=== PATIENT | female | born 1935 | race Caucasian/White ===

== ENCOUNTER 2016-08-18 12:14 | Inpatient (IN) | payer MEDICARE ==
[2016-08-18 17:12] LABS: Glucose,Whole Blood 215 mg/dL (75-99)
[2016-08-18] MEDS ORDERED: ALBUTEROL NEBULIZED 2.5 MG/3 ML INHALATION PRN (17:28)
[2016-08-18] MEDS ORDERED: AZITHROMYCIN 500 MG in SODIUM CHLORIDE 0.9% 250 ML IVPB STA (17:28)
[2016-08-18] MEDS ORDERED: PNEUMONIA PROTOCOL UTILIZED 1 EACH MISC PO PRN (17:28)
[2016-08-18] MEDS ORDERED: NITROGLYCERIN SL TABS 0.4 MG TAB SUBLINGUAL PRN (17:30)
[2016-08-18] MEDS ORDERED: ONDANSETRON 4 MG TAB PO PRN (17:30)
[2016-08-18] MEDS: ACETAMINOPHEN TAB 325 MG TAB PO PRN (18:29)
[2016-08-18] MEDS: INSULIN LISPRO (humaLOG) 300 UNIT/3 ML VIAL SQ SCH ×2 (18:29→22:04)
[2016-08-18] MEDS: SODIUM CHLORIDE 0.9% 1,000 ML IV SCH (18:30)
--- NOTE | 2016-08-18 19:39 | CT ---
EXAMINATION TYPE: CT chest wo con DATE OF EXAM: 08/18/2016 7:12 PM COMPARISON: NONE HISTORY: Cough x [address] DLP: 248.50 mGycm Automated exposure control for dose reduction was used. FINDINGS: Multiple axial sections were obtained from the thoracic inlet to the diaphragm with no contrast. There is some patchy reticular and nodular infiltrate in both lungs and worse in the right upper lobe and right lower lobe. There is a small right pleural effusion. There is a small pericardial effusion . Heart is enlarged. 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 There are n o hilar masses. There is no sign of mediastinal adenopathy. IMPRESSION: THERE ARE BILATERAL INTERSTITIAL AND NODULAR PULMONARY INFILTRATES CONSISTENT WITH INFLAMMATORY DISEA SE. SMALL RIGHT PLEURAL EFFUSION. SMALL PERICARDIAL EFFUSION. MILD ANEURYSM OF ASCENDING AORTA. THERE IS NARROWING OF THE LUMEN OF THE LEFT MAINSTEM BRONCHUS THAT COULD RELATE TO SOME CHONDROMALACIA. THERE IS NOTED MULTIPLE COMPRESSION FRACTURES OF THE THORACIC SPINE INVOLVING T11 T10 T6 T5 CONSISTEN T WITH OSTEOPOROSIS.
[2016-08-18] MEDS: BUDESONIDE 0.5 MG/2 ML NEBU INHALATION SCH (19:51)
[2016-08-18] MEDS: IPRATROPIUM-ALBUTEROL 3 ML NEB INHALATION SCH (19:51)
[2016-08-18] MEDS: OSELTAMIVIR 75 MG CAP PO SCH (21:20)
[2016-08-18 21:30] LABS: Glucose,Whole Blood 161 mg/dL (75-99)
[2016-08-19] MEDS ORDERED: methylPREDNISolone SOD SUCCI 40 MG/ML 1 ML VIAL IV SCH
[2016-08-19] MEDS: LEVOTHYROXINE 112 MCG TAB PO SCH (06:32)
[2016-08-19 07:46] LABS: Glucose,Whole Blood 144 mg/dL (75-99)
[2016-08-19] MEDS: BUDESONIDE 0.5 MG/2 ML NEBU INHALATION SCH ×2 (08:00→21:37)
[2016-08-19] MEDS: IPRATROPIUM-ALBUTEROL 3 ML NEB INHALATION SCH ×4 (08:00→21:37)
[2016-08-19] MEDS: GLIMEPIRIDE 1 MG TAB PO SCH (09:53)
[2016-08-19] MEDS: SENNOSIDES-DOCUSATE SODIUM 1 EACH TAB PO SCH (10:01)
[2016-08-19] MEDS: LORATADINE 10 MG TAB PO SCH (10:01)
[2016-08-19] MEDS: OSELTAMIVIR 75 MG CAP PO SCH (10:01)
[2016-08-19] MEDS: METOPROLOL SUCCINATE (ER) 50 MG TAB.ER.24H PO SCH (10:01)
[2016-08-19] MEDS: PRAVASTATIN SODIUM 40 MG TAB PO SCH (10:01)
[2016-08-19] MEDS: PANTOPRAZOLE 40 MG TABLET PO SCH (10:01)
[2016-08-19] MEDS: guaiFENesin 600 MG TABLET.ER PO SCH (10:01)
[2016-08-19] MEDS: GABAPENTIN 300 MG CAP PO SCH (10:05)
[2016-08-19] MEDS: INSULIN LISPRO (humaLOG) 300 UNIT/3 ML VIAL SQ SCH ×4 (10:05→22:20)
[2016-08-19 12:28] LABS: Glucose,Whole Blood 210 mg/dL (75-99)
[2016-08-19 13:19] LABS: Basophils # (A) 0.1 k/uL (0-0.2); Basophils % (A) 1 %; CH 30.9; Eosinophils # (A) 0.1 k/uL (0-0.7); Eosinophils % (A) 1 %; HCT 42.9 % (34.0-46.0); HGB 13.5 gm/dL (11.4-16.0); Hypochromasia Slight; Luc # (Auto) 0.18; Luc % (Auto) 2; Lymphocytes # (A) 0.5 k/uL (1.0-4.8); Lymphocytes % (A) 5 %; MCH 31.6 pg (25.0-35.0); MCHC 31.5 g/dL (31.0-37.0); MCV 100.2 fL (80.0-100.0); Macrocytosis Slight; Mean Platelet Volume 9.2; Monocytes # (A) 0.6 k/uL (0-1.0); Monocytes % (A) 6 %; Neutrophils # (A) 8.1 k/uL (1.3-7.7); Neutrophils % (A) 86 %; RBC 4.29 m/uL (3.80-5.40); RDW 14.7 % (11.5-15.5); WBC 9.4 k/uL (3.8-10.6); WBC (Perox) 10.16
[2016-08-19] MEDS: SODIUM CHLORIDE 0.9% 1,000 ML IV SCH ×2 (13:34→20:06)
[2016-08-19 13:36] LABS: Calcium 9.4 mg/dL (8.4-10.2); Potassium 4.6 mmol/L (3.5-5.1); Total Bilirubin 0.7 mg/dL (0.2-1.3); Total Protein 5.9 g/dL (6.3-8.2)
[2016-08-19] MEDS ORDERED: SODIUM CHLORIDE 0.9% 250 ML with PAMIDRONATE 60 MG IV ONE ×2 (14:00)
[2016-08-19 16:47] LABS: Glucose,Whole Blood 132 mg/dL (75-99)
--- NOTE | 2016-08-19 17:52 | P.HPIM ---
History of Present Illness H&P Date: 08/18/16 Chief Complaint: CELENA 81 yr old that is admitted to the hospital from [facility], as pt has progressively gotten worse since her admission on 08/14/16. Pt was initially admitted with CELENA, associated with a non productive cough. Pt was initially noted to have Some respiratory acidosis, was started on bipap, thereafter started on abx and breathing tx and triaged to the floor. Pt was then discharged home on 08/16/16, then readmitted overnight with similar complaints. Pt apparently was tachypneic and started on bipap again. Pt's CXR initially was read as pneumonia, however the radiologist at [place] has informed that a diffuse edema, and it is atypical for pneumonia. Currently on 2 l supplemental o2, has cough non productive in nature. Patient was retested for influenza here. Patient was positive this was after being negative twice. Review of Systems All systems: negative (Noted in HPI) Past Medical History Past Medical History: Asthma, Coronary Artery Disease (CAD), COPD, Diabetes Mellitus, Deep Vein Thrombosis (DVT), Eye Disorder, GERD/Reflux, Hearing Disorder / Deafness, Hypertension, Musculoskeletal Disorder, Osteoarthritis (OA) , Pneumonia, Vascular Disorder Additional Past Medical History / Comment(s): restless leg syndrome, cataracts, hx. of pneumonia, neuropathy History of Any Multi-Drug Resistant Organisms: None Reported Past Surgical History: Appendectomy, Cholecystectomy, Heart Catheterization With Stent, Hysterectomy, Pacemaker, Tubal Ligation Additional Past Surgical History / Comment(s): hemroidectomy. cataract removed. tooth extractions, Pemanent Pacemaker, Cardiac Ablation. Pacemaker - November 27, 2010 Past Anesthesia/Blood Transfusion Reactions: No Reported Reaction Date of Last Stent Placement:: 07/08/11 Type of Cardiac Device: Permanent Pacemaker Device Placement Date:: 2003 Past Psychological History: Anxiety, Depression Smoking Status: Never smoker Past Alcohol Use History: None Reported Past Drug Use History: None Reported - Past Family History Mother Family Medical History: No Reported History Medications and Allergies Home Medications Medication Instructions Recorded Confirmed Type Aspirin EC [Ecotrin Low Dose] 81 mg PO DAILY 12/08/13 08/18/16 History Furosemide [Lasix] 40 mg PO DAILY 12/08/13 08/18/16 History Pravastatin Sodium [Pravachol] 40 mg PO DAILY 12/08/13 08/18/16 History rOPINIRole HCL [Requip] 2 mg PO HS 12/08/13 08/18/16 History HYDROcodone/APAP 7.5-325MG [[place] 1 tab PO DAILY PRN 12/06/15 08/18/16 History 7.5-325] Budesonide/Formoterol Fumarate 2 puff INHALATION RT-BID PRN 12/27/15 08/18/16 History [Symbicort 80-4.5 Mcg Inhaler] Allopurinol [Zyloprim] 100 mg PO DAILY 08/18/16 08/18/16 History Gabapentin [Neurontin] 300 mg PO DAILY 08/18/16 08/18/16 History Glimepiride [Amaryl] 1 mg PO AC-BRKFST 08/18/16 08/18/16 History Levothyroxine Sodium [Synthroid] 112 mcg PO DAILY 08/18/16 08/18/16 History Loratadine [Claritin] 10 mg PO DAILY 08/18/16 08/18/16 History Metoprolol Succinate (ER) [Toprol 50 mg PO DAILY 08/18/16 08/18/16 History Xl] Nitroglycerin 0.4 mg SUBLINGUAL Q5M PRN 08/18/16 08/18/16 History Ondansetron HCl [Zofran] 4 mg PO TID PRN 08/18/16 08/18/16 History Pantoprazole [Protonix] 40 mg PO DAILY 08/18/16 08/18/16 History Sennosides-Docusate Sodium 2 tab PO DAILY 08/18/16 08/18/16 History [Senokot-S] Allergies Allergy/AdvReac Type Severity Reaction Status Date / Time digoxin AdvReac Nausea & Verified 01/26/16 16:03 Vomiting metformin HCl AdvReac Nausea & Verified 01/26/16 16:03 [From Glucophage] Vomiting Physical Exam Vitals: Vital Signs Temp Pulse Resp BP Pulse Ox 08/18/16 16:35 97 F L 70 18 116/72 98 Intake and Output 08/18/16 08/18/16 08/18/16 06:59 14:59 22:59 Other: Weight 71 kg Patient Weight 08/19/16 06:59 Weight 71 kg Physical exam Gen. appearance oriented 3 in no distress Neck is supple no JVD Lungs diffuse wheezes and however cleared with the deep cough. There is rhonchi appreciated most of the breath sounds with transmitted from the hypopharynx. Heart S1-S2 heard regular rate and rhythm no murmurs appreciated Abdomen is soft nontender no organomegaly bowel sounds are intact Neurologically cranial nerves II-12 grossly intact no focal motor or sensory deficits noted Skin no abnormalities appreciated Results CBC & Chem 7: 08/19/16 13:08 08/19/16 13:08 Labs: Abnormal Lab Results - Last 24 Hours (Table) 08/18/16 Range/Units 17:10 POC Glucose (mg/dL) 215 H (75-99) mg/dL Thrombosis Risk Factor Assmnt - Choose All That Apply Each Factor Represents 1 point: Abnormal pulmonary function (COPD) Each Risk Factor Represents 3 Points: Age 75 years or older, History of DVT/PE Thrombosis Risk Factor Assessment Total Risk Factor Score: 7 Thrombosis Risk Factor Assessment Level: High Risk Assessment and Plan Plan: #1 acute hypoxic respiratory failure #2 influenza pneumonitis. #3 CAD #4 history of hypertension #5 dyslipidemia #6 hypothyroidism Over [address] chest Duoneb, pulmicort. Mucomyst inhalation therapy will also be added. Pulmonology consultation will be obtained. ABx mucinex PEP valve bipap as needed
--- NOTE | 2016-08-19 17:54 | P.PN ---
Subjective f Complaint: CELENA 81 yr old that is admitted to the hospital from [facility], as pt has progressively gotten worse since her admission on 08/14/16. Pt was initially admitted with CELENA, associated with a non productive cough. Pt was initially noted to have Some respiratory acidosis, was started on bipap, thereafter started on abx and breathing tx and triaged to the floor. Pt was then discharged home on 08/16/16, then readmitted overnight with similar complaints. Pt apparently was tachypneic and started on bipap again. Pt's CXR initially was read as pneumonia, however the radiologist at [place] has informed that a diffuse edema, and it is atypical for pneumonia. Currently on 2 l supplemental o2, has cough non productive in nature. Patient was retested for influenza here. Patient was positive this was after being negative twice. 08/19/2016 No new overnight events. Patient states he slightly improved however does states that she likes a BiPAP support. Patient is not been able to bring up sputum. Objective - Vital Signs Vital signs: Vital Signs Temp 96.4 F L 08/19/16 15:00 Pulse 80 08/19/16 16:42 Resp 19 08/19/16 15:00 BP 123/69 08/19/16 15:00 Pulse Ox 98 08/19/16 15:00 Intake & Output 08/18/16 08/19/16 08/19/16 18:59 06:59 18:59 Intake Total 250 400 700 Balance 250 400 700 Weight 71 kg Intake: IV 700 Sodium Chloride 0.9% 1, 450 000 ml @ 50 mls/hr IV . Q20H [facility] Rx#:[id number] Sodium Chloride 0.9% 250 250 ml @ 83 mls/hr IV .Q3H1M ONE with Pamidronate 60 mg Rx#:[id number] Oral 250 400 Other: Voiding Method Toilet # Voids 1 1 - Exam Physical exam Gen. appearance oriented 3 in no distress Neck is supple no JVD Lungs wheezing with trace rhonchi on the left base. Heart S1-S2 heard regular rate and rhythm no murmurs appreciated Abdomen is soft nontender no organomegaly bowel sounds are intact Neurologically cranial nerves II-12 grossly intact no focal motor or sensory deficits noted Skin no abnormalities appreciated - Labs CBC & Chem 7: 08/19/16 13:08 08/19/16 13:08 Labs: Abnormal Lab Results - Last 24 Hours (Table) 08/18/16 08/18/16 08/18/16 Range/Units 17:44 18:41 21:26 MCV (80.0-100.0) fL Neutrophils # (1.3-7.7) k/uL Lymphocytes # (1.0-4.8) k/uL BUN (7-17) mg/dL Creatinine (0.52-1.04) mg/dL Glucose (74-99) mg/dL POC Glucose (mg/dL) 161 H (75-99) mg/dL AST (14-36) U/L ALT (9-52) U/L C-Reactive Protein 141.0 H (<10.0) mg/L Total Protein (6.3-8.2) g/dL Albumin (3.5-5.0) g/dL Influenza Type A RNA Detected H (Not Detectd) 08/19/16 08/19/16 08/19/16 Range/Units 07:45 12:27 13:08 MCV 100.2 H (80.0-100.0) fL Neutrophils # 8.1 H (1.3-7.7) k/uL Lymphocytes # 0.5 L (1.0-4.8) k/uL BUN (7-17) mg/dL Creatinine (0.52-1.04) mg/dL Glucose (74-99) mg/dL POC Glucose (mg/dL) 144 H 210 H (75-99) mg/dL AST (14-36) U/L ALT (9-52) U/L C-Reactive Protein (<10.0) mg/L Total Protein (6.3-8.2) g/dL Albumin (3.5-5.0) g/dL Influenza Type A RNA (Not Detectd) 08/19/16 08/19/16 Range/Units 13:08 16:45 MCV (80.0-100.0) fL Neutrophils # (1.3-7.7) k/uL Lymphocytes # (1.0-4.8) k/uL BUN 59 H (7-17) mg/dL Creatinine 1.16 H (0.52-1.04) mg/dL Glucose 204 H (74-99) mg/dL POC Glucose (mg/dL) 132 H (75-99) mg/dL AST 54 H (14-36) U/L ALT 59 H (9-52) U/L C-Reactive Protein (<10.0) mg/L Total Protein 5.9 L (6.3-8.2) g/dL Albumin 3.1 L (3.5-5.0) g/dL Influenza Type A RNA (Not Detectd) Assessment and Plan Plan: #1 acute hypoxic respiratory failure #2 influenza pneumonitis. #3 CAD #4 history of hypertension #5 dyslipidemia #6 hypothyroidism Over [address] chest results reviewed. Await pulmonology recommendations. Duoneb, pulmicort. Mucomyst inhalation therapy. Oxygen with humidity will be maintained. ABx mucinex PEP valve Discontinue BiPAP therapy.
[2016-08-19] MEDS: AZITHROMYCIN 500 MG TAB PO SCH (18:19)
--- NOTE | 2016-08-19 18:53 | P.CNPUL ---
History of Present Illness Consult date: 08/19/16 Requesting physician: Manuel Angel Reason for consult: pneumonia Chief complaint: shortness of breath History of present illness: This is an 81 year old patient that was admitted to [facility] from [facility]. Patient was having dyspnea and non productive coughing. Intially the patient was placed on BiPAP related to respiratory acidosis, updrafts and antibiotics were started. Chest X ray from [facility] suggested possibly pneumonia vs. diffuse vascular congestion or edema. Patient is also Influenza A positive at [facility] and was negative at [facility]. Upon examination the patient is resting up in bed on 2L of oxygen and has refused to use the BiPAP overnight per the nursing staff. Patient noted to have an intermittent cough. Denies, fevers, chills, sweats, nausea, vomiting or diarrhea at this time. Review of Systems A 14 point review of systems completed and is negative other than what is noted in the HPI. Past Medical History Past Medical History: Asthma, Coronary Artery Disease (CAD), COPD, Diabetes Mellitus, Deep Vein Thrombosis (DVT), Eye Disorder, GERD/Reflux, Hearing Disorder / Deafness, Hypertension, Musculoskeletal Disorder, Osteoarthritis (OA) , Pneumonia, Vascular Disorder Additional Past Medical History / Comment(s): restless leg syndrome, cataracts, hx. of pneumonia, neuropathy History of Any Multi-Drug Resistant Organisms: None Reported Past Surgical History: Appendectomy, Cholecystectomy, Heart Catheterization With Stent, Hysterectomy, Pacemaker, Tubal Ligation Additional Past Surgical History / Comment(s): hemroidectomy. cataract removed. tooth extractions, Pemanent Pacemaker, Cardiac Ablation. Pacemaker - November 27, 2010 Past Anesthesia/Blood Transfusion Reactions: No Reported Reaction Date of Last Stent Placement:: 07/08/11 Type of Cardiac Device: Permanent Pacemaker Device Placement Date:: 2003 Past Psychological History: Anxiety, Depression Smoking Status: Never smoker Past Alcohol Use History: None Reported Past Drug Use History: None Reported - Past Family History Mother Family Medical History: No Reported History Medications and Allergies Home Medications Medication Instructions Recorded Confirmed Type Aspirin EC [Ecotrin Low Dose] 81 mg PO DAILY 12/08/13 08/18/16 History Furosemide [Lasix] 40 mg PO DAILY 12/08/13 08/18/16 History Pravastatin Sodium [Pravachol] 40 mg PO DAILY 12/08/13 08/18/16 History rOPINIRole HCL [Requip] 2 mg PO HS 12/08/13 08/18/16 History HYDROcodone/APAP 7.5-325MG [[place] 1 tab PO DAILY PRN 12/06/15 08/18/16 History 7.5-325] Budesonide/Formoterol Fumarate 2 puff INHALATION RT-BID PRN 12/27/15 08/18/16 History [Symbicort 80-4.5 Mcg Inhaler] Allopurinol [Zyloprim] 100 mg PO DAILY 08/18/16 08/18/16 History Gabapentin [Neurontin] 300 mg PO DAILY 08/18/16 08/18/16 History Glimepiride [Amaryl] 1 mg PO AC-BRKFST 08/18/16 08/18/16 History Levothyroxine Sodium [Synthroid] 112 mcg PO DAILY 08/18/16 08/18/16 History Loratadine [Claritin] 10 mg PO DAILY 08/18/16 08/18/16 History Metoprolol Succinate (ER) [Toprol 50 mg PO DAILY 08/18/16 08/18/16 History Xl] Nitroglycerin 0.4 mg SUBLINGUAL Q5M PRN 08/18/16 08/18/16 History Ondansetron HCl [Zofran] 4 mg PO TID PRN 08/18/16 08/18/16 History Pantoprazole [Protonix] 40 mg PO DAILY 08/18/16 08/18/16 History Sennosides-Docusate Sodium 2 tab PO DAILY 08/18/16 08/18/16 History [Senokot-S] Allergies Allergy/AdvReac Type Severity Reaction Status Date / Time digoxin AdvReac Nausea & Verified 01/26/16 16:03 Vomiting metformin HCl AdvReac Nausea & Verified 01/26/16 16:03 [From Glucophage] Vomiting Physical Exam Vitals: Vital Signs Temp Pulse Pulse Resp BP Pulse Ox 08/19/16 16:42 80 08/19/16 16:22 80 08/19/16 16:00 19 08/19/16 15:00 96.4 F L 70 19 123/69 98 08/19/16 12:00 80 08/19/16 11:52 84 08/19/16 08:18 76 08/19/16 08:03 80 08/19/16 07:00 96.2 F L 70 20 118/69 99 08/18/16 23:35 18 08/18/16 23:00 96.6 F L 70 20 123/81 99 08/18/16 20:17 76 08/18/16 19:51 74 Intake and Output 08/19/16 08/19/16 08/19/16 06:59 14:59 22:59 Intake Total 100 700 Balance 100 700 Intake: IV 700 Sodium Chloride 0.9% 1, 450 000 ml @ 50 mls/hr IV . Q20H [facility] Rx#:[id number] Sodium Chloride 0.9% 250 250 ml @ 83 mls/hr IV .Q3H1M ONE with Pamidronate 60 mg Rx#:[id number] Oral 100 Other: Voiding Method Toilet # Voids 1 1 General: Patient alert and awake Head: normocephalic Eyes: Normal reaction of pupils, equal size. Nose: Clear with pink turbinates Throat: No erythema or exudates Neck: No masses or JVD Chest: NO chest wall deformity Lungs: Bilateral wheezes and rhonchi noted throughout CVS: S1 and S2 normal with no murmur or rub Abdomen: No hepatosplenomegaly, normal bowel sounds, no guarding or rigidgy Extremities: No edema, +1 peripheral pulses Skin: no rashes Neuro: Alert awake, no focal deficits, tone is normal in all 4 extremities. Results - Laboratory Findings CBC and BMP: 08/19/16 13:08 08/19/16 13:08 Abnormal lab findings: Abnormal Labs 08/18/16 08/18/16 08/18/16 17:10 17:44 18:41 MCV Neutrophils # Lymphocytes # BUN Creatinine Glucose POC Glucose (mg/dL) 215 H AST ALT C-Reactive Protein 141.0 H Total Protein Albumin Influenza Type A RNA Detected H 08/18/16 08/19/16 08/19/16 21:26 07:45 12:27 MCV Neutrophils # Lymphocytes # BUN Creatinine Glucose POC Glucose (mg/dL) 161 H 144 H 210 H AST ALT C-Reactive Protein Total Protein Albumin Influenza Type A RNA 08/19/16 08/19/16 08/19/16 13:08 13:08 16:45 MCV 100.2 H Neutrophils # 8.1 H Lymphocytes # 0.5 L BUN 59 H Creatinine 1.16 H Glucose 204 H POC Glucose (mg/dL) 132 H AST 54 H ALT 59 H C-Reactive Protein Total Protein 5.9 L Albumin 3.1 L Influenza Type A RNA - Diagnostic Findings Chest x-ray: report reviewed, image reviewed CT scan - chest: report reviewed, image reviewed Assessment and Plan Plan: Assessment: Acute hypoxic respiratory failure Influenza B pneumonitis CAD History of hypertension Dyslipidemia Hypothyroidism Restless leg syndrome Plan We will continue the patient on Tamiflu, and nebulizer treatments. Encourage the patient to use BiPAP at bedtime and as needed. Continue with 2L of supplemental oxygen to keep oxygen saturations above 92%. We will continue to monitor labs and adjust treatment as necessary.
[2016-08-19] MEDS ORDERED: ACETYLCYSTEINE 800 MG/4 ML VIAL INHALATION SCH (20:00)
[2016-08-19] MEDS: OSELTAMIVIR 60 MG/10 ML ORAL SYRINGE PO SCH (20:07)
[2016-08-19 20:51] LABS: Glucose,Whole Blood 117 mg/dL (75-99)
[2016-08-19] MEDS ORDERED: OSELTAMIVIR 75 MG CAP PO SCH (21:00)
[2016-08-19] MEDS: ACETYLCYSTEINE 800 MG/4 ML VIAL INHALATION SCH (21:40)
[2016-08-20] MEDS: LEVOTHYROXINE 112 MCG TAB PO SCH (06:29)
[2016-08-20 07:15] LABS: Glucose,Whole Blood 86 mg/dL (75-99)
[2016-08-20] MEDS: BUDESONIDE 0.5 MG/2 ML NEBU INHALATION SCH ×2 (07:18→20:51)
[2016-08-20] MEDS: ACETYLCYSTEINE 800 MG/4 ML VIAL INHALATION SCH ×3 (07:18→20:51)
[2016-08-20] MEDS: IPRATROPIUM-ALBUTEROL 3 ML NEB INHALATION SCH ×4 (07:18→20:51)
[2016-08-20] MEDS: INSULIN LISPRO (humaLOG) 300 UNIT/3 ML VIAL SQ SCH ×4 (07:37→20:49)
[2016-08-20] MEDS: guaiFENesin 600 MG TABLET.ER PO SCH (08:04)
[2016-08-20] MEDS: LORATADINE 10 MG TAB PO SCH (08:04)
[2016-08-20] MEDS: PRAVASTATIN SODIUM 40 MG TAB PO SCH (08:04)
[2016-08-20] MEDS: PANTOPRAZOLE 40 MG TABLET PO SCH (08:04)
[2016-08-20] MEDS: GLIMEPIRIDE 1 MG TAB PO SCH (08:04)
[2016-08-20] MEDS: METOPROLOL SUCCINATE (ER) 50 MG TAB.ER.24H PO SCH (08:04)
[2016-08-20] MEDS: GABAPENTIN 300 MG CAP PO SCH (08:04)
[2016-08-20] MEDS: SENNOSIDES-DOCUSATE SODIUM 1 EACH TAB PO SCH (08:08)
[2016-08-20] MEDS: OSELTAMIVIR 60 MG/10 ML ORAL SYRINGE PO SCH ×2 (08:35→20:46)
--- NOTE | 2016-08-20 11:19 | P.PN ---
Subjective This is an 81-year-old patient that is being evaluated and examined today on the fourth floor. The patient was admitted to [facility] from [facility]. Patient was having dyspnea on non-productive coughing. Initially the patient was placed on BiPAP related to respiratory acidosis, AND antibiotics were started at that time. The chest x-ray from her last suggested possible pneumonia versus diffuse vascular congestion or edema. The patient is also influenza a positive [facility] after 2 negative swabs at [facility]. Upon examining the patient the patient is resting up in bed on 2-3 L of oxygen, since she has been admitted here she has refused the use of BiPAP which is ordered for nighttime and when necessary. She is noted to have a dry intermittent cough. Patient states that she feels like she has some congestion she could bring up however is unsuccessful with bringing it up with her cough.She denies any fevers, chills, sweats, nausea, vomiting, or diarrhea at this time. Patient had no acute events overnight. Objective - Vital Signs Vital signs: Vital Signs Temp 96.8 F L 08/20/16 07:00 Pulse 76 08/20/16 07:57 Resp 16 08/20/16 08:00 BP 130/58 08/20/16 07:00 Pulse Ox 99 08/20/16 07:00 Intake & Output 08/19/16 08/20/16 08/20/16 18:59 06:59 18:59 Intake Total 700 Balance 700 Intake: IV 700 Sodium Chloride 0.9% 1, 450 000 ml @ 50 mls/hr IV . Q20H [facility] Rx#:[id number] Sodium Chloride 0.9% 250 250 ml @ 83 mls/hr IV .Q3H1M ONE with Pamidronate 60 mg Rx#:[id number] Other: Voiding Method Toilet # Voids 1 1 - Exam GENERAL EXAM: Alert, active, comfortable in no apparent distress. HEAD: Normocephalic. EYES: Normal reaction of pupils, equal size. NOSE: Clear with pink turbinates. THROAT: No erythema or exudates. NECK: No masses, no JVD. CHEST: No chest wall deformity. LUNGS: Equal air entry with rhonchi and wheezes noted throughout CVS: S1 and S2 normal with no audible mumurs, regular rhythm. ABDOMEN: No hepatosplenomegaly, normal bowel sounds, no guarding or rigidity. EXTREMITIES: No edema noted, pedal pulses palpable. SKIN: No rashes CENTRAL NERVOUS SYSTEM: No focal deficits, tone is normal in all 4 extremities. - Labs CBC & Chem 7: 08/19/16 13:08 08/19/16 13:08 Labs: Abnormal Lab Results - Last 24 Hours (Table) 08/19/16 08/19/16 08/19/16 Range/Units 12:27 13:08 13:08 MCV 100.2 H (80.0-100.0) fL Neutrophils # 8.1 H (1.3-7.7) k/uL Lymphocytes # 0.5 L (1.0-4.8) k/uL BUN 59 H (7-17) mg/dL Creatinine 1.16 H (0.52-1.04) mg/dL Glucose 204 H (74-99) mg/dL POC Glucose (mg/dL) 210 H (75-99) mg/dL AST 54 H (14-36) U/L ALT 59 H (9-52) U/L Total Protein 5.9 L (6.3-8.2) g/dL Albumin 3.1 L (3.5-5.0) g/dL 08/19/16 08/19/16 Range/Units 16:45 20:49 MCV (80.0-100.0) fL Neutrophils # (1.3-7.7) k/uL Lymphocytes # (1.0-4.8) k/uL BUN (7-17) mg/dL Creatinine (0.52-1.04) mg/dL Glucose (74-99) mg/dL POC Glucose (mg/dL) 132 H 117 H (75-99) mg/dL AST (14-36) U/L ALT (9-52) U/L Total Protein (6.3-8.2) g/dL Albumin (3.5-5.0) g/dL Microbiology - Last 24 Hours (Table) 08/18/16 17:44 Blood Culture - Preliminary Blood No Growth after 24 hours Assessment and Plan Plan: Assessment: Acute hypoxic respiratory failure Influenza B pneumonitis CAD History of hypertension Dyslipidemia Hypothyroidism Restless leg syndrome Plan We will continue the patient on Tamiflu, and nebulizer treatments. Encourage the patient to use BiPAP at bedtime and as needed. Continue with 2-3L of supplemental oxygen to keep oxygen saturations above 92%. We will add a flutter valve to help with secretions. We will continue to monitor labs and adjust treatment as necessary. I performed an examination of the patient and discussed their management with the nurse practitioner. I have reviewed the nurse practitioner's note and agree with the documented findings and plan of care.
--- NOTE | 2016-08-20 11:48 | CDI ---
In responding to this query, please exercise your independent professional judgment. The [facility] Coding Staff and Clinical Documentation Specialists appreciate your assistance in clarifying documentation, maintaining compliance with coding guidelines, accurately documenting patients condition and capturing severity of illness. The fact that a question is asked does not imply that any particular answer is desired or expected. Communication forms are a method of clarifying documentation and are not made part of the Legal Health Record. Thank you in advance for your clarification. Last Revision, April [address] [facility] [facility] [place] [address] Documentation Clarification Form Date: 08/20/2016 11:43:00 AM From: Iveth Arteaga Admit Date: 08/18/2016 4:17:00 PM Patient Name: Airam Turner Visit Number: [id number] Dr. Manuel Angel Patient presents with a BUN/CR/GFR of: 59/1.16/45 History/Risk Factors: Age: 81 yrs Diabetes Mellitus Hypertension Influenza with Pneumonia Clinical Indicators: Labs noted above Treatment: IV fluids @50 cc/hr In order to capture the severity of condition, please clarify if the condition signifies: Acute renal failure Acute on chronic renal failure Chronic kidney disease (CKD) and please stage Stage 3 GFR 30-59 Other Stage (please specify) Unable to determine Other, specify Please document in your progress notes and discharge summary in order to capture severity of illness and risk of mortality. Include clinical findings that support your diagnosis. FYI: Press F11 to launch patient chart. Place X here if this finding has no clinical significance, is not applicable or if you are not able to provide any additional documentation. ANDERSON
--- NOTE | 2016-08-20 11:57 | CDI ---
In responding to this query, please exercise your independent professional judgment. The [facility] Coding Staff and Clinical Documentation Specialists appreciate your assistance in clarifying documentation, maintaining compliance with coding guidelines, accurately documenting patients condition and capturing severity of illness. The fact that a question is asked does not imply that any particular answer is desired or expected. Communication forms are a method of clarifying documentation and are not made part of the Legal Health Record. Thank you in advance for your clarification. Last Revision, August 2015 Zack Lang [address] [place] [address] Documentation Clarification Form Date: 08/20/2016 11:49:00 AM From: Iveth Arteaga Admit Date: 08/18/2016 4:17:00 PM Patient Name: Airam Turner Visit Number: [id number] Dr. Manuel Angel History/Risk Factors: Age: 81 yrs Clinical Indications: CT chest on 08/18: 'multiple compression fractures of thoracic spine involving T11, T10, T6, T5 consistent with osteoporosis' Treatment: IV Aredia administered on 08/19 then d/c'd Consult: PT/OT In your professional opinion, please specify the following: Etiology of fracture: Traumatic Pathological (specify cause): Osteoporosis Other (please specify) Unable to determine Specify if: Closed Open Also, indicate any associated diagnosis/conditions related to the Fracture in your documentation. Please document in your progress notes and discharge summary in order to capture severity of illness and risk of mortality. Include clinical findings that support your diagnosis. FYI: Press F11 to launch patient chart Place X here if this finding has no clinical significance, is not applicable or if you are not able to provide any additional documentation. ANDERSON
[2016-08-20 12:24] LABS: Glucose,Whole Blood 81 mg/dL (75-99)
--- NOTE | 2016-08-20 13:43 | XR ---
EXAMINATION TYPE: XR chest 2V DATE OF EXAM: 08/20/2016 1:38 PM COMPARISON: 08/18/2016 TECHNIQUE: PA and lateral views submitted. HISTORY: ECF placement FINDINGS: Scoliosis seen. Surgical clips in the upper quadrant of the abdomen. Cardiac device and atherosclerot ic change aorta. Biapical pleural thickening. Diffuse osteopenia. Subsegmental changes left lung base with tiny effusion. Chronic appearing multiple compression deformities thoracic spine. IMPRESSION: 1. Left basilar atelectasis or infiltrate with tiny effusion. 2. Interstitial changes may be on the basis of chronic interstitial lung disease or pneumonitis.
[2016-08-20] MEDS ORDERED: INFLUENZA VACCINE (3YR+) 60 MCG/0.5 ML SYRINGE IM ONE (16:01)
[2016-08-20] MEDS ORDERED: PNEUMOCOCCAL VACC-PNEUMOVAX 23 25 MCG/0.5 ML VIAL IM ONE (16:01)
[2016-08-20] MEDS: SODIUM CHLORIDE 0.9% 1,000 ML IV SCH (17:38)
[2016-08-20] MEDS: AZITHROMYCIN 500 MG TAB PO SCH (17:40)
[2016-08-20 17:43] LABS: Glucose,Whole Blood 90 mg/dL (75-99)
--- NOTE | 2016-08-20 19:06 | P.PN ---
Subjective f Complaint: CELENA 81 yr old that is admitted to the hospital from [facility], as pt has progressively gotten worse since her admission on 08/14/16. Pt was initially admitted with CELENA, associated with a non productive cough. Pt was initially noted to have Some respiratory acidosis, was started on bipap, thereafter started on abx and breathing tx and triaged to the floor. Pt was then discharged home on 08/16/16, then readmitted overnight with similar complaints. Pt apparently was tachypneic and started on bipap again. Pt's CXR initially was read as pneumonia, however the radiologist at [place] has informed that a diffuse edema, and it is atypical for pneumonia. Currently on 2 l supplemental o2, has cough non productive in nature. Patient was retested for influenza here. Patient was positive this was after being negative twice. 08/19/2016 No new overnight events. Patient states he slightly improved however does states that she likes a BiPAP support. Patient is not been able to bring up sputum. 08/20/16 No new overnight events states to be feeling slightly better UNable to cough up sputum No fevers, chills, nausea, vomiting. Objective - Vital Signs Vital signs: Vital Signs Temp 96.3 F L 08/20/16 15:00 Pulse 80 08/20/16 16:36 Resp 20 08/20/16 16:00 BP 120/73 08/20/16 15:00 Pulse Ox 100 08/20/16 15:00 Intake & Output 08/20/16 08/20/16 08/21/16 06:59 18:59 06:59 Other: Voiding Method Toilet # Voids 1 2 - Exam Physical exam Gen. appearance oriented 3 in no distress Neck is supple no JVD Lungs wheezing with trace rhonchi diffusely transmitted from hypopharynx Heart S1-S2 heard regular rate and rhythm no murmurs appreciated Abdomen is soft nontender no organomegaly bowel sounds are intact Neurologically cranial nerves II-12 grossly intact no focal motor or sensory deficits noted Skin no abnormalities appreciated - Labs CBC & Chem 7: 08/19/16 13:08 08/19/16 13:08 Labs: Abnormal Lab Results - Last 24 Hours (Table) 08/19/16 Range/Units 20:49 POC Glucose (mg/dL) 117 H (75-99) mg/dL Microbiology - Last 24 Hours (Table) 08/18/16 17:44 Blood Culture - Preliminary Blood No Growth after 24 hours Assessment and Plan Plan: #1 acute hypoxic respiratory failure sec to #2 #2 influenza pneumonitis. #3 CAD #4 history of hypertension #5 dyslipidemia #6 hypothyroidism 7 restless leg syndrome. 8. CKD [address] chest results reviewed. Attempted deep suctioning Discussed with pulmonology regarding bronchoscopy. will undergo procedure taviathelma David. Mucomyst inhalation therapy. Oxygen with humidity will be maintained. ABx mucinex PEP valve
[2016-08-20 20:24] LABS: Glucose,Whole Blood 108 mg/dL (75-99)
[2016-08-21] MEDS: LEVOTHYROXINE 112 MCG TAB PO SCH (06:14)
[2016-08-21 07:19] LABS: Glucose,Whole Blood 52 mg/dL (75-99)
[2016-08-21] MEDS: INSULIN LISPRO (humaLOG) 300 UNIT/3 ML VIAL SQ SCH ×4 (07:37→22:04)
[2016-08-21] MEDS: GLIMEPIRIDE 1 MG TAB PO SCH (07:39)
[2016-08-21 07:45] LABS: Glucose,Whole Blood 73 mg/dL (75-99)
[2016-08-21] MEDS: METOPROLOL SUCCINATE (ER) 50 MG TAB.ER.24H PO SCH (07:46)
[2016-08-21] MEDS: PANTOPRAZOLE 40 MG TABLET PO SCH (07:46)
[2016-08-21] MEDS: LORATADINE 10 MG TAB PO SCH (07:46)
[2016-08-21] MEDS: guaiFENesin 600 MG TABLET.ER PO SCH (07:47)
[2016-08-21] MEDS: SENNOSIDES-DOCUSATE SODIUM 1 EACH TAB PO SCH (07:47)
[2016-08-21] MEDS: OSELTAMIVIR 60 MG/10 ML ORAL SYRINGE PO SCH ×2 (08:21→22:50)
[2016-08-21] MEDS: IPRATROPIUM-ALBUTEROL 3 ML NEB INHALATION SCH ×4 (08:59→20:33)
[2016-08-21] MEDS: ACETYLCYSTEINE 800 MG/4 ML VIAL INHALATION SCH ×3 (08:59→20:33)
[2016-08-21] MEDS: BUDESONIDE 0.5 MG/2 ML NEBU INHALATION SCH ×2 (08:59→20:33)
[2016-08-21] MEDS: PRAVASTATIN SODIUM 40 MG TAB PO SCH (09:15)
[2016-08-21 09:31] LABS: Calcium 9.1 mg/dL (8.4-10.2); Potassium 4.8 mmol/L (3.5-5.1); Total Bilirubin 0.6 mg/dL (0.2-1.3); Total Protein 5.7 g/dL (6.3-8.2)
[2016-08-21 09:37] LABS: Basophils % (A) 0 %; CH 30.5; CHCM 30.3; Eosinophils # (A) 0.1 k/uL (0-0.7); Eosinophils % (A) 2 %; HCT 46.5 % (34.0-46.0); HDW 2.56; HGB 14.2 gm/dL (11.4-16.0); Hypochromasia Moderate; Luc # (Auto) 0.27; Luc % (Auto) 4; Lymphocytes # (A) 1.6 k/uL (1.0-4.8); Lymphocytes % (A) 23 %; MCH 30.8 pg (25.0-35.0); MCHC 30.5 g/dL (31.0-37.0); Macrocytosis Slight; Mean Platelet Volume 9.3; Monocytes # (A) 0.6 k/uL (0-1.0); Monocytes % (A) 8 %; Neutrophils # (A) 4.3 k/uL (1.3-7.7); Neutrophils % (A) 63 %; RDW 14.9 % (11.5-15.5); WBC 6.9 k/uL (3.8-10.6); WBC (Perox) 6.76
[2016-08-21] MEDS: GABAPENTIN 300 MG CAP PO SCH (09:51)
--- NOTE | 2016-08-21 11:56 | XR ---
EXAMINATION TYPE: XR chest 1V portable DATE OF EXAM: 08/21/2016 10:59 AM COMPARISON: 08/20/2016 HISTORY: Shortness of breath TECHNIQUE: Single frontal view of the chest is obtained. FINDINGS: Scoliosis seen. Surgical clips in the upper quadrant of the abdomen. Cardiac device and at herosclerotic change aorta. Biapical pleural thickening. Diffuse osteopenia. Subsegmental changes lef t lung base with tiny effusion. Chronic appearing multiple compression deformities thoracic spine. More focal area of density in the right upper lobe IMPRESSION: 1. Left basilar atelectasis or infiltrate with tiny effusion. 2. Interstitial changes may be on the basis of chronic interstitial lung disease or pneumonitis. More focal density now seen in the right upper lobe which may represent developing infiltrate. Follow-up to resolution.
[2016-08-21 12:06] LABS: Glucose,Whole Blood 97 mg/dL (75-99)
--- NOTE | 2016-08-21 13:56 | P.PN ---
Subjective This is an 81-year-old patient that is being evaluated and examined today on the fourth floor. The patient was admitted to [facility] from [facility]. Patient was having dyspnea on non-productive coughing. Initially the patient was placed on BiPAP related to respiratory acidosis, AND antibiotics were started at that time. The chest x-ray from her last suggested possible pneumonia versus diffuse vascular congestion or edema. The patient is also influenza a positive [facility] after 2 negative swabs at [facility]. Upon examining the patient the patient is resting up in bed on 2-3 L of oxygen, since she has been admitted here she has refused the use of BiPAP which is ordered for nighttime and when necessary. She is noted to have a dry intermittent cough. Patient states that she feels like she has some congestion she could bring up however is unsuccessful with bringing it up with her cough. She denies any fevers, chills, sweats, nausea, vomiting, or diarrhea at this time. Patient had no acute events overnight. Patient will undergo bronchoscopy with Dr. Porter on Friday. Objective - Vital Signs Vital signs: Vital Signs Temp 96.5 F L 08/21/16 07:00 Pulse 84 08/21/16 09:14 Resp 16 08/21/16 08:00 BP 129/84 08/21/16 07:00 Pulse Ox 99 08/21/16 07:00 Intake & Output 08/20/16 08/21/16 08/21/16 18:59 06:59 18:59 Intake Total 400 Balance 400 Intake: Oral 400 Other: Voiding Method Toilet Toilet # Voids 2 1 - Exam GENERAL EXAM: Alert, active, comfortable in no apparent distress. HEAD: Normocephalic. EYES: Normal reaction of pupils, equal size. NOSE: Clear with pink turbinates. THROAT: No erythema or exudates. NECK: No masses, no JVD. CHEST: No chest wall deformity. LUNGS: Equal air entry with rhonchi and wheezes noted throughout CVS: S1 and S2 normal with no audible mumurs, regular rhythm. ABDOMEN: No hepatosplenomegaly, normal bowel sounds, no guarding or rigidity. EXTREMITIES: No edema noted, pedal pulses palpable. SKIN: No rashes CENTRAL NERVOUS SYSTEM: No focal deficits, tone is normal in all 4 extremities. - Labs CBC & Chem 7: 08/21/16 08:07 08/21/16 08:45 Labs: Abnormal Lab Results - Last 24 Hours (Table) 08/20/16 08/21/16 08/21/16 Range/Units 20:20 07:18 07:44 Hct (34.0-46.0) % MCV (80.0-100.0) fL MCHC (31.0-37.0) g/dL Carbon Dioxide (22-30) mmol/L BUN (7-17) mg/dL Creatinine (0.52-1.04) mg/dL Glucose (74-99) mg/dL POC Glucose (mg/dL) 108 H 52 L 73 L (75-99) mg/dL Total Protein (6.3-8.2) g/dL Albumin (3.5-5.0) g/dL 08/21/16 08/21/16 Range/Units 08:07 08:45 Hct 46.5 H (34.0-46.0) % MCV 101.0 H (80.0-100.0) fL MCHC 30.5 L (31.0-37.0) g/dL Carbon Dioxide 31 H (22-30) mmol/L BUN 43 H (7-17) mg/dL Creatinine 1.13 H (0.52-1.04) mg/dL Glucose 100 H (74-99) mg/dL POC Glucose (mg/dL) (75-99) mg/dL Total Protein 5.7 L (6.3-8.2) g/dL Albumin 3.0 L (3.5-5.0) g/dL Microbiology - Last 24 Hours (Table) 08/18/16 17:44 Blood Culture - Preliminary Blood No Growth after 48 hours Assessment and Plan Plan: Assessment: Acute hypoxic respiratory failure Influenza B pneumonitis CAD History of hypertension Dyslipidemia Hypothyroidism Restless leg syndrome Plan Patient will undergo bronchoscopy on Friday. We will continue the patient on Tamiflu, and nebulizer treatments. Encourage the patient to use BiPAP at bedtime and as needed. Continue with 2-3L of supplemental oxygen to keep oxygen saturations above 92%. We will add a flutter valve to help with secretions. Continue to try to get a sputum sample for culture. We will continue to monitor labs and adjust treatment as necessary. I performed an examination of the patient and discussed their management with the nurse practitioner. I have reviewed the nurse practitioner's note and agree with the documented findings and plan of care.
[2016-08-21 17:16] LABS: Glucose,Whole Blood 64 mg/dL (75-99)
--- NOTE | 2016-08-21 17:24 | P.PN ---
Subjective f Complaint: CELENA 81 yr old that is admitted to the hospital from [facility], as pt has progressively gotten worse since her admission on 08/14/16. Pt was initially admitted with CELENA, associated with a non productive cough. Pt was initially noted to have Some respiratory acidosis, was started on bipap, thereafter started on abx and breathing tx and triaged to the floor. Pt was then discharged home on 08/16/16, then readmitted overnight with similar complaints. Pt apparently was tachypneic and started on bipap again. Pt's CXR initially was read as pneumonia, however the radiologist at [place] has informed that a diffuse edema, and it is atypical for pneumonia. Currently on 2 l supplemental o2, has cough non productive in nature. Patient was retested for influenza here. Patient was positive this was after being negative twice. 08/19/2016 No new overnight events. Patient states he slightly improved however does states that she likes a BiPAP support. Patient is not been able to bring up sputum. 08/20/16 No new overnight events states to be feeling slightly better UNable to cough up sputum No fevers, chills, nausea, vomiting. 2016 States she is still not able to bring up any secretions however states that her breathing is slightly better. Denies having fevers, chills, nausea, vomiting. Objective - Vital Signs Vital signs: Vital Signs Temp 95.6 F L 08/21/16 15:00 Pulse 72 08/21/16 17:14 Resp 16 08/21/16 15:00 BP 135/76 08/21/16 15:00 Pulse Ox 97 08/21/16 15:00 Intake & Output 08/20/16 08/21/16 08/21/16 18:59 06:59 18:59 Intake Total 400 520 Balance 400 520 Intake: IV 400 Sodium Chloride 0.9% 1, 400 000 ml @ 50 mls/hr IV . Q20H [facility] Rx#:[id number] Oral 400 120 Other: Voiding Method Toilet Toilet # Voids 2 1 3 - Exam Physical exam Gen. appearance oriented 3 in no distress Neck is supple no JVD Lungs wheezing with trace rhonchi diffusely transmitted from hypopharynx Heart S1-S2 heard regular rate and rhythm no murmurs appreciated Abdomen is soft nontender no organomegaly bowel sounds are intact Neurologically cranial nerves II-12 grossly intact no focal motor or sensory deficits noted Skin no abnormalities appreciated - Labs CBC & Chem 7: 08/21/16 08:07 03 08:45 Labs: Abnormal Lab Results - Last 24 Hours (Table) 08/20/16 08/21/16 08/21/16 Range/Units 20:20 07:18 07:44 Hct (34.0-46.0) % MCV (80.0-100.0) fL MCHC (31.0-37.0) g/dL Carbon Dioxide (22-30) mmol/L BUN (7-17) mg/dL Creatinine (0.52-1.04) mg/dL Glucose (74-99) mg/dL POC Glucose (mg/dL) 108 H 52 L 73 L (75-99) mg/dL Total Protein (6.3-8.2) g/dL Albumin (3.5-5.0) g/dL 08/21/16 08/21/16 08/21/16 Range/Units 08:07 08:45 17:14 Hct 46.5 H (34.0-46.0) % MCV 101.0 H (80.0-100.0) fL MCHC 30.5 L (31.0-37.0) g/dL Carbon Dioxide 31 H (22-30) mmol/L BUN 43 H (7-17) mg/dL Creatinine 1.13 H (0.52-1.04) mg/dL Glucose 100 H (74-99) mg/dL POC Glucose (mg/dL) 64 L (75-99) mg/dL Total Protein 5.7 L (6.3-8.2) g/dL Albumin 3.0 L (3.5-5.0) g/dL Microbiology - Last 24 Hours (Table) 08/18/16 17:44 Blood Culture - Preliminary Blood No Growth after 48 hours Assessment and Plan Plan: #1 acute hypoxic respiratory failure sec to #2 #2 influenza pneumonitis. #3 CAD #4 history of hypertension #5 dyslipidemia #6 hypothyroidism 7 restless leg syndrome. 8. CKD 3 #9. Osteoporosis likely by the diagnosis of nontraumatic fractures patient was given one dose of pamidronate. Plan Discussed with pulmonology regarding bronchoscopy.likely be in the next 24-48 hours. will undergo procedure tavia. Duoneb, pulmicort. Mucomyst inhalation therapy. Oxygen with humidity will be maintained. ABx mucinex PEP valve DVT prophylaxis.
[2016-08-21 18:30] LABS: Glucose,Whole Blood 74 mg/dL (75-99)
[2016-08-21] MEDS: AZITHROMYCIN 500 MG TAB PO SCH (18:45)
[2016-08-21 20:28] LABS: Glucose,Whole Blood 77 mg/dL (75-99)
[2016-08-22 02:11] LABS: Glucose,Whole Blood 98 mg/dL (75-99)
[2016-08-22] MEDS: ACETAMINOPHEN TAB 325 MG TAB PO PRN (03:31)
[2016-08-22] MEDS: SODIUM CHLORIDE 0.9% 1,000 ML IV SCH ×2 (03:32→20:42)
[2016-08-22] MEDS: LEVOTHYROXINE 112 MCG TAB PO SCH (06:30)
[2016-08-22 07:27] LABS: Glucose,Whole Blood 87 mg/dL (75-99)
[2016-08-22] MEDS: INSULIN LISPRO (humaLOG) 300 UNIT/3 ML VIAL SQ SCH ×4 (07:47→20:51)
[2016-08-22] MEDS: GLIMEPIRIDE 1 MG TAB PO SCH (07:48)
[2016-08-22] MEDS: BUDESONIDE 0.5 MG/2 ML NEBU INHALATION SCH ×2 (07:53→20:34)
[2016-08-22] MEDS: IPRATROPIUM-ALBUTEROL 3 ML NEB INHALATION SCH ×4 (07:53→20:34)
[2016-08-22] MEDS: ACETYLCYSTEINE 800 MG/4 ML VIAL INHALATION SCH ×3 (07:53→20:34)
[2016-08-22 07:54] LABS: Basophils % (A) 1 %; CH 30.6; CHCM 30.5; Eosinophils # (A) 0.2 k/uL (0-0.7); Eosinophils % (A) 3 %; HCT 46.1 % (34.0-46.0); HDW 2.56; Hypochromasia Moderate; Luc # (Auto) 0.16; Luc % (Auto) 3; Lymphocytes % (A) 17 %; MCH 30.6 pg (25.0-35.0); MCHC 30.3 g/dL (31.0-37.0); MCV 101.2 fL (80.0-100.0); Macrocytosis Slight; Mean Platelet Volume 8.4; Monocytes # (A) 0.4 k/uL (0-1.0); Monocytes % (A) 6 %; Neutrophils # (A) 4.1 k/uL (1.3-7.7); Neutrophils % (A) 71 %; RBC 4.56 m/uL (3.80-5.40); RDW 14.7 % (11.5-15.5); WBC 5.8 k/uL (3.8-10.6); WBC (Perox) 5.94
[2016-08-22 08:05] LABS: Calcium 9.4 mg/dL (8.4-10.2); Total Bilirubin 0.5 mg/dL (0.2-1.3); Total Protein 5.5 g/dL (6.3-8.2)
[2016-08-22 08:19] LABS: Potassium 5.2 mmol/L (3.5-5.1)
[2016-08-22] MEDS: LORATADINE 10 MG TAB PO SCH (08:30)
[2016-08-22] MEDS: PRAVASTATIN SODIUM 40 MG TAB PO SCH (08:30)
[2016-08-22] MEDS: METOPROLOL SUCCINATE (ER) 50 MG TAB.ER.24H PO SCH (08:30)
[2016-08-22] MEDS: guaiFENesin 600 MG TABLET.ER PO SCH (08:30)
[2016-08-22] MEDS: PANTOPRAZOLE 40 MG TABLET PO SCH (08:30)
[2016-08-22] MEDS: GABAPENTIN 300 MG CAP PO SCH (08:30)
[2016-08-22] MEDS: SENNOSIDES-DOCUSATE SODIUM 1 EACH TAB PO SCH (08:34)
[2016-08-22] MEDS: OSELTAMIVIR 60 MG/10 ML ORAL SYRINGE PO SCH ×2 (09:00→20:41)
--- NOTE | 2016-08-22 11:31 | P.PN ---
Subjective This is an 81-year-old patient that is being evaluated and examined today on the fourth floor. The patient was admitted to [facility] from [facility]. Patient was having dyspnea on non-productive coughing. Initially the patient was placed on BiPAP related to respiratory acidosis, AND antibiotics were started at that time. The chest x-ray from her last suggested possible pneumonia versus diffuse vascular congestion or edema. The patient is also influenza a positive [facility] after 2 negative swabs at [facility]. Upon examining the patient the patient is resting up in bed on 2-3 L of oxygen, since she has been admitted here she has refused the use of BiPAP which is ordered for nighttime and when necessary. She is noted to have a dry intermittent cough. Patient states that she feels like she has some congestion she could bring up however is unsuccessful with bringing it up with her cough. She denies any fevers, chills, sweats, nausea, vomiting, or diarrhea at this time. Patient had no acute events overnight. Patient will undergo bronchoscopy with Dr. Porter on tomorrow at 1:30 PM. Objective - Vital Signs Vital signs: Vital Signs Temp 96.1 F L 08/22/16 07:00 Pulse 90 08/22/16 08:12 Resp 16 08/22/16 07:00 BP 129/76 08/22/16 07:00 Pulse Ox 93 L 08/22/16 07:00 Intake & Output 08/21/16 08/22/16 08/22/16 18:59 06:59 18:59 Intake Total 520 500 Output Total 1 Balance 520 500 -1 Intake: IV 400 Sodium Chloride 0.9% 1, 400 000 ml @ 50 mls/hr IV . Q20H [facility] Rx#:[id number] Oral 120 500 Output: Urine 1 Other: Voiding Method Toilet # Voids 3 1 # Bowel Movements 1 1 - Exam GENERAL EXAM: Alert, active, comfortable in no apparent distress. HEAD: Normocephalic. EYES: Normal reaction of pupils, equal size. NOSE: Clear with pink turbinates. THROAT: No erythema or exudates. NECK: No masses, no JVD. CHEST: No chest wall deformity. LUNGS: Equal air entry with rhonchi and wheezes noted throughout. Crackles at bilateral bases. CVS: S1 and S2 normal with no audible mumurs, regular rhythm. ABDOMEN: No hepatosplenomegaly, normal bowel sounds, no guarding or rigidity. EXTREMITIES: No edema noted, pedal pulses palpable. SKIN: No rashes CENTRAL NERVOUS SYSTEM: No focal deficits, tone is normal in all 4 extremities. - Labs CBC & Chem 7: 08/22/16 07:23 08/22/16 07:23 Labs: Abnormal Lab Results - Last 24 Hours (Table) 08/21/16 08/21/16 08/22/16 Range/Units 17:14 18:29 07:23 Hct 46.1 H (34.0-46.0) % MCV 101.2 H (80.0-100.0) fL MCHC 30.3 L (31.0-37.0) g/dL Potassium (3.5-5.1) mmol/L Carbon Dioxide (22-30) mmol/L BUN (7-17) mg/dL Creatinine (0.52-1.04) mg/dL POC Glucose (mg/dL) 64 L 74 L (75-99) mg/dL Total Protein (6.3-8.2) g/dL Albumin (3.5-5.0) g/dL 08/22/16 Range/Units 07:23 Hct (34.0-46.0) % MCV (80.0-100.0) fL MCHC (31.0-37.0) g/dL Potassium 5.2 H (3.5-5.1) mmol/L Carbon Dioxide 31 H (22-30) mmol/L BUN 35 H (7-17) mg/dL Creatinine 1.07 H (0.52-1.04) mg/dL POC Glucose (mg/dL) (75-99) mg/dL Total Protein 5.5 L (6.3-8.2) g/dL Albumin 2.9 L (3.5-5.0) g/dL Microbiology - Last 24 Hours (Table) 08/18/16 17:44 Blood Culture - Preliminary Blood No Growth after 72 hours Assessment and Plan Plan: Assessment: Acute hypoxic respiratory failure Influenza B pneumonitis CAD History of hypertension Dyslipidemia Hypothyroidism Restless leg syndrome Plan Patient will undergo bronchoscopy tomorrow at 1:[address] Porter. We will continue the patient on Tamiflu, and nebulizer treatments. Encourage the patient to use BiPAP at bedtime and as needed. Continue with 2-3L of supplemental oxygen to keep oxygen saturations above 92%. We will add a flutter valve to help with secretions. Continue to try to get a sputum sample for culture. One-time dose of Lasix 40 mg IV ordered. We will continue to monitor labs and adjust treatment as necessary. I performed an examination of the patient and discussed their management with the nurse practitioner. I have reviewed the nurse practitioner's note and agree with the documented findings and plan of care.
[2016-08-22 11:57] LABS: Glucose,Whole Blood 124 mg/dL (75-99)
--- NOTE | 2016-08-22 12:39 | CDI ---
In responding to this query, please exercise your independent professional judgment. The [facility] Coding Staff and Clinical Documentation Specialists appreciate your assistance in clarifying documentation, maintaining compliance with coding guidelines, accurately documenting patients condition and capturing severity of illness. The fact that a question is asked does not imply that any particular answer is desired or expected. Communication forms are a method of clarifying documentation and are not made part of the Legal Health Record. Thank you in advance for your clarification. Last Revision, April 2015 Zack Lang [address] [place] [address] Documentation Clarification Form Date: 08/22/2016 12:33:00 PM From: Iveth Arteaga Admit Date: 08/18/2016 4:17:00 PM Patient Name: Airam Turner Visit Number: [id number] Dr. Manuel Angel 'Osteoporosis likely by the diagnosis of nontraumatic fractures' is documented in your progress note on 08/21. NEEDS FURTHER CLARIFICATION. Patient history/risk factors Age: 81 yrs Clinical Indicators: CT chest on 08/18: 'multiple compression fractures of thoracic spine involving T11, T10, T6, T5 consistent with osteoporosis' Treatment: IV Aredia administered x1 Consult: PT/OT In your professional opinion, can you please clarify the location of the fractures in your documentation? Please document in your progress notes and discharge summary in order to capture severity of illness and risk of mortality. Include clinical findings that support your diagnosis. FYI: Press F11 to launch patient chart. Place X here if this finding has no clinical significance, is not applicable or if you are not able to provide any additional documentation. ANDERSON
[2016-08-22 16:57] LABS: Glucose,Whole Blood 84 mg/dL (75-99)
[2016-08-22] MEDS: AZITHROMYCIN 500 MG TAB PO SCH (17:27)
--- NOTE | 2016-08-22 18:04 | P.PN ---
Subjective f Complaint: CELENA 81 yr old that is admitted to the hospital from [facility], as pt has progressively gotten worse since her admission on 08/14/16. Pt was initially admitted with CELENA, associated with a non productive cough. Pt was initially noted to have Some respiratory acidosis, was started on bipap, thereafter started on abx and breathing tx and triaged to the floor. Pt was then discharged home on 08/16/16, then readmitted overnight with similar complaints. Pt apparently was tachypneic and started on bipap again. Pt's CXR initially was read as pneumonia, however the radiologist at [place] has informed that a diffuse edema, and it is atypical for pneumonia. Currently on 2 l supplemental o2, has cough non productive in nature. Patient was retested for influenza here. Patient was positive this was after being negative twice. 08/19/2016 No new overnight events. Patient states he slightly improved however does states that she likes a BiPAP support. Patient is not been able to bring up sputum. 08/20/16 No new overnight events states to be feeling slightly better UNable to cough up sputum No fevers, chills, nausea, vomiting. 2016 States she is still not able to bring up any secretions however states that her breathing is slightly better. Denies having fevers, chills, nausea, vomiting. 08/22/16 Unable to bring up secretions States she is slightly better no new events. Objective - Vital Signs Vital signs: Vital Signs Temp 96.4 F L 08/22/16 15:00 Pulse 80 08/22/16 17:40 Resp 16 08/22/16 15:00 BP 118/84 08/22/16 15:00 Pulse Ox 92 L 08/22/16 15:00 Intake & Output 08/21/16 08/22/16 08/22/16 18:59 06:59 18:59 Intake Total 520 500 Output Total 1 Balance 520 500 -1 Intake: IV 400 Sodium Chloride 0.9% 1, 400 000 ml @ 50 mls/hr IV . Q20H [facility] Rx#:[id number] Oral 120 500 Output: Urine 1 Other: Voiding Method Toilet Toilet # Voids 3 1 1 # Bowel Movements 1 1 - Exam Physical exam Gen. appearance oriented 3 in no distress Neck is supple no JVD Lungs wheezing with trace rhonchi diffusely transmitted from hypopharynx Heart S1-S2 heard regular rate and rhythm no murmurs appreciated Abdomen is soft nontender no organomegaly bowel sounds are intact Neurologically cranial nerves II-12 grossly intact no focal motor or sensory deficits noted Skin no abnormalities appreciated - Labs CBC & Chem 7: 08/22/16 07:23 08/22/16 07:23 Labs: Abnormal Lab Results - Last 24 Hours (Table) 08/21/16 08/22/16 08/22/16 Range/Units 18:29 07:23 07:23 Hct 46.1 H (34.0-46.0) % MCV 101.2 H (80.0-100.0) fL MCHC 30.3 L (31.0-37.0) g/dL Potassium 5.2 H (3.5-5.1) mmol/L Carbon Dioxide 31 H (22-30) mmol/L BUN 35 H (7-17) mg/dL Creatinine 1.07 H (0.52-1.04) mg/dL POC Glucose (mg/dL) 74 L (75-99) mg/dL Total Protein 5.5 L (6.3-8.2) g/dL Albumin 2.9 L (3.5-5.0) g/dL 08/22/16 Range/Units 11:56 Hct (34.0-46.0) % MCV (80.0-100.0) fL MCHC (31.0-37.0) g/dL Potassium (3.5-5.1) mmol/L Carbon Dioxide (22-30) mmol/L BUN (7-17) mg/dL Creatinine (0.52-1.04) mg/dL POC Glucose (mg/dL) 124 H (75-99) mg/dL Total Protein (6.3-8.2) g/dL Albumin (3.5-5.0) g/dL Microbiology - Last 24 Hours (Table) 08/18/16 17:44 Blood Culture - Preliminary Blood No Growth after 72 hours Assessment and Plan Plan: #1 acute hypoxic respiratory failure sec to #2 #2 influenza pneumonitis. #3 CAD #4 history of hypertension #5 dyslipidemia #6 hypothyroidism 7 restless leg syndrome. 8. CKD 3 #9. severe Osteoporosis likely by the diagnosis of nontraumatic fractures at multiple levels lower thoracic levels.T5, T6, T10. T11 patient was given one dose of pamidronate. Plan Discussed with pulmonology regarding bronchoscopy.likely be in the next 24-48 hours. thelma Rush. Mucomyst inhalation therapy. Oxygen with humidity will be maintained. ABx mucinex PEP valve continue abx DVT prophylaxis.
[2016-08-22 21:02] LABS: Glucose,Whole Blood 98 mg/dL (75-99)
[2016-08-22] MEDS: HYDROcodone/APAP 7.5-325MG 1 EACH TAB PO PRN (23:37)
[2016-08-23 01:59] LABS: Glucose,Whole Blood 101 mg/dL (75-99)
[2016-08-23] MEDS: LEVOTHYROXINE 112 MCG TAB PO SCH (06:34)
[2016-08-23] MEDS: METOPROLOL SUCCINATE (ER) 50 MG TAB.ER.24H PO SCH (07:36)
[2016-08-23] MEDS: GABAPENTIN 300 MG CAP PO SCH (07:37)
[2016-08-23] MEDS: PANTOPRAZOLE 40 MG TABLET PO SCH (07:37)
[2016-08-23] MEDS: LORATADINE 10 MG TAB PO SCH (07:37)
[2016-08-23] MEDS: guaiFENesin 600 MG TABLET.ER PO SCH (07:37)
[2016-08-23] MEDS: OSELTAMIVIR 60 MG/10 ML ORAL SYRINGE PO SCH (07:37)
[2016-08-23] MEDS: PRAVASTATIN SODIUM 40 MG TAB PO SCH (07:38)
[2016-08-23] MEDS: INSULIN LISPRO (humaLOG) 300 UNIT/3 ML VIAL SQ SCH ×4 (07:38→21:32)
[2016-08-23] MEDS: SENNOSIDES-DOCUSATE SODIUM 1 EACH TAB PO SCH (07:38)
[2016-08-23] MEDS: BUDESONIDE 0.5 MG/2 ML NEBU INHALATION SCH ×2 (07:43→20:25)
[2016-08-23] MEDS: IPRATROPIUM-ALBUTEROL 3 ML NEB INHALATION SCH ×4 (07:43→20:25)
[2016-08-23 07:44] LABS: Glucose,Whole Blood 73 mg/dL (75-99)
[2016-08-23 09:55] LABS: Basophils % (A) 0 %; CH 30.3; Eosinophils # (A) 0.2 k/uL (0-0.7); Eosinophils % (A) 3 %; HCT 47.1 % (34.0-46.0); HDW 2.48; Hypochromasia Marked; Luc # (Auto) 0.13; Luc % (Auto) 2; Lymphocytes % (A) 18 %; MCH 30.2 pg (25.0-35.0); MCHC 29.8 g/dL (31.0-37.0); MCV 101.5 fL (80.0-100.0); Macrocytosis Slight; Mean Platelet Volume 8.1; Monocytes # (A) 0.3 k/uL (0-1.0); Monocytes % (A) 5 %; Neutrophils # (A) 3.7 k/uL (1.3-7.7); Neutrophils % (A) 71 %; RBC 4.64 m/uL (3.80-5.40); RDW 14.6 % (11.5-15.5); WBC 5.3 k/uL (3.8-10.6); WBC (Perox) 5.68
[2016-08-23 10:14] LABS: ALT 36 U/L (9-52); AST 23 U/L (14-36); Alkaline Phosphatase 86 U/L (38-126); Anion Gap 7 mmol/L; Blood Urea Nitrogen 29 mg/dL (7-17); Carbon Dioxide 30 mmol/L (22-30); Chloride 106 mmol/L (98-107); Glucose 76 mg/dL (74-99); Non-African American GFR(MDRD) 58 (>60 ml/min/1.73 sqM); Potassium 4.9 mmol/L (3.5-5.1); Sodium 143 mmol/L (137-145); Total Bilirubin 0.6 mg/dL (0.2-1.3); Total Protein 5.5 g/dL (6.3-8.2)
[2016-08-23 11:42] VITALS: BMI 26.0
[2016-08-23] MEDS: ACETYLCYSTEINE 800 MG/4 ML VIAL INHALATION SCH ×3 (11:43→20:26)
[2016-08-23 11:56] LABS: Glucose,Whole Blood 52 mg/dL (75-99)
[2016-08-23] MEDS ORDERED: DEXTROSE 50%-WATER 50 ML SYRINGE IVP STA ×2 (11:57→17:47)
[2016-08-23 12:40] LABS: Glucose,Whole Blood 80 mg/dL (75-99)
--- NOTE | 2016-08-23 12:47 | P.PN ---
Subjective This is an 81-year-old patient that is being evaluated and examined today on the fourth floor. The patient was admitted to [facility] from [facility]. Patient was having dyspnea on non-productive coughing. Initially the patient was placed on BiPAP related to respiratory acidosis, AND antibiotics were started at that time. The chest x-ray from her last suggested possible pneumonia versus diffuse vascular congestion or edema. The patient is also influenza a positive [facility] after 2 negative swabs at [facility]. Upon examining the patient the patient is resting up in bed on 2-3 L of oxygen. She is noted to have congested intermittent cough. She denies any fevers, chills, sweats, nausea, vomiting, or diarrhea at this time. Patient had no acute events overnight. Patient will undergo bronchoscopy with Dr. Porter today at 1:30 PM. Objective - Vital Signs Vital signs: Vital Signs Temp 96.1 F L 08/22/16 23:00 Pulse 88 08/23/16 11:54 Resp 18 08/23/16 07:00 BP 123/82 08/23/16 07:00 Pulse Ox 100 08/23/16 07:00 Intake & Output 08/22/16 08/23/16 08/23/16 18:59 06:59 18:59 Intake Total 150 Output Total 1 Balance -1 150 Weight 71 kg Intake: Oral 150 Output: Urine 1 Other: Voiding Method Toilet Toilet Toilet # Voids 1 1 # Bowel Movements 1 - Exam GENERAL EXAM: Alert, active, comfortable in no apparent distress. HEAD: Normocephalic. EYES: Normal reaction of pupils, equal size. NOSE: Clear with pink turbinates. THROAT: No erythema or exudates. NECK: No masses, no JVD. CHEST: No chest wall deformity. LUNGS: Equal air entry with rhonchi and wheezes noted throughout. Crackles at bilateral bases. CVS: S1 and S2 normal with no audible mumurs, regular rhythm. ABDOMEN: No hepatosplenomegaly, normal bowel sounds, no guarding or rigidity. EXTREMITIES: No edema noted, pedal pulses palpable. SKIN: No rashes CENTRAL NERVOUS SYSTEM: No focal deficits, tone is normal in all 4 extremities. - Labs CBC & Chem 7: 08/23/16 08:31 08/23/16 08:31 Labs: Abnormal Lab Results - Last 24 Hours (Table) 08/23/16 08/23/16 08/23/16 Range/Units 01:55 07:37 08:31 Hct 47.1 H (34.0-46.0) % MCV 101.5 H (80.0-100.0) fL MCHC 29.8 L (31.0-37.0) g/dL Plt Count 144 L (150-450) k/uL BUN (7-17) mg/dL POC Glucose (mg/dL) 101 H 73 L (75-99) mg/dL Total Protein (6.3-8.2) g/dL Albumin (3.5-5.0) g/dL 08/23/16 08/23/16 Range/Units 08:31 11:54 Hct (34.0-46.0) % MCV (80.0-100.0) fL MCHC (31.0-37.0) g/dL Plt Count (150-450) k/uL BUN 29 H (7-17) mg/dL POC Glucose (mg/dL) 52 L (75-99) mg/dL Total Protein 5.5 L (6.3-8.2) g/dL Albumin 2.9 L (3.5-5.0) g/dL Microbiology - Last 24 Hours (Table) 08/18/16 17:44 Blood Culture - Preliminary Blood No Growth after 96 hours Assessment and Plan Plan: Assessment: Acute hypoxic respiratory failure Influenza B pneumonitis CAD History of hypertension Dyslipidemia Hypothyroidism Restless leg syndrome Plan Patient will undergo bronchoscopy today at 1:[address] Porter. We will continue the patient on Tamiflu, and nebulizer treatments. Encourage the patient to use BiPAP at bedtime and as needed. Continue with 2-3L of supplemental oxygen to keep oxygen saturations above 92%. We will add a flutter valve to help with secretions. We will continue to monitor labs and adjust treatment as necessary. I performed an examination of the patient and discussed their management with the nurse practitioner. I have reviewed the nurse practitioner's note and agree with the documented findings and plan of care.
[2016-08-23] MEDS ORDERED: ePHEDrine 50 MG/ML 1 ML AMP ONE (13:45)
[2016-08-23] MEDS ORDERED: LIDOCAINE 1% INJ 10MG/ML (20 ML MDV) ONE (13:45)
[2016-08-23] MEDS ORDERED: PROPOFOL 10 MG/ML 20 ML VIAL IV ONE (13:45)
[2016-08-23] MEDS ORDERED: IV FLUID CONTINUATION 1,000 ML IV ONE (13:51)
--- NOTE | 2016-08-23 14:24 | P.PN ---
Subjective f Complaint: CELENA 81 yr old that is admitted to the hospital from [facility], as pt has progressively gotten worse since her admission on 08/14/16. Pt was initially admitted with CELENA, associated with a non productive cough. Pt was initially noted to have Some respiratory acidosis, was started on bipap, thereafter started on abx and breathing tx and triaged to the floor. Pt was then discharged home on 08/16/16, then readmitted overnight with similar complaints. Pt apparently was tachypneic and started on bipap again. Pt's CXR initially was read as pneumonia, however the radiologist at [place] has informed that a diffuse edema, and it is atypical for pneumonia. Currently on 2 l supplemental o2, has cough non productive in nature. Patient was retested for influenza here. Patient was positive this was after being negative twice. 08/19/2016 No new overnight events. Patient states he slightly improved however does states that she likes a BiPAP support. Patient is not been able to bring up sputum. 08/20/16 No new overnight events states to be feeling slightly better UNable to cough up sputum No fevers, chills, nausea, vomiting. 2016 States she is still not able to bring up any secretions however states that her breathing is slightly better. Denies having fevers, chills, nausea, vomiting. 08/22/16 Unable to bring up secretions States she is slightly better no new events. 08/23/16 States that her cough is slightly improved Non productive in nature Denies fevers, chills, nausea, vomiting. Objective - Vital Signs Vital signs: Vital Signs Temp 96.1 F L 08/22/16 23:00 Pulse 88 08/23/16 11:54 Resp 18 08/23/16 07:00 BP 123/82 08/23/16 07:00 Pulse Ox 100 08/23/16 07:00 Intake & Output 08/22/16 08/23/16 08/23/16 18:59 06:59 18:59 Intake Total 150 100 Output Total 1 Balance -1 150 100 Weight 71 kg Intake: IV 100 Oral 150 Output: Urine 1 Other: Voiding Method Toilet Toilet Toilet # Voids 1 1 2 # Bowel Movements 1 - Exam Physical exam Gen. appearance oriented 3 in no distress Neck is supple no JVD Lungs wheezing with trace rhonchi diffusely transmitted from hypopharynx Heart S1-S2 heard regular rate and rhythm no murmurs appreciated Abdomen is soft nontender no organomegaly bowel sounds are intact Neurologically cranial nerves II-12 grossly intact no focal motor or sensory deficits noted Skin no abnormalities appreciated - Labs CBC & Chem 7: 08/23/16 08:31 08/23/16 08:31 Labs: Abnormal Lab Results - Last 24 Hours (Table) 08/23/16 08/23/16 08/23/16 Range/Units 01:55 07:37 08:31 Hct 47.1 H (34.0-46.0) % MCV 101.5 H (80.0-100.0) fL MCHC 29.8 L (31.0-37.0) g/dL Plt Count 144 L (150-450) k/uL BUN (7-17) mg/dL POC Glucose (mg/dL) 101 H 73 L (75-99) mg/dL Total Protein (6.3-8.2) g/dL Albumin (3.5-5.0) g/dL 08/23/16 08/23/16 Range/Units 08:31 11:54 Hct (34.0-46.0) % MCV (80.0-100.0) fL MCHC (31.0-37.0) g/dL Plt Count (150-450) k/uL BUN 29 H (7-17) mg/dL POC Glucose (mg/dL) 52 L (75-99) mg/dL Total Protein 5.5 L (6.3-8.2) g/dL Albumin 2.9 L (3.5-5.0) g/dL Microbiology - Last 24 Hours (Table) 08/18/16 17:44 Blood Culture - Preliminary Blood No Growth after 96 hours Assessment and Plan Plan: #1 acute hypoxic respiratory failure sec to #2 #2 influenza pneumonitis. #3 CAD #4 history of hypertension #5 dyslipidemia #6 hypothyroidism 7 restless leg syndrome. 8. CKD 3 #9. severe Osteoporosis likely by the diagnosis of nontraumatic fractures at multiple levels lower thoracic levels.T5, T6, T10. T11 patient was given one dose of pamidronate. Plan Scheduled to undergo bronchoscopy. If patient appears slightly improved tomorrow we'll likely be discharged to a snf. Duoneb, pulmicort. Mucomyst inhalation therapy. Oxygen with humidity will be maintained. ABx mucinex PEP valve continue abx DVT prophylaxis.
[2016-08-23] MEDS: SODIUM CHLORIDE 0.9% 1,000 ML IV SCH (16:09)
[2016-08-23] MEDS: AZITHROMYCIN 500 MG TAB PO SCH (16:09)
[2016-08-23 17:55] LABS: Glucose,Whole Blood 57 mg/dL (75-99)
[2016-08-23 17:55] LABS: Glucose,Whole Blood 64 mg/dL (75-99)
[2016-08-23 17:55] LABS: Glucose,Whole Blood 45 mg/dL (75-99)
[2016-08-23 18:17] LABS: Glucose,Whole Blood 139 mg/dL (75-99)
[2016-08-23 18:17] LABS: Glucose,Whole Blood 60 mg/dL (75-99)
[2016-08-23 20:57] LABS: Glucose,Whole Blood 112 mg/dL (75-99)
--- NOTE | 2016-08-23 22:15 | PCN ---
DATE OF PROCEDURE: 08/23/2016 PROCEDURES DONE: 1. Bronchoscopy. 2. Bronchoalveolar lavage from the right lower lobe as well as left lower lobe. OPERATIVE DETAIL: For anesthesia, please refer to the anesthesia note. Tip of the scope was passed through the right naris. The vocal cords were normal in structure and function. Tip of the scope was passed beyond the vocal cords into the trachea. Extensive amount of phlegm along with mucous plugging was seen bilaterally. BAL was performed from the left lower lobe as well as the right lower lobe with clearing of the airways from the phlegm noted that especially on the left side, the left main stem bronchus is very narrow, collapsible, with extensive edema, erythema, easy to bleed. Similar findings were seen on the right side; however, without any bleeding. The bleeding was predominantly present in the form of a mild ooze. BAL was performed from the left lower lobe as well as right lower lobe. Patient tolerated the procedure well. No complication noted except intermittent desaturation with which the saturation dropped down into the 70s. The procedure was stopped. Biopsies were not performed, but BAL was performed. Otherwise, patient tolerated the procedure well. No complication noted. Findings were discussed with the nursing staff as well as patient's daughter. Would recommend continuation of antibiotics, steroids, breathing treatment and hold on discharge at this point in time.
[2016-08-24] MEDS: HYDROcodone/APAP 7.5-325MG 1 EACH TAB PO PRN (01:24)
[2016-08-24 01:33] LABS: Glucose,Whole Blood 95 mg/dL (75-99)
[2016-08-24] MEDS: LEVOTHYROXINE 112 MCG TAB PO SCH (06:32)
[2016-08-24 08:20] LABS: Glucose,Whole Blood 60 mg/dL (75-99)
[2016-08-24 08:20] LABS: Glucose,Whole Blood 62 mg/dL (75-99)
[2016-08-24 08:27] LABS: Glucose,Whole Blood 79 mg/dL (75-99)
[2016-08-24] MEDS: INSULIN LISPRO (humaLOG) 300 UNIT/3 ML VIAL SQ SCH ×4 (08:44→21:58)
[2016-08-24] MEDS: PANTOPRAZOLE 40 MG TABLET PO SCH (08:45)
[2016-08-24] MEDS: LORATADINE 10 MG TAB PO SCH (08:45)
[2016-08-24] MEDS: METOPROLOL SUCCINATE (ER) 50 MG TAB.ER.24H PO SCH (08:45)
[2016-08-24] MEDS: GABAPENTIN 300 MG CAP PO SCH (08:45)
[2016-08-24] MEDS: guaiFENesin 600 MG TABLET.ER PO SCH (08:46)
[2016-08-24] MEDS: PRAVASTATIN SODIUM 40 MG TAB PO SCH (08:46)
[2016-08-24] MEDS: SENNOSIDES-DOCUSATE SODIUM 1 EACH TAB PO SCH (08:49)
[2016-08-24] MEDS: ACETAMINOPHEN TAB 325 MG TAB PO PRN (08:49)
[2016-08-24] MEDS: ACETYLCYSTEINE 800 MG/4 ML VIAL INHALATION SCH ×3 (08:59→19:50)
[2016-08-24] MEDS: BUDESONIDE 0.5 MG/2 ML NEBU INHALATION SCH ×2 (09:00→19:50)
[2016-08-24] MEDS: IPRATROPIUM-ALBUTEROL 3 ML NEB INHALATION SCH ×4 (09:00→19:50)
--- NOTE | 2016-08-24 11:56 | PN ---
DATE OF SERVICE: 08/24/2016 HISTORY OF PRESENT ILLNESS: The patient is an 81-year-old female who came from [facility] where she had problems with difficulty with breathing and nonproductive cough. She did have a bronchoscopy on 08/23 with the results still pending. Plans are for her to be discharged to extended-care facility for rehab. She states that she does use oxygen at home with sleeping. She also was noted to be positive for influenza B and also has had problems with hypoxic respiratory failure on admission. She still complains of nonproductive cough. She states that sometimes her chest feels tight. She denies any chest pain at this time. She denies any nausea, vomiting, or any problems going to the bathroom. She has been eating okay. She continues with oxygen. On physical examination, her vital signs show temperature of 97, heart rate 80, respiratory rate 20, blood pressure is 120/78, oxygen saturation on 4 L was 100%. Labs show a sugar of 79. Bronchial washings are still pending. Acid-fast bacilli still pending. Blood cultures show no growth. GENERAL: She is an 81-year-old female who looks tired, having a nonproductive cough. HEENT: Pupils are reactive. Mucous membranes are slightly dry. NECK: Short, supple, thick. LUNGS: Sounds coarse. She does have some wheezing. CARDIOVASCULAR: S1 and S2 is heard, questionable irregular at times. ABDOMEN: Soft, nontender. EXTREMITIES: With no significant edema. NEUROLOGIC: She is awake, alert, appears to answer questions appropriately. IMPRESSION: 1. Acute hypoxic respiratory failure on admission. 2. Influenza pneumonitis. 3. Coronary artery disease. 4. Hypertension. 5. Dyslipidemia. 6. Hypothyroidism. 7. Restless leg syndrome. 8. Chronic kidney disease stage III. PLAN: Await bronchoscopy cultures. Continue with discharge plans for ECF. Continue with her medications as ordered. Continue with oxygen to keep stats 92% or better. Continue with GI and DVT prophylaxis. It appears she has BiPAP at bedtime, which she would benefit from using on routine basis. Continue with antibiotic therapy. We will continue to follow patient with you. Note: We are covering for Dr. Porter. Will make further changes as necessary.
[2016-08-24 12:05] LABS: Glucose,Whole Blood 130 mg/dL (75-99)
[2016-08-24 17:16] LABS: Glucose,Whole Blood 97 mg/dL (75-99)
--- NOTE | 2016-08-24 17:38 | P.PN ---
Subjective f Complaint: CELENA 81 yr old that is admitted to the hospital from [facility], as pt has progressively gotten worse since her admission on 08/14/16. Pt was initially admitted with CELENA, associated with a non productive cough. Pt was initially noted to have Some respiratory acidosis, was started on bipap, thereafter started on abx and breathing tx and triaged to the floor. Pt was then discharged home on 08/16/16, then readmitted overnight with similar complaints. Pt apparently was tachypneic and started on bipap again. Pt's CXR initially was read as pneumonia, however the radiologist at [place] has informed that a diffuse edema, and it is atypical for pneumonia. Currently on 2 l supplemental o2, has cough non productive in nature. Patient was retested for influenza here. Patient was positive this was after being negative twice. 08/19/2016 No new overnight events. Patient states he slightly improved however does states that she likes a BiPAP support. Patient is not been able to bring up sputum. 08/20/16 No new overnight events states to be feeling slightly better UNable to cough up sputum No fevers, chills, nausea, vomiting. 2016 States she is still not able to bring up any secretions however states that her breathing is slightly better. Denies having fevers, chills, nausea, vomiting. 08/22/16 Unable to bring up secretions States she is slightly better no new events. 08/23/16 States that her cough is slightly improved Non productive in nature Denies fevers, chills, nausea, vomiting. 08/24/16 underwent bronchoscopy was apparently noted to have significant thick secretions and collapsable left main bronchus No fevers, chills, n/v, abdominal pain reported Has cough, no productive in nature. Objective - Vital Signs Vital signs: Vital Signs Temp 97.3 F L 08/24/16 15:00 Pulse 76 08/24/16 17:16 Resp 18 08/24/16 15:51 BP 109/73 08/24/16 15:00 Pulse Ox 90 L 08/24/16 15:00 Intake & Output 08/23/16 08/24/16 08/24/16 18:59 06:59 18:59 Intake Total 100 500 720 Balance 100 500 720 Weight 71 kg Intake: IV 100 Oral 0 500 720 Other: Voiding Method Toilet Toilet # Voids 2 1 2 # Bowel Movements 0 - Exam Physical exam Gen. appearance oriented 3 in no distress Neck is supple no JVD Lungs wheezing with trace rhonchi diffusely transmitted from hypopharynx Heart S1-S2 heard regular rate and rhythm no murmurs appreciated Abdomen is soft nontender no organomegaly bowel sounds are intact Neurologically cranial nerves II-12 grossly intact no focal motor or sensory deficits noted Skin no abnormalities appreciated - Labs CBC & Chem 7: 08/23/16 08:31 08/23/16 08:31 Labs: Abnormal Lab Results - Last 24 Hours (Table) 08/23/16 08/23/16 08/23/16 Range/Units 17:14 17:29 17:45 POC Glucose (mg/dL) 64 L 57 L 45 L (75-99) mg/dL 08/23/16 08/23/16 08/23/16 Range/Units 18:11 18:15 20:31 POC Glucose (mg/dL) 60 L 139 H 112 H (75-99) mg/dL 08/24/16 08/24/16 08/24/16 Range/Units 07:54 07:59 12:02 POC Glucose (mg/dL) 60 L 62 L 130 H (75-99) mg/dL Microbiology - Last 24 Hours (Table) 08/23/16 14:00 Gram Stain - Preliminary Bronchial Washings - Left Bronchial Washings Culture - Preliminary 08/23/16 14:00 Acid Fast Bacilli Culture - Preliminary Bronchial Washings - Left 08/23/16 14:00 Fungal Culture - Preliminary Bronchial Washings - Left 08/18/16 17:44 Blood Culture - Preliminary Blood No Growth after 120 hours Assessment and Plan Plan: #1 acute hypoxic respiratory failure sec to #2 #2 influenza pneumonitis. #3 CAD #4 history of hypertension #5 dyslipidemia #6 hypothyroidism 7 restless leg syndrome. 8. CKD 3 #9. severe Osteoporosis likely by the diagnosis of nontraumatic fractures at multiple levels lower thoracic levels.T5, T6, T10. T11 patient was given one dose of pamidronate. Plan Continues to have CELENA will continue inpatient care await bal results Duoneb, pulmicort. Mucomyst inhalation therapy. Oxygen with humidity will be maintained. ABx mucinex PEP valve continue abx DVT prophylaxis.
[2016-08-24] MEDS: AZITHROMYCIN 500 MG TAB PO SCH (18:05)
[2016-08-24] MEDS: SODIUM CHLORIDE 0.9% 1,000 ML IV SCH (18:19)
[2016-08-24 21:22] LABS: Glucose,Whole Blood 133 mg/dL (75-99)
[2016-08-25 01:53] LABS: Glucose,Whole Blood 94 mg/dL (75-99)
[2016-08-25] MEDS: HYDROcodone/APAP 7.5-325MG 1 EACH TAB PO PRN ×3 (01:53→12:06)
[2016-08-25] MEDS: LEVOTHYROXINE 112 MCG TAB PO SCH (06:33)
[2016-08-25] MEDS: PANTOPRAZOLE 40 MG TABLET PO SCH (08:06)
[2016-08-25] MEDS: GABAPENTIN 300 MG CAP PO SCH (08:06)
[2016-08-25] MEDS: METOPROLOL SUCCINATE (ER) 50 MG TAB.ER.24H PO SCH (08:06)
[2016-08-25] MEDS: SENNOSIDES-DOCUSATE SODIUM 1 EACH TAB PO SCH (08:06)
[2016-08-25] MEDS: PRAVASTATIN SODIUM 40 MG TAB PO SCH (08:07)
[2016-08-25] MEDS: guaiFENesin 600 MG TABLET.ER PO SCH (08:07)
[2016-08-25] MEDS: LORATADINE 10 MG TAB PO SCH (08:07)
[2016-08-25] MEDS: INSULIN LISPRO (humaLOG) 300 UNIT/3 ML VIAL SQ SCH ×4 (08:07→21:34)
[2016-08-25 08:15] LABS: Glucose,Whole Blood 79 mg/dL (75-99)
[2016-08-25 09:22] LABS: ALT 32 U/L (9-52); AST 23 U/L (14-36); Alkaline Phosphatase 92 U/L (38-126); Anion Gap 7 mmol/L; Blood Urea Nitrogen 22 mg/dL (7-17); Calcium 9.5 mg/dL (8.4-10.2); Carbon Dioxide 27 mmol/L (22-30); Chloride 108 mmol/L (98-107); Glucose 97 mg/dL (74-99); Non-African American GFR(MDRD) >60 (>60 ml/min/1.73 sqM); Sodium 142 mmol/L (137-145); Total Bilirubin 0.8 mg/dL (0.2-1.3); Total Protein 5.9 g/dL (6.3-8.2)
[2016-08-25 09:31] LABS: CH 30.5; CHCM 30.4; HCT 45.9 % (34.0-46.0); HDW 2.53; HGB 14.2 gm/dL (11.4-16.0); Hypochromasia Moderate; MCH 31.1 pg (25.0-35.0); MCHC 30.8 g/dL (31.0-37.0); MCV 100.7 fL (80.0-100.0); Macrocytosis Slight; Mean Platelet Volume 8.9; RBC 4.56 m/uL (3.80-5.40); RDW 14.7 % (11.5-15.5); WBC 6.3 k/uL (3.8-10.6); WBC (Perox) 6.78
[2016-08-25] MEDS: ACETYLCYSTEINE 800 MG/4 ML VIAL INHALATION SCH ×3 (09:41→20:01)
[2016-08-25] MEDS: BUDESONIDE 0.5 MG/2 ML NEBU INHALATION SCH ×2 (09:42→20:01)
[2016-08-25] MEDS: IPRATROPIUM-ALBUTEROL 3 ML NEB INHALATION SCH ×4 (09:42→20:01)
[2016-08-25] MEDS: SODIUM CHLORIDE 0.9% 1,000 ML IV SCH (09:58)
[2016-08-25 12:08] LABS: Add Differential Manual Differential
[2016-08-25 12:11] LABS: Nucleated Red Blood Cells 0 /100 WBC (0-0); Total Cells Counted 100
[2016-08-25 12:12] LABS: Manual Review Performed
[2016-08-25 12:13] LABS: Polychromasia Present
[2016-08-25 12:14] LABS: Glucose,Whole Blood 130 mg/dL (75-99)
--- NOTE | 2016-08-25 14:05 | PN ---
DATE OF SERVICE: 08/25/2016 HISTORY OF PRESENT ILLNESS: Patient is an 81-year-old female who initially came from [facility] with increased difficulty with breathing and cough. She did have bronchoscopy done on 08/23 of this year where results are still pending. She is complaining of problems with leg pain today. She does have WILLIE hose on at this time. No excessive swelling is noted. She also complains of having some problems with nausea and chest tightness. She has considerable rhonchi. Her oxygen saturation is good on 2 L. She denies any specific chest pain. No problems with diarrhea. On physical examination, vital signs show temperature of 96.8, heart rate 76, respiratory rate 19, blood pressure is 116/73. Oxygen saturation on 2 L is 99%. Her labs show WBC 6.3, hemoglobin 14.2, hematocrit 45.9, platelet count is 112. Sodium is 142, potassium is 5, chloride 108, CO2 is 27, BUN 22, creatinine is 0.88. Glucose is 130, calcium is 9.5. Total bilirubin 0.8, AST 23, ALT 32, alkaline phosphatase is 92, protein is 5.9, and albumin is 3.1. Bronchial washing cultures are still pending. GENERAL: Patient is an 81-year-old female who is complaining of problems with leg pain. HEENT: Pupils are reactive. Mucous membranes are moist. Neck is short, supple, thick. Lung sounds are coarse rhonchi heard throughout, faint wheezes. CARDIOVASCULAR: S1 and S2 is heard. Abdomen is soft. Bowel sounds are heard. Extremities with no edema. WILLIE hose intact. NEUROLOGIC: She is awake, alert. IMPRESSION: 1. Acute hypoxic respiratory failure on admission. 2. Influenza pneumonitis. 3. Coronary artery disease. 4. Dyslipidemia. 5. Hypothyroidism. 6. Restless leg syndrome. 7. Chronic kidney disease stage III. 8. Thrombocytopenia. PLAN: Continue patient with her present medications, which have been reviewed. Continue with her nebulizer treatments and antibiotic therapy. Continue with GI and DVT prophylaxis. Continue with oxygen to keep stats 92% or better. Await bronchoscopy washing results. Increase activity as tolerated. Continue with supportive care. NOTE: We are covering for Dr. Porter.
[2016-08-25 17:45] LABS: Glucose,Whole Blood 87 mg/dL (75-99)
--- NOTE | 2016-08-25 18:09 | P.PN ---
Subjective f Complaint: CELENA 81 yr old that is admitted to the hospital from [facility], as pt has progressively gotten worse since her admission on 08/14/16. Pt was initially admitted with CELENA, associated with a non productive cough. Pt was initially noted to have Some respiratory acidosis, was started on bipap, thereafter started on abx and breathing tx and triaged to the floor. Pt was then discharged home on 08/16/16, then readmitted overnight with similar complaints. Pt apparently was tachypneic and started on bipap again. Pt's CXR initially was read as pneumonia, however the radiologist at [place] has informed that a diffuse edema, and it is atypical for pneumonia. Currently on 2 l supplemental o2, has cough non productive in nature. Patient was retested for influenza here. Patient was positive this was after being negative twice. 08/19/2016 No new overnight events. Patient states he slightly improved however does states that she likes a BiPAP support. Patient is not been able to bring up sputum. 08/20/16 No new overnight events states to be feeling slightly better UNable to cough up sputum No fevers, chills, nausea, vomiting. 2016 States she is still not able to bring up any secretions however states that her breathing is slightly better. Denies having fevers, chills, nausea, vomiting. 08/22/16 Unable to bring up secretions States she is slightly better no new events. 08/23/16 States that her cough is slightly improved Non productive in nature Denies fevers, chills, nausea, vomiting. 08/24/16 underwent bronchoscopy was apparently noted to have significant thick secretions and collapsable left main bronchus No fevers, chills, n/v, abdominal pain reported Has cough, no productive in nature. 08/25/16 Continues to have non productive cough, no fevers, chills, nausea, vomiting. Objective - Vital Signs Vital signs: Vital Signs Temp 96.6 F L 08/25/16 15:00 Pulse 72 08/25/16 16:43 Resp 19 08/25/16 15:00 BP 118/77 08/25/16 15:00 Pulse Ox 99 08/25/16 15:00 Intake & Output 08/24/16 08/25/16 08/25/16 17:59 06:59 18:59 Intake Total 240 Balance 240 Intake: Oral 240 Other: Voiding Method Toilet # Voids 1 - Exam Physical exam Gen. appearance oriented 3 in no distress Neck is supple no JVD Lungs wheezing with trace rhonchi diffusely transmitted from hypopharynx Heart S1-S2 heard regular rate and rhythm no murmurs appreciated Abdomen is soft nontender no organomegaly bowel sounds are intact Neurologically cranial nerves II-12 grossly intact no focal motor or sensory deficits noted Skin no abnormalities appreciated - Labs CBC & Chem 7: 08/25/16 08:45 08/25/16 08:45 Labs: Abnormal Lab Results - Last 24 Hours (Table) 08/23/16 08/24/16 08/25/16 Range/Units 14:00 21:06 08:45 MCV 100.7 H (80.0-100.0) fL MCHC 30.8 L (31.0-37.0) g/dL Plt Count 112 L (150-450) k/uL Lymphocytes # (Manual) 0.8 L (1.0-4.8) k/uL Chloride (98-107) mmol/L BUN (7-17) mg/dL POC Glucose (mg/dL) 133 H (75-99) mg/dL Total Protein (6.3-8.2) g/dL Albumin (3.5-5.0) g/dL Viral Test See Below H 08/25/16 08/25/16 Range/Units 08:45 12:05 MCV (80.0-100.0) fL MCHC (31.0-37.0) g/dL Plt Count (150-450) k/uL Lymphocytes # (Manual) (1.0-4.8) k/uL Chloride 108 H (98-107) mmol/L BUN 22 H (7-17) mg/dL POC Glucose (mg/dL) 130 H (75-99) mg/dL Total Protein 5.9 L (6.3-8.2) g/dL Albumin 3.1 L (3.5-5.0) g/dL Viral Test Microbiology - Last 24 Hours (Table) 08/23/16 14:00 Gram Stain - Final Bronchial Washings - Left Bronchial Washings Culture - Final 08/18/16 17:44 Blood Culture - Final Blood No Growth after 144 hours 08/23/16 14:00 Acid Fast Bacilli Smear - Final Bronchial Washings - Left Acid Fast Bacilli Culture - Preliminary Assessment and Plan Plan: #1 acute hypoxic respiratory failure sec to #2 #2 influenza pneumonitis. #3 CAD #4 history of hypertension #5 dyslipidemia #6 hypothyroidism 7 restless leg syndrome. 8. CKD 3 #9. severe Osteoporosis likely by the diagnosis of nontraumatic fractures at multiple levels lower thoracic levels.T5, T6, T10. T11 patient was given one dose of pamidronate. Plan Continues to have CELENA will continue inpatient care await bal results, may need to repeat Bronchoscopy. Victor Manuel pulsaqib. Mucomyst inhalation therapy. Oxygen with humidity will be maintained. ABx mucinex PEP valve continue abx DVT prophylaxis.
[2016-08-25] MEDS ORDERED: IV VANCOMYCIN PER PHARMACY 1 EACH MISC MISCELLANE PRN (18:10)
[2016-08-25] MEDS: AZITHROMYCIN 500 MG TAB PO SCH (18:10)
[2016-08-25] MEDS ORDERED: VANCOMYCIN 1,250 MG in SODIUM CHLORIDE 0.9% 250 ML IVPB SCH (19:00)
[2016-08-25 21:26] LABS: Glucose,Whole Blood 95 mg/dL (75-99)
[2016-08-26 02:08] LABS: Glucose,Whole Blood 96 mg/dL (75-99)
[2016-08-26] MEDS: SODIUM CHLORIDE 0.9% 1,000 ML IV SCH (06:15)
[2016-08-26] MEDS: LEVOTHYROXINE 112 MCG TAB PO SCH (06:35)
[2016-08-26 07:20] LABS: Glucose,Whole Blood 89 mg/dL (75-99)
[2016-08-26] MEDS: INSULIN LISPRO (humaLOG) 300 UNIT/3 ML VIAL SQ SCH ×4 (08:27→21:24)
[2016-08-26] MEDS: GABAPENTIN 300 MG CAP PO SCH (08:31)
[2016-08-26] MEDS: SENNOSIDES-DOCUSATE SODIUM 1 EACH TAB PO SCH (08:31)
[2016-08-26] MEDS: METOPROLOL SUCCINATE (ER) 50 MG TAB.ER.24H PO SCH (08:31)
[2016-08-26] MEDS: LORATADINE 10 MG TAB PO SCH (08:31)
[2016-08-26] MEDS: PANTOPRAZOLE 40 MG TABLET PO SCH (08:31)
[2016-08-26] MEDS: PRAVASTATIN SODIUM 40 MG TAB PO SCH (08:31)
[2016-08-26] MEDS: guaiFENesin 600 MG TABLET.ER PO SCH (08:31)
[2016-08-26] MEDS: HYDROcodone/APAP 7.5-325MG 1 EACH TAB PO PRN (08:31)
[2016-08-26 09:16] LABS: Basophils % (A) 0 %; CH 30.7; CHCM 30.7; Eosinophils # (A) 0.1 k/uL (0-0.7); Eosinophils % (A) 2 %; HCT 42.1 % (34.0-46.0); HDW 2.54; HGB 12.9 gm/dL (11.4-16.0); Hypochromasia Slight; Luc # (Auto) 0.17; Luc % (Auto) 3; Lymphocytes % (A) 16 %; MCH 30.8 pg (25.0-35.0); MCHC 30.6 g/dL (31.0-37.0); MCV 100.7 fL (80.0-100.0); Macrocytosis Slight; Monocytes # (A) 0.3 k/uL (0-1.0); Monocytes % (A) 4 %; Neutrophils # (A) 4.9 k/uL (1.3-7.7); Neutrophils % (A) 76 %; RBC 4.18 m/uL (3.80-5.40); RDW 14.9 % (11.5-15.5); WBC 6.5 k/uL (3.8-10.6); WBC (Perox) 6.54
[2016-08-26 09:33] LABS: ALT 33 U/L (9-52); AST 23 U/L (14-36); Alkaline Phosphatase 91 U/L (38-126); Anion Gap 6 mmol/L; Blood Urea Nitrogen 20 mg/dL (7-17); Calcium 9.2 mg/dL (8.4-10.2); Carbon Dioxide 29 mmol/L (22-30); Chloride 106 mmol/L (98-107); Glucose 71 mg/dL (74-99); Non-African American GFR(MDRD) >60 (>60 ml/min/1.73 sqM); Sodium 141 mmol/L (137-145); Total Bilirubin 0.7 mg/dL (0.2-1.3); Total Protein 5.6 g/dL (6.3-8.2)
[2016-08-26] MEDS: IPRATROPIUM-ALBUTEROL 3 ML NEB INHALATION SCH ×4 (09:39→20:05)
[2016-08-26] MEDS: BUDESONIDE 0.5 MG/2 ML NEBU INHALATION SCH ×2 (09:39→20:05)
[2016-08-26] MEDS: ACETYLCYSTEINE 800 MG/4 ML VIAL INHALATION SCH ×3 (09:39→20:07)
--- NOTE | 2016-08-26 09:41 | XR ---
EXAMINATION TYPE: XR chest 2V DATE OF EXAM: 08/26/2016 9:31 AM COMPARISON: 08/21/2016 HISTORY: Flu symptoms FINDINGS: There are bilateral pleural effusions with cardiomegaly and bibasilar infiltrate. There is a diffuse interstitial pattern. Cardiac device and atherosclerotic change aorta. IMPRESSION: 1. Bilateral infiltrate and tiny effusion correlate for mild venous congestion. Underlying pneumonia at the left base not excluded.
[2016-08-26 12:43] LABS: Glucose,Whole Blood 136 mg/dL (75-99)
[2016-08-26] MEDS ORDERED: FUROSEMIDE 10 MG/ML 2 ML VIAL IV ONE (14:22)
--- NOTE | 2016-08-26 17:17 | P.PN ---
Subjective f Complaint: CELENA 81 yr old that is admitted to the hospital from [facility], as pt has progressively gotten worse since her admission on 08/14/16. Pt was initially admitted with CELENA, associated with a non productive cough. Pt was initially noted to have Some respiratory acidosis, was started on bipap, thereafter started on abx and breathing tx and triaged to the floor. Pt was then discharged home on 08/16/16, then readmitted overnight with similar complaints. Pt apparently was tachypneic and started on bipap again. Pt's CXR initially was read as pneumonia, however the radiologist at [facility] has informed that a diffuse edema, and it is atypical for pneumonia. Currently on 2 l supplemental o2, has cough non productive in nature. Patient was retested for influenza here. Patient was positive this was after being negative twice. 08/19/2016 No new overnight events. Patient states he slightly improved however does states that she likes a BiPAP support. Patient is not been able to bring up sputum. 08/20/16 No new overnight events states to be feeling slightly better UNable to cough up sputum No fevers, chills, nausea, vomiting. 2016 States she is still not able to bring up any secretions however states that her breathing is slightly better. Denies having fevers, chills, nausea, vomiting. 08/22/16 Unable to bring up secretions States she is slightly better no new events. 08/23/16 States that her cough is slightly improved Non productive in nature Denies fevers, chills, nausea, vomiting. 08/24/16 underwent bronchoscopy was apparently noted to have significant thick secretions and collapsable left main bronchus No fevers, chills, n/v, abdominal pain reported Has cough, no productive in nature. 08/25/16 Continues to have non productive cough, no fevers, chills, nausea, vomiting. 08/26/16 Has cough, minimally productive improving Objective - Vital Signs Vital signs: Vital Signs Temp 97.0 F L 08/26/16 14:50 Pulse 70 08/26/16 16:15 Resp 18 08/26/16 14:50 BP 121/83 08/26/16 14:50 Pulse Ox 97 08/26/16 14:50 Intake & Output 08/25/16 08/26/16 08/26/16 18:59 06:59 18:59 Intake Total 240 120 Balance 240 120 Intake: Oral 240 120 Other: Voiding Method Toilet Toilet # Voids 1 2 2 # Bowel Movements 0 0 - Exam Physical exam Gen. appearance oriented 3 in no distress Neck is supple no JVD Lungs wheezing with trace rhonchi diffusely transmitted from hypopharynx Heart S1-S2 heard regular rate and rhythm no murmurs appreciated Abdomen is soft nontender no organomegaly bowel sounds are intact Neurologically cranial nerves II-12 grossly intact no focal motor or sensory deficits noted Skin no abnormalities appreciated - Labs CBC & Chem 7: 08/26/16 08:18 08/26/16 08:18 Labs: Abnormal Lab Results - Last 24 Hours (Table) 08/26/16 08/26/16 08/26/16 Range/Units 08:18 08:18 12:38 MCV 100.7 H (80.0-100.0) fL MCHC 30.6 L (31.0-37.0) g/dL Plt Count 110 L (150-450) k/uL BUN 20 H (7-17) mg/dL Glucose 71 L (74-99) mg/dL POC Glucose (mg/dL) 136 H (75-99) mg/dL Total Protein 5.6 L (6.3-8.2) g/dL Albumin 2.9 L (3.5-5.0) g/dL Microbiology - Last 24 Hours (Table) 08/23/16 14:00 Fungal Culture - Preliminary Bronchial Washings - Left Yeast species Assessment and Plan Plan: #1 acute hypoxic respiratory failure sec to #2 #2 influenza pneumonitis. #3 CAD #4 history of hypertension #5 dyslipidemia #6 hypothyroidism 7 restless leg syndrome. 8. CKD 3 #9. severe Osteoporosis likely by the diagnosis of nontraumatic fractures at multiple levels lower thoracic levels.T5, T6, T10. T11 patient was given one dose of pamidronate. Plan will continue inpatient care may need to repeat Bronchoscopy.?? Bal results negative so far. add MRSA coverage. Duoneb, pulmicort. Mucomyst inhalation therapy. Oxygen with humidity will be maintained. ABx mucinex PEP valve continue abx DVT prophylaxis.
[2016-08-26] MEDS: AZITHROMYCIN 500 MG TAB PO SCH (17:30)
[2016-08-26] MEDS: predniSONE 20 MG TAB PO SCH (17:31)
[2016-08-26 17:34] LABS: Glucose,Whole Blood 62 mg/dL (75-99)
[2016-08-26 17:34] LABS: Glucose,Whole Blood 85 mg/dL (75-99)
[2016-08-26 17:34] LABS: Glucose,Whole Blood 57 mg/dL (75-99)
[2016-08-26 17:34] LABS: Glucose,Whole Blood 59 mg/dL (75-99)
[2016-08-26 20:48] LABS: Glucose,Whole Blood 140 mg/dL (75-99)
[2016-08-26] MEDS: AMOXIC-POT CLAV 500-125 MG 1 EACH TAB PO SCH (21:22)
--- NOTE | 2016-08-26 22:09 | PN ---
DATE OF SERVICE: 08/26/2016 Ms. Airam Turner is seen, evaluated, and examined. She is an 81-year-old female. She is slightly less short of breath. She is breathing relatively more comfortably. No evidence of hemoptysis is present. She does have some cough with dyspnea on exertion. Her oxygen saturation is improved. She is 97% on 2 L. Blood pressure 128/18, pulse 69, temperature 97. HEENT: Unremarkable. NECK: Supple. LUNGS: Good air entry bilaterally with basal crackles. HEART: Regular rate and rhythm. S1 and S2 audible. ABDOMEN: Soft. No rebound or rigidity. EXTREMITIES: +1 peripheral pulses. NEUROLOGICAL EXAMINATION: Otherwise, awake and alert. Chest x-ray performed today, interstitial edema, bilateral patchy pneumonia, more so on the left side compared to right side. Current medications reviewed. Culture results and reports are reviewed as well. Bronchial washings, no evidence of predominance of bacteria is present. Other laboratory data reviewed. White cell count 6500, hemoglobin 12, hematocrit 42. Platelet count 110,000. Sodium 141, potassium 5.0, BUN and creatinine 0.87. IMPRESSION: 1. Secondary bacterial pneumonia. 2. Acute chronic obstructive pulmonary disease. 3. Influenza pneumoniae. PLAN: Maintain patient on breathing treatments. Would recommend to put patient on steroids and antibiotics. Patient could benefit from antibiotics like Augmentin along with 40 mg of prednisone. The patient will likely require bronchoscopy for collapsible airways and severe degree of mucosal swelling and oozing on the left side, possibly in outpatient setting. Will follow.
[2016-08-27 02:20] LABS: Glucose,Whole Blood 170 mg/dL (75-99)
[2016-08-27] MEDS: LEVOTHYROXINE 112 MCG TAB PO SCH (06:24)
[2016-08-27 07:35] LABS: Glucose,Whole Blood 145 mg/dL (75-99)
[2016-08-27] MEDS: ACETYLCYSTEINE 800 MG/4 ML VIAL INHALATION SCH ×3 (08:06→19:30)
[2016-08-27] MEDS: IPRATROPIUM-ALBUTEROL 3 ML NEB INHALATION SCH ×4 (08:09→19:30)
[2016-08-27] MEDS: BUDESONIDE 0.5 MG/2 ML NEBU INHALATION SCH ×2 (08:09→19:30)
[2016-08-27 09:00] LABS: Anion Gap 6 mmol/L; Blood Urea Nitrogen 26 mg/dL (7-17); Calcium 9.2 mg/dL (8.4-10.2); Carbon Dioxide 29 mmol/L (22-30); Chloride 104 mmol/L (98-107); Glucose 138 mg/dL (74-99); Non-African American GFR(MDRD) 50 (>60 ml/min/1.73 sqM); Sodium 139 mmol/L (137-145)
[2016-08-27 09:04] LABS: Potassium 6.2 mmol/L (3.5-5.1)
[2016-08-27] MEDS: GABAPENTIN 300 MG CAP PO SCH (09:10)
[2016-08-27] MEDS: PANTOPRAZOLE 40 MG TABLET PO SCH (09:11)
[2016-08-27] MEDS: LORATADINE 10 MG TAB PO SCH (09:11)
[2016-08-27] MEDS: AMOXIC-POT CLAV 500-125 MG 1 EACH TAB PO SCH ×2 (09:11→21:12)
[2016-08-27] MEDS: PRAVASTATIN SODIUM 40 MG TAB PO SCH (09:11)
[2016-08-27] MEDS: METOPROLOL SUCCINATE (ER) 50 MG TAB.ER.24H PO SCH (09:11)
[2016-08-27] MEDS: guaiFENesin 600 MG TABLET.ER PO SCH (09:11)
[2016-08-27] MEDS: predniSONE 20 MG TAB PO SCH (09:11)
[2016-08-27] MEDS: INSULIN LISPRO (humaLOG) 300 UNIT/3 ML VIAL SQ SCH ×4 (09:12→21:18)
[2016-08-27] MEDS: SENNOSIDES-DOCUSATE SODIUM 1 EACH TAB PO SCH (10:07)
[2016-08-27] MEDS ORDERED: INSULIN REGULAR 100 UNIT/ML VIAL IV ONE ×2 (10:29→19:21)
[2016-08-27] MEDS ORDERED: SODIUM POLYSTYRENE SULFONATE 15 GM/60 ML BOTTLE PO STA ×2 (10:41→19:24)
[2016-08-27] MEDS ORDERED: SODIUM BICARB 8.4% 50 ML VIAL (1 MEQ/ML) IV STA (10:41)
[2016-08-27] MEDS ORDERED: CALCIUM GLUCONATE 1,000 MG in SODIUM CHLORIDE 0.9% 100 ML IVPB ONE ×2 (10:45→19:21)
[2016-08-27] MEDS ORDERED: SODIUM BICARB 8.4% 50 ML SYR (1 MEQ/ML) IV STA ×2 (10:45→19:23)
--- NOTE | 2016-08-27 11:42 | P.PN ---
Subjective This is an 81-year-old patient that is being evaluated and examined today on the fourth floor. The patient was admitted to [facility] from [facility]. Patient was having dyspnea on non-productive coughing. Initially the patient was placed on BiPAP related to respiratory acidosis, AND antibiotics were started at that time. The chest x-ray from her last suggested possible pneumonia versus diffuse vascular congestion or edema. The patient is also influenza a positive [facility] after 2 negative swabs at [facility]. He also underwent a bronchoscopy with Dr. Porter, however may need a second bronchoscopy in the outpatient setting. Patient was noted to have significant thick secretions and collapsible left main bronchus. Patient is also noticed to have a potassium of 6.2 the patient received a dose of bicarbonate as well as kayexalate this morning. Upon examining the patient the patient is resting up in bed on 2-3 L of oxygen. She is noted to have decrease in congested intermittent cough. She denies any fevers, chills, sweats, nausea, vomiting, or diarrhea at this time. Patient had no acute events overnight. Patient states she is feeling much better today. Objective - Vital Signs Vital signs: Vital Signs Temp 96.8 F L 08/27/16 07:00 Pulse 72 08/27/16 08:24 Resp 18 08/27/16 07:00 BP 110/76 08/27/16 07:00 Pulse Ox 97 08/27/16 07:00 Intake & Output 08/26/16 08/27/16 08/27/16 18:59 06:59 18:59 Intake Total 120 250 Balance 120 250 Intake: Oral 120 250 Other: Voiding Method Toilet # Voids 2 1 # Bowel Movements 0 - Exam GENERAL EXAM: Alert, active, comfortable in no apparent distress. HEAD: Normocephalic. EYES: Normal reaction of pupils, equal size. NOSE: Clear with pink turbinates. THROAT: No erythema or exudates. NECK: No masses, no JVD. CHEST: No chest wall deformity. LUNGS: Equal air entry with rhonchi and wheezes noted throughout. Diminished at the bases CVS: S1 and S2 normal with no audible mumurs, regular rhythm. ABDOMEN: No hepatosplenomegaly, normal bowel sounds, no guarding or rigidity. EXTREMITIES: No edema noted, pedal pulses palpable. SKIN: No rashes CENTRAL NERVOUS SYSTEM: No focal deficits, tone is normal in all 4 extremities. - Labs CBC & Chem 7: 08/26/16 08:18 08/27/16 08:14 Labs: Abnormal Lab Results - Last 24 Hours (Table) 08/26/16 08/26/16 08/26/16 Range/Units 12:38 16:59 17:15 Potassium (3.5-5.1) mmol/L BUN (7-17) mg/dL Creatinine (0.52-1.04) mg/dL Glucose (74-99) mg/dL POC Glucose (mg/dL) 136 H 62 L 57 L (75-99) mg/dL 08/26/16 08/26/16 08/27/16 Range/Units 17:17 20:20 02:09 Potassium (3.5-5.1) mmol/L BUN (7-17) mg/dL Creatinine (0.52-1.04) mg/dL Glucose (74-99) mg/dL POC Glucose (mg/dL) 59 L 140 H 170 H (75-99) mg/dL 08/27/16 08/27/16 Range/Units 07:33 08:14 Potassium 6.2 H* (3.5-5.1) mmol/L BUN 26 H (7-17) mg/dL Creatinine 1.05 H (0.52-1.04) mg/dL Glucose 138 H (74-99) mg/dL POC Glucose (mg/dL) 145 H (75-99) mg/dL Microbiology - Last 24 Hours (Table) 08/23/16 14:00 Fungal Culture - Preliminary Bronchial Washings - Left Yeast species Assessment and Plan Plan: Assessment: Acute hypoxic respiratory failure Influenza B pneumonitis CAD History of hypertension Dyslipidemia Hypothyroidism Restless leg syndrome Hyperkalemia Plan Patient received Kayexalate and sodium bicarbonate this morning for hyperkalemia. Patient will need to undergo another bronchoscopy in the outpatient setting. Patient has completed Tamiflu. We will continue nebulizer treatments. Encourage the patient to use BiPAP at bedtime and as needed. Continue with 2-3L of supplemental oxygen to keep oxygen saturations above 92%. We will add a flutter valve to help with secretions. We will continue to monitor labs and adjust treatment as necessary. I performed an examination of the patient and discussed their management with the nurse practitioner. I have reviewed the nurse practitioner's note and agree with the documented findings and plan of care.
[2016-08-27 11:45] LABS: Glucose,Whole Blood 178 mg/dL (75-99)
--- NOTE | 2016-08-27 14:02 | P.PN ---
Subjective f Complaint: CELENA 81 yr old that is admitted to the hospital from [facility], as pt has progressively gotten worse since her admission on 08/14/16. Pt was initially admitted with CELENA, associated with a non productive cough. Pt was initially noted to have Some respiratory acidosis, was started on bipap, thereafter started on abx and breathing tx and triaged to the floor. Pt was then discharged home on 08/16/16, then readmitted overnight with similar complaints. Pt apparently was tachypneic and started on bipap again. Pt's CXR initially was read as pneumonia, however the radiologist at [place] has informed that a diffuse edema, and it is atypical for pneumonia. Currently on 2 l supplemental o2, has cough non productive in nature. Patient was retested for influenza here. Patient was positive this was after being negative twice. 08/19/2016 No new overnight events. Patient states he slightly improved however does states that she likes a BiPAP support. Patient is not been able to bring up sputum. 08/20/16 No new overnight events states to be feeling slightly better UNable to cough up sputum No fevers, chills, nausea, vomiting. 2016 States she is still not able to bring up any secretions however states that her breathing is slightly better. Denies having fevers, chills, nausea, vomiting. 08/22/16 Unable to bring up secretions States she is slightly better no new events. 08/23/16 States that her cough is slightly improved Non productive in nature Denies fevers, chills, nausea, vomiting. 08/24/16 underwent bronchoscopy was apparently noted to have significant thick secretions and collapsable left main bronchus No fevers, chills, n/v, abdominal pain reported Has cough, no productive in nature. 08/25/16 Continues to have non productive cough, no fevers, chills, nausea, vomiting. 08/26/16 Has cough, minimally productive improving 08/27/2016 States really doing well. Currently off oxygen. Denies having chest pain, difficulty breathing, nausea, vomiting. Objective - Vital Signs Vital signs: Vital Signs Temp 96.8 F L 08/27/16 07:00 Pulse 72 08/27/16 11:57 Resp 18 08/27/16 07:00 BP 110/76 08/27/16 07:00 Pulse Ox 97 08/27/16 07:00 Intake & Output 08/26/16 08/27/16 08/27/16 18:59 06:59 18:59 Intake Total 120 250 Balance 120 250 Weight 71 kg Intake: Oral 120 250 Other: Voiding Method Toilet # Voids 2 1 # Bowel Movements 0 - Exam Physical exam Gen. appearance oriented 3 in no distress Neck is supple no JVD Lungs wheezing with trace rhonchi diffusely transmitted from hypopharynx improved Heart S1-S2 heard regular rate and rhythm no murmurs appreciated Abdomen is soft nontender no organomegaly bowel sounds are intact Neurologically cranial nerves II-12 grossly intact no focal motor or sensory deficits noted Skin no abnormalities appreciated - Labs CBC & Chem 7: 08/26/16 08:18 08/27/16 08:14 Labs: Abnormal Lab Results - Last 24 Hours (Table) 08/26/16 08/26/16 08/26/16 Range/Units 16:59 17:15 17:17 Potassium (3.5-5.1) mmol/L BUN (7-17) mg/dL Creatinine (0.52-1.04) mg/dL Glucose (74-99) mg/dL POC Glucose (mg/dL) 62 L 57 L 59 L (75-99) mg/dL 08/26/16 08/27/16 08/27/16 Range/Units 20:20 02:09 07:33 Potassium (3.5-5.1) mmol/L BUN (7-17) mg/dL Creatinine (0.52-1.04) mg/dL Glucose (74-99) mg/dL POC Glucose (mg/dL) 140 H 170 H 145 H (75-99) mg/dL 08/27/16 08/27/16 Range/Units 08:14 11:42 Potassium 6.2 H* (3.5-5.1) mmol/L BUN 26 H (7-17) mg/dL Creatinine 1.05 H (0.52-1.04) mg/dL Glucose 138 H (74-99) mg/dL POC Glucose (mg/dL) 178 H (75-99) mg/dL Microbiology - Last 24 Hours (Table) 08/23/16 14:00 Fungal Culture - Preliminary Bronchial Washings - Left Yeast species Assessment and Plan Plan: #1 acute hypoxic respiratory failure sec to #2 #2 influenza pneumonitis. #3 CAD #4 history of hypertension #5 dyslipidemia #6 hypothyroidism 7 restless leg syndrome. 8. CKD 3 #9. severe Osteoporosis likely by the diagnosis of nontraumatic fractures at multiple levels lower thoracic levels.T5, T6, T10. T11 patient was given one dose of pamidronate. #10 hyperkalemia, we'll obtain a CK level and uric acid. Repeat potassium level patient is not on any medications that would cause hyperkalemia Plan Continue ongoing care. Will obtain a CK level. We'll obtain a urine creatinine and potassium level to calculate fractional excretion of potassium. This would help in delineating if it's prerenal or renal in etiology. Continue ongoing care including Augmentin and steroids. Patient will need another bronchoscopy outpatient. Patient has collapsing left mainstem bronchus. Appears to be doing slightly well. 2 complete course of the Tamiflu at this time.
[2016-08-27 17:21] LABS: Glucose,Whole Blood 163 mg/dL (75-99)
[2016-08-27] MEDS: HYDROcodone/APAP 7.5-325MG 1 EACH TAB PO PRN (18:11)
[2016-08-27] MEDS: AZITHROMYCIN 500 MG TAB PO SCH (18:12)
[2016-08-27 18:50] LABS: Uric Acid 5.7 mg/dL (3.7-7.4)
[2016-08-27 19:05] LABS: Potassium 6.3 mmol/L (3.5-5.1)
[2016-08-27] MEDS ORDERED: DEXTROSE 50%-WATER 50 ML SYRINGE IVP STA (19:22)
[2016-08-27 21:15] LABS: Glucose,Whole Blood 228 mg/dL (75-99)
[2016-08-28 00:42] VITALS: RESP 16
[2016-08-28] MEDS: HYDROcodone/APAP 7.5-325MG 1 EACH TAB PO PRN (00:46)
[2016-08-28 01:40] LABS: Potassium 5.9 mmol/L (3.5-5.1)
[2016-08-28] MEDS ORDERED: HYDROcodone/APAP 7.5-325MG 1 EACH TAB PO ONE (04:19)
[2016-08-28] MEDS ORDERED: SODIUM POLYSTYRENE SULFONATE 15 GM/60 ML BOTTLE PO STA (04:20)
[2016-08-28 07:50] LABS: Glucose,Whole Blood 115 mg/dL (75-99)
[2016-08-28 08:03] VITALS: BP 127/73; TEMP 96.9
[2016-08-28] MEDS: ACETYLCYSTEINE 800 MG/4 ML VIAL INHALATION SCH ×2 (08:04→11:44)
[2016-08-28] MEDS: IPRATROPIUM-ALBUTEROL 3 ML NEB INHALATION SCH ×2 (08:04→11:44)
[2016-08-28] MEDS: BUDESONIDE 0.5 MG/2 ML NEBU INHALATION SCH (08:04)
[2016-08-28] MEDS: INSULIN LISPRO (humaLOG) 300 UNIT/3 ML VIAL SQ SCH ×2 (08:24→12:34)
[2016-08-28] MEDS: SENNOSIDES-DOCUSATE SODIUM 1 EACH TAB PO SCH (08:25)
[2016-08-28] MEDS: guaiFENesin 600 MG TABLET.ER PO SCH (08:26)
[2016-08-28] MEDS: LORATADINE 10 MG TAB PO SCH (08:27)
[2016-08-28] MEDS: PANTOPRAZOLE 40 MG TABLET PO SCH (08:27)
[2016-08-28] MEDS: LEVOTHYROXINE 112 MCG TAB PO SCH (08:27)
[2016-08-28] MEDS: predniSONE 20 MG TAB PO SCH (08:27)
[2016-08-28] MEDS: PRAVASTATIN SODIUM 40 MG TAB PO SCH (08:27)
[2016-08-28] MEDS: METOPROLOL SUCCINATE (ER) 50 MG TAB.ER.24H PO SCH (08:27)
[2016-08-28] MEDS: AMOXIC-POT CLAV 500-125 MG 1 EACH TAB PO SCH (08:27)
[2016-08-28] MEDS: GABAPENTIN 300 MG CAP PO SCH (08:27)
[2016-08-28 10:22] LABS: Basophils % (A) 0 %; CH 30.7; CHCM 30.6; Eosinophils % (A) 0 %; HCT 43.6 % (34.0-46.0); HDW 2.48; HGB 13.2 gm/dL (11.4-16.0); Hypochromasia Moderate; Luc # (Auto) 0.17; Luc % (Auto) 3; Lymphocytes % (A) 15 %; MCH 30.5 pg (25.0-35.0); MCHC 30.2 g/dL (31.0-37.0); MCV 100.8 fL (80.0-100.0); Macrocytosis Slight; Mean Platelet Volume 8.4; Monocytes # (A) 0.4 k/uL (0-1.0); Monocytes % (A) 6 %; Neutrophils # (A) 5.4 k/uL (1.3-7.7); Neutrophils % (A) 77 %; RBC 4.32 m/uL (3.80-5.40); RDW 15.1 % (11.5-15.5); WBC 7.1 k/uL (3.8-10.6); WBC (Perox) 7.26
[2016-08-28 10:31] LABS: Calcium 9.6 mg/dL (8.4-10.2); Potassium 4.4 mmol/L (3.5-5.1); Total Bilirubin 0.7 mg/dL (0.2-1.3); Total Protein 6.2 g/dL (6.3-8.2)
--- NOTE | 2016-08-28 11:17 | P.PN ---
Subjective This is an 81-year-old patient that is being evaluated and examined today on the fourth floor. The patient was admitted to [facility] from [facility]. Patient was having dyspnea on non-productive coughing. Initially the patient was placed on BiPAP related to respiratory acidosis, AND antibiotics were started at that time. The chest x-ray from her last suggested possible pneumonia versus diffuse vascular congestion or edema. The patient is also influenza a positive [facility] after 2 negative swabs at [facility]. He also underwent a bronchoscopy with Dr. Porter, however may need a second bronchoscopy in the outpatient setting. Patient was noted to have significant thick secretions and collapsible left main bronchus. Patient's hyperkalemia resolved. Upon examining the patient the patient is resting up in bed on 2-3 L of oxygen. She is noted to have decrease in congested intermittent cough. Patient states she is feeling much better today. Objective - Vital Signs Vital signs: Vital Signs Temp 96.9 F L 08/28/16 07:00 Pulse 80 08/28/16 08:18 Resp 16 08/28/16 08:00 BP 127/73 08/28/16 07:00 Pulse Ox 94 L 08/28/16 07:00 Intake & Output 08/27/16 08/28/16 08/28/16 18:59 06:59 18:59 Intake Total 100 Output Total 300 Balance -200 Weight 71 kg Intake: Oral 100 Output: Urine 300 Other: Voiding Method Toilet Toilet # Bowel Movements 1 1 - Exam GENERAL EXAM: Alert, active, comfortable in no apparent distress. HEAD: Normocephalic. EYES: Normal reaction of pupils, equal size. NOSE: Clear with pink turbinates. THROAT: No erythema or exudates. NECK: No masses, no JVD. CHEST: No chest wall deformity. LUNGS: Equal air entry with rhonchi and wheezes noted throughout. Diminished at the bases CVS: S1 and S2 normal with no audible mumurs, regular rhythm. ABDOMEN: No hepatosplenomegaly, normal bowel sounds, no guarding or rigidity. EXTREMITIES: No edema noted, pedal pulses palpable. SKIN: No rashes CENTRAL NERVOUS SYSTEM: No focal deficits, tone is normal in all 4 extremities. - Labs CBC & Chem 7: 08/28/16 09:42 08/28/16 09:42 Labs: Abnormal Lab Results - Last 24 Hours (Table) 08/27/16 08/27/16 08/27/16 Range/Units 11:42 15:50 15:50 MCV (80.0-100.0) fL MCHC (31.0-37.0) g/dL Plt Count (150-450) k/uL Potassium 6.3 H* (3.5-5.1) mmol/L Carbon Dioxide (22-30) mmol/L BUN (7-17) mg/dL Creatinine (0.52-1.04) mg/dL Glucose (74-99) mg/dL POC Glucose (mg/dL) 178 H (75-99) mg/dL AST (14-36) U/L CK-MB (CK-2) 3.0 H* (0.0-2.4) ng/mL Total Protein (6.3-8.2) g/dL 08/27/16 08/27/16 08/28/16 Range/Units 17:19 21:13 01:07 MCV (80.0-100.0) fL MCHC (31.0-37.0) g/dL Plt Count (150-450) k/uL Potassium 5.9 H (3.5-5.1) mmol/L Carbon Dioxide 31 H (22-30) mmol/L BUN (7-17) mg/dL Creatinine (0.52-1.04) mg/dL Glucose (74-99) mg/dL POC Glucose (mg/dL) 163 H 228 H (75-99) mg/dL AST (14-36) U/L CK-MB (CK-2) (0.0-2.4) ng/mL Total Protein (6.3-8.2) g/dL 08/28/16 08/28/16 08/28/16 Range/Units 07:48 09:42 09:42 MCV 100.8 H (80.0-100.0) fL MCHC 30.2 L (31.0-37.0) g/dL Plt Count 131 L (150-450) k/uL Potassium (3.5-5.1) mmol/L Carbon Dioxide 32 H (22-30) mmol/L BUN 32 H (7-17) mg/dL Creatinine 1.09 H (0.52-1.04) mg/dL Glucose 183 H (74-99) mg/dL POC Glucose (mg/dL) 115 H (75-99) mg/dL AST 41 H (14-36) U/L CK-MB (CK-2) (0.0-2.4) ng/mL Total Protein 6.2 L (6.3-8.2) g/dL Assessment and Plan Plan: Assessment: Acute hypoxic respiratory failure Influenza B pneumonitis CAD History of hypertension Dyslipidemia Hypothyroidism Restless leg syndrome Hyperkalemia, resolved Plan Patient will need to undergo another bronchoscopy in the outpatient setting. Patient has completed Tamiflu. We will continue nebulizer treatments. Continue with 2-3L of supplemental oxygen to keep oxygen saturations above 92%. Continue with incentive spirometer and flutter valve. We will continue to monitor labs and adjust treatment as necessary. Patient could be discharged in the near future to rehab facility I performed an examination of the patient and discussed their management with the nurse practitioner. I have reviewed the nurse practitioner's note and agree with the documented findings and plan of care.
[2016-08-28 12:04] VITALS: PULSE 80
[2016-08-28] MEDS ORDERED: PNEUMOCOCCAL VACC-PNEUMOVAX 23 25 MCG/0.5 ML VIAL IM ONE (12:30)
[2016-08-28 12:31] LABS: Glucose,Whole Blood 109 mg/dL (75-99)
--- NOTE | 2016-08-28 13:22 | P.DS ---
Providers Date of admission: 08/18/16 16:17 Expected date of discharge: 08/28/16 Attending physician: Manuel Angel MD Consults: 08/18/16 16:50 Consult Physician Routine Consulting Provider: Kuldip Porter Consult Reason/Comments: Pneumonia Do you want consulting provider notified?: Yes Primary care physician: Stated None Dr. Rios AT [facility] CBC,BMP IN 2 DAYS Hospital Course: Final Diagnoses: #1 acute hypoxic respiratory failure sec to #2,O2 currently weaned off. #2 influenza B pneumonitis. #3 CAD #4 history of hypertension #5 dyslipidemia #6 hypothyroidism 7 restless leg syndrome. 8. CKD 3 #9. severe Osteoporosis likely by the diagnosis of nontraumatic fractures at multiple levels lower thoracic levels.T5, T6, T10. T11 patient was given one dose of pamidronate. #10 hyperkalemia,secondarymost likely 10 renal dysfunction,resolved. Hospital course: this is a 81 yr old that is admitted to the hospital from [facility], as pt has progressively gotten worse since her admission on . Pt was initially admitted with CELENA, associated with a non productive cough, respiratory acidosis, was started on bipap, abx and breathing tx. Pt was discharged home on 08/16/16, then readmitted overnight with similar complaints. Pt apparently was tachypneic and started on bipap again. CXR initially was read as pneumonia, however the radiologist at [place] has informed that a diffuse edema, and it is atypical for pneumonia. Patient was retested for influenza here. Patient tested positive here after being negative twice at [place].completed Tamiflu regimen.Evaluated by pulmonary.Developed thicker secretions, unable to expectorate and underwent bronchoscopy. Bronchoscopy reported significant thick secretions and collapsable left main bronchus.continues to have minimally productive cough without fevers chills nausea or vomiting.pulmonary discussing repeat bronchoscopy outpatientin regards to collapsing left mainstem bronchus. oxygen weaned off.patient has been here for discharge by pulmonary. Patient is being discharged to [facility] in a stable condition with guarded prognosis. Microbiology 08/23/16 14:00 Bronchial Washings - Left Fungal Culture - Preliminary Yeast species 08/23/16 14:00 Bronchial Washings - Left Gram Stain - Final 08/23/16 14:00 Bronchial Washings - Left Bronchial Washings Culture - Final 08/18/16 17:44 Blood Blood Culture - Final No Growth after 144 hours 08/23/16 14:00 Bronchial Washings - Left Acid Fast Bacilli Smear - Final 08/23/16 14:00 Bronchial Washings - Left Acid Fast Bacilli Culture - Preliminary The impression and plan of care has been dictated as directed. : I performed a H&P examination of this patient and discussed the same with the dictator. I agree with the dictator's note. Any additional findings/opinions/ etc. will be noted. Patient Condition at Discharge: Stable Plan - Discharge Summary New Discharge Prescriptions: Furosemide [Lasix] 40 mg PO DAILY #1 tablet HYDROcodone/APAP 7.5-325MG [[place] 7.5-325] 1 tab PO DAILY PRN #5 tab PRN Reason: Moderate To Severe Pain Discharge Medication List Aspirin EC [Ecotrin Low Dose] 81 mg PO DAILY 12/08/13 [History] Pravastatin Sodium [Pravachol] 40 mg PO DAILY 12/08/13 [History] rOPINIRole HCL [Requip] 2 mg PO HS 12/08/13 [History] Budesonide/Formoterol Fumarate [Symbicort 80-4.5 Mcg Inhaler] 2 puff INHALATION RT-BID PRN 12/27/15 [History] Allopurinol [Zyloprim] 100 mg PO DAILY 08/18/16 [History] Gabapentin [Neurontin] 300 mg PO DAILY 08/18/16 [History] Glimepiride [Amaryl] 1 mg PO [id number]-[id number] 08/18/16 [History] Levothyroxine Sodium [Synthroid] 112 mcg PO DAILY 08/18/16 [History] Loratadine [Claritin] 10 mg PO DAILY 08/18/16 [History] Metoprolol Succinate (ER) [Toprol XL] 50 mg PO DAILY 08/18/16 [History] Nitroglycerin 0.4 mg SUBLINGUAL Q5M PRN 08/18/16 [History] Ondansetron HCl [Zofran] 4 mg PO TID PRN 08/18/16 [History] Pantoprazole [Protonix] 40 mg PO DAILY 08/18/16 [History] Sennosides-Docusate Sodium [Senokot-S] 2 tab PO DAILY 08/18/16 [History] Albuterol Nebulized [Ventolin Nebulized] 2.5 mg INHALATION Q4H PRN #0 nebu 08/28 [Rx] Furosemide [Lasix] 40 mg PO DAILY #1 tablet 08/28/16 [Rx] HYDROcodone/APAP 7.5-325MG [[place] 7.5-325] 1 tab PO DAILY PRN #5 tab 08/28/16 [ Rx] Ipratropium-Albuterol Nebulize [Duoneb 0.5 mg-3 mg/3 ml Soln] 3 ml INHALATION RT -QID ampul.neb 08/28/16 [Rx] guaiFENesin [Mucinex] 600 mg PO DAILY tablet.er 08/28/16 [Rx] Follow up Appointment(s)/Referral(s): Kuldip Porter MD [STAFF PHYSICIAN] - 1 Week Paco Rios MD [REFERRING] - 3 Days (while at [facility]) Patient Instructions/Handouts: Type 2 Diabetes in Adults (DC) Activity/Diet/Wound Care/Special Instructions: incentive spirometer and flutter valve every hour10 Maintaining O2 sats greater than 92%as per pulmonary Discharge Disposition: TRANSFER TO SNF/ECF
[2016-08-28] MEDS ORDERED: FUROSEMIDE 40 MG TAB PO STA (13:50)
== END 2016-08-28 14:11 | DRG 193 ==
LOC: 4MS4W 16:17
PROVIDERS: ADMIT Internal Medicine; ATTEND Internal Medicine
PROC: 0B968ZX Drainage of Right Lower Lobe Bronchus, Via Natural or Artificial Opening Endoscopic, Diagnostic (ICD-10-PCS; principal; 2016-08-23 13:30)
PROC: 0B9B8ZX Drainage of Left Lower Lobe Bronchus, Via Natural or Artificial Opening Endoscopic, Diagnostic (ICD-10-PCS; principal; 2016-08-23 13:30)
DX: J10.08 Influenza due to other identified influenza virus with other specified pneumonia (principal); J96.01 Acute respiratory failure with hypoxia; E87.2 Acidosis; D69.6 Thrombocytopenia, unspecified; E11.22 Type 2 diabetes mellitus with diabetic chronic kidney disease; J44.0 Chronic obstructive pulmonary disease with (acute) lower respiratory infection; N18.3 Chronic kidney disease, stage 3 (moderate); M48.54XA Collapsed vertebra, not elsewhere classified, thoracic region, initial encounter for fracture; E87.5 Hyperkalemia; J15.9 Unspecified bacterial pneumonia; E03.9 Hypothyroidism, unspecified; E78.5 Hyperlipidemia, unspecified; F32.9 Major depressive disorder, single episode, unspecified; F41.9 Anxiety disorder, unspecified; G25.81 Restless legs syndrome; H91.90 Unspecified hearing loss, unspecified ear; I12.9 Hypertensive chronic kidney disease with stage 1 through stage 4 chronic kidney disease, or unspecified chronic kidney disease; I25.10 Atherosclerotic heart disease of native coronary artery without angina pectoris; J45.909 Unspecified asthma, uncomplicated; K21.9 Gastro-esophageal reflux disease without esophagitis; M94.20 Chondromalacia, unspecified site; Z79.899 Other long term (current) drug therapy; Z87.01 Personal history of pneumonia (recurrent); Z99.81 Dependence on supplemental oxygen; Z79.82 Long term (current) use of aspirin
CPT/HCPCS: 31624; 71010; 71020; 71250; 80048; 80051; 80053; 82553; 82570; 83036; 84133; 84550; 85025; 86140; 87040; 87070; 87102; 87116; 87205; 87206; 87252; 87496; 87498; 87502; 87529; 87541; 87798; 88108; 88305; 90732; 94640; 94667

== ENCOUNTER 2017-01-06 20:12 | Inpatient (IN) | payer MEDICARE ==
--- NOTE | 2017-01-06 20:16 | ED ---
General Adult HPI - General Stated complaint: pneumonia, sepsis Time Seen by Provider: 01/06/17 20:15 Source: RN notes reviewed, old records reviewed - History of Present Illness Initial comments: This is an 81-year-old female to the ER for evaluation of shortness of breath, patient presented today with shortness of breath cough and congestion outpatient facility. Patient has similarity with this hospital is at this hospital for treatment of pneumonia with COPD exacerbation. Patient has multiple medical comorbidities contributing to her shortness of breath. Patient was given antibiotics prior to transfer. No current fevers, no current distress, no chest pain - Related Data Home Medications Medication Instructions Recorded Confirmed Aspirin EC [Ecotrin Low Dose] 81 mg PO DAILY 12/08/13 08/18/16 Pravastatin Sodium [Pravachol] 40 mg PO DAILY 12/08/13 08/18/16 rOPINIRole HCL [Requip] 2 mg PO HS 12/08/13 08/18/16 Budesonide/Formoterol Fumarate 2 puff INHALATION RT-BID PRN 12/27/15 08/18/16 [Symbicort 80-4.5 Mcg Inhaler] Allopurinol [Zyloprim] 100 mg PO DAILY 08/18/16 08/18/16 Gabapentin [Neurontin] 300 mg PO DAILY 08/18/16 08/18/16 Glimepiride [Amaryl] 1 mg PO AC-BRKFST 08/18/16 08/18/16 Levothyroxine Sodium [Synthroid] 112 mcg PO DAILY 08/18/16 08/18/16 Loratadine [Claritin] 10 mg PO DAILY 08/18/16 08/18/16 Metoprolol Succinate (ER) [Toprol 50 mg PO DAILY 08/18/16 08/18/16 XL] Nitroglycerin 0.4 mg SUBLINGUAL Q5M PRN 08/18/16 08/18/16 Ondansetron HCl [Zofran] 4 mg PO TID PRN 08/18/16 08/18/16 Pantoprazole [Protonix] 40 mg PO DAILY 08/18/16 08/18/16 Sennosides-Docusate Sodium 2 tab PO DAILY 08/18/16 08/18/16 [Senokot-S] Previous Rx's Medication Instructions Recorded Albuterol Nebulized [Ventolin 2.5 mg INHALATION Q4H PRN #0 nebu 08/28/16 Nebulized] Furosemide [Lasix] 40 mg PO DAILY #1 tablet 08/28/16 HYDROcodone/APAP 7.5-325MG [[place] 1 tab PO DAILY PRN #5 tab 08/28/16 7.5-325] Ipratropium-Albuterol Nebulize 3 ml INHALATION RT-QID ampul.neb 08/28/16 [Duoneb 0.5 mg-3 mg/3 ml Soln] guaiFENesin [Mucinex] 600 mg PO DAILY tablet.er 08/28/16 Allergies Allergy/AdvReac Type Severity Reaction Status Date / Time amiodarone AdvReac Unknown Verified 01/06/17 20:39 digoxin AdvReac Nausea & Verified 01/26/16 16:03 Vomiting dronedarone [From Multaq] AdvReac Unknown Verified 01/06/17 20:39 metformin HCl AdvReac Nausea & Verified 01/26/16 16:03 [From Glucophage] Vomiting Review of Systems ROS Statement: Those systems with pertinent positive or pertinent negative responses have been documented in the HPI. ROS Other: All systems not noted in ROS Statement are negative. Past Medical History Past Medical History: Asthma, Coronary Artery Disease (CAD), COPD, Diabetes Mellitus, Deep Vein Thrombosis (DVT), Eye Disorder, GERD/Reflux, Hearing Disorder / Deafness, Hypertension, Musculoskeletal Disorder, Osteoarthritis (OA) , Pneumonia, Vascular Disorder Additional Past Medical History / Comment(s): restless leg syndrome, cataracts, hx. of pneumonia, neuropathy History of Any Multi-Drug Resistant Organisms: None Reported Past Surgical History: Appendectomy, Cholecystectomy, Heart Catheterization With Stent, Hysterectomy, Pacemaker, Tubal Ligation Additional Past Surgical History / Comment(s): hemroidectomy. cataract removed. tooth extractions, Pemanent Pacemaker, Cardiac Ablation. Pacemaker - November 27, 2010 Past Anesthesia/Blood Transfusion Reactions: No Reported Reaction Date of Last Stent Placement:: 07/08/11 Type of Cardiac Device: Permanent Pacemaker Device Placement Date:: 2003 Past Psychological History: Anxiety, Depression Smoking Status: Never smoker Past Alcohol Use History: None Reported Past Drug Use History: None Reported - Past Family History Mother Family Medical History: No Reported History General Exam General appearance: alert, in no apparent distress Head exam: Present: atraumatic, normocephalic, normal inspection Eye exam: Present: normal appearance, PERRL, EOMI. Absent: scleral icterus, conjunctival injection, periorbital swelling ENT exam: Present: normal exam, mucous membranes moist Neck exam: Present: normal inspection. Absent: tenderness, meningismus, lymphadenopathy Respiratory exam: Present: normal lung sounds bilaterally, wheezes, decreased breath sounds, prolonged expiratory. Absent: respiratory distress, rales, rhonchi, stridor Cardiovascular Exam: Present: regular rate, normal rhythm, normal heart sounds. Absent: systolic murmur, diastolic murmur, rubs, gallop, clicks GI/Abdominal exam: Present: soft, normal bowel sounds. Absent: distended, tenderness, guarding, rebound, rigid Extremities exam: Present: normal inspection, full ROM, normal capillary refill. Absent: tenderness, pedal edema, joint swelling, calf tenderness Back exam: Present: normal inspection Neurological exam: Present: alert, oriented X3, CN II-XII intact Psychiatric exam: Present: normal affect, normal mood Skin exam: Present: warm, dry, intact, normal color. Absent: rash Course Vital Signs 01/06/17 20:15 Temperature 97.8 F Pulse Rate 75 Respiratory 18 Rate Blood Pressure 113/53 O2 Sat by Pulse 93 L Oximetry - Reevaluation(s) Reevaluation #1: 01/06/17 20:51 Medical transfer records are reviewed, Reevaluation #2: 01/06/17 20:51 Patient is without complaint Medical Decision Making - Medical Decision Making 81 female year for evaluation. Patient does present today for evaluation regarding shards of breath cough congestion, she has had fever as an outpatient basis diagnosed with pneumonia and transferred, patient will be admitted for IV antibiotics, pulmonary consultation and monitoring of cardiopulmonary status - Radiology Data Radiology results: report reviewed (Chest x-ray outpatient shows positive pneumonia) Disposition Clinical Impression: Acute respiratory failure with hypoxia, Acute exacerbation of chronic obstructive airways disease, Nosocomial pneumonia Disposition: ADMITTED IP TO THIS HOSP Condition: Fair Referrals: Kit Hale MD [Primary Care Provider] - 1-2 days
[2017-01-06] MEDS ORDERED: PNEUMONIA PROTOCOL UTILIZED 1 EACH MISC PO PRN (20:46)
[2017-01-06] MEDS ORDERED: LEVOFLOXACIN 750MG-D5W PMX 750 MG in DEXTROSE/WATER 1 150ML.BAG IVPB SCH (21:00)
[2017-01-06] MEDS: SODIUM CHLORIDE 0.9% 1,000 ML IV SCH (22:18)
[2017-01-06] MEDS ORDERED: HYDROcodone/APAP 7.5-325MG 1 EACH TAB PO PRN (22:58)
[2017-01-06] MEDS ORDERED: NITROGLYCERIN SL TABS 0.4 MG TAB SUBLINGUAL PRN (22:58)
[2017-01-06] MEDS ORDERED: ONDANSETRON 4 MG TAB PO PRN (22:58)
[2017-01-06] MEDS: GABAPENTIN 300 MG CAP PO SCH (23:43)
[2017-01-06] MEDS: PIPERACILLIN-TAZOBACTAM 3.375 GM in DEXTROSE/WATER 1 50ML.BAG IVPB SCH (23:51)
[2017-01-07] MEDS: IPRATROPIUM-ALBUTEROL 3 ML NEB INHALATION PRN (00:31)
--- NOTE | 2017-01-07 01:32 | XR ---
EXAM: XR Chest, 1 View CLINICAL HISTORY: Pneumonia. TECHNIQUE: Frontal view of the chest. COMPARISON: CXR dated 01/06/2017. FINDINGS: Lungs: Stable mild opacity in the left mid to lower lung. Right lung appears clear. Pleural space: No pneumothorax. Suspect small left pleural effusion. No right-sided pleural effusion. Heart: Stable enlargement of the cardiac silhouette. Stable cardiac device. Mediastinum: No mediastinal widening. Bones/joints: Osseous structures are stable. IMPRESSION: 1. Persistent mild opacity in the left mid to lower lung suspicious for pneumonia in the appropriate clinical setting. Recommend follow-up to ensure resolution. 2. Stable small left pleural effusion. 3. Stable mild enlargement of the cardiac silhouette. Stable cardiac device.
[2017-01-07] MEDS: SYMBICORT 160-4.5 MCG INHALER INHALATION SCH ×2 (07:28→19:46)
[2017-01-07] MEDS: ALBUTEROL NEBULIZED 2.5 MG/3 ML INHALATION SCH ×4 (07:28→19:46)
--- NOTE | 2017-01-07 08:26 | CT ---
EXAMINATION TYPE: CT chest wo con DATE OF EXAM: 01/07/2017 COMPARISON: 08/18/2016 HISTORY: Pneumonia CT DLP: [address] of the chest was performed with lung and mediastinal window settings submitted. The la ck of contrast limits evaluation of the vascular, mediastinal and parenchymal structures including th e upper abdomen. LUNGS: Moderate-sized airspace consolidation extending from the left hilum into the left lower lobe s uperior segment. There is a left hilar fullness which may reflect underlying adenopathy however I can not exclude underlying mass. There is a new left-sided pleural effusion small in size. Trace right-si ded pleural effusion is also noted. There is stable parenchymal scar postinflammatory change left upp er lobe. 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 This may relate to mass of thymic origin. Adenopat hy is not excluded. The heart is enlarged. Additional smaller scattered mediastinal lymph nodes measu ring less than 1 cm. Left hilar fullness as noted. Small pericardial effusion. Ascending thoracic aor tic aneurysm measuring 4.5 cm AP dimension. UPPER ABDOMEN: No significant abnormality is seen. OTHER: Compression deformities and degenerative change thoracic spine. IMPRESSION: 1. Moderate-sized airspace consolidation extending from the left hilum into the left lower lobe supe rior segment. There is a left hilar fullness which may reflect underlying adenopathy however I cannot exclude underlying mass. 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 This may relate to mass of thymic origin. Adenopathy is not exclude d. 3. Ascending thoracic aortic aneurysm.
[2017-01-07] MEDS: POLYETHYLENE GLYCOL 3350 17 GM POWD.PACK PO SCH (08:36)
[2017-01-07] MEDS: LORATADINE 10 MG TAB PO SCH (08:36)
[2017-01-07] MEDS: PRAVASTATIN SODIUM 40 MG TAB PO SCH (08:36)
[2017-01-07] MEDS: METOPROLOL SUCCINATE (ER) 50 MG TAB.ER.24H PO SCH (08:36)
[2017-01-07] MEDS: PANTOPRAZOLE 40 MG TABLET PO SCH (08:37)
[2017-01-07] MEDS: ISOSORBIDE MONONITRATE ER 30 MG TAB.ER.24H PO SCH (08:37)
[2017-01-07] MEDS: PIPERACILLIN-TAZOBACTAM 3.375 GM in DEXTROSE/WATER 1 50ML.BAG IVPB SCH ×3 (08:37→23:40)
[2017-01-07] MEDS: LEVOTHYROXINE 100 MCG TAB PO SCH (08:37)
[2017-01-07] MEDS: ASPIRIN 81 MG CHEW PO SCH (08:37)
[2017-01-07] MEDS: ALLOPURINOL 100 MG TAB PO SCH (08:37)
[2017-01-07] MEDS: SODIUM CHLORIDE 0.9% 1,000 ML IV SCH (08:38)
[2017-01-07] MEDS: SENNOSIDES-DOCUSATE SODIUM 1 EACH TAB PO SCH (08:38)
[2017-01-07] MEDS ORDERED: FUROSEMIDE 40 MG TAB PO SCH (09:00)
[2017-01-07] MEDS ORDERED: ENOXAPARIN 40 MG/0.4 ML SYRINGE SQ SCH (09:00)
[2017-01-07 09:11] LABS: Aty Lym Flag Slight; CH 28.5; CHCM 29.8; HCT 46.4 % (34.0-46.0); HDW 2.52; HGB 14.3 gm/dL (11.4-16.0); Hypochromasia Marked; MCH 29.7 pg (25.0-35.0); MCHC 30.8 g/dL (31.0-37.0); MCV 96.2 fL (80.0-100.0); Mean Platelet Volume 9.7; RBC 4.83 m/uL (3.80-5.40); RDW 14.6 % (11.5-15.5); WBC (Perox) 9.58
[2017-01-07 10:44] LABS: Add Differential Manual Differential
[2017-01-07 10:49] LABS: Nucleated Red Blood Cells 0 /100 WBC (0-0); Total Cells Counted 100
[2017-01-07 10:51] LABS: Manual Review Performed; RBC Morphology Normal
[2017-01-07] MEDS: INSULIN LISPRO (humaLOG) 300 UNIT/3 ML VIAL SQ SCH ×4 (11:01→20:59)
--- NOTE | 2017-01-07 11:21 | P.PN ---
Subjective 81-year-old female admitted for possibility of pneumonia. I was able to review the CAT scans from this admission and previous admissions. Patient's a bronchogram is similar to the air bronchogram from the CAT scan that was done in the past. Patient although had a little bit of increased infiltrate probably secondary to atelectasis. Since patient does not have any symptoms of pneumonia my suspicion is low that patient had pneumonia. Patient was seen at the other facility for mostly abdominal pain and discomfort and diarrhea the symptoms of which improved but she did still has some pain in the right lower quadrant. Will monitor her today. Patient is extremely difficult historian because of her hearing problem because of which I'm unable to characterize had abdominal pain further. Her abdomen is soft, we'll just monitor her today I believe her abdominal pain is mostly because of cramping from MiraLAX patient probably can be discharged tomorrow. Meantime will get PT and OT evaluation. Patient denied any cough, fever, body aches, headache. Objective - Vital Signs Vital signs: Vital Signs Temp 97.7 F 01/07/17 07:00 Pulse 76 01/07/17 11:14 Resp 20 01/07/17 08:00 BP 110/57 01/07/17 07:00 Pulse Ox 98 01/07/17 07:00 Intake & Output 01/06/17 01/07/17 01/07/17 18:59 06:59 18:59 Intake Total 850 Balance 850 Weight 63.503 kg Intake: Intake, IV Titration 850 Amount Levofloxacin 750Mg-D5w 150 Pmx 750 mg In Dextrose/ Water 1 150ml.bag @ 100 mls/hr IVPB HS FINN Rx#: [id number] Piperacillin-Tazobactam 3 50 .375 gm In Dextrose/Water 1 50ml.bag @ 12.5 mls/hr IVPB Q8HR FINN Rx#: [id number] Sodium Chloride 0.9% 1, 650 000 ml @ 100 mls/hr IV . Q10H FINN Rx#:[id number] Other: Voiding Method Toilet Toilet - Exam PHYSICAL EXAMINATION: GENERAL: The patient is alert and oriented x3, not in any acute distress. Well developed, well nourished. HEENT: Pupils are round and equally reacting to light. EOMI. No scleral icterus. No conjunctival pallor. Normocephalic, atraumatic. No pharyngeal erythema. No thyromegaly. CARDIOVASCULAR: S1 and S2 present. No murmurs, rubs, or gallops. PULMONARY: Chest is clear to auscultation, no wheezing or crackles. ABDOMEN: Soft, minimal tenderness in the right lower quadrant, nondistended, normoactive bowel sounds. No palpable organomegaly. MUSCULOSKELETAL: No joint swelling or deformity. EXTREMITIES: No cyanosis, clubbing, or pedal edema. NEUROLOGICAL: Gross neurological examination did not reveal any focal deficits. SKIN: No rashes. - Labs CBC & Chem 7: 01/07/17 08:19 Labs: Abnormal Lab Results - Last 24 Hours (Table) 01/07/17 Range/Units 08:19 Hct 46.4 H (34.0-46.0) % MCHC 30.8 L (31.0-37.0) g/dL Plt Count 94 L (150-450) k/uL Monocytes # (Manual) 1.1 H (0-1.0) k/uL Assessment and Plan Plan: #1 abdominal pain: Secondary to possible gastroenteritis symptoms of which are improving. #2 possibility of left middle lobe pneumonia: Compacting her previous x-rays and physical exam findings my suspicion is low that patient has pneumonia but we 'll continue antibiotics for today we'll get the opinion from pulmonology as well. #3 COPD without any acute exacerbation patient is on 2 L of onset which will be continued #4 DVT in the past: Patient is off anticoagulation, patient is on DVT prophylaxis at this point of time. #5 hypothyroidism levothyroxine will be continued #6 coronary artery disease #7 dyslipidemia #8 restless leg syndrome For above-mentioned chronic medical problems and wouldn't continue her home medications.
[2017-01-07 11:58] LABS: Glucose,Whole Blood 185 mg/dL (75-99)
--- NOTE | 2017-01-07 12:06 | P.CNPUL ---
History of Present Illness Consult date: 01/07/17 Requesting physician: Suresh Zheng Reason for consult: COPD, pneumonia Chief complaint: Shortness of breath History of present illness: This is an 81 -year-old female patient being seen examined and evaluated. This patient is known to our services. This patient has had previous admissions in the past for influenza and pneumonia. This patient was transferred here from [facility] where she presented with some shortness of breath as well as diffuse abdominal pain. Patient did have a CT of the chest this morning which does show moderate sized airspace consolidation extending from the left hilum into the left lower lobe superior segment. There is a left hilar fullness which may reflect underlying adenopathy cannot exclude mass. 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 Also has the ascending thoracic aortic aneurysm. Upon examination the patient's resting up in bed on 2 L of supplemental oxygen which she uses at home at all times as well. Patient complains of a congested cough and she is unable to bring up secretions. Patient was having subjective fevers at home currently is afebrile. Review of Systems 14 point review of systems was completed and negative other than what's noted in the HPI. Past Medical History Past Medical History: Asthma, Coronary Artery Disease (CAD), COPD, Diabetes Mellitus, Deep Vein Thrombosis (DVT), Eye Disorder, GERD/Reflux, Hearing Disorder / Deafness, Hypertension, Musculoskeletal Disorder, Osteoarthritis (OA) , Pneumonia, Vascular Disorder Additional Past Medical History / Comment(s): restless leg syndrome, cataracts, hx. of pneumonia, neuropathy History of Any Multi-Drug Resistant Organisms: None Reported Past Surgical History: Appendectomy, Cholecystectomy, Heart Catheterization With Stent, Hysterectomy, Pacemaker, Tubal Ligation Additional Past Surgical History / Comment(s): hemroidectomy. cataract removed. tooth extractions, Pemanent Pacemaker, Cardiac Ablation. Pacemaker - November 27, 2010 Past Anesthesia/Blood Transfusion Reactions: No Reported Reaction Date of Last Stent Placement:: 07/08/11 Type of Cardiac Device: Permanent Pacemaker Device Placement Date:: 2003 Past Psychological History: Anxiety, Depression Smoking Status: Never smoker Past Alcohol Use History: None Reported Past Drug Use History: None Reported - Past Family History Mother Family Medical History: No Reported History Medications and Allergies Home Medications Medication Instructions Recorded Confirmed Type Aspirin EC [Ecotrin Low Dose] 81 mg PO DAILY 12/08/13 01/06/17 History Pravastatin Sodium [Pravachol] 40 mg PO DAILY 12/08/13 01/06/17 History Allopurinol [Zyloprim] 100 mg PO DAILY 08/18/16 01/06/17 History Loratadine [Claritin] 10 mg PO DAILY 08/18/16 01/06/17 History Metoprolol Succinate (ER) [Toprol 50 mg PO DAILY 08/18/16 01/06/17 History XL] Nitroglycerin 0.4 mg SUBLINGUAL Q5M PRN 08/18/16 01/06/17 History Ondansetron HCl [Zofran] 4 mg PO TID PRN 08/18/16 01/06/17 History Pantoprazole [Protonix] 40 mg PO DAILY 08/18/16 01/06/17 History Sennosides-Docusate Sodium 2 tab PO DAILY 08/18/16 01/06/17 History [Senokot-S] Albuterol Nebulized [Ventolin 2.5 mg INHALATION RT-QID 01/06/17 01/06/17 History Nebulized] Budesonide-Formot 160-4.5 Mcg 2 puff INHALATION RT-BID 01/06/17 01/06/17 History [Symbicort 160-4.5 Mcg Inhaler] Gabapentin [Neurontin] 300 mg PO HS 01/06/17 01/06/17 History HYDROcodone/APAP 7.5-325MG [[place] 1 tab PO DAILY PRN 01/06/17 01/06/17 History 7.5-325] Isosorbide Mononitrate ER [Imdur] 30 mg PO DAILY 01/06/17 01/06/17 History Levothyroxine Sodium [Synthroid] 100 mcg PO AC-BRKFST 01/06/17 01/06/17 History Polyethylene Glycol 3350 [Miralax] 17 gm PO DAILY 01/06/17 01/06/17 History rOPINIRole HCL [Requip] 2 mg PO HS 01/06/17 01/06/17 History Allergies Allergy/AdvReac Type Severity Reaction Status Date / Time amiodarone AdvReac Nausea Verified 01/06/17 21:16 digoxin AdvReac Nausea Verified 07/24/17 21:16 dronedarone [From Multaq] AdvReac Nausea Verified 01/06/17 21:16 metformin HCl AdvReac Nausea Verified 01/06/17 21:16 [From Glucophage] Physical Exam Vitals: Vital Signs Temp Pulse Pulse Resp BP BP Pulse Ox 01/07/17 11:14 76 01/07/17 11:02 74 01/07/17 08:00 70 20 01/07/17 07:43 72 01/07/17 07:29 70 20 01/07/17 07:00 97.7 F 70 18 110/57 98 01/07/17 00:40 70 18 01/07/17 00:32 68 18 01/06/17 23:00 97.9 F 72 16 115/57 97 01/06/17 22:45 72 18 01/06/17 21:15 69 18 108/53 97 01/06/17 20:15 97.8 F 75 18 113/53 93 L Intake and Output 01/06/17 01/07/17 01/07/17 22:59 06:59 14:59 Intake Total 850 Balance 850 Intake: Intake, IV Titration 850 Amount Levofloxacin 750Mg-D5w 150 Pmx 750 mg In Dextrose/ Water 1 150ml.bag @ 100 mls/hr IVPB HS FINN Rx#: [id number] Piperacillin-Tazobactam 3 50 .375 gm In Dextrose/Water 1 50ml.bag @ 12.5 mls/hr IVPB Q8HR FINN Rx#: [id number] Sodium Chloride 0.9% 1, 650 000 ml @ 100 mls/hr IV . Q10H FINN Rx#:[id number] Other: Voiding Method Toilet Toilet Weight 63.503 kg GENERAL EXAM: Alert, active, comfortable in no apparent distress. HEAD: Normocephalic. EYES: Normal reaction of pupils, equal size. NOSE: Clear with pink turbinates. THROAT: No erythema or exudates. NECK: No masses, no JVD. CHEST: No chest wall deformity. LUNGS: Patient noted to have bilateral coarse breath sounds some scattered rhonchi noted mainly on the left side. Basis diminished. CVS: S1 and S2 normal with no audible mumurs, regular rhythm. ABDOMEN: No hepatosplenomegaly, normal bowel sounds, no guarding or rigidity. EXTREMITIES: No edema noted, pedal pulses palpable. SKIN: No rashes CENTRAL NERVOUS SYSTEM: No focal deficits, tone is normal in all 4 extremities. Results - Laboratory Findings CBC and BMP: 01/07/17 08:19 Abnormal lab findings: Abnormal Labs 01/07/17 08:19 Hct 46.4 H MCHC 30.8 L Plt Count 94 L Monocytes # (Manual) 1.1 H - Diagnostic Findings Chest x-ray: report reviewed, image reviewed CT scan - chest: report reviewed, image reviewed Assessment and Plan Plan: Assessment Acute on chronic hypoxic respiratory failure Left lower lobe pneumonia Left sided mass on the superior segment of the left lower lobe and on the apical posterior left upper lobe Small left lower lobe effusion too small for thoracentesis Mediastinal adenopathy Chronic obstructive pulmonary disease without acute exacerbation Ascending thoracic aortic aneurysm Abdominal pain possibly related to gastroenteritis which has improved Coronary artery disease Dyslipidemia Restless leg syndrome Plan The patient should go for a bronchoscopy with possible biopsies tomorrow. The benefits and the risk have been discussed with the patient at length. We will obtain consent. Medications have been reviewed and will be continued as ordered. Continue with pulmonary hygiene, coughing and deep breathing exercises , and supportive care. Supplemental oxygen to maintain oxygen saturations of 92 % or better. Continue nebulizer treatments. GI and DVT prophylaxis. Initiate and encourage incentive spirometer. We will continue to monitor labs/results and adjust treatment as necessary. Further recommendations pending. I performed an examination of the patient and discussed their management with the nurse practitioner. I have reviewed the nurse practitioner's note and agree with the documented findings and plan of care.
[2017-01-07 13:12] LABS: Hemoglobin A1C 6.4 % (4.2-6.1)
--- NOTE | 2017-01-07 16:14 | HP ---
DATE OF ADMISSION: 01/06/17 CHIEF COMPLAINT: Pneumonia and sepsis. HISTORY OF PRESENT ILLNESS: This 82-year-old woman with a past medical history of multiple medical problems including asthma, CAD, COPD, DVT, GERD, is being followed by Dr. Ward in the outpatient setting in [place]. The patient is extremely hard of hearing. The patient apparently had shortness of breath and chills and cough and the patient came to [facility] with pneumonia and with lack of improvement, the patient was transferred to [facility] and admitted to the hospital for further evaluation and treatment. There is no history of any fevers, rigors or chills. No history of any headache , loss of consciousness or seizures. Past medical history of asthma, COPD. Diabetes mellitus, DVT, history of GERD , history of DJD, appendectomy, cholecystectomy, CAD, stent. Medications prior to admission are: Home medications are reviewed and include: 1. Requip 2 mg q.h.s. 2. [place] two tablets po daily. 3. PRavachol 40 mg po daily. 4. Miralax 17 mg daily. 5. Protonix 40 mg po daily. 6. Zofran 4 mg t.i.d. prn. 7. Nitroglycerine 0.4 sublingual prn. 8. Toprol XL 50 mg po daily. 9. Claritin 10 mg po daily. 10. Synthroid 100 mcg po daily. 11. Imdur 30 mg po daily. 12. Hydrocodone 7.5 mg daily prn. 13. Neurontin 300 mg q.h.s. 14. Lasix 40 mg po daily. 15. Symbicort 160/4.5 two puffs b.i.d. 16. Ecotrin 81 mg daily. 17. Zyloprim 100 mg po daily. 18. Ventolin 2.5 q.i.d. ALLERGIES: AMIADARONE, DIGOXIN, GLUCOPHAGE. FAMILY HISTORY: No history of heart disease or strokes in the family. SOCIAL HISTORY: No history of alcohol and smoking. REVIEW OF SYSTEMS: HEENT: No diminished vision. No diminished hearing. Cardiovascular system: No angina or palpitations. Respiratory: As mentioned earlier. GI: Nausea or vomiting. : No dysuria. Nervous system: No numbness, weakness. Allergy/Immunology: No asthma or hayfever. Musculoskeletal: As mentioned earlier. Hematology/oncology: No history of anemia. Endocrine. As mentioned earlier. Constitutional: As mentioned earlier. Dermatology: Negative. Rheumatology: Negative. Psychiatry: As mentioned earlier. PHYSICAL EXAMINATION: The patient is alert and oriented times three. Pulse 69. Blood pressure 108/53. Respiratory rate 18, temperature 97.9 degrees. Pulse ox 97% on 2 L. HEENT: Conjunctivae normal. NECK: No JVD. Cardiovascular: S1, S2 muffled. Respiratory: Breath sounds diminished at the bases. Scattered rhonchi and crackles. Abdomen is soft. Nontender. No mass palpable. Legs: No edema. No swelling. Nervous system: Higher functions as mentioned earlier. Moves all four limbs. No focal deficits. Lymphatics: No lymph nodes palpable in the neck, axillae or groin. SKIN: No ulcer, rash or bleeding. LABS: Pendung at this time. Chest x-ray left mid and lower lung small pleural effusion. ASSESSMENT: 1. Left lung pneumonia. 2. History of recent influenza. 3. History of coronary artery disease. 4. History of hypertension. 5. History of hyperlipidemia. 6. Hypothyrodismj. 7. Restless leg syndrome. 8. History of chronic kidney disease Stage III. 9. History of chronic obstructive pulmonary disease. 10. History of diabetes mellitus. 11. History of deep venous thrombosis. 12. History of degenerative joint disease. 13. History of extremely hard of hearing. 14. History of cholecystectomy. 15. History of coronary artery disease/stent. 16. Anxiety, depression. Not otherwise specified. 17. FULL CODE. RECOMMENDATIONS AND DISCUSSION: In this 81-year-old woman who presented with multiple complex medical issues, we will monitor the patient closely. Continue the current medications. Continue symptomatic treatment. Otherwise, at this time, I would recommend continue with bronchodilators. Empiric antibiotics. Pulmonary will be consulted. Dr. Porter will be consulted. Continue to monitor. Home medications will be continued. I would also recommend DVT prophylaxis. Repeat labs. Otherwise, prognosis is guarded because of the multiple complex medical issues. Further recommendations to follow. A copy of dictation being forwarded to Dr. Ward who is the primary care physician. [facility] CENTERJanessa
[2017-01-07 17:24] LABS: Glucose,Whole Blood 137 mg/dL (75-99)
[2017-01-07 20:51] LABS: Glucose,Whole Blood 183 mg/dL (75-99)
[2017-01-07] MEDS: GABAPENTIN 300 MG CAP PO SCH (20:59)
[2017-01-08 07:30] LABS: Glucose,Whole Blood 109 mg/dL (75-99)
[2017-01-08] MEDS: IPRATROPIUM-ALBUTEROL 3 ML NEB INHALATION PRN (08:13)
[2017-01-08] MEDS: ALBUTEROL NEBULIZED 2.5 MG/3 ML INHALATION SCH ×4 (08:14→20:39)
[2017-01-08] MEDS: SYMBICORT 160-4.5 MCG INHALER INHALATION SCH ×2 (08:14→20:40)
[2017-01-08] MEDS: INSULIN LISPRO (humaLOG) 300 UNIT/3 ML VIAL SQ SCH ×4 (08:33→20:56)
[2017-01-08] MEDS: PIPERACILLIN-TAZOBACTAM 3.375 GM in DEXTROSE/WATER 1 50ML.BAG IVPB SCH ×2 (08:56→17:57)
[2017-01-08 11:18] LABS: Glucose,Whole Blood 85 mg/dL (75-99)
[2017-01-08 12:39] LABS: Potassium 3.2 mmol/L (3.5-5.1)
[2017-01-08] MEDS ORDERED: PROPOFOL 10 MG/ML 20 ML VIAL IV ONE (13:22)
[2017-01-08] MEDS ORDERED: SODIUM CHLORIDE 0.9% 1,000 ML IV ONE (13:22)
[2017-01-08] MEDS: LEVOTHYROXINE 100 MCG TAB PO SCH (14:57)
[2017-01-08] MEDS: ASPIRIN 81 MG CHEW PO SCH (14:57)
[2017-01-08] MEDS: PANTOPRAZOLE 40 MG TABLET PO SCH (14:57)
[2017-01-08] MEDS: ALLOPURINOL 100 MG TAB PO SCH (14:57)
[2017-01-08] MEDS: PRAVASTATIN SODIUM 40 MG TAB PO SCH (14:58)
[2017-01-08] MEDS: POLYETHYLENE GLYCOL 3350 17 GM POWD.PACK PO SCH (14:58)
[2017-01-08] MEDS: LORATADINE 10 MG TAB PO SCH (14:58)
--- NOTE | 2017-01-08 15:00 | XR ---
EXAMINATION TYPE: XR chest 1V DATE OF EXAM: 01/08/2017 HISTORY: Shortness of breath. COMPARISON: 01/07/2017 TECHNIQUE: Single view of the chest is submitted. FINDINGS: No evidence for pneumothorax in a patient is status post bronchoscopy. Demonstrated are scattered senescent parenchymal change. There is progressive pneumonia within the left upper lobe. Small parapneumonic pleural effusion is id entified. There is also a infiltrate at the right medial lung base. The heart is stable. Dual-lead pacer device is unchanged in position. Hilar and mediastinal structures are within normal limits. Degenerative changes are seen of the dorsal spine. IMPRESSION: 1. There is progressive pneumonia within the left upper lobe. Small parapneumonic pleural effusion i s identified. There is also a infiltrate at the right medial lung base.
--- NOTE | 2017-01-08 15:00 | P.PN ---
Subjective Principal diagnosis: This is an 81 -year-old female patient being seen examined and evaluated. This patient is known to our services. This patient has had previous admissions in the past for influenza and pneumonia. This patient was transferred here from [facility] where she presented with some shortness of breath as well as diffuse abdominal pain. Patient did have a CT of the chest this morning which does show moderate sized airspace consolidation extending from the left hilum into the left lower lobe superior segment. There is a left hilar fullness which may reflect underlying adenopathy cannot exclude mass. 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 Also has the ascending thoracic aortic aneurysm. Upon examination the patient's resting up in bed on 2 L of supplemental oxygen which she uses at home at all times as well. Patient complains of a congested cough and she is unable to bring up secretions. Patient was having subjective fevers at home currently is afebrile. , Patient seen and evaluated and examined during the rounds she is still having intermittent cough and shortness of breath patient has been briefed about the bronchoscopy bronchoalveolar liver margin bronchial biopsy risk alternative procedures side effect and complication has been explained to her at length. Objective - Vital Signs Vital signs: Vital Signs Temp 97.6 F 01/08/17 07:00 Pulse 70 01/08/17 08:32 Resp 18 01/08/17 08:14 BP 98/51 01/08/17 07:00 Pulse Ox 96 01/08/17 07:00 Intake & Output 01/07/17 01/08/17 01/08/17 18:59 06:59 18:59 Intake Total 240 1180 950 Balance 240 1180 950 Intake: IV 200 Intake, IV Titration 750 Amount Piperacillin-Tazobactam 3 50 .375 gm In Dextrose/Water 1 50ml.bag @ 12.5 mls/hr IVPB Q8HR [facility] Rx#: [id number] Sodium Chloride 0.9% 1, 700 000 ml As IV .[facility] ONE Rx#:[id number] Oral 240 1180 0 Other: Voiding Method Toilet Toilet Toilet # Voids 3 3 # Bowel Movements 2 - Exam GENERAL EXAM: Alert, active, comfortable in no apparent distress. HEAD: Normocephalic. EYES: Normal reaction of pupils, equal size. NOSE: Clear with pink turbinates. THROAT: No erythema or exudates. NECK: No masses, no JVD. CHEST: No chest wall deformity. LUNGS: Patient noted to have bilateral coarse breath sounds some scattered rhonchi noted mainly on the left side. Basis diminished. On taking deep breath patient is going to episodes of coughing CVS: S1 and S2 normal with no audible mumurs, regular rhythm. ABDOMEN: No hepatosplenomegaly, normal bowel sounds, no guarding or rigidity. EXTREMITIES: No edema noted, pedal pulses palpable. SKIN: No rashes CENTRAL NERVOUS SYSTEM: No focal deficits, tone is normal in all 4 extremities. - Labs CBC & Chem 7: 01/07/17 08:19 01/08/17 08:31 Labs: Abnormal Lab Results - Last 24 Hours (Table) 01/07/17 01/07/17 01/08/17 Range/Units 17:22 20:50 07:28 Potassium (3.5-5.1) mmol/L BUN (7-17) mg/dL Creatinine (0.52-1.04) mg/dL POC Glucose (mg/dL) 137 H 183 H 109 H (75-99) mg/dL Calcium (8.4-10.2) mg/dL 01/08/17 Range/Units 08:31 Potassium 3.2 L (3.5-5.1) mmol/L BUN 36 H (7-17) mg/dL Creatinine 1.39 H (0.52-1.04) mg/dL POC Glucose (mg/dL) (75-99) mg/dL Calcium 8.0 L (8.4-10.2) mg/dL Microbiology - Last 24 Hours (Table) 01/06/17 21:55 Blood Culture - Preliminary Blood No Growth after 24 hours 01/06/17 21:16 Blood Culture - Preliminary Blood No Growth after 24 hours Assessment and Plan Plan: Acute on chronic hypoxic respiratory failure Left lower lobe pneumonia Left sided mass on the superior segment of the left lower lobe and on the apical posterior left upper lobe, neoplastic process cannot be excluded Small left lower lobe effusion too small for thoracentesis Mediastinal adenopathy Chronic obstructive pulmonary disease without acute exacerbation Ascending thoracic aortic aneurysm Abdominal pain possibly related to gastroenteritis which has improved Coronary artery disease Dyslipidemia Restless leg syndrome Plan Differential diagnoses of the computed tomography scan finding reviewed and discussed with the patient and family at length The patient reported go for a bronchoscopy with possible biopsies later on today. The benefits and the risk have been discussed with the patient at length. We will obtain consent. Medications have been reviewed and will be continued as ordered. Continue with pulmonary hygiene, coughing and deep breathing exercises, and supportive care. Supplemental oxygen to maintain oxygen saturations of 92% or better. Continue nebulizer treatments. GI and DVT prophylaxis. Initiate and encourage incentive spirometer. We will continue to monitor labs/results and adjust treatment as necessary. Continue antibiotics breathing treatment and steroid follow clinical course closely Further recommendations pending. Time with Patient: Greater than 30
[2017-01-08] MEDS: SENNOSIDES-DOCUSATE SODIUM 1 EACH TAB PO SCH (15:03)
--- NOTE | 2017-01-08 15:04 | FL ---
EXAMINATION TYPE: FL bronchoscopy DATE OF EXAM: 01/08/2017 CLINICAL HISTORY: left lower lobe bronch w/biopsy TECHNIQUE: Fluoroscopy. COMPARISON: None. Left lower lobe bronch w.biopsy. 1 min 13 sec fluoro. No images saved. Dr. Porter.
--- NOTE | 2017-01-08 15:06 | P.PCN ---
Date of Procedure: 01/08/17 Preoperative Diagnosis: Left-sided pneumonia, left-sided perihilar/mediastinal mass Postoperative Diagnosis: As above Procedure(s) Performed: #1 bronchoscopy, #2 bronchoalveolar lavage of the left upper lobe and left lower lobe, #3 transbronchial lung biopsy of left perihilar mass involving the left lower lobe superior segment predominantly Implants: Anesthesia: other Surgeon: Kuldip Porter Estimated Blood Loss (ml): 20 Condition: stable Disposition: floor Indications for Procedure: As above Operative Findings: As below Description of Procedure: Patient prepared and draped in the usual fashion for anesthesia please refer to the anesthesia note, fiberoptic bronchoscope was passed through the right nares the vocal cords were normal structure and function tip of the scope was passed beyond the vocal cords into the trachea right upper lobe right middle lobe and right lower lobe were inspected along with subsegment no endobronchial mass or lesion was identified scope was has done the left side left lower lobe bronchus was narrowed due to extrinsic compression so as the left upper lobe bronchus the scope was placed into the appear segment of the left lower lobe and BAL was performed followed by instillation of his lidocaine plus epi was given fluoroscopy was utilized to perform multiple transbronchial biopsies and tolerated the procedure well no complication noted besides early desaturation however throughout the biopsy this at [place] remains in the mid to high 90s patient did have some oozing postbiopsy stopped with local measures and temperament regular loss about 20 mL post, patient tolerated procedure well no complication noted being transferred to recovery area operative findings reviewed and discussed with the son and [id number] procedure chest x-ray reviewed no evidence of pneumothorax is seen
[2017-01-08] MEDS: METOPROLOL SUCCINATE (ER) 50 MG TAB.ER.24H PO SCH (15:10)
[2017-01-08] MEDS: ISOSORBIDE MONONITRATE ER 30 MG TAB.ER.24H PO SCH ×2 (15:11→15:17)
[2017-01-08 17:25] LABS: Glucose,Whole Blood 201 mg/dL (75-99)
[2017-01-08 20:21] LABS: Glucose,Whole Blood 208 mg/dL (75-99)
[2017-01-08] MEDS: GABAPENTIN 300 MG CAP PO SCH (20:56)
[2017-01-09] MEDS: PIPERACILLIN-TAZOBACTAM 3.375 GM in DEXTROSE/WATER 1 50ML.BAG IVPB SCH ×2 (00:05→20:01)
[2017-01-09] MEDS: ALBUTEROL NEBULIZED 2.5 MG/3 ML INHALATION SCH ×4 (07:02→19:10)
[2017-01-09] MEDS: SYMBICORT 160-4.5 MCG INHALER INHALATION SCH ×2 (07:03→19:10)
[2017-01-09 07:23] LABS: Glucose,Whole Blood 90 mg/dL (75-99)
[2017-01-09] MEDS: INSULIN LISPRO (humaLOG) 300 UNIT/3 ML VIAL SQ SCH ×4 (07:57→20:55)
[2017-01-09 08:19] LABS: Calcium 8.2 mg/dL (8.4-10.2); Potassium 3.9 mmol/L (3.5-5.1)
[2017-01-09] MEDS ORDERED: ENOXAPARIN 30 MG/0.3 ML SYRINGE SQ SCH (09:00)
[2017-01-09] MEDS: LEVOTHYROXINE 100 MCG TAB PO SCH (09:08)
[2017-01-09] MEDS: ASPIRIN 81 MG CHEW PO SCH (09:08)
[2017-01-09] MEDS: ALLOPURINOL 100 MG TAB PO SCH (09:08)
[2017-01-09] MEDS: PRAVASTATIN SODIUM 40 MG TAB PO SCH (09:08)
[2017-01-09] MEDS: LORATADINE 10 MG TAB PO SCH (09:08)
[2017-01-09] MEDS: PANTOPRAZOLE 40 MG TABLET PO SCH (09:09)
[2017-01-09] MEDS: SENNOSIDES-DOCUSATE SODIUM 1 EACH TAB PO SCH (09:09)
[2017-01-09] MEDS: POLYETHYLENE GLYCOL 3350 17 GM POWD.PACK PO SCH (09:09)
[2017-01-09 11:44] LABS: Glucose,Whole Blood 121 mg/dL (75-99)
[2017-01-09] MEDS: METOPROLOL SUCCINATE (ER) 50 MG TAB.ER.24H PO SCH (12:03)
[2017-01-09] MEDS: AMOXIC-POT CLAV 875-125MG 1 EACH TAB PO SCH ×2 (12:03→20:54)
[2017-01-09] MEDS: ISOSORBIDE MONONITRATE ER 30 MG TAB.ER.24H PO SCH (12:06)
--- NOTE | 2017-01-09 12:45 | XR ---
EXAMINATION TYPE: XR chest 2V DATE OF EXAM: 01/09/2017 HISTORY: Shortness of breath. REFERENCE: Previous study dated 01/08/2017. FINDINGS: There is worsening left-sided opacity part of which represents consolidation. I could not e xclude a pleural effusion. The right lung is clear. The heart is enlarged. There is a bipolar pacemaker place on the left. IMPRESSION: 1. WORSENING LEFT-SIDED INFILTRATE. 2. I CANNOT EXCLUDE A LEFT-SIDED EFFUSION. 3. CARDIOMEGALY.
--- NOTE | 2017-01-09 16:25 | P.PN ---
Subjective 01/07/17 This is an 81 -year-old female patient being seen examined and evaluated. This patient is known to our services. This patient has had previous admissions in the past for influenza and pneumonia. This patient was transferred here from [facility] where she presented with some shortness of breath as well as diffuse abdominal pain. Patient did have a CT of the chest this morning which does show moderate sized airspace consolidation extending from the left hilum into the left lower lobe superior segment. There is a left hilar fullness which may reflect underlying adenopathy cannot exclude mass. 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 Also has the ascending thoracic aortic aneurysm. Upon examination the patient's resting up in bed on 2 L of supplemental oxygen which she uses at home at all times as well. Patient complains of a congested cough and she is unable to bring up secretions. Patient was having subjective fevers at home currently is afebrile. , 01/08/17-Patient seen and evaluated and examined during the rounds she is still having intermittent cough and shortness of breath patient has been briefed about the bronchoscopy bronchoalveolar liver margin bronchial biopsy risk alternative procedures side effect and complication has been explained to her at length. 01/09/17- patient is being seen in evaluated and examined during rounds. Patient continues to have intermittent shortness of breath with exertion as well as an intermittent cough. Patient underwent a bronchoscopy yesterday with biopsy and was noted to have approximately 20 miles of blood loss for that procedure. Chest x-ray from this afternoon has been reviewed and shows a worsening left-sided infiltrate, left-sided effusion cannot be excluded, cardiomegaly. Upon examination the patient's resting up in bed on 2 L of supplemental oxygen. She does not feel her breathing is at her baseline at this time. Objective - Vital Signs Vital signs: Vital Signs Temp 98.2 F 01/09/17 15:00 Pulse 69 01/09/17 15:27 Resp 16 01/09/17 15:00 BP 91/53 01/09/17 15:00 Pulse Ox 97 01/09/17 15:17 Intake & Output 01/08/17 01/09/17 01/09/17 18:59 06:59 18:59 Intake Total 950 350 Balance 950 350 Intake: IV 200 Intake, IV Titration 750 50 Amount Piperacillin-Tazobactam 3 50 50 .375 gm In Dextrose/Water 1 50ml.bag @ 12.5 mls/hr IVPB Q8HR [facility] Rx#: [id number] Sodium Chloride 0.9% 1, 700 000 ml As IV .[facility] Rx#:[id number] Oral 0 300 Other: Voiding Method Toilet Toilet Toilet # Voids 2 2 - Exam GENERAL EXAM: Alert, active, comfortable in no apparent distress. HEAD: Normocephalic. EYES: Normal reaction of pupils, equal size. NOSE: Clear with pink turbinates. THROAT: No erythema or exudates. NECK: No masses, no JVD. CHEST: No chest wall deformity. LUNGS: Patient noted to have bilateral coarse breath sounds some scattered rhonchi noted mainly on the left side. Basis diminished. On taking deep breath patient is going to episodes of coughing CVS: S1 and S2 normal with no audible mumurs, regular rhythm. ABDOMEN: No hepatosplenomegaly, normal bowel sounds, no guarding or rigidity. EXTREMITIES: No edema noted, pedal pulses palpable. SKIN: No rashes CENTRAL NERVOUS SYSTEM: No focal deficits, tone is normal in all 4 extremities. - Labs CBC & Chem 7: 01/07/17 08:19 01/09/17 07:19 Labs: Abnormal Lab Results - Last 24 Hours (Table) 01/08/17 01/08/17 01/09/17 Range/Units 17:23 20:17 07:19 BUN 28 H (7-17) mg/dL Creatinine 1.20 H (0.52-1.04) mg/dL POC Glucose (mg/dL) 201 H 208 H (75-99) mg/dL Calcium 8.2 L (8.4-10.2) mg/dL 01/09/17 Range/Units 11:42 BUN (7-17) mg/dL Creatinine (0.52-1.04) mg/dL POC Glucose (mg/dL) 121 H (75-99) mg/dL Calcium (8.4-10.2) mg/dL Microbiology - Last 24 Hours (Table) 01/08/17 13:56 Fungal Culture - Preliminary Bronchial Washings - Left 01/08/17 13:56 Acid Fast Bacilli Culture - Preliminary Bronchial Washings - Left 01/08/17 13:56 Gram Stain - Preliminary Bronchial Washings - Left Bronchial Washings Culture - Preliminary 01/06/17 21:55 Blood Culture - Preliminary Blood No Growth after 48 hours 01/06/17 21:16 Blood Culture - Preliminary Blood No Growth after 48 hours Assessment and Plan Plan: Assessment Acute on chronic hypoxic respiratory failure Left lower lobe pneumonia Left sided mass on the superior segment of the left lower lobe and on the apical posterior left upper lobe Small left lower lobe effusion too small for thoracentesis Mediastinal adenopathy Chronic obstructive pulmonary disease without acute exacerbation Ascending thoracic aortic aneurysm Abdominal pain possibly related to gastroenteritis which has improved Coronary artery disease Dyslipidemia Restless leg syndrome Plan Bronchoscopy results are pending. Repeat chest x-ray in the morning. We will add oral prednisone. Patient should continue with antibiotics. Medications have been reviewed and will be continued as ordered. Continue with pulmonary hygiene, coughing and deep breathing exercises, and supportive care. Supplemental oxygen to maintain oxygen saturations of 92% or better. Continue nebulizer treatments. GI and DVT prophylaxis. Initiate and encourage incentive spirometer. We will continue to monitor labs/results and adjust treatment as necessary. Further recommendations pending. I performed an examination of the patient and discussed their management with the nurse practitioner. I have reviewed the nurse practitioner's note and agree with the documented findings and plan of care.
[2017-01-09 16:42] LABS: Glucose,Whole Blood 116 mg/dL (75-99)
[2017-01-09] MEDS: predniSONE 20 MG TAB PO SCH (16:56)
--- NOTE | 2017-01-09 17:45 | P.PN ---
Subjective Date of service 01/08/17 Progress note being dictated for Dr. Pacheco. Interval history: Is is a 81-year-old female admitted for possibility of pneumonia. I was able to review the CAT scans from this admission and previous admissions. Patient's a bronchogram is similar to the air bronchogram from the CAT scan that was done in the past. Patient although had a little bit of increased infiltrate probably secondary to atelectasis. Since patient does not have any symptoms of pneumonia my suspicion is low that patient had pneumonia. Patient was seen at the other facility for mostly abdominal pain and discomfort and diarrhea the symptoms of which improved but she did still has some pain in the right lower quadrant. Will monitor her today. Patient is extremely difficult historian because of her hearing problem because of which I'm unable to characterize had abdominal pain further. Her abdomen is soft, we'll just monitor her today I believe her abdominal pain is mostly because of cramping from MiraLAX patient probably can be discharged tomorrow. Meantime will get PT and OT evaluation. Patient denied any cough, fever, body aches, headache. 01/08/2017 breathing slowly improve, complains of shortness of breath with persistent nonproductive cough. CT chest suggested moderate mass extending from left hilum into the left lower lobe, ascending aortic aneurysm. Underwent bronchoscopy, reporting left-sided pneumonia, left-sided perihilar/mediastinal mass with biopsies obtained. Tolerated procedure well. Denies chest pain, palpitations or increasing shortness of breath. Objective - Vital Signs Vital signs: Vital Signs Temp 97.4 F L 01/08/17 15:00 Pulse 68 01/08/17 16:59 Resp 18 01/08/17 15:00 BP 146/86 01/08/17 15:00 Pulse Ox 99 01/08/17 15:00 Intake & Output 01/07/17 01/08/17 01/08/17 18:59 06:59 18:59 Intake Total 240 1180 950 Balance 240 1180 950 Intake: IV 200 Intake, IV Titration 750 Amount Piperacillin-Tazobactam 3 50 .375 gm In Dextrose/Water 1 50ml.bag @ 12.5 mls/hr IVPB Q8HR [facility] Rx#: [id number] Sodium Chloride 0.9% 1, 700 000 ml As IV .[facility] Rx#:[id number] Oral 240 1180 0 Other: Voiding Method Toilet Toilet Toilet # Voids 3 3 # Bowel Movements 2 - Exam GENERAL: The patient is alert and oriented x3, not in any acute distress. Well developed, well nourished. HEENT: Pupils are round and equally reacting to light. EOMI. No scleral icterus. No conjunctival pallor. Normocephalic, atraumatic. No pharyngeal erythema. No thyromegaly. CARDIOVASCULAR: S1 and S2 present. No murmurs, rubs, or gallops. PULMONARY: Chest is clear to auscultation, coarse rhonchi, no wheezing or crackles. ABDOMEN: Soft, minimal tenderness in the right lower quadrant, nondistended, normoactive bowel sounds. No palpable organomegaly. MUSCULOSKELETAL: No joint swelling or deformity. EXTREMITIES: No cyanosis, clubbing, or pedal edema. NEUROLOGICAL: Gross neurological examination did not reveal any focal deficits. Moves all 4 extremities, strength and sensation grossly intact SKIN: No rashes. - Labs CBC & Chem 7: 01/07/17 08:19 01/09/17 07:19 Labs: Abnormal Lab Results - Last 24 Hours (Table) 01/07/17 01/08/17 01/08/17 Range/Units 20:50 07:28 08:31 Potassium 3.2 L (3.5-5.1) mmol/L BUN 36 H (7-17) mg/dL Creatinine 1.39 H (0.52-1.04) mg/dL POC Glucose (mg/dL) 183 H 109 H (75-99) mg/dL Calcium 8.0 L (8.4-10.2) mg/dL 01/08/17 Range/Units 17:23 Potassium (3.5-5.1) mmol/L BUN (7-17) mg/dL Creatinine (0.52-1.04) mg/dL POC Glucose (mg/dL) 201 H (75-99) mg/dL Calcium (8.4-10.2) mg/dL Microbiology - Last 24 Hours (Table) 01/06/17 21:55 Blood Culture - Preliminary Blood No Growth after 24 hours 01/06/17 21:16 Blood Culture - Preliminary Blood No Growth after 24 hours Assessment and Plan Plan: #1 abdominal pain: Secondary to possible gastroenteritis symptoms of which are improving. #2 possibility of left middle lobe pneumonia; possible left-sided perihilar/ mediastinal mass left parahilar mass, status post bronchoscopy, pathology pending. #3 COPD without any acute exacerbation patient is on 2 L of onset which will be continued #4 DVT in the past: Patient is off anticoagulation, patient is on DVT prophylaxis at this point of time. #5 hypothyroidism levothyroxine will be continued #6 coronary artery disease #7 dyslipidemia #8 restless leg syndrome Plan continue on current medication regime ,monitoring and symptomatic treatment. Maintain nebulized bronchodilators, steroids, and antibiotics. Discharge planning in progress for tomorrow. Pathology pending. The impression and plan of care has been dictated as directed. : I performed a H&P examination of this patient and discussed the same with the dictator. I agree with the dictator's note. Any additional findings/opinions/ etc. will be noted.
--- NOTE | 2017-01-09 17:53 | P.PN ---
Subjective Date of service 01/09/17 Progress note being dictated for Dr. Pacheco. Interval history: Is is a 81-year-old female admitted for possibility of pneumonia. I was able to review the CAT scans from this admission and previous admissions. Patient's a bronchogram is similar to the air bronchogram from the CAT scan that was done in the past. Patient although had a little bit of increased infiltrate probably secondary to atelectasis. Since patient does not have any symptoms of pneumonia my suspicion is low that patient had pneumonia. Patient was seen at the other facility for mostly abdominal pain and discomfort and diarrhea the symptoms of which improved but she did still has some pain in the right lower quadrant. Will monitor her today. Patient is extremely difficult historian because of her hearing problem because of which I'm unable to characterize had abdominal pain further. Her abdomen is soft, we'll just monitor her today I believe her abdominal pain is mostly because of cramping from MiraLAX patient probably can be discharged tomorrow. Meantime will get PT and OT evaluation. Patient denied any cough, fever, body aches, headache. 01/08/2017 breathing slowly improve, complains of shortness of breath with persistent nonproductive cough. CT chest suggested moderate mass extending from left hilum into the left lower lobe, ascending aortic aneurysm. Underwent bronchoscopy, reporting left-sided pneumonia, left-sided perihilar/mediastinal mass with biopsies obtained. Tolerated procedure well. Denies chest pain, palpitations or increasing shortness of breath. 01/09/2017 status post bronchoscopy, pathology pending. States had a rough night with increased persistent coughing throughout. Swallowing secretions. Increased shortness of breath with expiratory wheezing. Chest x-ray reporting worsening left-sided infiltrate/effusion. Renal function improving. Denies chest pain, palpitations. Afebrile. Objective - Vital Signs Vital signs: Vital Signs Temp 98.2 F 01/09/17 15:00 Pulse 69 01/09/17 15:27 Resp 16 01/09/17 15:00 BP 91/53 01/09/17 15:00 Pulse Ox 97 01/09/17 15:17 Intake & Output 01/08/17 01/09/17 01/09/17 18:59 06:59 18:59 Intake Total 950 350 Balance 950 350 Intake: IV 200 Intake, IV Titration 750 50 Amount Piperacillin-Tazobactam 3 50 50 .375 gm In Dextrose/Water 1 50ml.bag @ 12.5 mls/hr IVPB Q8HR [facility] Rx#: [id number] Sodium Chloride 0.9% 1, 700 000 ml As IV [email or web address] [facility] Rx#:[id number] Oral 0 300 Other: Voiding Method Toilet Toilet Toilet # Voids 2 3 - Exam GENERAL: The patient is alert and oriented x3, not in any acute distress. Well developed, well nourished. HEENT: Pupils are round and equally reacting to light. EOMI. No scleral icterus. No conjunctival pallor. Normocephalic, atraumatic. No pharyngeal erythema. No thyromegaly. CARDIOVASCULAR: S1 and S2 present. No murmurs, rubs, or gallops. PULMONARY: Bilateral bases Diminished, scattered expiratory wheezing, rhonchi scattered throughout left lung, no crackles ABDOMEN: Soft, minimal tenderness in the right lower quadrant, nondistended, normoactive bowel sounds. No palpable organomegaly. MUSCULOSKELETAL: No joint swelling or deformity. EXTREMITIES: No cyanosis, clubbing, or pedal edema. NEUROLOGICAL: Gross neurological examination did not reveal any focal deficits. Moves all 4 extremities, strength and sensation grossly intact SKIN: No rashes. - Labs CBC & Chem 7: 01/07/17 08:19 01/09/17 07:19 Labs: Abnormal Lab Results - Last 24 Hours (Table) 01/08/17 01/09/17 01/09/17 Range/Units 20:17 07:19 11:42 BUN 28 H (7-17) mg/dL Creatinine 1.20 H (0.52-1.04) mg/dL POC Glucose (mg/dL) 208 H 121 H (75-99) mg/dL Calcium 8.2 L (8.4-10.2) mg/dL 01/09/17 Range/Units 16:41 BUN (7-17) mg/dL Creatinine (0.52-1.04) mg/dL POC Glucose (mg/dL) 116 H (75-99) mg/dL Calcium (8.4-10.2) mg/dL Microbiology - Last 24 Hours (Table) 01/08/17 13:56 Fungal Culture - Preliminary Bronchial Washings - Left 01/08/17 13:56 Acid Fast Bacilli Culture - Preliminary Bronchial Washings - Left 01/08/17 13:56 Gram Stain - Preliminary Bronchial Washings - Left Bronchial Washings Culture - Preliminary 01/06/17 21:55 Blood Culture - Preliminary Blood No Growth after 48 hours 01/06/17 21:16 Blood Culture - Preliminary Blood No Growth after 48 hours Assessment and Plan Plan: #1 abdominal pain: Secondary to possible gastroenteritis symptoms of which are improving. #2 possibility of left middle lobe pneumonia; possible left-sided perihilar/ mediastinal mass left parahilar mass, status post bronchoscopy, pathology pending. #3 COPD without any acute exacerbation patient is on 2 L of onset which will be continued #4 DVT in the past: Patient is off anticoagulation, patient is on DVT prophylaxis at this point of time. #5 hypothyroidism levothyroxine will be continued #6 coronary artery disease #7 dyslipidemia #8 restless leg syndrome Plan continue on current medication regime ,monitoring and symptomatic treatment. Continue nebulized bronchodilators, steroids, and antibiotics. Initially had planned for discharge, but patient feeling worse today, increased shortness of breath today; discharge placed on hold. Follow closely with pulmonary. Further recommendations to follow. The impression and plan of care has been dictated as directed. : I performed a H&P examination of this patient and discussed the same with the dictator. I agree with the dictator's note. Any additional findings/opinions/ etc. will be noted.
[2017-01-09 20:34] LABS: Glucose,Whole Blood 158 mg/dL (75-99)
[2017-01-09] MEDS: GABAPENTIN 300 MG CAP PO SCH (20:55)
[2017-01-10 07:37] LABS: Glucose,Whole Blood 145 mg/dL (75-99)
[2017-01-10] MEDS: ALBUTEROL NEBULIZED 2.5 MG/3 ML INHALATION SCH ×3 (07:45→15:42)
[2017-01-10] MEDS: SYMBICORT 160-4.5 MCG INHALER INHALATION SCH (07:46)
--- NOTE | 2017-01-10 07:57 | XR ---
EXAMINATION TYPE: XR chest 2V DATE OF EXAM: 01/10/2017 HISTORY: shortness of breath. REFERENCE: Previous study dated 01/09/2017. 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 There is slight improvement in aeration of the left lung. There is worsening infiltrate in the right lung base. Heart size is within normal limits. I suspect a left-sided effusion. IMPRESSION: 1. MINIMAL IMPROVEMENT IN THE PATIENT'S LEFT-SIDED INFILTRATE. 2. WORSENING INFILTRATE, RIGHT LUNG BASE. 3. LEFT-SIDED EFFUSION.
[2017-01-10] MEDS: predniSONE 20 MG TAB PO SCH (08:21)
[2017-01-10] MEDS: ASPIRIN 81 MG CHEW PO SCH (08:21)
[2017-01-10] MEDS: AMOXIC-POT CLAV 875-125MG 1 EACH TAB PO SCH (08:22)
[2017-01-10] MEDS: ENOXAPARIN 40 MG/0.4 ML SYRINGE SQ SCH (08:22)
[2017-01-10] MEDS: PANTOPRAZOLE 40 MG TABLET PO SCH (08:22)
[2017-01-10] MEDS: METOPROLOL SUCCINATE (ER) 50 MG TAB.ER.24H PO SCH (08:22)
[2017-01-10] MEDS: LORATADINE 10 MG TAB PO SCH (08:22)
[2017-01-10] MEDS: ISOSORBIDE MONONITRATE ER 30 MG TAB.ER.24H PO SCH (08:22)
[2017-01-10] MEDS: LEVOTHYROXINE 100 MCG TAB PO SCH (08:22)
[2017-01-10] MEDS: PRAVASTATIN SODIUM 40 MG TAB PO SCH (08:22)
[2017-01-10] MEDS: ALLOPURINOL 100 MG TAB PO SCH (08:22)
[2017-01-10] MEDS: POLYETHYLENE GLYCOL 3350 17 GM POWD.PACK PO SCH (08:23)
[2017-01-10] MEDS: INSULIN LISPRO (humaLOG) 300 UNIT/3 ML VIAL SQ SCH ×2 (08:23→12:22)
[2017-01-10 08:41] LABS: Calcium 8.8 mg/dL (8.4-10.2); Potassium 4.6 mmol/L (3.5-5.1)
[2017-01-10 08:42] LABS: Basophils % (A) 0 %; CH 29.1; CHCM 30.7; Eosinophils % (A) 0 %; HDW 2.64; HGB 12.2 gm/dL (11.4-16.0); Hypochromasia Moderate; Luc % (Auto) 2; Lymphocytes # (A) 0.4 k/uL (1.0-4.8); Lymphocytes % (A) 8 %; MCH 29.1 pg (25.0-35.0); MCHC 30.4 g/dL (31.0-37.0); MCV 95.5 fL (80.0-100.0); Monocytes # (A) 0.4 k/uL (0-1.0); Monocytes % (A) 7 %; Neutrophils # (A) 4.6 k/uL (1.3-7.7); Neutrophils % (A) 83 %; RBC 4.19 m/uL (3.80-5.40); RDW 15.5 % (11.5-15.5); WBC 5.5 k/uL (3.8-10.6); WBC (Perox) 5.68
[2017-01-10] MEDS: SENNOSIDES-DOCUSATE SODIUM 1 EACH TAB PO SCH (08:54)
[2017-01-10 11:22] LABS: Glucose,Whole Blood 180 mg/dL (75-99)
--- NOTE | 2017-01-10 12:41 | P.DS ---
Providers Date of admission: 01/06/17 20:46 Attending physician: Suresh Zheng Consults: 01/07/17 13:18 Consult Physician Routine Consulting Provider: [place] Physician Office Consult Reason/Comments: SOB Do you want consulting provider notified?: Already Contacted Primary care physician: Kit Cox [facility] Course: This 81-year-old woman was admitted to the left lower pneumonia. Patient also had symptoms of acute gastroenteritis present on admission. The patient underwent bronchoscopy and biopsy of the left hilar mass by Dr. Mendieta. The patient improved significantly. The patient be transferred to [facility] for rehab. Awaiting biopsy. Recommended close follow-up with primary physician in [place] and as well as technical aid. On exam vitals stable cardio S1-S2 normal. The sounds are equal few rhonchi. Abdomen soft nontender no system no focal deficit. Assessment 1. Acute left middle lobe pneumonia possibly gram-negative. 2. Acute gastroenteritis. 3. Possible left hilar mass status post bronchoscopy biopsy results elevated. [place] 4. COPD 4. DVT history 6. Hypothyroidism Patient Condition at Discharge: Fair Plan - Discharge Summary New Discharge Prescriptions: New Albuterol Nebulized [Ventolin Nebulized] 2.5 mg INHALATION Q4H PRN neb PRN Reason: Shortness Of Breath Amoxic-Pot Clav 875-125Mg [Augmentin 875-125] 1 each PO Q12HR #10 tab Ipratropium-Albuterol Nebulize [Duoneb 0.5 mg-3 mg/3 ml Soln] 3 ml INHALATION QID neb predniSONE 10 mg PO DIRECTED #30 tab Continue Pravastatin Sodium [Pravachol] 40 mg PO DAILY Aspirin EC [Ecotrin Low Dose] 81 mg PO DAILY Ondansetron HCl [Zofran] 4 mg PO TID PRN PRN Reason: Nausea Metoprolol Succinate (ER) [Toprol XL] 50 mg PO DAILY Loratadine [Claritin] 10 mg PO DAILY Nitroglycerin 0.4 mg SUBLINGUAL Q5M PRN PRN Reason: Chest Pain Allopurinol [Zyloprim] 100 mg PO DAILY Sennosides-Docusate Sodium [Senokot-S] 2 tab PO DAILY Pantoprazole [Protonix] 40 mg PO DAILY Isosorbide Mononitrate ER [Imdur] 30 mg PO DAILY Levothyroxine Sodium [Synthroid] 100 mcg PO AC-BRKFST HYDROcodone/APAP 7.5-325MG [[place] 7.5-325] 1 tab PO DAILY PRN PRN Reason: Pain Polyethylene Glycol 3350 [Miralax] 17 gm PO DAILY rOPINIRole HCL [Requip] 2 mg PO HS Gabapentin [Neurontin] 300 mg PO HS Budesonide-Formot 160-4.5 Mcg [Symbicort 160-4.5 Mcg Inhaler] 2 puff INHALATION RT-BID Discontinued Furosemide [Lasix] 40 mg PO DAILY #1 tablet Albuterol Nebulized [Ventolin Nebulized] 2.5 mg INHALATION RT-QID Discharge Medication List Aspirin EC [Ecotrin Low Dose] 81 mg PO DAILY 12/08/13 [History] Pravastatin Sodium [Pravachol] 40 mg PO DAILY 12/08/13 [History] Allopurinol [Zyloprim] 100 mg PO DAILY 08/18/16 [History] Loratadine [Claritin] 10 mg PO DAILY 08/18/16 [History] Metoprolol Succinate (ER) [Toprol XL] 50 mg PO DAILY 08/18/16 [History] Nitroglycerin 0.4 mg SUBLINGUAL Q5M PRN 08/18/16 [History] Ondansetron HCl [Zofran] 4 mg PO TID PRN 08/18/16 [History] Pantoprazole [Protonix] 40 mg PO DAILY 08/18/16 [History] Sennosides-Docusate Sodium [Senokot-S] 2 tab PO DAILY 08/18/16 [History] Budesonide-Formot 160-4.5 Mcg [Symbicort 160-4.5 Mcg Inhaler] 2 puff INHALATION RT-BID 01/06/17 [History] Gabapentin [Neurontin] 300 mg PO HS 01/06/17 [History] HYDROcodone/APAP 7.5-325MG [[place] 7.5-325] 1 tab PO DAILY PRN 01/06/17 [History] Isosorbide Mononitrate ER [Imdur] 30 mg PO DAILY 01/06/17 [History] Levothyroxine Sodium [Synthroid] 100 mcg PO AC-BRKFST 01/06/17 [History] Polyethylene Glycol 3350 [Miralax] 17 gm PO DAILY 01/06/17 [History] rOPINIRole HCL [Requip] 2 mg PO HS 01/06/17 [History] Albuterol Nebulized [Ventolin Nebulized] 2.5 mg INHALATION Q4H PRN neb [Rx] Amoxic-Pot Clav 875-125Mg [Augmentin 875-125] 1 each PO Q12HR #10 tab 01/10/17 [ Rx] Ipratropium-Albuterol Nebulize [Duoneb 0.5 mg-3 mg/3 ml Soln] 3 ml INHALATION QID neb 01/10/17 [Rx] predniSONE 10 mg PO DIRECTED #30 tab 01/10/17 [Rx] Follow up Appointment(s)/Referral(s): Paco Rios MD [REFERRING] - 3 Days (While at [facility]) Kit Hale MD [Primary Care Provider] - 1 Week (After discharge from [facility]) Kuldip Porter MD [STAFF PHYSICIAN] - 1 Week Patient Instructions/Handouts: Prednisone (By mouth), Amoxicillin/Clavulanate Potassium (By mouth), COPD (Chronic Obstructive Pulmonary Disease) (DC), Pneumonia (DC) Activity/Diet/Wound Care/Special Instructions: Rose Mary Medi Lasix on hold r/t renal fx Diet: Cardiac Activity: As tolerated cbc,bmp in 3 days Final CULTURE/pathology results to PCP and Discharge Disposition: TRANSFER TO SNF/ECF
--- NOTE | 2017-01-10 12:46 | P.PN ---
Subjective 01/07/17 This is an 81 -year-old female patient being seen examined and evaluated. This patient is known to our services. This patient has had previous admissions in the past for influenza and pneumonia. This patient was transferred here from [facility] where she presented with some shortness of breath as well as diffuse abdominal pain. Patient did have a CT of the chest this morning which does show moderate sized airspace consolidation extending from the left hilum into the left lower lobe superior segment. There is a left hilar fullness which may reflect underlying adenopathy cannot exclude mass. 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 Also has the ascending thoracic aortic aneurysm. Upon examination the patient's resting up in bed on 2 L of supplemental oxygen which she uses at home at all times as well. Patient complains of a congested cough and she is unable to bring up secretions. Patient was having subjective fevers at home currently is afebrile. , 01/08/17-Patient seen and evaluated and examined during the rounds she is still having intermittent cough and shortness of breath patient has been briefed about the bronchoscopy bronchoalveolar liver margin bronchial biopsy risk alternative procedures side effect and complication has been explained to her at length. 01/09/17- patient is being seen in evaluated and examined during rounds. Patient continues to have intermittent shortness of breath with exertion as well as an intermittent cough. Patient underwent a bronchoscopy yesterday with biopsy and was noted to have approximately 20 miles of blood loss for that procedure. Chest x-ray from this afternoon has been reviewed and shows a worsening left-sided infiltrate, left-sided effusion cannot be excluded, cardiomegaly. Upon examination the patient's resting up in bed on 2 L of supplemental oxygen. She does not feel her breathing is at her baseline at this time. 01/10/17- upon examination the patient is being evaluated on rounds. Patient's chest x-ray and labs have been reviewed. Patient continues on 2 L of supplemental oxygen. She does have shortness of breath intermittently with exertion. Her cough is improving. Patient is being potentially discharged to a rehab facility. She has been afebrile no overnight events. Objective - Vital Signs Vital signs: Vital Signs Temp 98.2 F 01/10/17 07:00 Pulse 76 01/10/17 11:11 Resp 16 01/10/17 08:00 BP 133/71 01/10/17 07:00 Pulse Ox 98 01/10/17 07:47 Intake & Output 01/09/17 01/10/17 01/10/17 18:59 06:59 18:59 Intake Total 100 Balance 100 Intake: Oral 100 Other: Voiding Method Toilet Toilet Toilet # Voids 3 1 - Exam GENERAL EXAM: Alert, active, comfortable in no apparent distress. HEAD: Normocephalic. EYES: Normal reaction of pupils, equal size. NOSE: Clear with pink turbinates. THROAT: No erythema or exudates. NECK: No masses, no JVD. CHEST: No chest wall deformity. LUNGS: Patient noted to have bilateral coarse breath sounds some scattered rhonchi noted mainly on the left side. Basis diminished. On taking deep breath patient is going to episodes of coughing CVS: S1 and S2 normal with no audible mumurs, regular rhythm. ABDOMEN: No hepatosplenomegaly, normal bowel sounds, no guarding or rigidity. EXTREMITIES: No edema noted, pedal pulses palpable. SKIN: No rashes CENTRAL NERVOUS SYSTEM: No focal deficits, tone is normal in all 4 extremities. - Labs CBC & Chem 7: 01/10/17 07:43 01/10/17 07:40 Labs: Abnormal Lab Results - Last 24 Hours (Table) 01/09/17 01/09/17 01/10/17 Range/Units 16:41 20:13 07:23 MCHC (31.0-37.0) g/dL Plt Count (150-450) k/uL Lymphocytes # (1.0-4.8) k/uL BUN (7-17) mg/dL Creatinine (0.52-1.04) mg/dL Glucose (74-99) mg/dL POC Glucose (mg/dL) 116 H 158 H 145 H (75-99) mg/dL 01/10/17 01/10/17 01/10/17 Range/Units 07:40 07:43 11:16 MCHC 30.4 L (31.0-37.0) g/dL Plt Count 145 L D (150-450) k/uL Lymphocytes # 0.4 L (1.0-4.8) k/uL BUN 29 H (7-17) mg/dL Creatinine 1.48 H (0.52-1.04) mg/dL Glucose 139 H (74-99) mg/dL POC Glucose (mg/dL) 180 H (75-99) mg/dL Microbiology - Last 24 Hours (Table) 01/06/17 21:55 Blood Culture - Preliminary Blood No Growth after 72 hours 01/06/17 21:16 Blood Culture - Preliminary Blood No Growth after 72 hours 01/08/17 13:56 Fungal Culture - Preliminary Bronchial Washings - Left 01/08/17 13:56 Acid Fast Bacilli Culture - Preliminary Bronchial Washings - Left Assessment and Plan Plan: Assessment Acute on chronic hypoxic respiratory failure Left lower lobe pneumonia Left sided mass on the superior segment of the left lower lobe and on the apical posterior left upper lobe Small left lower lobe effusion too small for thoracentesis Mediastinal adenopathy Chronic obstructive pulmonary disease without acute exacerbation Ascending thoracic aortic aneurysm Abdominal pain possibly related to gastroenteritis which has improved Coronary artery disease Dyslipidemia Restless leg syndrome Plan Patient could be discharged from a pulmonary standpoint to a assisted facility. Bronchoscopy results are pending. Patient should continue with antibiotics. Medications have been reviewed and will be continued as ordered. Continue with pulmonary hygiene, coughing and deep breathing exercises, and supportive care. Supplemental oxygen to maintain oxygen saturations of 92% or better. Continue nebulizer treatments. GI and DVT prophylaxis. Initiate and encourage incentive spirometer. We will continue to monitor labs/results and adjust treatment as necessary. Further recommendations pending. I performed an examination of the patient and discussed their management with the nurse practitioner. I have reviewed the nurse practitioner's note and agree with the documented findings and plan of care.
[2017-01-10 15:48] VITALS: BP 141/83; RESP 18; TEMP 97.5
[2017-01-10 15:50] VITALS: PULSE 72
[2017-01-13 09:22] LABS: Mis test requested (Non-blood) LEGIONELLA PCR
== END 2017-01-10 16:45 | DRG 166 ==
LOC: EC 20:12 → 5MS5E 20:46
PROVIDERS: ADMIT Hospitalist; ATTEND Hospitalist
PROC: 0BBJ8ZX Excision of Left Lower Lung Lobe, Via Natural or Artificial Opening Endoscopic, Diagnostic (ICD-10-PCS; 2017-01-08)
PROC: 0B9J8ZX Drainage of Left Lower Lung Lobe, Via Natural or Artificial Opening Endoscopic, Diagnostic (ICD-10-PCS; principal; 2017-01-08 13:05)
PROC: 0B9G8ZX Drainage of Left Upper Lung Lobe, Via Natural or Artificial Opening Endoscopic, Diagnostic (ICD-10-PCS; 2017-01-08 13:05)
DX: J44.0 Chronic obstructive pulmonary disease with (acute) lower respiratory infection (principal); J15.6 Pneumonia due to other Gram-negative bacteria; J96.21 Acute and chronic respiratory failure with hypoxia; J90 Pleural effusion, not elsewhere classified; J98.11 Atelectasis; E11.22 Type 2 diabetes mellitus with diabetic chronic kidney disease; I71.2 Thoracic aortic aneurysm, without rupture; N18.3 Chronic kidney disease, stage 3 (moderate); E11.40 Type 2 diabetes mellitus with diabetic neuropathy, unspecified; E03.9 Hypothyroidism, unspecified; E78.5 Hyperlipidemia, unspecified; F32.9 Major depressive disorder, single episode, unspecified; F41.9 Anxiety disorder, unspecified; G25.81 Restless legs syndrome; H91.90 Unspecified hearing loss, unspecified ear; I10 Essential (primary) hypertension; I25.10 Atherosclerotic heart disease of native coronary artery without angina pectoris; I51.7 Cardiomegaly; K21.9 Gastro-esophageal reflux disease without esophagitis; K52.9 Noninfective gastroenteritis and colitis, unspecified; M19.90 Unspecified osteoarthritis, unspecified site; R91.8 Other nonspecific abnormal finding of lung field; Z79.84 Long term (current) use of oral hypoglycemic drugs; Z79.82 Long term (current) use of aspirin; Z79.899 Other long term (current) drug therapy; Z87.01 Personal history of pneumonia (recurrent); Z95.5 Presence of coronary angioplasty implant and graft; Z88.8 Allergy status to other drugs, medicaments and biological substances; Z95.0 Presence of cardiac pacemaker
CPT/HCPCS: 31624; 31625; 71010; 71020; 71250; 80048; 83036; 83880; 85025; 87040; 87070; 87077; 87102; 87116; 87186; 87205; 87206; 87252; 87299; 87496; 87498; 87502; 87529; 87541; 87798; 88108; 88305; 94640; 94760; 99285

== ENCOUNTER 2017-07-21 22:12 | Inpatient (IN) | payer MEDICARE ==
[2017-07-21] MEDS ORDERED: SODIUM CHLORIDE 0.9% 500 ML IV ONE (22:41)
[2017-07-21] MEDS ORDERED: SODIUM CHLORIDE 0.9% 1,000 ML IV ONE (22:41)
[2017-07-21] MEDS ORDERED: IPRATROPIUM-ALBUTEROL 3 ML NEB INHALATION STA (22:43)
[2017-07-21] MEDS ORDERED: methylPREDNISolone SOD SUCCI 125 MG/2 ML VIAL IV STA (22:43)
--- NOTE | 2017-07-21 22:52 | ED ---
Lower Extremity Injury HPI - General Chief Complaint: Extremity Injury, Lower Stated Complaint: HIP FX Time Seen by Provider: 07/21/17 22:31 Source: patient, EMS Mode of arrival: EMS Limitations: no limitations - History of Present Illness Initial Comments: This 81-year-old white female presents with a complaint of some left hip pain. She apparently fell at approximately 5 PM today. She is currently utilizing a walking boot to her right leg and apparently caught the boot on something while utilizing her walker fell and obtained left hip pain. She did not hit her head and neck or back. She denies any other injuries other than a minor skin tear to her left arm. This occurred while she was at home. She was brought by EMS to [facility] emergency department. They did x-rays that does show a left hip fracture. The patient is currently under the care of Dr. Beal from [facility]. The patient and family request transferred to our facility for further treatment by her own orthopedic physician. She did receive some morphine for her pain and is currently in no significant distress. Upon further questioning once family arrives, she apparently has been having some intermittent chest pain for the past 2 weeks. This is sharp in nature and associated with some mild shortness of breath. She barely does have a significant history of cardiac disease including previous cardiac stent remotely. She also has had a cardiac ablation and pacemaker placement. 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 She denies any other complaints or modifying factors. History is difficult to obtain is she is hard of hearing. The daughter relates that she is quite aware of all of her history as she takes her to her doctor's appointments. Her daughter relates that she is available in case there is any questions regarding her mother's care. The daughter also relates that she apparently fractured her right knee approximately 3 weeks ago and they placed her in the right lower extremity boot. The daughter does not understand why she was placed in a boot when her knee was fractured. The patient no longer has any pain to this area. - Related Data Home Medications Medication Instructions Recorded Confirmed Aspirin EC [Ecotrin Low Dose] 81 mg PO DAILY 12/08/13 01/06/17 Pravastatin Sodium [Pravachol] 40 mg PO DAILY 12/08/13 01/06/17 Allopurinol [Zyloprim] 100 mg PO DAILY 08/18/16 01/06/17 Loratadine [Claritin] 10 mg PO DAILY 08/18/16 01/06/17 Metoprolol Succinate (ER) [Toprol 50 mg PO DAILY 08/18/16 01/06/17 XL] Nitroglycerin 0.4 mg SUBLINGUAL Q5M PRN 08/18/16 01/06/17 Ondansetron HCl [Zofran] 4 mg PO TID PRN 08/18/16 01/06/17 Pantoprazole [Protonix] 40 mg PO DAILY 08/18/16 01/06/17 Sennosides-Docusate Sodium 2 tab PO DAILY 08/18/16 01/06/17 [Senokot-S] Budesonide-Formot 160-4.5 Mcg 2 puff INHALATION RT-BID 01/06/17 01/06/17 [Symbicort 160-4.5 Mcg Inhaler] Gabapentin [Neurontin] 300 mg PO HS 01/06/17 01/06/17 Isosorbide Mononitrate ER [Imdur] 30 mg PO DAILY 01/06/17 01/06/17 Levothyroxine Sodium [Synthroid] 100 mcg PO AC-BRKFST 01/06/17 01/06/17 Polyethylene Glycol 3350 [Miralax] 17 gm PO DAILY 01/06/17 01/06/17 rOPINIRole HCL [Requip] 2 mg PO HS 01/06/17 01/06/17 Previous Rx's Medication Instructions Recorded Albuterol Nebulized [Ventolin 2.5 mg INHALATION Q4H PRN neb 01/10/17 Nebulized] Amoxic-Pot Clav 875-125Mg 1 each PO Q12HR #10 tab 01/10/17 [Augmentin 875-125] HYDROcodone/APAP 7.5-325MG [Dickens 1 tab PO DAILY PRN #20 01/10/17 7.5-325] Ipratropium-Albuterol Nebulize 3 ml INHALATION QID neb 01/10/17 [Duoneb 0.5 mg-3 mg/3 ml Soln] predniSONE 10 mg PO DIRECTED #30 tab 01/10/17 Allergies Allergy/AdvReac Type Severity Reaction Status Date / Time amiodarone AdvReac Nausea Verified 07/21/17 22:57 digoxin AdvReac Nausea Verified 07/21/17 22:57 dronedarone [From Multaq] AdvReac Nausea Verified 07/21/17 22:57 metformin HCl AdvReac Nausea Verified 07/21/17 22:57 [From Glucophage] Review of Systems ROS Statement: Those systems with pertinent positive or pertinent negative responses have been documented in the HPI. ROS Other: All systems not noted in ROS Statement are negative. Past Medical History Past Medical History: Asthma, Coronary Artery Disease (CAD), COPD, Diabetes Mellitus, Deep Vein Thrombosis (DVT), Eye Disorder, GERD/Reflux, Hearing Disorder / Deafness, Hypertension, Musculoskeletal Disorder, Osteoarthritis (OA) , Pneumonia, Vascular Disorder Additional Past Medical History / Comment(s): restless leg syndrome, cataracts, hx. of pneumonia, neuropathy History of Any Multi-Drug Resistant Organisms: None Reported Past Surgical History: Appendectomy, Cholecystectomy, Heart Catheterization With Stent, Hysterectomy, Pacemaker, Tubal Ligation Additional Past Surgical History / Comment(s): hemroidectomy. cataract removed. tooth extractions, Pemanent Pacemaker, Cardiac Ablation. Pacemaker - November 27, 2010 Past Anesthesia/Blood Transfusion Reactions: No Reported Reaction Date of Last Stent Placement:: 07/08/11 Type of Cardiac Device: Permanent Pacemaker Device Placement Date:: 2003 Past Psychological History: Anxiety, Depression Smoking Status: Never smoker Past Alcohol Use History: None Reported Past Drug Use History: None Reported - Past Family History Mother Family Medical History: No Reported History General Exam - General Exam Comments Initial Comments: GENERAL: The patient is well nourished and well hydrated. VITAL SIGNS: Heart rate, blood pressure, respiratory rate reviewed as recorded in nurse's notes. EYES: Pupils are round and reactive. Extraocular movements are intact. No conjunctival / lid redness or swelling. ENT: No external evidence of injury, swelling, or ecchymosis. Airway is patent. Throat is clear. Dry mucous membranes noted. The patient is hard of hearing. NECK: Nontender. No swelling or evidence of injury. No subcutaneous emphysema. Trachea is midline. No thyroid mass. HEART: Regular rate and rhythm. Good peripheral pulses. LUNGS/CHEST: Wheezing is noted to bilateral lungs. No ecchymosis, subcutaneous emphysema, or tenderness. ABDOMEN: Abdomen soft without tenderness. No palpable masses or organomegaly. No peritoneal signs. No abdominal wall swelling or ecchymosis. EXTREMITIES: There is tenderness noted to the left hip. There is pain with any attempt at range of motion of the left hip. The patient is in a walking boot to her right leg. This is removed and there is no associated tenderness or swelling to the right leg. Normal muscle tone and function. No thoracolumbar tenderness. NEUROLOGIC: Sensation is grossly intact. Cranial nerve exam reveals face is symmetrical, tongue is midline, speech is clear. SKIN: There is a minor skin tear present to the left forearm. No induration or masses noted. PSYCHIATRIC: Alert and oriented. Appropriate behavior and judgment. Limitations: no limitations Course Vital Signs 07/21/17 07/21/17 07/21/17 22:14 23:19 23:31 Temperature 98.5 F Pulse Rate 79 72 76 Respiratory 18 Rate Blood Pressure 135/61 O2 Sat by Pulse 99 Oximetry 07/22/17 00:14 Temperature Pulse Rate 69 Respiratory 18 Rate Blood Pressure 119/58 O2 Sat by Pulse 96 Oximetry Medical Decision Making - Medical Decision Making The patient was seen and examined. All diagnostics were reviewed to this point. Old records were reviewed from [facility]. It appears that they didn't complete a laboratory analysis which shows a stable CBC. Her electrolytes were within normal limits. Her creatinine was minimally elevated at 1.4. The alk phos is slightly elevated at 153. The BNP is elevated as well. She appears somewhat dehydrated and is given some oral fluids and IV fluids. The patient has some bronchospasm and a DuoNeb breathing treatment and some steroids are ordered. She is complaining of some nausea and receives some Reglan. The EKG was done and this does show a ventricular paced rhythm at a rate of 70. There is no acute ST-T wave changes identified. The QRS duration is 152 and the QTc interval is 468. The portable chest x-ray does show significant cardiomegaly with some mild congestive heart failure. The laboratory shows a significant elevation of her d-dimer. She also has a degree of renal insufficiency. It is felt as though she could not obtain a computed tomography angiogram of her chest at this time due to her renal function. She will be started on blood thinners as the possibility of a pulmonary embolism certainly is possible especially in light of the history of recent injury to her right lower extremity and her intermittent pleuritic chest pain and shortness of breath and significantly elevated d-dimer. She is in no distress on recheck. The case is discussed with Dr. Beal from orthopedics and he is agreeable to admission and would like the patient admitted to medicine on-call. - Lab Data Result diagrams: 07/22/17 00:14 07/22/17 00:14 Lab Results 07/21/17 07/21/17 07/22/17 Range/Units 23:15 23:15 00:14 WBC (3.8-10.6) k/uL RBC (3.80-5.40) m/uL Hgb (11.4-16.0) gm/dL Hct (34.0-46.0) % MCV (80.0-100.0) fL MCH (25.0-35.0) pg MCHC (31.0-37.0) g/dL RDW (11.5-15.5) % Plt Count (150-450) k/uL Neutrophils % % Lymphocytes % % Monocytes % % Eosinophils % % Basophils % % Neutrophils # (1.3-7.7) k/uL Lymphocytes # (1.0-4.8) k/uL Monocytes # (0-1.0) k/uL Eosinophils # (0-0.7) k/uL Basophils # (0-0.2) k/uL Hypochromasia Macrocytosis PT 10.6 (9.0-12.0) sec INR 1.1 (<1.2) APTT 21.3 L (22.0-30.0) sec D-Dimer 17.84 H (<0.60) mg/L FEU Sodium (137-145) mmol/L Potassium (3.5-5.1) mmol/L Chloride (98-107) mmol/L Carbon Dioxide (22-30) mmol/L Anion Gap mmol/L BUN (7-17) mg/dL Creatinine (0.52-1.04) mg/dL Est GFR (MDRD) Af Amer (>60 ml/min/1.73 sqM) Est GFR (MDRD) Non-Af (>60 ml/min/1.73 sqM) Glucose (74-99) mg/dL Calcium (8.4-10.2) mg/dL Magnesium (1.6-2.3) mg/dL Total Bilirubin (0.2-1.3) mg/dL AST (14-36) U/L ALT (9-52) U/L Alkaline Phosphatase (38-126) U/L Total Creatine Kinase 45 (30-135) U/L NT-Pro-B Natriuret Pep pg/mL Total Protein (6.3-8.2) g/dL Albumin (3.5-5.0) g/dL 07/22/17 07/22/17 07/22/17 Range/Units 00:14 00:14 00:14 WBC 12.9 H (3.8-10.6) k/uL RBC 4.79 (3.80-5.40) m/uL Hgb 14.6 (11.4-16.0) gm/dL Hct 48.0 H (34.0-46.0) % MCV 100.1 H (80.0-100.0) fL MCH 30.5 (25.0-35.0) pg MCHC 30.5 L (31.0-37.0) g/dL RDW 14.0 (11.5-15.5) % Plt Count 147 L (150-450) k/uL Neutrophils % 72 % Lymphocytes % 17 % Monocytes % 6 % Eosinophils % 1 % Basophils % 0 % Neutrophils # 9.3 H (1.3-7.7) k/uL Lymphocytes # 2.2 (1.0-4.8) k/uL Monocytes # 0.8 (0-1.0) k/uL Eosinophils # 0.2 (0-0.7) k/uL Basophils # 0.0 (0-0.2) k/uL Hypochromasia Marked Macrocytosis Slight PT (9.0-12.0) sec INR (<1.2) APTT (22.0-30.0) sec D-Dimer (<0.60) mg/L FEU Sodium 142 (137-145) mmol/L Potassium 4.9 (3.5-5.1) mmol/L Chloride 107 (98-107) mmol/L Carbon Dioxide 28 (22-30) mmol/L Anion Gap 7 mmol/L BUN 36 H (7-17) mg/dL Creatinine 1.40 H (0.52-1.04) mg/dL Est GFR (MDRD) Af Amer 44 (>60 ml/min/1.73 sqM) Est GFR (MDRD) Non-Af 36 (>60 ml/min/1.73 sqM) Glucose 142 H (74-99) mg/dL Calcium 9.4 (8.4-10.2) mg/dL Magnesium 2.2 (1.6-2.3) mg/dL Total Bilirubin 0.8 (0.2-1.3) mg/dL AST 28 (14-36) U/L ALT 28 (9-52) U/L Alkaline Phosphatase 172 H (38-126) U/L Total Creatine Kinase (30-135) U/L NT-Pro-B Natriuret Pep 2050 pg/mL Total Protein 6.1 L (6.3-8.2) g/dL Albumin 3.5 (3.5-5.0) g/dL Disposition Clinical Impression: Closed left hip fracture, Fall, Dehydration, Bronchospasm, COPD (chronic obstructive pulmonary disease), Renal insufficiency, Dyspnea, Pleuritic chest pain, Elevated d-dimer, COPD exacerbation Disposition: ADMITTED IP TO THIS [facility] Condition: Fair Time of Disposition: 00:42 Decision Date: 07/22/17 Decision Time: 00:42
--- NOTE | 2017-07-21 23:12 | XR ---
EXAMINATION TYPE: XR chest 1V portable DATE OF EXAM: 07/21/2017 COMPARISON: 01/10/2017 HISTORY: Hip fracture. Chest pain TECHNIQUE: Single frontal view of the chest is obtained. FINDINGS: Heart is enlarged. There is mild pulmonary congestion. There is slight blunting of costoph renic angles. There is left axillary pacemaker with the lead tips in the right ventricle. IMPRESSION: There is mild congestive heart failure that is improved compared to old exam.
[2017-07-21 23:30] LABS: INR 1.1 (<1.2); Prothrombin Time 10.6 sec (9.0-12.0)
[2017-07-21 23:43] LABS: Partial Thromboplastin Time 21.3 sec (22.0-30.0)
[2017-07-21] MEDS ORDERED: METOCLOPRAMIDE 5 MG/ML 2 ML VIAL IVP STA (23:45)
[2017-07-22 00:24] LABS: Basophils % (A) 0 %; Eosinophils # (A) 0.2 k/uL (0-0.7); Eosinophils % (A) 1 %; HGB 14.6 gm/dL (11.4-16.0); Hypochromasia Marked; Lymphocytes # (A) 2.2 k/uL (1.0-4.8); Lymphocytes % (A) 17 %; MCH 30.5 pg (25.0-35.0); MCHC 30.5 g/dL (31.0-37.0); MCV 100.1 fL (80.0-100.0); Macrocytosis Slight; Mean Platelet Volume 8.5; Monocytes # (A) 0.8 k/uL (0-1.0); Monocytes % (A) 6 %; Neutrophils # (A) 9.3 k/uL (1.3-7.7); Neutrophils % (A) 72 %; Platelet Count 147 k/uL (150-450); RBC 4.79 m/uL (3.80-5.40); WBC 12.9 k/uL (3.8-10.6)
[2017-07-22 00:34] LABS: Albumin 3.5 g/dL (3.5-5.0); Calcium 9.4 mg/dL (8.4-10.2); Magnesium 2.2 mg/dL (1.6-2.3); Potassium 4.9 mmol/L (3.5-5.1); Total Bilirubin 0.8 mg/dL (0.2-1.3); Total Protein 6.1 g/dL (6.3-8.2)
[2017-07-22] MEDS ORDERED: HEPARIN SODIUM,PORCINE 5,000 UNIT/ML 1 ML VIAL IV PRN (00:43)
[2017-07-22] MEDS ORDERED: HEPARIN SODIUM,PORCINE 5,000 UNIT/ML 1 ML VIAL IV ONE (00:43)
[2017-07-22] MEDS ORDERED: NALOXONE 0.4 MG/ML 1 ML VIAL IV PRN (00:44)
[2017-07-22] MEDS ORDERED: HYDROmorphone 4 MG/ML 1 ML SYRINGE IVP PRN (00:44)
[2017-07-22] MEDS ORDERED: METOCLOPRAMIDE 5 MG/ML 2 ML VIAL IVP PRN (00:51)
[2017-07-22 01:02] LABS: Creatine Kinase MB 2.2 ng/mL (0.0-2.4); Troponin I 0.026 ng/mL (0.000-0.034)
[2017-07-22] MEDS: HEPARIN SOD,PORK IN 0.45% NACL 25,000 UNIT in 0.45% NACL 1 500ML.BAG IV SCH (01:02)
[2017-07-22] MEDS ORDERED: IPRATROPIUM-ALBUTEROL 3 ML NEB INHALATION SCH (04:00)
[2017-07-22] MEDS ORDERED: IPRATROPIUM-ALBUTEROL 3 ML NEB INHALATION PRN (05:22)
[2017-07-22 07:18] LABS: Creatine Kinase MB 1.9 ng/mL (0.0-2.4); Troponin I 0.02 ng/mL (0.000-0.034)
[2017-07-22] MEDS: IPRATROPIUM-ALBUTEROL 3 ML NEB INHALATION SCH ×4 (08:41→20:47)
[2017-07-22] MEDS: methylPREDNISolone SOD SUCCI 125 MG/2 ML VIAL IV SCH ×2 (08:52→13:04)
[2017-07-22] MEDS ORDERED: PANTOPRAZOLE 40 MG/10 ML VIAL IV SCH (09:00)
--- NOTE | 2017-07-22 10:49 | P.HPOR ---
History of Present Illness H&P Date: 07/22/17 Chief Complaint: Left hip fracture The patient is an 81-year-old female who presented to the [facility] via ambulance from [facility] for a left hip fracture. The patient fell approximately 5 PM yesterday while at home. Apparently she caught her right foot, which was in a boot, on something and fell onto her left hip. She was using a walker at that time. She did not hit her head. She sustained no other injuries other than a minor skin tear to the left elbow. The patient is currently being seen by Dr. Beal in our office for a right knee fracture. She was placed in a premium equalizer boot 3 weeks ago. the patient was transferred here for further evaluation and care by orthopedic surgery. At the time of evaluation in the ER, the patient is sleepy and slightly confused. She is very hard of hearing. She was complaining of shortness of breath and chest pain on arrival and she was started on Heparin. She is awaiting a chest CT to rule out PE. Review of Systems Constitutional: Denies chills, Denies fever, Denies lethargy Cardiovascular: Denies chest pain, Denies shortness of breath Respiratory: Denies cough Gastrointestinal: Denies abdominal pain, Denies diarrhea, Denies nausea, Denies vomiting Musculoskeletal: right: knee pain, left: hip pain Neurological: Reports hearing difficulties Past Medical History Past Medical History: Asthma, Coronary Artery Disease (CAD), COPD, Diabetes Mellitus, Deep Vein Thrombosis (DVT), Eye Disorder, GERD/Reflux, Hearing Disorder / Deafness, Hypertension, Musculoskeletal Disorder, Osteoarthritis (OA) , Pneumonia, Vascular Disorder Additional Past Medical History / Comment(s): restless leg syndrome, cataracts, hx. of pneumonia, neuropathy History of Any Multi-Drug Resistant Organisms: None Reported Past Surgical History: Appendectomy, Cholecystectomy, Heart Catheterization With Stent, Hysterectomy, Pacemaker, Tubal Ligation Additional Past Surgical History / Comment(s): hemroidectomy. cataract removed. tooth extractions, Pemanent Pacemaker, Cardiac Ablation. Pacemaker - November 27, 2010 Past Anesthesia/Blood Transfusion Reactions: No Reported Reaction Date of Last Stent Placement:: 07/08/11 Type of Cardiac Device: Permanent Pacemaker Device Placement Date:: 2003 Past Psychological History: Anxiety, Depression Smoking Status: Never smoker Past Alcohol Use History: None Reported Past Drug Use History: None Reported - Past Family History Mother Family Medical History: No Reported History Medications and Allergies Home Medications Medication Instructions Recorded Confirmed Type Aspirin EC [Ecotrin Low Dose] 81 mg PO DAILY 12/08/13 07/22/17 History Pravastatin Sodium [Pravachol] 40 mg PO DAILY 12/08/13 07/22/17 History Allopurinol [Zyloprim] 200 mg PO DAILY 08/18/16 07/22/17 History Loratadine [Claritin] 10 mg PO DAILY 08/18/16 07/22/17 History Metoprolol Succinate (ER) [Toprol 50 mg PO DAILY 08/18/16 07/22/17 History XL] Nitroglycerin 0.4 mg SUBLINGUAL Q5M PRN 08/18/16 07/22/17 History Ondansetron HCl [Zofran] 4 mg PO BID PRN 08/18/16 07/22/17 History Pantoprazole [Protonix] 40 mg PO DAILY 08/18/16 07/22/17 History Sennosides-Docusate Sodium 2 tab PO DAILY 08/18/16 07/22/17 History [Senokot-S] Budesonide-Formot 160-4.5 Mcg 2 puff INHALATION RT-BID 01/06/17 07/22/17 History [Symbicort 160-4.5 Mcg Inhaler] Isosorbide Mononitrate ER [Imdur] 30 mg PO DAILY 01/06/17 07/22/17 History Levothyroxine Sodium [Synthroid] 100 mcg PO AC-BRKFST 01/06/17 07/22/17 History Polyethylene Glycol 3350 [Miralax] 17 gm PO DAILY 01/06/17 07/22/17 History Albuterol Nebulized [Ventolin 2.5 mg INHALATION RT-Q6H 07/22/17 07/22/17 History Nebulized] Furosemide [Lasix] 20 mg PO DAILY 07/22/17 07/22/17 History Gabapentin [Neurontin] 300 mg PO HS 07/22/17 07/22/17 History rOPINIRole HCL [Requip] 2 mg PO HS 07/22/17 07/22/17 History Allergies Allergy/AdvReac Type Severity Reaction Status Date / Time amiodarone AdvReac Nausea Verified 07/21/17 22:57 digoxin AdvReac Nausea Verified 07/21/17 22:57 dronedarone [From Multaq] AdvReac Nausea Verified 07/21/17 22:57 metformin HCl AdvReac Nausea Verified 07/21/17 22:57 [From Glucophage] Physical Examination The patient is a 81 year old female that is no acute distress. She is alert and oriented x1. The patient's head is normocephalic and atraumatic. Exam of the cervical spine reveals no pain upon palpation or range of motion. Exam of the bilateral upper extremities reveal no obvious deformities or pain upon range of motion. There is a small skin tear to the left lateral elbow. Exam of the right lower extremity reveals no pain upon palpation. There an jazz wrap to the right ankle. Exam of the left lower extremity reveals a externally rotated and shortened leg. No pain upon palpation to the lateral hip. There is pain upon logrolling and any range of motion of the leg. Bilateral calves are soft and nontender. Patient has good foot and ankle motion bilaterally. Neurological and circulatory status is intact. Results - Labs Labs: Abnormal Lab Results - Last 24 Hours (Table) 07/21/17 07/21/17 07/22/17 Range/Units 23:15 23:15 00:14 WBC 12.9 H (3.8-10.6) k/uL Hct 48.0 H (34.0-46.0) % MCV 100.1 H (80.0-100.0) fL MCHC 30.5 L (31.0-37.0) g/dL Plt Count 147 L (150-450) k/uL Neutrophils # 9.3 H (1.3-7.7) k/uL APTT 21.3 L (22.0-30.0) sec D-Dimer 17.84 H (<0.60) mg/L FEU BUN (7-17) mg/dL Creatinine (0.52-1.04) mg/dL Glucose (74-99) mg/dL Alkaline Phosphatase (38-126) U/L Total Protein (6.3-8.2) g/dL 07/22/17 07/22/17 Range/Units 00:14 06:14 WBC (3.8-10.6) k/uL Hct (34.0-46.0) % MCV (80.0-100.0) fL MCHC (31.0-37.0) g/dL Plt Count (150-450) k/uL Neutrophils # (1.3-7.7) k/uL APTT 92.8 H (22.0-30.0) sec D-Dimer (<0.60) mg/L FEU BUN 36 H (7-17) mg/dL Creatinine 1.40 H (0.52-1.04) mg/dL Glucose 142 H (74-99) mg/dL Alkaline Phosphatase 172 H (38-126) U/L Total Protein 6.1 L (6.3-8.2) g/dL H & H 07/22/17 Range/Units 00:14 Hgb 14.6 (11.4-16.0) gm/dL Hct 48.0 H (34.0-46.0) % Coagulation 07/21/17 Range/Units 23:15 INR 1.1 (<1.2) Result Diagrams: 07/22/17 00:14 07/22/17 00:14 - Diagnostic results Hip x-ray: image reviewed (Outside left hip and pelvis x-rays dated 07/21/2017 reveal a displaced femoral neck fracture. ) Assessment and Plan (1) Fall Current Visit: Yes Status: Acute Code(s): W19.XXXA - UNSPECIFIED FALL, INITIAL ENCOUNTER SNOMED Code(s): 8870001 (2) Closed left hip fracture Current Visit: Yes Status: Acute Code(s): S72.002A - FRACTURE OF UNSP PART OF NECK OF LEFT FEMUR, INIT SNOMED Code(s): 796338352 Plan: The clinical and x-ray findings were discussed with the patient. No family was at the bedside during my evaluation. The patient was also seen Dr. Beal. The patient will undergo a left hip hemiarthroplasty on . Surgical risks were discussed at length with the patient. Possible risks and complications including but not limited to risk of bleeding, infection, dislocation, DVT, stroke, heart attack, and were discussed. We will await medical and pulmonary clearance. We will also await chest CT. She will be nothing by mouth at midnight tomorrow. She may continue on a heart healthy diet until then. Bed rest. Nonweightbearing to the left lower extremity. The patient may have right ankle boot off while in bed. We will continue to follow the patient closely.
[2017-07-22 13:29] LABS: Troponin I 0.023 ng/mL (0.000-0.034)
[2017-07-22 13:30] LABS: Creatine Kinase MB 4.7 ng/mL (0.0-2.4)
--- NOTE | 2017-07-22 14:06 | P.CONS ---
History of Present Illness - History of Present Illness Patient is a 81-year-old extreme a poor historian came in with left hip fracture at 6 at an outside hospital patient has severe hearing problems because of which I'm unable to get much of the history from the patient patient says she has pain in the left hip area patient [facility] will undergo surgery on . Medicine was consulted for preoperative clearance. Unable to get any kind of history from the patient it appears like patient has history of coronary artery disease never had any history of congestive heart failure does have a pacemaker EKG showing paced rhythm. Patient appears to have some pulmonary edema on the chest x-ray with elevated BNP although I did not appreciate any JVD cardiology will be consulted for preoperative clearance echocardiac exam will be obtained patient doesn't have any fever chills patient has poor renal function and patient's creatinine is at her baseline patient is probably wheezing because of which patient was started on systemic steroids which I do not believe she'll need high-dose of IV steroids which will lead to confusion and agitation concerning her age. Patient cannot take any in nonsteroidal anti-inflammatories, patient is on [place] , other IV opiates need to be avoided if we can. Patient's IV fluids were discontinued patient is on IV heparin because of elevated d-dimer VQ scan is being obtained to rule out pulmonary embolism and pulmonary was consulted for preoperative clearance I will I believe cardiology preoperative clearance is also required. And cardiology was consulted. Review of Systems Unable to obtain Past Medical History Past Medical History: Asthma, Coronary Artery Disease (CAD), COPD, Diabetes Mellitus, Deep Vein Thrombosis (DVT), Eye Disorder, GERD/Reflux, Hearing Disorder / Deafness, Hypertension, Musculoskeletal Disorder, Osteoarthritis (OA) , Pneumonia, Vascular Disorder Additional Past Medical History / Comment(s): restless leg syndrome, cataracts, hx. of pneumonia, neuropathy History of Any Multi-Drug Resistant Organisms: None Reported Past Surgical History: Appendectomy, Cholecystectomy, Heart Catheterization With Stent, Hysterectomy, Pacemaker, Tubal Ligation Additional Past Surgical History / Comment(s): hemroidectomy. cataract removed. tooth extractions, Pemanent Pacemaker, Cardiac Ablation. Pacemaker - November 27, 2010 Past Anesthesia/Blood Transfusion Reactions: No Reported Reaction Date of Last Stent Placement:: 07/08/11 Type of Cardiac Device: Permanent Pacemaker Device Placement Date:: 2003 Past Psychological History: Anxiety, Depression Smoking Status: Never smoker Past Alcohol Use History: None Reported Past Drug Use History: None Reported - Past Family History Mother Family Medical History: No Reported History Father History Unknown: Yes Additional Family Medical History / Comment(s): Pt states she never knew her father. Medications and Allergies Home Medications Medication Instructions Recorded Confirmed Type Aspirin EC [Ecotrin Low Dose] 81 mg PO DAILY 12/08/13 07/22/17 History Pravastatin Sodium [Pravachol] 40 mg PO DAILY 12/08/13 07/22/17 History Allopurinol [Zyloprim] 200 mg PO DAILY 08/18/16 07/22/17 History Loratadine [Claritin] 10 mg PO DAILY 08/18/16 07/22/17 History Metoprolol Succinate (ER) [Toprol 50 mg PO DAILY 08/18/16 07/22/17 History XL] Nitroglycerin 0.4 mg SUBLINGUAL Q5M PRN 08/18/16 07/22/17 History Ondansetron HCl [Zofran] 4 mg PO BID PRN 08/18/16 07/22/17 History Pantoprazole [Protonix] 40 mg PO DAILY 08/18/16 07/22/17 History Sennosides-Docusate Sodium 2 tab PO DAILY 08/18/16 07/22/17 History [Senokot-S] Budesonide-Formot 160-4.5 Mcg 2 puff INHALATION RT-BID 01/06/17 07/22/17 History [Symbicort 160-4.5 Mcg Inhaler] Isosorbide Mononitrate ER [Imdur] 30 mg PO DAILY 01/06/17 07/22/17 History Levothyroxine Sodium [Synthroid] 100 mcg PO AC-BRKFST 01/06/17 07/22/17 History Polyethylene Glycol 3350 [Miralax] 17 gm PO DAILY 01/06/17 07/22/17 History Albuterol Nebulized [Ventolin 2.5 mg INHALATION RT-Q6H 07/22/17 07/22/17 History Nebulized] Furosemide [Lasix] 20 mg PO DAILY 07/22/17 07/22/17 History Gabapentin [Neurontin] 300 mg PO HS 07/22/17 07/22/17 History rOPINIRole HCL [Requip] 2 mg PO HS 07/22/17 07/22/17 History Allergies Allergy/AdvReac Type Severity Reaction Status Date / Time amiodarone AdvReac Nausea Verified 07/21/17 22:57 digoxin AdvReac Nausea Verified 07/21/17 22:57 dronedarone [From Multaq] AdvReac Nausea Verified 07/21/17 22:57 metformin HCl AdvReac Nausea Verified 07/21/17 22:57 [From Glucophage] Physical Exam Vitals: Vital Signs Temp Pulse Pulse Resp BP BP Pulse Ox 07/22/17 12:33 68 07/22/17 12:14 72 07/22/17 12:00 96.4 F L 69 20 117/56 98 07/22/17 08:49 69 07/22/17 08:42 68 07/22/17 08:34 96.7 F L 68 20 108/58 93 L 07/22/17 06:19 69 17 98/54 98 07/22/17 05:14 68 18 127/60 95 07/22/17 04:30 68 17 115/70 96 07/22/17 03:30 68 18 110/56 96 07/22/17 02:30 68 18 119/69 96 07/22/17 01:09 71 18 126/60 96 07/22/17 00:14 69 18 119/58 96 07/21/17 23:31 76 07/21/17 23:19 72 07/21/17 22:14 98.5 F 79 18 135/61 99 Intake and Output 07/21/17 07/22/17 07/22/17 22:59 06:59 14:59 Intake Total 468.546 Balance 468.546 Intake: Intake, IV Titration 135.546 Amount Heparin Sod,Pork in 0.45% 135.546 NaCl 25,000 unit In 0.45 % NaCl 1 500ml.bag @ 18 UNITS/KG/HR 22.04 mls/hr IV .[id number] [facility] Rx#: [id number] Oral 333 Other: Voiding Method Indwelling Catheter Weight 61.235 kg PHYSICAL EXAMINATION: GENERAL: The patient is alert and oriented x2, not in any acute distress. Well developed, well nourished. HEENT: Pupils are round and equally reacting to light. EOMI. No scleral icterus. No conjunctival pallor. Normocephalic, atraumatic. No pharyngeal erythema. No thyromegaly. CARDIOVASCULAR: S1 and S2 present. No murmurs, rubs, or gallops. PULMONARY: Chest is clear to auscultation, no wheezing or crackles. ABDOMEN: Soft, nontender, nondistended, normoactive bowel sounds. No palpable organomegaly. MUSCULOSKELETAL: Deferred although orthopedic surgery EXTREMITIES: No cyanosis, clubbing, or pedal edema. NEUROLOGICAL: Gross neurological examination did not reveal any focal deficits. SKIN: No rashes. Results CBC & Chem 7: 07/22/17 00:14 07/22/17 00:14 Labs: Abnormal Lab Results - Last 24 Hours (Table) 07/21/17 07/21/17 07/22/17 Range/Units 23:15 23:15 00:14 WBC 12.9 H (3.8-10.6) k/uL Hct 48.0 H (34.0-46.0) % MCV 100.1 H (80.0-100.0) fL MCHC 30.5 L (31.0-37.0) g/dL Plt Count 147 L (150-450) k/uL Neutrophils # 9.3 H (1.3-7.7) k/uL APTT 21.3 L (22.0-30.0) sec D-Dimer 17.84 H (<0.60) mg/L FEU BUN (7-17) mg/dL Creatinine (0.52-1.04) mg/dL Glucose (74-99) mg/dL Alkaline Phosphatase (38-126) U/L Total Creatine Kinase (30-135) U/L CK-MB (CK-2) (0.0-2.4) ng/mL Total Protein (6.3-8.2) g/dL 07/22/17 07/22/17 07/22/17 Range/Units 00:14 06:14 12:45 WBC (3.8-10.6) k/uL Hct (34.0-46.0) % MCV (80.0-100.0) fL MCHC (31.0-37.0) g/dL Plt Count (150-450) k/uL Neutrophils # (1.3-7.7) k/uL APTT 92.8 H (22.0-30.0) sec D-Dimer (<0.60) mg/L FEU BUN 36 H (7-17) mg/dL Creatinine 1.40 H (0.52-1.04) mg/dL Glucose 142 H (74-99) mg/dL Alkaline Phosphatase 172 H (38-126) U/L Total Creatine Kinase 196 H (30-135) U/L CK-MB (CK-2) 4.7 H* (0.0-2.4) ng/mL Total Protein 6.1 L (6.3-8.2) g/dL 07/22/17 Range/Units 12:45 WBC (3.8-10.6) k/uL Hct (34.0-46.0) % MCV (80.0-100.0) fL MCHC (31.0-37.0) g/dL Plt Count (150-450) k/uL Neutrophils # (1.3-7.7) k/uL APTT 52.5 H (22.0-30.0) sec D-Dimer (<0.60) mg/L FEU BUN (7-17) mg/dL Creatinine (0.52-1.04) mg/dL Glucose (74-99) mg/dL Alkaline Phosphatase (38-126) U/L Total Creatine Kinase (30-135) U/L CK-MB (CK-2) (0.0-2.4) ng/mL Total Protein (6.3-8.2) g/dL Assessment and Plan Plan: -Preoperative clearance: Patient is moderate risk for surgery but that it will improve her functionality because of which patient should go and get the surgery done yet and will obtain echocardiogram and also get cardiology opinion. -Possibility of congestive heart failure chronic diastolic dysfunction with mild acute exacerbation we will monitor her closely will not use any Lasix at this time and cardiology will be consulted. Echocardiogram will be obtained -Elevated d-dimer and VQ scan is being obtain next and-possibility of COPD with mild acute exacerbation patient was not wheezing when I examine because of which I'm cutting down the steroids to oral steroids. -Right hip fracture due to prophylaxis pain management as per primary service although avoid IV opiates, benzodiazepines barbiturates and anticollagen medications. 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 Next For above-mentioned chronic medical problems patient will be resumed on appropriate home medications closely monitor blood sugars vital signs.
--- NOTE | 2017-07-22 14:49 | P.CNPUL ---
History of Present Illness Consult date: 07/22/17 Reason for consult: COPD, pulmonary embolism Chief complaint: To evaluate for pulmonary embolism History of present illness: Ms. Turner is a 81-year-old female who was seen eval examined on third floor currently patient is on heparin drip for elevated d-dimer consult is requested for DVT PE, off note that patient VQ scan is pending as well as an echocardiogram is pending as well, her creatinine is 1.4 with GFR of 36 so spiral computed tomography scan with dye cannot be performed, data predominantly has been obtained from the chart, as patient unable to give a detailed history she is extremely hard of hearing she has been transfer from [place] after she fell down and broke her left hip, patient 2 weeks ago had the right knee injury for which she underwent surgical intervention by orthopedic associated she has significant cardiovascular disease and multiple complex medical history and problems she has been found to have very high d- dimer, her chest x-ray performed today reviewed revealed presence of cardiomegaly interstitial edema and stable pacemaker Review of Systems ROS unobtainable: due to mental status All systems: negative Past Medical History Past Medical History: Asthma, Coronary Artery Disease (CAD), COPD, Diabetes Mellitus, Deep Vein Thrombosis (DVT), Eye Disorder, GERD/Reflux, Hearing Disorder / Deafness, Hypertension, Musculoskeletal Disorder, Osteoarthritis (OA) , Pneumonia, Vascular Disorder Additional Past Medical History / Comment(s): restless leg syndrome, cataracts, hx. of pneumonia, neuropathy History of Any Multi-Drug Resistant Organisms: None Reported Past Surgical History: Appendectomy, Cholecystectomy, Heart Catheterization With Stent, Hysterectomy, Pacemaker, Tubal Ligation Additional Past Surgical History / Comment(s): hemroidectomy. cataract removed. tooth extractions, Pemanent Pacemaker, Cardiac Ablation. Pacemaker - November 27, 2010 Past Anesthesia/Blood Transfusion Reactions: No Reported Reaction Date of Last Stent Placement:: 07/08/11 Type of Cardiac Device: Permanent Pacemaker Device Placement Date:: 2003 Past Psychological History: Anxiety, Depression Smoking Status: Never smoker Past Alcohol Use History: None Reported Past Drug Use History: None Reported - Past Family History Mother Family Medical History: No Reported History Father History Unknown: Yes Additional Family Medical History / Comment(s): Pt states she never knew her father. Medications and Allergies Home Medications Medication Instructions Recorded Confirmed Type Aspirin EC [Ecotrin Low Dose] 81 mg PO DAILY 12/08/13 07/22/17 History Pravastatin Sodium [Pravachol] 40 mg PO DAILY 12/08/13 07/22/17 History Allopurinol [Zyloprim] 200 mg PO DAILY 08/18/16 07/22/17 History Loratadine [Claritin] 10 mg PO DAILY 08/18/16 07/22/17 History Metoprolol Succinate (ER) [Toprol 50 mg PO DAILY 08/18/16 07/22/17 History XL] Nitroglycerin 0.4 mg SUBLINGUAL Q5M PRN 08/18/16 07/22/17 History Ondansetron HCl [Zofran] 4 mg PO BID PRN 08/18/16 07/22/17 History Pantoprazole [Protonix] 40 mg PO DAILY 08/18/16 07/22/17 History Sennosides-Docusate Sodium 2 tab PO DAILY 08/18/16 07/22/17 History [Senokot-S] Budesonide-Formot 160-4.5 Mcg 2 puff INHALATION RT-BID 01/06/17 07/22/17 History [Symbicort 160-4.5 Mcg Inhaler] Isosorbide Mononitrate ER [Imdur] 30 mg PO DAILY 01/06/17 07/22/17 History Levothyroxine Sodium [Synthroid] 100 mcg PO AC-BRKFST 01/06/17 07/22/17 History Polyethylene Glycol 3350 [Miralax] 17 gm PO DAILY 01/06/17 07/22/17 History Albuterol Nebulized [Ventolin 2.5 mg INHALATION RT-Q6H 07/22/17 07/22/17 History Nebulized] Furosemide [Lasix] 20 mg PO DAILY 07/22/17 07/22/17 History Gabapentin [Neurontin] 300 mg PO HS 07/22/17 07/22/17 History rOPINIRole HCL [Requip] 2 mg PO HS 07/22/17 07/22/17 History Allergies Allergy/AdvReac Type Severity Reaction Status Date / Time amiodarone AdvReac Nausea Verified 07/21/17 22:57 digoxin AdvReac Nausea Verified 07/21/17 22:57 dronedarone [From Multaq] AdvReac Nausea Verified 07/21/17 22:57 metformin HCl AdvReac Nausea Verified 07/21/17 22:57 [From Glucophage] Physical Exam Vitals: Vital Signs Temp Pulse Pulse Resp BP BP Pulse Ox 07/22/17 12:33 68 07/22/17 12:14 72 07/22/17 12:00 96.4 F L 69 20 117/56 98 07/22/17 08:49 69 07/22/17 08:42 68 07/22/17 08:34 96.7 F L 68 20 108/58 93 L 07/22/17 06:19 69 17 98/54 98 07/22/17 05:14 68 18 127/60 95 07/22/17 04:30 68 17 115/70 96 07/22/17 03:30 68 18 110/56 96 07/22/17 02:30 68 18 119/69 96 07/22/17 01:09 71 18 126/60 96 07/22/17 00:14 69 18 119/58 96 07/21/17 23:31 76 07/21/17 23:19 72 07/21/17 22:14 98.5 F 79 18 135/61 99 Intake and Output 07/21/17 07/22/17 07/22/17 22:59 06:59 14:59 Intake Total 468.546 Balance 468.546 Intake: Intake, IV Titration 135.546 Amount Heparin Sod,Pork in 0.45% 135.546 NaCl 25,000 unit In 0.45 % NaCl 1 500ml.bag @ 18 UNITS/KG/HR 22.04 mls/hr IV .[id number] [facility] Rx#: [id number] Oral 333 Other: Voiding Method Indwelling Catheter Weight 61.235 kg NERAL: The patient is well nourished and well hydrated. VITAL SIGNS: Heart rate, blood pressure, respiratory rate reviewed as recorded in nurse's notes. EYES: Pupils are round and reactive. Extraocular movements are intact. No conjunctival / lid redness or swelling. ENT: No external evidence of injury, swelling, or ecchymosis. Airway is patent. Throat is clear. Dry mucous membranes noted. The patient is hard of hearing. NECK: Nontender. No swelling or evidence of injury. No subcutaneous emphysema. Trachea is midline. No thyroid mass. HEART: Regular rate and rhythm. Good peripheral pulses. LUNGS/CHEST: Wheezing is noted to bilateral lungs. No ecchymosis, subcutaneous emphysema, or tenderness. ABDOMEN: Abdomen soft without tenderness. No palpable masses or organomegaly. No peritoneal signs. No abdominal wall swelling or ecchymosis. EXTREMITIES: There is tenderness noted to the left hip. There is pain with any attempt at range of motion of the left hip. The patient is in a walking boot to her right leg. This is removed and there is no associated tenderness or swelling to the right leg. Normal muscle tone and function. No thoracolumbar tenderness. NEUROLOGIC: Sensation is grossly intact. Cranial nerve exam reveals face is symmetrical, tongue is midline, speech is clear. SKIN: There is a minor skin tear present to the left forearm. No induration or masses noted. PSYCHIATRIC: Alert and oriented. Appropriate behavior and judgment. Results - Laboratory Findings CBC and BMP: 07/22/17 00:14 07/22/17 00:14 PT/INR, D-dimer PT 10.6 sec (9.0-12.0) 07/21/17 23:15 INR 1.1 (<1.2) 07/21/17 23:15 D-Dimer 17.84 mg/L FEU (<0.60) H 07/21/17 23:15 Abnormal lab findings: Abnormal Labs 07/21/17 07/21/17 07/22/17 23:15 23:15 00:14 WBC 12.9 H Hct 48.0 H MCV 100.1 H MCHC 30.5 L Plt Count 147 L Neutrophils # 9.3 H APTT 21.3 L D-Dimer 17.84 H BUN Creatinine Glucose Alkaline Phosphatase Total Creatine Kinase CK-MB (CK-2) Total Protein 07/22/17 07/22/17 07/22/17 00:14 06:14 12:45 WBC Hct MCV MCHC Plt Count Neutrophils # APTT 92.8 H D-Dimer BUN 36 H Creatinine 1.40 H Glucose 142 H Alkaline Phosphatase 172 H Total Creatine Kinase 196 H CK-MB (CK-2) 4.7 H* Total Protein 6.1 L 07/22/17 12:45 WBC Hct MCV MCHC Plt Count Neutrophils # APTT 52.5 H D-Dimer BUN Creatinine Glucose Alkaline Phosphatase Total Creatine Kinase CK-MB (CK-2) Total Protein - Diagnostic Findings Chest x-ray: report reviewed, image reviewed (Finding as noted above) Assessment and Plan Assessment: Elevated d-dimer Chronic renal failure stage III Congestive heart failure likely acute on chronic diastolic heart failure Left hip fracture Coronary artery disease History of arrhythmia heart block status post permanent pacemaker Plan: It appears that d-dimer is very highly likely related to fall and fracture, however agree with obtaining the VQ scan was added duplex ultrasound of the lower extremity will follow closely further recommendations pending Time with Patient: Greater than 30
--- NOTE | 2017-07-22 19:05 | US ---
EXAMINATION TYPE: US venous doppler duplex LE BI DATE OF EXAM: 07/22/2017 5:31 PM COMPARISON: NONE CLINICAL HISTORY: dvt. Elevated D-Dimer, left hip fracture, SOB, right knee fracture SIDE PERFORMED: Bilateral TECHNIQUE: The lower extremity deep venous system is examined utilizing real time linear array sonog sekou with graded compression, doppler sonography and color-flow sonography. VESSELS IMAGED: External Iliac Vein (EIV) Common Femoral Vein Deep Femoral Vein Greater Saphenous Vein * Femoral Vein Popliteal Vein Small Saphenous Vein * Proximal Calf Veins (* superficial vessels) FINDINGS: Grayscale, color doppler, spectral doppler imaging performed of the deep veins of the lower extremities. There is normal flow, compressibility, vascular waveforms. Technical limitations due to patient's condition - unable to rotate legs into adequate position IMPRESSION: 1. RIGHT LOWER EXTREMITY: NO EVIDENCE OF ACUTE DVT. 2. LEFT LOWER EXTREMITY: NO EVIDENCE OF ACUTE DVT.
[2017-07-22] MEDS: HYDROcodone/APAP 5-325MG 1 EACH TAB PO PRN (20:36)
[2017-07-22] MEDS: FAMOTIDINE 20 MG TAB PO SCH (20:37)
[2017-07-22] MEDS: ACETAMINOPHEN TAB 325 MG TAB PO PRN (22:20)
[2017-07-23] MEDS: HYDROcodone/APAP 5-325MG 1 EACH TAB PO PRN ×3 (00:11→23:02)
[2017-07-23] MEDS: HEPARIN SOD,PORK IN 0.45% NACL 25,000 UNIT in 0.45% NACL 1 500ML.BAG IV SCH (01:27)
[2017-07-23] MEDS: MORPHINE SULFATE 4 MG/ML SYRINGE IVP PRN (03:54)
[2017-07-23 06:58] LABS: Basophils % (A) 0 %; Eosinophils % (A) 0 %; HCT 46.4 % (34.0-46.0); HGB 13.9 gm/dL (11.4-16.0); Hypochromasia Marked; Lymphocytes # (A) 0.6 k/uL (1.0-4.8); Lymphocytes % (A) 9 %; MCH 30.2 pg (25.0-35.0); MCV 100.9 fL (80.0-100.0); Macrocytosis Slight; Mean Platelet Volume 8.8; Monocytes # (A) 0.5 k/uL (0-1.0); Monocytes % (A) 6 %; Neutrophils # (A) 5.9 k/uL (1.3-7.7); Neutrophils % (A) 83 %; Platelet Count 123 k/uL (150-450); WBC 7.1 k/uL (3.8-10.6)
[2017-07-23 07:54] LABS: Calcium 9.5 mg/dL (8.4-10.2); Potassium 5.8 mmol/L (3.5-5.1)
[2017-07-23] MEDS: predniSONE 20 MG TAB PO SCH (08:22)
[2017-07-23] MEDS: FAMOTIDINE 20 MG TAB PO SCH (08:22)
--- NOTE | 2017-07-23 08:25 | P.PN ---
Subjective Progress Note Date: 07/23/17 Principal diagnosis: Left hip fracture The patient is an 81 year old female that presented to the hospital yesterday after sustaining a fall at home on 07/21/2017. She was found to have a left hip fracture and she was admitted to our service. The patient has been evaluated by internal medicine and pulmonary. She states she was having chest pain and shortness of breath for 1 week prior to falling. We are awaiting the VQ scan and cardiology evaluation before surgery tomorrow. She is scheduled for a left hip hemiarthroplasty tomorrow morning. Today, she states she is experiencing left hip pain. She denies shortness of breath, chest pain, abdominal pain, nausea, and vomitiing today. Objective - Vital Signs Vital signs: Vital Signs Temp 98 F 07/23/17 08:00 Pulse 70 07/23/17 08:00 Resp 18 07/23/17 08:00 BP 108/61 07/23/17 08:00 Pulse Ox 98 07/23/17 08:00 Intake & Output 07/22/17 07/23/17 07/23/17 18:59 06:59 18:59 Intake Total 1465.546 357.844 Output Total 350 250 Balance 1115.546 107.844 Weight 68.5 kg Intake: Intake, IV Titration 535.546 357.844 Amount Heparin Sod,Pork in 0.45% 135.546 357.844 NaCl 25,000 unit In 0.45 % NaCl 1 500ml.bag @ 18 UNITS/KG/HR 22.04 mls/hr IV .[id number] [facility] Rx#: [id number] Sodium Chloride 0.9% 1, 400 000 ml @ 100 mls/hr IV . Q10H ONE Rx#:[id number] Oral 930 Output: Urine 350 250 Other: Voiding Method Indwelling Catheter Indwelling Catheter Indwelling Catheter - Exam The patient is an 81-year-old female who is in no acute distress. She is alert and oriented 3. Exam of the left lower extremity reveals an externally rotated and shortened leg. There is pain upon logrolling and any range of motion of the left leg. There is pain to the lateral hip. Exam of the right lower extremity reveals some pain to the right medial knee and no pain to the right ankle. Bilateral calves are soft and nontender. She has good foot and ankle motion bilaterally. Neurological and circulatory status is intact. - Labs CBC & Chem 7: 07/23/17 06:13 07/23/17 06:13 Labs: Abnormal Lab Results - Last 24 Hours (Table) 07/22/17 07/22/17 07/23/17 Range/Units 12:45 12:45 06:13 Hct 46.4 H (34.0-46.0) % MCV 100.9 H (80.0-100.0) fL MCHC 30.0 L (31.0-37.0) g/dL Plt Count 123 L (150-450) k/uL Lymphocytes # 0.6 L (1.0-4.8) k/uL APTT 52.5 H (22.0-30.0) sec Potassium (3.5-5.1) mmol/L BUN (7-17) mg/dL Creatinine (0.52-1.04) mg/dL Glucose (74-99) mg/dL Total Creatine Kinase 196 H (30-135) U/L CK-MB (CK-2) 4.7 H* (0.0-2.4) ng/mL 07/23/17 07/23/17 Range/Units 06:13 06:13 Hct (34.0-46.0) % MCV (80.0-100.0) fL MCHC (31.0-37.0) g/dL Plt Count (150-450) k/uL Lymphocytes # (1.0-4.8) k/uL APTT 45.9 H (22.0-30.0) sec Potassium 5.8 H (3.5-5.1) mmol/L BUN 42 H (7-17) mg/dL Creatinine 1.28 H (0.52-1.04) mg/dL Glucose 178 H (74-99) mg/dL Total Creatine Kinase (30-135) U/L CK-MB (CK-2) (0.0-2.4) ng/mL Assessment and Plan (1) Fall Current Visit: Yes Status: Acute Code(s): W19.XXXA - UNSPECIFIED FALL, INITIAL ENCOUNTER SNOMED Code(s): 9139716 (2) Closed left hip fracture Current Visit: Yes Status: Acute Code(s): S72.002A - FRACTURE OF UNSP PART OF NECK OF LEFT FEMUR, INIT SNOMED Code(s): 059326714 Plan: The clinical and x-ray findings were discussed with the patient. No family was at the bedside during my evaluation. The patient was also seen Dr. Beal. The patient will undergo a left hip hemiarthroplasty tomorrow morning. Surgical risks were discussed at length with the patient. Possible risks and complications including but not limited to risk of bleeding, infection, dislocation, DVT, stroke, heart attack, and were discussed. We will await pulmonary and cardiology clearance. We will also await VQ scan. She will be nothing by mouth at midnight tonight. She may continue on a heart healthy diet until then. Bed rest. Nonweightbearing to the left lower extremity. The patient may have right ankle boot off while in bed. We will continue to follow the patient closely.
[2017-07-23] MEDS: IPRATROPIUM-ALBUTEROL 3 ML NEB INHALATION SCH ×4 (09:24→20:47)
--- NOTE | 2017-07-23 10:45 | P.CRDCN ---
History of Present Illness Consult date: 07/23/17 Requesting physician: Annette Pacheco Reason for Consult (text): Cardiac history Chief complaint: Fall with evidence of left hip fracture History of present illness: His is a pleasant 81-year-old female with history of hypertension, hyperlipidemia, hypothyroidism, coronary artery disease with prior myocardial infarction and stent placement, prior pacemaker implantation, hypothyroidism, asthma, who recently had a fall and incurred a fracture to her right knee, subsequent to that patient had another fall, for which she went to [facility] and was found to have a left femoral neck fracture. Patient was transferred here to [facility] for further evaluation. Patient was seen in consultation by orthopedics and is scheduled to undergo surgery tomorrow. Upon questioning, patient does state she gets intermittent angina, she experiences pain in the upper chest which radiates through to her back. This morning she has no pain at all. In her breathing is overall stable. She does state that she experiences intermittent shortness of breath as well. She is unsure at this time of who her director of consumer affairs is, she does not follow locally with this practice. Patient also has history of mild dementia, paroxysmal atrial fibrillation. Not on anticoagulation. EKG on arrival here showed atrial fibrillation with a controlled ventricular response. Chest x-ray reveals mild congestive heart failure, improved from prior exam. Venous duplex study was performed which was negative for DVT in either leg. The pressure on arrival 134 /60 with a heart rate in the 70s, 99% on 2 L. Temperature 98.5. Blood pressure this morning 108/60 with a heart rate in the 80s. Laboratory data was reviewed, white blood cell count 12.9 on admission, 7.1 this morning. Hemoglobin 13.9, platelet count 123. D-dimer 17.84. Sodium 141, potassium 5.8 , BUN 42, creatinine 1.2. Troponins 0.026, 0.020, 0.0-3. BNP level 2049. At the time of my examination this morning, patient denies any overt difficulty in breathing, no chest discomfort. She is complaining of pain in the left hip and leg down to the knee. Past Medical History Past Medical History: Asthma, Coronary Artery Disease (CAD), COPD, Diabetes Mellitus, Deep Vein Thrombosis (DVT), Eye Disorder, GERD/Reflux, Hearing Disorder / Deafness, Hypertension, Musculoskeletal Disorder, Osteoarthritis (OA) , Pneumonia, Vascular Disorder Additional Past Medical History / Comment(s): restless leg syndrome, cataracts, hx. of pneumonia, neuropathy History of Any Multi-Drug Resistant Organisms: None Reported Past Surgical History: Appendectomy, Cholecystectomy, Heart Catheterization With Stent, Hysterectomy, Pacemaker, Tubal Ligation Additional Past Surgical History / Comment(s): hemroidectomy. cataract removed. tooth extractions, Pemanent Pacemaker, Cardiac Ablation. Pacemaker - November 27, 2010 Past Anesthesia/Blood Transfusion Reactions: No Reported Reaction Date of Last Stent Placement:: 07/08/11 Type of Cardiac Device: Permanent Pacemaker Device Placement Date:: 2003 Past Psychological History: Anxiety, Depression Smoking Status: Never smoker Past Alcohol Use History: None Reported Past Drug Use History: None Reported - Past Family History Mother Family Medical History: No Reported History Father History Unknown: Yes Additional Family Medical History / Comment(s): Pt states she never knew her father. Medications and Allergies Home Medications Medication Instructions Recorded Confirmed Type Aspirin EC [Ecotrin Low Dose] 81 mg PO DAILY 12/08/13 07/22/17 History Pravastatin Sodium [Pravachol] 40 mg PO DAILY 12/08/13 07/22/17 History Allopurinol [Zyloprim] 200 mg PO DAILY 08/18/16 07/22/17 History Loratadine [Claritin] 10 mg PO DAILY 08/18/16 07/22/17 History Metoprolol Succinate (ER) [Toprol 50 mg PO DAILY 08/18/16 07/22/17 History XL] Nitroglycerin 0.4 mg SUBLINGUAL Q5M PRN 08/18/16 07/22/17 History Ondansetron HCl [Zofran] 4 mg PO BID PRN 08/18/16 07/22/17 History Pantoprazole [Protonix] 40 mg PO DAILY 08/18/16 07/22/17 History Sennosides-Docusate Sodium 2 tab PO DAILY 08/18/16 07/22/17 History [Senokot-S] Budesonide-Formot 160-4.5 Mcg 2 puff INHALATION RT-BID 01/06/17 07/22/17 History [Symbicort 160-4.5 Mcg Inhaler] Isosorbide Mononitrate ER [Imdur] 30 mg PO DAILY 01/06/17 07/22/17 History Levothyroxine Sodium [Synthroid] 100 mcg PO AC-[id number] 01/06/17 07/22/17 History Polyethylene Glycol 3350 [Miralax] 17 gm PO DAILY 01/06/17 07/22/17 History Albuterol Nebulized [Ventolin 2.5 mg INHALATION RT-Q6H 07/22/17 07/22/17 History Nebulized] Furosemide [Lasix] 20 mg PO DAILY 07/22/17 07/22/17 History Gabapentin [Neurontin] 300 mg PO HS 07/22/17 07/22/17 History rOPINIRole HCL [Requip] 2 mg PO HS 07/22/17 07/22/17 History Allergies Allergy/AdvReac Type Severity Reaction Status Date / Time amiodarone AdvReac Nausea Verified 07/21/17 22:57 digoxin AdvReac Nausea Verified 07/21/17 22:57 dronedarone [From Multaq] AdvReac Nausea Verified 07/21/17 22:57 metformin HCl AdvReac Nausea Verified 07/21/17 22:57 [From Glucophage] Physical Exam Vitals: Vital Signs Temp Pulse Pulse Resp BP Pulse Ox 07/23/17 09:38 80 07/23/17 09:24 84 07/23/17 08:00 98 F 70 18 108/61 98 07/23/17 04:00 98.0 F 81 18 106/59 98 07/23/17 00:00 97.5 F L 70 16 96/55 98 07/22/17 21:08 68 07/22/17 20:51 68 96 07/22/17 20:00 98.2 F 73 18 91/52 99 07/22/17 16:56 68 07/22/17 16:43 68 07/22/17 16:00 97.7 F 70 20 102/52 94 L 07/22/17 13:00 97.1 F L 69 20 85/53 96 07/22/17 12:33 68 07/22/17 12:14 72 07/22/17 12:00 96.4 F L 69 20 117/56 98 Intake and Output 07/22/17 07/23/17 07/23/17 22:59 06:59 14:59 Intake Total 997 357.844 508.557 Output Total 350 250 Balance 647 107.844 508.557 Intake: Intake, IV Titration 400 357.844 148.557 Amount Heparin Sod,Pork in 0.45% 357.844 148.557 NaCl 25,000 unit In 0.45 % NaCl 1 500ml.bag @ 18 UNITS/KG/HR 22.04 mls/hr IV .[id number] [facility] Rx#: [id number] Sodium Chloride 0.9% 1, 400 000 ml @ 100 mls/hr IV . Q10H ONE Rx#:[id number] Oral 597 360 Output: Urine 350 250 Other: Voiding Method Indwelling Catheter Indwelling Catheter Indwelling Catheter Weight 68.5 kg PHYSICAL EXAMINATION: HEENT: Head is atraumatic, normocephalic. Pupils equal, round. Neck is supple. There is no elevated jugular venous pressure. HEART EXAMINATION: Heart S1 and S2 irregularly irregular systolic murmur is heard CHEST EXAMINATION: Lungs are clear with diminished air entry to bilateral bases. ABDOMEN: Soft, nontender. Bowel sounds are heard. No organomegaly noted. EXTREMITIES:[ 2+ peripheral pulses with trace evidence of peripheral edema , pain in the left hip down to the left knee area NEUROLOGIC patient is awake, alert and oriented -3. . Results 07/23/17 06:13 07/23/17 06:13 Cardiac Enzymes 07/22/17 Range/Units 12:45 CK-MB (CK-2) 4.7 H* (0.0-2.4) ng/mL Troponin I 0.023 (0.000-0.034) ng/mL Coagulation 07/22/17 07/23/17 Range/Units 12:45 06:13 APTT 52.5 H 45.9 H (22.0-30.0) sec CBC 07/23/17 Range/Units 06:13 WBC 7.1 (3.8-10.6) k/uL RBC 4.60 (3.80-5.40) m/uL Hgb 13.9 (11.4-16.0) gm/dL Hct 46.4 H (34.0-46.0) % Plt Count 123 L (150-450) k/uL Comprehensive Metabolic Panel 07/23/17 Range/Units 06:13 Sodium 141 (137-145) mmol/L Potassium 5.8 H (3.5-5.1) mmol/L Chloride 105 (98-107) mmol/L Carbon Dioxide 27 (22-30) mmol/L BUN 42 H (7-17) mg/dL Creatinine 1.28 H (0.52-1.04) mg/dL Glucose 178 H (74-99) mg/dL Calcium 9.5 (8.4-10.2) mg/dL Current Medications Generic Name Dose Route Start Last Admin Trade Name Freq PRN Reason Stop Dose Admin Acetaminophen 650 mg 07/22/17 00:44 07/22/17 22:20 Tylenol Tab PO 650 mg Q6HR PRN Administration Mild Pain or Fever > 100.5 Hydrocodone Bitart/Acetaminophen 1 each 07/22/17 00:44 07/23/17 09:41 [place] 5-325 PO 1 each Q4HR PRN Administration Moderate Pain Albuterol/Ipratropium 3 ml 07/22/17 08:00 07/23/17 09:24 Duoneb 0.5 Mg-3 Mg/3 Ml Soln INHALATION 3 ml RT-QID FINN Administration Albuterol/Ipratropium 3 ml 07/22/17 05:22 Duoneb 0.5 Mg-3 Mg/3 Ml Soln INHALATION RT-Q2H PRN Shortness Of Breath Or Wheezing Famotidine 20 mg 07/22/17 21:00 07/23/17 08:22 Pepcid PO 20 mg BID FINN Administration Heparin Sodium (Porcine) 0 unit 07/22/17 00:43 07/23/17 08:57 Heparin IV 2,600 unit PER PROTOCOL PRN Administration Low PTT Protocol Heparin Sodium/Sodium Chloride 500 mls @ 22.04 mls/hr 07/22/17 00:45 09:02 25,000 unit/ Sodium Chloride IV 18 units/kg/hr .[id number] FINN 22.04 mls/hr Protocol Titration 18 UNITS/KG/HR Cefazolin Sodium 2 gm/ Sodium 50 mls @ 100 mls/hr 07/24/17 07:00 Chloride IVPB 07/24/17 07:29 ONCE ONE Metoclopramide HCl 10 mg 07/22/17 00:51 Reglan IVP Q6H PRN Nausea Morphine Sulfate 2 mg 07/23/17 03:20 07/23/17 03:54 Morphine Sulfate (Inj) IVP 2 mg Q4H PRN Administration SEVERE PAIN Naloxone HCl 0.2 mg 07/22/17 00:44 Narcan IV Q2M PRN Opioid Reversal Ondansetron HCl 4 mg 07/22/17 00:44 Zofran IVP Q4H PRN Nausea And Vomiting Prednisone 20 mg 07/23/17 09:00 07/23/17 08:22 PO 20 mg DAILY FINN Administration Ropinirole HCl 2 mg 07/22/17 23:45 07/23/17 00:11 Requip PO 2 mg HS FINN Administration Intake and Output 07/22/17 07/23/17 07/23/17 22:59 06:59 14:59 Intake Total 997 357.844 508.557 Output Total 350 250 Balance 647 107.844 508.557 Intake: Intake, IV Titration 400 357.844 148.557 Amount Heparin Sod,Pork in 0.45% 357.844 148.557 NaCl 25,000 unit In 0.45 % NaCl 1 500ml.bag @ 18 UNITS/KG/HR 22.04 mls/hr IV .[id number] [facility] Rx#: [id number] Sodium Chloride 0.9% 1, 400 000 ml @ 100 mls/hr IV . Q10H [facility] Rx#:[id number] Oral 597 360 Output: Urine 350 250 Other: Voiding Method Indwelling Catheter Indwelling Catheter Indwelling Catheter Weight 68.5 kg 07/23/17 06:13 07/23/17 06:13 EKG Interpretations (text) EKG shows a ventricular paced rhythm with underlying A. fib Assessment and Plan Plan: Assessment and plan #1 left hip fracture, scheduled to undergo surgery tomorrow #2 history of coronary artery disease with prior stent placement #3 hypertension #4 hyperlipidemia #5 elevated d-dimer, venous duplex study negative for DVT in either leg, VQ scan has been requested. #6 diabetes #7 paroxysmal atrial fibrillation #8 prior pacemaker implantation #9 COPD #10 hypothyroidism Plan We will obtain an echocardiogram with Doppler study. VQ scan is also been requested to rule out possibility of pulmonary embolism. Patient is currently on IV heparin, scheduled for surgery tomorrow, will require anticoagulation for stroke prevention. We will attempt to obtain records of patient's prior cardiac procedures. Check free T4 and TSH, reinitiate statin and beta rafaela. DNP note has been reviewed, I agree with a documented findings and plan of care. Patient was seen and examined.
[2017-07-23] MEDS: METOPROLOL SUCCINATE (ER) 25 MG TAB.ER.24H PO SCH (14:05)
--- NOTE | 2017-07-23 14:36 | XR ---
EXAMINATION TYPE: XR chest 1V portable DATE OF EXAM: 07/23/2017 COMPARISON: 07/21/2017 HISTORY: Shortness of breath TECHNIQUE: Single frontal view of the chest is obtained. FINDINGS: Heart is enlarged there subsegmental consolidation in the left upper lobe. Tiny left pleur al effusion noted. Cardiac device and atherosclerotic change aorta. Diffuse osteopenia. IMPRESSION: 1. Cardiomegaly and left upper lobe atelectasis
--- NOTE | 2017-07-23 14:59 | NM ---
EXAMINATION TYPE: NM pul vent and perfuse DATE OF EXAM: 07/23/2017 COMPARISON: Chest x-ray completed 07/23/2017 HISTORY: Shortness of breath TECHNIQUE: Utilizing inhalation of 39.8 mCi Tc 99m DTPA aerosol and intravenous injection of 5.5 mCi of Tc 99m MAA, ventilation and perfusion images are acquired post injection in multiple projections. FINDINGS: Exam is limited due to clumping of radiotracer centrally on the ventilation images. There is a fixed defect within the left upper lobe which demonstrates a corresponding x-ray abnormality. IMPRESSION: Exam limited due to poor uptake of ventilation images secondary to central clumping of radiotracer. F indings are most compatible with a intermediate probability for pulmonary embolism.
--- NOTE | 2017-07-23 15:03 | P.PN ---
Subjective Progress Note Date: 07/23/17 Principal diagnosis: Acute exacerbation of CHF, status post fall with left hip fracture, oriented disease and history of stent placement next hypertension hypertensive cardiovascular disease, elevated d-dimer Ms. Turner is a 81-year-old female who was seen eval examined on third floor currently patient is on heparin drip for elevated d-dimer consult is requested for DVT PE, off note that patient VQ scan is pending as well as an echocardiogram is pending as well, her creatinine is 1.4 with GFR of 36 so spiral computed tomography scan with dye cannot be performed, data predominantly has been obtained from the chart, as patient unable to give a detailed history she is extremely hard of hearing she has been transfer from [place] after she fell down and broke her left hip, patient 2 weeks ago had the right knee injury for which she underwent surgical intervention by orthopedic associated she has significant cardiovascular disease and multiple complex medical history and problems she has been found to have very high d- dimer, her chest x-ray performed today reviewed revealed presence of cardiomegaly interstitial edema and stable pacemaker 07/23/2017, patient seen eval reexamined during the rounds doing well from [facility] standpoint denies any chest pain denies any cough or sputum production patient is prepared for the left hip arthroplasty Plavix ultrasound of both lower extremity has been negative VQ scan is just performed results are not available for review, chest x-ray performed reviewed cardiomegaly interstitial edema and borderline cardiomegaly seen laboratory data reviewed as well consistent with a stage III renal failure chronic with borderline hyperkalemia Objective - Vital Signs Vital signs: Vital Signs Temp 98 F 07/23/17 12:00 Pulse 76 07/23/17 13:10 Resp 18 07/23/17 12:00 BP 110/72 07/23/17 12:00 Pulse Ox 97 07/23/17 12:00 Intake & Output 07/22/17 07/23/17 07/23/17 18:59 06:59 18:59 Intake Total 1465.546 357.844 748.557 Output Total 350 250 Balance 1115.546 107.844 748.557 Weight 68.5 kg Intake: Intake, IV Titration 535.546 357.844 148.557 Amount Heparin Sod,Pork in 0.45% 135.546 357.844 148.557 NaCl 25,000 unit In 0.45 % NaCl 1 500ml.bag @ 18 UNITS/KG/HR 22.04 mls/hr IV .[id number] [facility] Rx#: [id number] Sodium Chloride 0.9% 1, 400 000 ml @ 100 mls/hr IV . Q10H [facility] Rx#:[id number] Oral 930 600 Output: Urine 350 250 Other: Voiding Method Indwelling Catheter Indwelling Catheter Indwelling Catheter - Exam GENERAL: The patient is well nourished and well hydrated. VITAL SIGNS: Heart rate, blood pressure, respiratory rate reviewed as recorded in nurse's notes. EYES: Pupils are round and reactive. Extraocular movements are intact. No conjunctival / lid redness or swelling. ENT: No external evidence of injury, swelling, or ecchymosis. Airway is patent. Throat is clear. Dry mucous membranes noted. The patient is hard of hearing. NECK: Nontender. No swelling or evidence of injury. No subcutaneous emphysema. Trachea is midline. No thyroid mass. HEART: Regular rate and rhythm. Good peripheral pulses. LUNGS/CHEST: Wheezing is noted to bilateral lungs. No ecchymosis, subcutaneous emphysema, or tenderness. ABDOMEN: Abdomen soft without tenderness. No palpable masses or organomegaly. No peritoneal signs. No abdominal wall swelling or ecchymosis. EXTREMITIES: There is tenderness noted to the left hip. There is pain with any attempt at range of motion of the left hip. The patient is in a walking boot to her right leg. This is removed and there is no associated tenderness or swelling to the right leg. Normal muscle tone and function. No thoracolumbar tenderness. NEUROLOGIC: Sensation is grossly intact. Cranial nerve exam reveals face is symmetrical, tongue is midline, speech is clear. SKIN: There is a minor skin tear present to the left forearm. No induration or masses noted. PSYCHIATRIC: Alert and oriented. Appropriate behavior and judgment. - Labs CBC & Chem 7: 07/23/17 06:13 07/23/17 06:13 Labs: Abnormal Lab Results - Last 24 Hours (Table) 07/23/17 07/23/17 07/23/17 Range/Units 06:13 06:13 06:13 Hct 46.4 H (34.0-46.0) % MCV 100.9 H (80.0-100.0) fL MCHC 30.0 L (31.0-37.0) g/dL Plt Count 123 L (150-450) k/uL Lymphocytes # 0.6 L (1.0-4.8) k/uL APTT 45.9 H (22.0-30.0) sec Potassium 5.8 H (3.5-5.1) mmol/L BUN 42 H (7-17) mg/dL Creatinine 1.28 H (0.52-1.04) mg/dL Glucose 178 H (74-99) mg/dL Assessment and Plan Assessment: Elevated d-dimer Chronic renal failure stage III Congestive heart failure likely acute on chronic diastolic heart failure Left hip fracture Coronary artery disease History of arrhythmia heart block status post permanent pacemaker Plan: It appears that d-dimer is very highly likely related to fall and fracture, however agree with obtaining the VQ scan reviewed duplex ultrasound of the lower extremity will follow closely further recommendations pending, overall from pulmonary standpoint to proceed with surgery pending finding on the VQ scan
[2017-07-23] MEDS: SODIUM CHLORIDE 0.9% 1,000 ML IV SCH (15:25)
--- NOTE | 2017-07-23 15:50 | P.PN ---
Subjective Progress Note Date: 07/23/17 Progress note being dictated for Dr. Pacheco Interval history:Patient is a 81-year-old extreme a poor historian came in with left hip fracture at 6 at an outside hospital patient has severe hearing problems because of which I'm unable to get much of the history from the patient patient says she has pain in the left hip area patient was [facility] [facility] will undergo surgery on . Medicine was consulted for preoperative clearance. Unable to get any kind of history from the patient it appears like patient has history of coronary artery disease never had any history of congestive heart failure does have a pacemaker EKG showing paced rhythm. Patient appears to have some pulmonary edema on the chest x-ray with elevated BNP although I did not appreciate any JVD cardiology will be consulted for preoperative clearance echocardiac exam will be obtained patient doesn't have any fever chills patient has poor renal function and patient's creatinine is at her baseline patient is probably wheezing because of which patient was started on systemic steroids which I do not believe she'll need high-dose of IV steroids which will lead to confusion and agitation concerning her age. Patient cannot take any in nonsteroidal anti-inflammatories, patient is on Concepcion , other IV opiates need to be avoided if we can. Patient's IV fluids were discontinued patient is on IV heparin because of elevated d-dimer VQ scan is being obtained to rule out pulmonary embolism and pulmonary was consulted for preoperative clearance I will I believe cardiology preoperative clearance is also required. And cardiology was consulted. 07/23/2017. Maintained on heparin drip. VQ scan reporting intermediate ability. Creatinine 1.28. Telemetry atrial flutter. Left hip and leg Pain currently controlled. Good diet intake. Denies chest pain palpitations or increased shortness of breath. Objective - Vital Signs Vital signs: Vital Signs Temp 98 F 07/23/17 15:15 Pulse 70 07/23/17 15:15 Resp 18 07/23/17 15:15 BP 122/68 07/23/17 15:15 Pulse Ox 98 07/23/17 15:15 Intake & Output 07/22/17 07/23/17 07/23/17 18:59 06:59 18:59 Intake Total 1465.546 357.844 948.557 Output Total 350 250 Balance 1115.546 107.844 948.557 Weight 68.5 kg Intake: Intake, IV Titration 535.546 357.844 148.557 Amount Heparin Sod,Pork in 0.45% 135.546 357.844 148.557 NaCl 25,000 unit In 0.45 % NaCl 1 500ml.bag @ 18 UNITS/KG/HR 22.04 mls/hr IV .[id number] [facility] Rx#: [id number] Sodium Chloride 0.9% 1, 400 000 ml @ 100 mls/hr IV . Q10H [facility] Rx#:[id number] Oral 930 800 Output: Urine 350 250 Other: Voiding Method Indwelling Catheter Indwelling Catheter Indwelling Catheter - Exam GENERAL: The patient is alert and oriented x2, not in any acute distress. Well developed, well nourished. HEENT: Pupils are round and equally reacting to light. EOMI. No scleral icterus. No conjunctival pallor. Normocephalic, atraumatic. No pharyngeal erythema. No thyromegaly. CARDIOVASCULAR: S1 and S2 present. Positive systolic murmur, no rubs, or gallops. PULMONARY: Chest is clear to auscultation, no wheezing or crackles. ABDOMEN: Soft, nontender, nondistended, normoactive bowel sounds. No palpable organomegaly. MUSCULOSKELETAL: Deferred although orthopedic surgery EXTREMITIES: No cyanosis, clubbing, mild pedal edema. NEUROLOGICAL: Gross neurological examination did not reveal any focal deficits. SKIN: No rashes. - Labs CBC & Chem 7: 07/23/17 06:13 07/23/17 06:13 Labs: Abnormal Lab Results - Last 24 Hours (Table) 07/23/17 07/23/17 07/23/17 Range/Units 06:13 06:13 06:13 Hct 46.4 H (34.0-46.0) % MCV 100.9 H (80.0-100.0) fL MCHC 30.0 L (31.0-37.0) g/dL Plt Count 123 L (150-450) k/uL Lymphocytes # 0.6 L (1.0-4.8) k/uL APTT 45.9 H (22.0-30.0) sec Potassium 5.8 H (3.5-5.1) mmol/L BUN 42 H (7-17) mg/dL Creatinine 1.28 H (0.52-1.04) mg/dL Glucose 178 H (74-99) mg/dL Assessment and Plan Assessment: -Preoperative clearance: Patient is moderate risk for surgery but that it will improve her functionality because of which patient should go and get the surgery done yet and will obtain echocardiogram and also get cardiology opinion. -Possibility of congestive heart failure chronic diastolic dysfunction with mild acute exacerbation we will monitor her closely will not use any Lasix at this time and cardiology will be consulted. Echocardiogram will be obtained -Elevated d-dimer and VQ scan is being obtain next and-possibility of COPD with mild acute exacerbation patient was not wheezing when I examine because of which I'm cutting down the steroids to oral steroids. -Right hip fracture due to prophylaxis pain management as per primary service although avoid IV opiates, benzodiazepines barbiturates and anticollagen medications. 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 Next Plan: Continue on current medication regime , heparin drip , beta rafaela, statin,monitoring. Orthopedic to be notified, hold surgery for another 24 hours. VQ scan suggestive of intermittent probability of PE, creatinine mildly elevated. Increase IV fluids to 0.9 at 100 MLS an hour, recheck creatinine in a.m. with intentions of CT tomorrow to rule out PE. The impression and plan of care has been dictated as directed. : I performed a history and examination of this patient, discussed the same with the dictator. I agree with the dictator's note ,documented as a scribe. Any additional findings or plans will be noted.
[2017-07-23] MEDS: ACETAMINOPHEN TAB 325 MG TAB PO PRN (16:43)
--- NOTE | 2017-07-23 17:23 | ECHOF ---
Referral Reason:pre Op Clearance MEASUREMENTS -------- HEIGHT: 157.5 cm WEIGHT: 61.2 kg BP: 117/56 RVIDd: 2.6 cm (< 3.3) IVSd: 0.9 cm (0.6 - 1.1) LVIDd: 4.1 cm (3.9 - 5.3) LVPWd: 1.1 cm (0.6 - 1.1) IVSs: 1.5 cm LVIDs: 2.4 cm LVPWs: 1.5 cm LAESV Index (A-L): 42.12 ml/m Ao Diam: 3.1 cm (2.0 - 3.7) AV Cusp: 1.4 cm (1.5 - 2.6) LA Diam: 4.2 cm (2.7 - 3.8) MV E Nelson: 0.95 m/s MV DecT: 222 ms MV A Nelson: 0.25 m/s MV E/A Ratio: 3.76 RAP: 5.00 mmHg RVSP: 34.01 mmHg FINDINGS -------- Paced rhythm. This was a technically adequate study. The left ventricular size is normal. Left ventricular wall thickness is normal. Overall left vent ricular systolic function is normal with, an EF between 55 - 60 %. The right ventricle is normal in size and function. LA is severely dilated >40 ml/m2 Echo dense structure in left atrium. The right atrium is markedly enlarged. Electronic pacemaker lead seen in the right ventricular cavi ty. Aortic valve is trileaflet and is mildly thickened. There is mild aortic regurgitation. The mitral valve is normal. Mild mitral regurgitation is present. Moderate to severe tricuspid regurgitation present. There is borderline pulmonary hypertension. T he right ventricular systolic pressure, as measured by Doppler, is 34.01mmHg. Trace/mild (physiologic) pulmonic regurgitation. The aortic root size is normal. Normal inferior vena cava with normal inspiratory collapse consistent with estimated right atrial pre ssure of 5 mmHg. There is a small, generalized pericardial effusion present. CONCLUSIONS -------- 1. Paced rhythm. 2. This was a technically adequate study. 3. The left ventricular size is normal. 4. Left ventricular wall thickness is normal. 5. Overall left ventricular systolic function is normal with, an EF between 55 - 60 %. 6. LA is severely dilated >40 ml/m2 7. Echo dense structure in left atrium. 8. The right atrium is markedly enlarged. 9. Electronic pacemaker lead seen in the right ventricular cavity. 10. Aortic valve is trileaflet and is mildly thickened. 11. There is mild aortic regurgitation. 12. Mild mitral regurgitation is present. 13. Moderate to severe tricuspid regurgitation present. 14. There is borderline pulmonary hypertension. 15. The right ventricular systolic pressure, as measured by Doppler, is 34.01mmHg. 16. Trace/mild (physiologic) pulmonic regurgitation. 17. The aortic root size is normal. 18. There is a small, generalized pericardial effusion present. MACHINE SHORTHAND TEACHER: David Darnell RDCS
[2017-07-23] MEDS: ONDANSETRON 4 MG/2 ML VIAL IVP PRN (20:01)
[2017-07-23] MEDS: ATORVASTATIN 40 MG TAB PO SCH (20:28)
[2017-07-24] MEDS: HEPARIN SOD,PORK IN 0.45% NACL 25,000 UNIT in 0.45% NACL 1 500ML.BAG IV SCH (06:05)
[2017-07-24] MEDS: SODIUM CHLORIDE 0.9% 1,000 ML IV SCH ×3 (06:06→20:04)
[2017-07-24 06:37] LABS: Basophils % (A) 0 %; Eosinophils % (A) 0 %; HCT 45.1 % (34.0-46.0); HGB 13.6 gm/dL (11.4-16.0); Hypochromasia Moderate; Lymphocytes # (A) 0.5 k/uL (1.0-4.8); Lymphocytes % (A) 5 %; MCH 30.1 pg (25.0-35.0); MCHC 30.2 g/dL (31.0-37.0); MCV 99.5 fL (80.0-100.0); Macrocytosis Slight; Mean Platelet Volume 9.1; Monocytes # (A) 0.7 k/uL (0-1.0); Monocytes % (A) 7 %; Neutrophils # (A) 7.9 k/uL (1.3-7.7); Neutrophils % (A) 86 %; Platelet Count 138 k/uL (150-450); RBC 4.53 m/uL (3.80-5.40); RDW 14.2 % (11.5-15.5); WBC 9.2 k/uL (3.8-10.6)
[2017-07-24] MEDS ORDERED: ceFAZolin IN SWFI 2 GM/20 ML SYRINGE IVP ONE (07:00)
[2017-07-24] MEDS: IPRATROPIUM-ALBUTEROL 3 ML NEB INHALATION SCH ×4 (07:08→20:38)
--- NOTE | 2017-07-24 08:29 | P.PN ---
Subjective Progress Note Date: 07/24/17 Principal diagnosis: Left hip fracture The patient is an 81 year old female that presented to the hospital on 07/22/2017 after sustaining a fall at home on 07/21/2017. She was found to have a left hip fracture and she was admitted to our service. The patient has been evaluated by internal medicine and pulmonary. She states she was having chest pain and shortness of breath for 1 week prior to falling. The VQ scan was inconclusive for PE. We are awaiting the a spiral chest CT with contrast to be completed today. Today, she states she is experiencing left hip pain. She denies shortness of breath, chest pain, abdominal pain, nausea, and vomitiing today. Objective - Vital Signs Vital signs: Vital Signs Temp 97.5 F L 07/24/17 08:08 Pulse 70 07/24/17 08:08 Resp 16 07/24/17 08:08 BP 139/83 07/24/17 08:08 Pulse Ox 95 07/24/17 08:08 Intake & Output 07/23/17 07/24/17 07/24/17 18:59 06:59 18:59 Intake Total 1392.427 962.266 Output Total 400 Balance 1392.427 562.266 Weight 67.5 kg Intake: Intake, IV Titration 352.427 962.266 Amount Heparin Sod,Pork in 0.45% 352.427 162.266 NaCl 25,000 unit In 0.45 % NaCl 1 500ml.bag @ 18 UNITS/KG/HR 22.04 mls/hr IV .[id number] FINN Rx#: [id number] Sodium Chloride 0.9% 1, 800 000 ml @ 100 mls/hr IV . Q10H FINN Rx#:[id number] Oral 1040 0 Output: Urine 400 Other: Voiding Method Indwelling Catheter Indwelling Catheter Indwelling Catheter # Bowel Movements 1 - Exam The patient is an 81-year-old female who is in no acute distress. She is alert and oriented 3. Exam of the left lower extremity reveals an externally rotated and shortened leg. There is pain upon logrolling and any range of motion of the left leg. There is pain to the lateral hip. Exam of the right lower extremity reveals some pain to the right medial knee and no pain to the right ankle. Bilateral calves are soft and nontender. She has good foot and ankle motion bilaterally. Neurological and circulatory status is intact. - Labs CBC & Chem 7: 07/24/17 06:07 07/24/17 06:07 Labs: Abnormal Lab Results - Last 24 Hours (Table) 07/23/17 07/24/17 07/24/17 Range/Units 15:12 00:36 06:07 MCHC 30.2 L (31.0-37.0) g/dL Plt Count 138 L (150-450) k/uL Neutrophils # 7.9 H (1.3-7.7) k/uL Lymphocytes # 0.5 L (1.0-4.8) k/uL APTT 87.6 H 51.0 H (22.0-30.0) sec Assessment and Plan (1) Fall Current Visit: Yes Status: Acute Code(s): W19.XXXA - UNSPECIFIED FALL, INITIAL ENCOUNTER SNOMED Code(s): 3696476 (2) Closed left hip fracture Current Visit: Yes Status: Acute Code(s): S72.002A - FRACTURE OF UNSP PART OF NECK OF LEFT FEMUR, INIT SNOMED Code(s): 049094965 Plan: The clinical and x-ray findings were discussed with the patient. The patient was also seen by Dr. Beal. We will schedule a left hip hemiarthroplasty for tomorrow afternoon if chest CT is negative. We will await final clearance for surgery by internal medicine, pulmonary, and cardiology. She will be nothing by mouth at midnight tonight. She may continue on a heart healthy diet until then. Bed rest. Nonweightbearing to the left lower extremity. The patient may have right ankle boot off while in bed. We will continue to follow the patient closely.
[2017-07-24 09:45] LABS: Calcium 9.1 mg/dL (8.4-10.2)
[2017-07-24] MEDS: FAMOTIDINE 20 MG TAB PO SCH (09:52)
[2017-07-24] MEDS: METOPROLOL SUCCINATE (ER) 25 MG TAB.ER.24H PO SCH (09:52)
[2017-07-24] MEDS: predniSONE 20 MG TAB PO SCH (09:52)
[2017-07-24] MEDS: POLYETHYLENE GLYCOL 3350 17 GM POWD.PACK PO SCH (09:56)
[2017-07-24] MEDS: HYDROcodone/APAP 5-325MG 1 EACH TAB PO PRN ×2 (09:57→23:32)
[2017-07-24 09:58] LABS: Potassium 4.9 mmol/L (3.5-5.1)
[2017-07-24] MEDS ORDERED: RX INFO: IV CONTRAST WAS GIVEN 1 EACH MISC MISCELLANE PRN (10:23)
--- NOTE | 2017-07-24 10:58 | P.PN ---
Subjective Progress Note Date: 07/24/17 Principal diagnosis: Acute exacerbation of CHF, status post fall with left hip fracture, oriented disease and history of stent placement next hypertension hypertensive cardiovascular disease, elevated d-dimer Ms. Turner is a 81-year-old female who was seen eval examined on third floor currently patient is on heparin drip for elevated d-dimer consult is requested for DVT PE, off note that patient VQ scan is pending as well as an echocardiogram is pending as well, her creatinine is 1.4 with GFR of 36 so spiral computed tomography scan with dye cannot be performed, data predominantly has been obtained from the chart, as patient unable to give a detailed history she is extremely hard of hearing she has been transfer from [place] after she fell down and broke her left hip, patient 2 weeks ago had the right knee injury for which she underwent surgical intervention by orthopedic associated she has significant cardiovascular disease and multiple complex medical history and problems she has been found to have very high d- dimer, her chest x-ray performed today reviewed revealed presence of cardiomegaly interstitial edema and stable pacemaker 07/23/2017, patient seen eval reexamined during the rounds doing well from [employer] standpoint denies any chest pain denies any cough or sputum production patient is prepared for the left hip arthroplasty Plavix ultrasound of both lower extremity has been negative VQ scan is just performed results are not available for review, chest x-ray performed reviewed cardiomegaly interstitial edema and borderline cardiomegaly seen laboratory data reviewed as well consistent with a stage III renal failure chronic with borderline hyperkalemia 07/24/2017, pt. seen evaluated and examined, v/q indeterminate, d/w primary sx, labs ordered and checked , cr. improving with gentle rehydration, will check spiral ct chest Objective - Vital Signs Vital signs: Vital Signs Temp 97.5 F L 07/24/17 08:08 Pulse 70 07/24/17 08:08 Resp 16 07/24/17 08:08 BP 139/83 07/24/17 08:08 Pulse Ox 95 07/24/17 08:08 Intake & Output 07/23/17 07/24/17 07/24/17 18:59 06:59 18:59 Intake Total 1392.427 962.266 Output Total 400 Balance 1392.427 562.266 Weight 67.5 kg Intake: Intake, IV Titration 352.427 962.266 Amount Heparin Sod,Pork in 0.45% 352.427 162.266 NaCl 25,000 unit In 0.45 % NaCl 1 500ml.bag @ 18 UNITS/KG/HR 22.04 mls/hr IV .[id number] FINN Rx#: [id number] Sodium Chloride 0.9% 1, 800 000 ml @ 100 mls/hr IV . Q10H FINN Rx#:[id number] Oral 1040 0 Output: Urine 400 Other: Voiding Method Indwelling Catheter Indwelling Catheter Indwelling Catheter # Bowel Movements 1 - Exam GENERAL: The patient is well nourished and well hydrated. VITAL SIGNS: Heart rate, blood pressure, respiratory rate reviewed as recorded in nurse's notes. EYES: Pupils are round and reactive. Extraocular movements are intact. No conjunctival / lid redness or swelling. ENT: No external evidence of injury, swelling, or ecchymosis. Airway is patent. Throat is clear. Dry mucous membranes noted. The patient is hard of hearing. NECK: Nontender. No swelling or evidence of injury. No subcutaneous emphysema. Trachea is midline. No thyroid mass. HEART: Regular rate and rhythm. Good peripheral pulses. LUNGS/CHEST: Wheezing is noted to bilateral lungs. No ecchymosis, subcutaneous emphysema, or tenderness. ABDOMEN: Abdomen soft without tenderness. No palpable masses or organomegaly. No peritoneal signs. No abdominal wall swelling or ecchymosis. EXTREMITIES: There is tenderness noted to the left hip. There is pain with any attempt at range of motion of the left hip. The patient is in a walking boot to her right leg. This is removed and there is no associated tenderness or swelling to the right leg. Normal muscle tone and function. No thoracolumbar tenderness. NEUROLOGIC: Sensation is grossly intact. Cranial nerve exam reveals face is symmetrical, tongue is midline, speech is clear. SKIN: There is a minor skin tear present to the left forearm. No induration or masses noted. PSYCHIATRIC: Alert and oriented. Appropriate behavior and judgment. - Labs CBC & Chem 7: 07/24/17 06:07 07/24/17 06:07 Labs: Abnormal Lab Results - Last 24 Hours (Table) 07/23/17 07/24/17 07/24/17 Range/Units 15:12 00:36 06:07 MCHC 30.2 L (31.0-37.0) g/dL Plt Count 138 L (150-450) k/uL Neutrophils # 7.9 H (1.3-7.7) k/uL Lymphocytes # 0.5 L (1.0-4.8) k/uL APTT 87.6 H 51.0 H (22.0-30.0) sec Chloride (98-107) mmol/L BUN (7-17) mg/dL Creatinine (0.52-1.04) mg/dL Glucose (74-99) mg/dL 07/24/17 Range/Units 06:07 MCHC (31.0-37.0) g/dL Plt Count (150-450) k/uL Neutrophils # (1.3-7.7) k/uL Lymphocytes # (1.0-4.8) k/uL APTT (22.0-30.0) sec Chloride 109 H (98-107) mmol/L BUN 46 H (7-17) mg/dL Creatinine 1.10 H (0.52-1.04) mg/dL Glucose 147 H (74-99) mg/dL Assessment and Plan Assessment: Elevated d-dimer Negative duplex with indeterminate v/q scan Chronic renal failure stage III Congestive heart failure likely acute on chronic diastolic heart failure Left hip fracture Coronary artery disease History of arrhythmia heart block status post permanent pacemaker Plan: It appears that d-dimer is very highly likely related to fall and fracture, reviewed VQ scan reviewed duplex ultrasound, will get CT angio chest of the lower extremity will follow closely further recommendations pending, overall from pulmonary standpoint to proceed with surgery pending finding on the CT scan Time with Patient: Greater than 30
--- NOTE | 2017-07-24 12:15 | P.PN ---
Subjective Progress Note Date: 07/24/17 Progress note being dictated for Dr. Pacheco Interval history:Patient is a 81-year-old extreme a poor historian came in with left hip fracture at 6 at an outside hospital patient has severe hearing problems because of which I'm unable to get much of the history from the patient patient says she has pain in the left hip area patient was admitted to [facility] surgery will undergo surgery on . Medicine was consulted for preoperative clearance. Unable to get any kind of history from the patient it appears like patient has history of coronary artery disease never had any history of congestive heart failure does have a pacemaker EKG showing paced rhythm. Patient appears to have some pulmonary edema on the chest x-ray with elevated BNP although I did not appreciate any JVD cardiology will be consulted for preoperative clearance echocardiac exam will be obtained patient doesn't have any fever chills patient has poor renal function and patient's creatinine is at her baseline patient is probably wheezing because of which patient was started on systemic steroids which I do not believe she'll need high-dose of IV steroids which will lead to confusion and agitation concerning her age. Patient cannot take any in nonsteroidal anti-inflammatories, patient is on [place] , other IV opiates need to be avoided if we can. Patient's IV fluids were discontinued patient is on IV heparin because of elevated d-dimer VQ scan is being obtained to rule out pulmonary embolism and pulmonary was consulted for preoperative clearance I will I believe cardiology preoperative clearance is also required. And cardiology was consulted. 07/23/2017. Maintained on heparin drip. VQ scan reporting intermediate ability. Creatinine 1.28. Telemetry atrial flutter. Left hip and leg Pain currently controlled. Good diet intake. Denies chest pain palpitations or increased shortness of breath. 07/24/17 maintained on IV fluid hydration and heparin drip. Renal function improved, creatinine 1.1. Potassium 4.8. Chest CT ordered. Telemetry atrial fibrillation/flutter with controlled ventricular rate. Complained of left hip and leg pain. Mild confusion, states has not slept well since admission. Objective - Vital Signs Vital signs: Vital Signs Temp 97.6 F 07/24/17 11:20 Pulse 76 07/24/17 11:30 Resp 18 07/24/17 11:20 BP 135/68 07/24/17 11:20 Pulse Ox 96 07/24/17 11:20 Intake & Output 07/23/17 07/24/17 07/24/17 18:59 06:59 18:59 Intake Total 1392.427 962.266 0 Output Total 400 Balance 1392.427 562.266 0 Weight 67.5 kg Intake: Intake, IV Titration 352.427 962.266 Amount Heparin Sod,Pork in 0.45% 352.427 162.266 NaCl 25,000 unit In 0.45 % NaCl 1 500ml.bag @ 18 UNITS/KG/HR 22.04 mls/hr IV .[id number] FINN Rx#: [id number] Sodium Chloride 0.9% 1, 800 000 ml @ 100 mls/hr IV . Q10H FINN Rx#:[id number] Oral 1040 0 0 Output: Urine 400 Other: Voiding Method Indwelling Catheter Indwelling Catheter Indwelling Catheter # Bowel Movements 1 - Exam GENERAL: The patient is alert and oriented x2, no acute distress. Well developed , well nourished. HEENT: Pupils are round and equally reacting to light. EOMI. No scleral icterus. No conjunctival pallor. Normocephalic, atraumatic. No pharyngeal erythema. No thyromegaly. CARDIOVASCULAR: S1 and S2 present. Positive systolic murmur, no rubs, or gallops. PULMONARY: Chest is clear to auscultation, no wheezing or crackles. ABDOMEN: Soft, nontender, nondistended, normoactive bowel sounds. No palpable organomegaly. MUSCULOSKELETAL: Deferred although orthopedic surgery EXTREMITIES: No cyanosis, clubbing, mild pedal edema. NEUROLOGICAL: Gross neurological examination did not reveal any focal deficits. SKIN: No rashes. - Labs CBC & Chem 7: 07/24/17 06:07 07/24/17 06:07 Labs: Abnormal Lab Results - Last 24 Hours (Table) 07/23/17 07/24/17 07/24/17 Range/Units 15:12 00:36 06:07 MCHC 30.2 L (31.0-37.0) g/dL Plt Count 138 L (150-450) k/uL Neutrophils # 7.9 H (1.3-7.7) k/uL Lymphocytes # 0.5 L (1.0-4.8) k/uL APTT 87.6 H 51.0 H (22.0-30.0) sec Chloride (98-107) mmol/L BUN (7-17) mg/dL Creatinine (0.52-1.04) mg/dL Glucose (74-99) mg/dL 07/24/17 Range/Units 06:07 MCHC (31.0-37.0) g/dL Plt Count (150-450) k/uL Neutrophils # (1.3-7.7) k/uL Lymphocytes # (1.0-4.8) k/uL APTT (22.0-30.0) sec Chloride 109 H (98-107) mmol/L BUN 46 H (7-17) mg/dL Creatinine 1.10 H (0.52-1.04) mg/dL Glucose 147 H (74-99) mg/dL Assessment and Plan Assessment: -Preoperative clearance: Patient is moderate risk for surgery but that it will improve her functionality because of which patient should go and get the surgery done after chest CT rules out PE. and also get cardiology opinion. -Possibility of congestive heart failure chronic diastolic dysfunction with mild acute exacerbation -Elevated d-dimer and VQ scan is being obtain next and-possibility of COPD with mild acute exacerbation, chest CT pending -Right hip fracture due to prophylaxis pain management as per primary service although avoid IV opiates, benzodiazepines barbiturates and anticollagen medications. 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 Plan: Continue on current medication regime , heparin drip , beta rafaela, statin,monitoring. Surgery on hold, CT today to rule out PE. Low Potassium diet Close monitoring of renal function with repeat labs ordered for a.m. maintain gentle IV fluid hydration. Further recommendations to follow. The impression and plan of care has been dictated as directed. : I performed a history and examination of this patient, discussed the same with the dictator. I agree with the dictator's note ,documented as a scribe. Any additional findings or plans will be noted.
--- NOTE | 2017-07-24 14:55 | CT ---
CT CHEST FOR PULMONARY EMBOLISM. EXAMINATION TYPE: CT chest angio for PE DATE OF EXAM: 07/24/2017 INDICATION: SOB, recent hip surgery CT DLP: 301.9 mGycm, Automated exposure control for dose reduction was used. CONTRAST: Patient injected with 80 mL of Visipaque 320. COMPARISON: NONE TECHNIQUE: CT of the chest is performed on a spiral scan at 2 mm thick sections. Study is performed with intravenous contrast timed for evaluation for pulmonary embolism. This will limit additional po rtions of the evaluation. 3-D MIP images reconstructed by the technologist are reviewed on the compu ter in the coronal and sagittal planes. FINDINGS: No persistent filling defects are evident to suggest an acute pulmonary embolism. No mediastinal or hilar adenopathy enlarged by CT criteria is evident. The ascending aorta diameter at the level of the main pulmonary artery is 4.5 cm. The main pulmonary artery diameter at the bifur cation is 3.6 cm. Small bilateral pleural effusions are present. Minimal compressive atelectasis is adjacent to the rig ht lung base pleural fluid. Some mild pneumonitis changes through the lingula midportion. Limited CT section through the upper abdomen. Common bile duct appears prominent. Cholecystectomy cli ps are present.. IMPRESSIONS: 1. No acute pulmonary embolism. 2. Small bilateral pleural effusions. 3. Ascending thoracic aortic aneurysm.
--- NOTE | 2017-07-24 15:26 | P.PN ---
Subjective Progress Note Date: 07/24/17 THis is a pleasant 81-year-old female with history of hypertension, hyperlipidemia, hypothyroidism, coronary artery disease with prior myocardial infarction and stent placement, prior pacemaker implantation, hypothyroidism, asthma, who recently had a fall and incurred a fracture to her right knee, subsequent to that patient had another fall, for which she went to [facility] and was found to have a left femoral neck fracture. Patient was transferred here to [facility] for further evaluation. Patient was seen in consultation by orthopedics and is scheduled to undergo surgery tomorrow. Upon questioning, patient does state she gets intermittent angina, she experiences pain in the upper chest which radiates through to her back. This morning she has no pain at all. In her breathing is overall stable. She does state that she experiences intermittent shortness of breath as well. 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 Patient also has history of mild dementia, paroxysmal atrial fibrillation. Not on anticoagulation. EKG on arrival here showed atrial fibrillation with a controlled ventricular response. Chest x-ray reveals mild congestive heart failure, improved from prior exam. Venous duplex study was performed which was negative for DVT in either leg. The pressure on arrival 134 /60 with a heart rate in the 70s, 99% on 2 L. Temperature 98.5. Blood pressure this morning 108/60 with a heart rate in the 80s. Laboratory data was reviewed, white blood cell count 12.9 on admission, 7.1 this morning. Hemoglobin 13.9, platelet count 123. D-dimer 17.84. Sodium 141, potassium 5.8 , BUN 42, creatinine 1.2. Troponins 0.026, 0.020, 0.0-3. BNP level 0. At the time of my examination this morning, patient denies any overt difficulty in breathing, no chest discomfort. She is complaining of pain in the left hip and leg down to the knee. 07/24/2017 Patient was seen and examined this morning, breathing is stable, still complaining of some discomfort in the left hip area. She did undergo VQ scan yesterday which was intermediate probability for pulmonary embolism, for this reason the surgery today was detained, patient was scheduled today to undergo a CAT scan of the chest to confirm whether there is are is not a pulmonary embolism. CT was performed and revealed that there was no pulmonary embolism, there are small bilateral pleural effusions. Objective - Vital Signs Vital signs: Vital Signs Temp 98.2 F 07/24/17 11:50 Pulse 98 07/24/17 11:50 Resp 16 07/24/17 11:50 BP 133/73 07/24/17 11:50 Pulse Ox 98 07/24/17 11:50 Intake & Output 07/23/17 07/24/17 07/24/17 18:59 06:59 18:59 Intake Total 1392.427 962.266 240 Output Total 400 Balance 1392.427 562.266 240 Weight 67.5 kg 67.8 kg Intake: Intake, IV Titration 352.427 962.266 Amount Heparin Sod,Pork in 0.45% 352.427 162.266 NaCl 25,000 unit In 0.45 % NaCl 1 500ml.bag @ 18 UNITS/KG/HR 22.04 mls/hr IV .[id number] FINN Rx#: [id number] Sodium Chloride 0.9% 1, 800 000 ml @ 100 mls/hr IV . Q10H FINN Rx#:[id number] Oral 1040 0 240 Output: Urine 400 Other: Voiding Method Indwelling Catheter Indwelling Catheter Indwelling Catheter # Bowel Movements 1 - Exam PHYSICAL EXAMINATION: HEENT: Head is atraumatic, normocephalic. Pupils equal, round. Neck is supple. There is no elevated jugular venous pressure. HEART EXAMINATION: Heart S1 and S2 irregularly irregular systolic murmur is heard CHEST EXAMINATION: Lungs are clear with diminished air entry to bilateral bases. ABDOMEN: Soft, nontender. Bowel sounds are heard. No organomegaly noted. EXTREMITIES:[ 2+ peripheral pulses with trace evidence of peripheral edema , pain in the left hip down to the left knee area NEUROLOGIC patient is awake, alert and oriented -3. . - Labs CBC & Chem 7: 07/24/17 06:07 07/24/17 06:07 Labs: Abnormal Lab Results - Last 24 Hours (Table) 07/23/17 07/24/17 07/24/17 Range/Units 15:12 00:36 06:07 MCHC 30.2 L (31.0-37.0) g/dL Plt Count 138 L (150-450) k/uL Neutrophils # 7.9 H (1.3-7.7) k/uL Lymphocytes # 0.5 L (1.0-4.8) k/uL APTT 87.6 H 51.0 H (22.0-30.0) sec Chloride (98-107) mmol/L BUN (7-17) mg/dL Creatinine (0.52-1.04) mg/dL Glucose (74-99) mg/dL 07/24/17 07/24/17 Range/Units 06:07 14:44 MCHC (31.0-37.0) g/dL Plt Count (150-450) k/uL Neutrophils # (1.3-7.7) k/uL Lymphocytes # (1.0-4.8) k/uL APTT 84.2 H (22.0-30.0) sec Chloride 109 H (98-107) mmol/L BUN 46 H (7-17) mg/dL Creatinine 1.10 H (0.52-1.04) mg/dL Glucose 147 H (74-99) mg/dL Assessment and Plan Plan: Assessment and plan #1 left hip fracture, scheduled to undergo surgery tomorrow #2 history of coronary artery disease with prior stent placement #3 hypertension #4 hyperlipidemia #5 elevated d-dimer, venous duplex study was negative for DVT in either leg, CTA of the chest negative for pulmonary embolism. #6 diabetes #7 paroxysmal atrial fibrillation #8 prior pacemaker implantation #9 COPD #10 hypothyroidism Plan Echocardiogram with Doppler study was performed which revealed an ejection fraction of 55-60%. An echo dense structure is noted in the left atrium, moderate to severe tricuspid regurg. CTA of the chest today confirmed that there were in fact no pulmonary embolism. Patient will proceed with undergoing hip surgery tomorrow. DNP note has been reviewed, I agree with a documented findings and plan of care. Patient was seen and examined.
[2017-07-24] MEDS: HEPARIN SODIUM,PORCINE 5,000 UNIT/ML 1 ML VIAL SQ SCH (20:03)
[2017-07-24] MEDS: ATORVASTATIN 40 MG TAB PO SCH (20:03)
[2017-07-25] MEDS: MORPHINE SULFATE 4 MG/ML SYRINGE IVP PRN (04:20)
[2017-07-25] MEDS: ONDANSETRON 4 MG/2 ML VIAL IVP PRN (04:24)
[2017-07-25] MEDS: SODIUM CHLORIDE 0.9% 1,000 ML IV SCH ×2 (06:22→17:28)
[2017-07-25] MEDS: HYDROcodone/APAP 5-325MG 1 EACH TAB PO PRN (06:31)
[2017-07-25 06:36] LABS: Basophils % (A) 0 %; Eosinophils % (A) 0 %; HGB 13.8 gm/dL (11.4-16.0); Hypochromasia Marked; Lymphocytes # (A) 1.2 k/uL (1.0-4.8); Lymphocytes % (A) 12 %; MCH 30.2 pg (25.0-35.0); MCHC 29.4 g/dL (31.0-37.0); MCV 102.7 fL (80.0-100.0); Macrocytosis Slight; Mean Platelet Volume 8.7; Monocytes # (A) 0.9 k/uL (0-1.0); Monocytes % (A) 10 %; Neutrophils # (A) 7.3 k/uL (1.3-7.7); Neutrophils % (A) 77 %; Platelet Count 141 k/uL (150-450); RBC 4.58 m/uL (3.80-5.40); RDW 14.2 % (11.5-15.5); WBC 9.6 k/uL (3.8-10.6)
[2017-07-25] MEDS: IPRATROPIUM-ALBUTEROL 3 ML NEB INHALATION SCH ×4 (07:49→20:06)
[2017-07-25] MEDS ORDERED: LACTATED RINGERS 1,000 ML IV SCH (07:59)
[2017-07-25] MEDS ORDERED: MIDAZOLAM 2 MG/2 ML VIAL IV PRN (07:59)
[2017-07-25] MEDS ORDERED: HYDROmorphone 0.5 MG/0.5 ML SYRINGE IVP PRN ×3 (07:59→14:44)
[2017-07-25] MEDS: LACTATED RINGERS 1,000 ML IV SCH (08:20)
[2017-07-25] MEDS: POLYETHYLENE GLYCOL 3350 17 GM POWD.PACK PO SCH (08:21)
[2017-07-25] MEDS: FAMOTIDINE 20 MG TAB PO SCH (08:47)
[2017-07-25] MEDS: predniSONE 20 MG TAB PO SCH (08:48)
[2017-07-25] MEDS: METOPROLOL SUCCINATE (ER) 25 MG TAB.ER.24H PO SCH (08:48)
[2017-07-25] MEDS: HEPARIN SODIUM,PORCINE 5,000 UNIT/ML 1 ML VIAL SQ SCH ×2 (08:51→19:52)
[2017-07-25] MEDS ORDERED: ceFAZolin IN SWFI 2 GM/20 ML SYRINGE IVP ONE (12:00)
[2017-07-25] MEDS ORDERED: IV FLUID CONTINUATION 1,000 ML IV ONE (12:06)
[2017-07-25] MEDS ORDERED: fentaNYL (PF) 50 MCG/ML 2 ML AMP ONE (12:47)
[2017-07-25] MEDS ORDERED: MIDAZOLAM 2 MG/2 ML VIAL ONE (12:47)
[2017-07-25] MEDS ORDERED: ceFAZolin 1,000 MG in SODIUM CHLORIDE 0.9% 1,000 ML IRRIGATION ONE (13:30)
[2017-07-25] MEDS ORDERED: MAGNESIUM HYDROXIDE 2,400 MG/10 ML CUP PO PRN (14:44)
[2017-07-25] MEDS ORDERED: hydrOXYzine PAMOATE 25 MG CAP PO PRN (14:44)
[2017-07-25] MEDS ORDERED: TEMAZEPAM 15 MG CAP PO PRN (14:44)
[2017-07-25] MEDS ORDERED: ONDANSETRON 4 MG/2 ML VIAL IVP PRN (14:44)
--- NOTE | 2017-07-25 15:11 | XR ---
EXAMINATION TYPE: XR Hip Limited LT DATE OF EXAM: 07/25/2017 COMPARISON: NONE HISTORY: Status post left hip surgery TECHNIQUE: AP left hip FINDINGS: Left hip prosthesis is been placed. No acute fractures are evident. Postsurgical changes ar e within soft tissues. IMPRESSION: 1. No fractures post left hip
[2017-07-25] MEDS: ceFAZolin IN SWFI 2 GM/20 ML SYRINGE IVP SCH ×2 (17:28→23:09)
[2017-07-25] MEDS: HYDROmorphone 0.5 MG/0.5 ML SYRINGE IVP PRN (18:52)
--- NOTE | 2017-07-25 19:15 | P.PN ---
Subjective Progress Note Date: 07/25/17 Progress note being dictated for Dr. Ferrara Interval history:Patient is a 81-year-old extreme a poor historian came in with left hip fracture at 6 at an outside hospital patient has severe hearing problems because of which I'm unable to get much of the history from the patient patient says she has pain in the left hip area patient was admitted to [facility] surgery will undergo surgery on . Medicine was consulted for preoperative clearance. Unable to get any kind of history from the patient it appears like patient has history of coronary artery disease never had any history of congestive heart failure does have a pacemaker EKG showing paced rhythm. Patient appears to have some pulmonary edema on the chest x-ray with elevated BNP although I did not appreciate any JVD cardiology will be consulted for preoperative clearance echocardiac exam will be obtained patient doesn't have any fever chills patient has poor renal function and patient's creatinine is at her baseline patient is probably wheezing because of which patient was started on systemic steroids which I do not believe she'll need high-dose of IV steroids which will lead to confusion and agitation concerning her age. Patient cannot take any in nonsteroidal anti-inflammatories, patient is on [place] , other IV opiates need to be avoided if we can. Patient's IV fluids were discontinued patient is on IV heparin because of elevated d-dimer VQ scan is being obtained to rule out pulmonary embolism and pulmonary was consulted for preoperative clearance I will I believe cardiology preoperative clearance is also required. And cardiology was consulted. 07/23/2017. Maintained on heparin drip. VQ scan reporting intermediate ability. Creatinine 1.28. Telemetry atrial flutter. Left hip and leg Pain currently controlled. Good diet intake. Denies chest pain palpitations or increased shortness of breath. 07/24/17 maintained on IV fluid hydration and heparin drip. Renal function improved, creatinine 1.1. Potassium 4.8. Chest CT ordered. Telemetry atrial fibrillation/flutter with controlled ventricular rate. Complained of left hip and leg pain. Mild confusion, states has not slept well since admission. 07/25/2017 no overnight events. Telemetry reporting ventricular paced. Scheduled for orthopedic surgery today. Denies chest pain, palpitations or increasing shortness of breath. Afebrile. Objective - Vital Signs Vital signs: Vital Signs Temp 97.2 F L 07/25/17 14:40 Pulse 69 07/25/17 15:30 Resp 16 07/25/17 15:30 BP 126/78 07/25/17 15:30 Pulse Ox 100 07/25/17 15:30 Intake & Output 07/24/17 07/25/17 07/25/17 18:59 06:59 18:59 Intake Total 358 800 951 Output Total 1000 425 500 Balance -642 375 451 Weight 67.8 kg 69.5 kg 69.5 kg Intake: IV 451 Intake, IV Titration 800 500 Amount Sodium Chloride 0.9% 1, 800 500 000 ml @ 100 mls/hr IV . Q10H [facility] Rx#:[id number] Oral 358 0 Output: Urine 1000 425 400 Estimated Blood Loss 100 Other: Voiding Method Indwelling Catheter Indwelling Catheter Indwelling Catheter - Exam GENERAL: The patient is alert and oriented x2, no acute distress. Well developed , well nourished. HEENT: Pupils are round and equally reacting to light. EOMI. No scleral icterus. No conjunctival pallor. Normocephalic, atraumatic. No pharyngeal erythema. No thyromegaly. CARDIOVASCULAR: S1 and S2 present. Positive systolic murmur, no rubs, or gallops. PULMONARY: Chest is clear to auscultation, no wheezing or crackles. ABDOMEN: Soft, nontender, nondistended, normoactive bowel sounds. No palpable organomegaly. MUSCULOSKELETAL: Deferred although orthopedic surgery EXTREMITIES: No cyanosis, clubbing, mild pedal edema. NEUROLOGICAL: Gross neurological examination did not reveal any focal deficits. SKIN: No rashes. - Labs CBC & Chem 7: 07/25/17 06:10 07/24/17 06:07 Labs: Abnormal Lab Results - Last 24 Hours (Table) 07/25/17 Range/Units 06:10 Hct 47.0 H (34.0-46.0) % MCV 102.7 H (80.0-100.0) fL MCHC 29.4 L (31.0-37.0) g/dL Plt Count 141 L (150-450) k/uL Assessment and Plan Assessment: -Possibility of congestive heart failure chronic diastolic dysfunction with mild acute exacerbation -Elevated d-dimer and VQ scan is being obtain next and-possibility of COPD with mild acute exacerbation, chest CT pending -Right hip fracture due to prophylaxis pain management as per primary service although avoid IV opiates, benzodiazepines barbiturates and anticollagen medications. Surgery pending. 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 Plan: Continue on current medication regime , heparin drip , beta rafaela, statin,monitoring. Orthopedic surgery pending. Close monitoring of renal function with repeat labs ordered for a.m. maintain gentle IV fluid hydration. Further recommendations to follow. The impression and plan of care has been dictated as directed. : I performed a history and examination of this patient, discussed the same with the dictator. I agree with the dictator's note ,documented as a scribe. Any additional findings or plans will be noted.
[2017-07-25] MEDS: ATORVASTATIN 40 MG TAB PO SCH (19:52)
[2017-07-25] MEDS: SENNOSIDES-DOCUSATE SODIUM 1 EACH TAB PO SCH (19:52)
[2017-07-26] MEDS: SODIUM CHLORIDE 0.9% 1,000 ML IV SCH ×3 (04:00→22:27)
[2017-07-26 07:00] LABS: Basophils % (A) 0 %; Eosinophils % (A) 0 %; HCT 41.7 % (34.0-46.0); HGB 11.9 gm/dL (11.4-16.0); Hypochromasia Marked; Lymphocytes # (A) 0.9 k/uL (1.0-4.8); Lymphocytes % (A) 12 %; MCHC 28.5 g/dL (31.0-37.0); MCV 105.2 fL (80.0-100.0); Macrocytosis Moderate; Mean Platelet Volume 8.9; Monocytes # (A) 0.8 k/uL (0-1.0); Monocytes % (A) 11 %; Neutrophils # (A) 5.1 k/uL (1.3-7.7); Neutrophils % (A) 75 %; Platelet Count 103 k/uL (150-450); RBC 3.96 m/uL (3.80-5.40); RDW 14.4 % (11.5-15.5); WBC 6.9 k/uL (3.8-10.6)
[2017-07-26] MEDS: IPRATROPIUM-ALBUTEROL 3 ML NEB INHALATION SCH ×4 (07:12→19:14)
[2017-07-26 07:16] LABS: INR 1.2 (<1.2); Prothrombin Time 11.2 sec (9.0-12.0)
[2017-07-26 07:28] LABS: Anion Gap 7 mmol/L; Blood Urea Nitrogen 29 mg/dL (7-17); Calcium 8.6 mg/dL (8.4-10.2); Carbon Dioxide 21 mmol/L (22-30); Chloride 113 mmol/L (98-107); Glucose 102 mg/dL (74-99); Sodium 141 mmol/L (137-145)
[2017-07-26] MEDS: LACTATED RINGERS 1,000 ML IV SCH (08:24)
[2017-07-26] MEDS: FAMOTIDINE 20 MG TAB PO SCH (08:25)
[2017-07-26] MEDS: HEPARIN SODIUM,PORCINE 5,000 UNIT/ML 1 ML VIAL SQ SCH ×2 (08:26→20:19)
[2017-07-26] MEDS: predniSONE 20 MG TAB PO SCH (08:26)
[2017-07-26] MEDS: METOPROLOL SUCCINATE (ER) 25 MG TAB.ER.24H PO SCH (08:26)
[2017-07-26] MEDS: POLYETHYLENE GLYCOL 3350 17 GM POWD.PACK PO SCH (08:26)
[2017-07-26] MEDS: HYDROmorphone 0.5 MG/0.5 ML SYRINGE IVP PRN (08:27)
--- NOTE | 2017-07-26 09:00 | P.PN ---
Subjective Progress Note Date: 07/25/17 Principal diagnosis: Acute exacerbation of CHF, status post fall with left hip fracture, oriented disease and history of stent placement next hypertension hypertensive cardiovascular disease, elevated d-dimer likely related to fall and hip fracture Ms. Turner is a 81-year-old female who was seen eval examined on third floor currently patient is on heparin drip for elevated d-dimer consult is requested for DVT PE, off note that patient VQ scan is pending as well as an echocardiogram is pending as well, her creatinine is 1.4 with GFR of 36 so spiral computed tomography scan with dye cannot be performed, data predominantly has been obtained from the chart, as patient unable to give a detailed history she is extremely hard of hearing she has been transfer from [place] after she fell down and broke her left hip, patient 2 weeks ago had the right knee injury for which she underwent surgical intervention by orthopedic associated she has significant cardiovascular disease and multiple complex medical history and problems she has been found to have very high d- dimer, her chest x-ray performed today reviewed revealed presence of cardiomegaly interstitial edema and stable pacemaker 07/23/2017, patient seen eval reexamined during the rounds doing well from [employer] standpoint denies any chest pain denies any cough or sputum production patient is prepared for the left hip arthroplasty Plavix ultrasound of both lower extremity has been negative VQ scan is just performed results are not available for review, chest x-ray performed reviewed cardiomegaly interstitial edema and borderline cardiomegaly seen laboratory data reviewed as well consistent with a stage III renal failure chronic with borderline hyperkalemia 07/24/2017, pt. seen evaluated and examined, v/q indeterminate, d/w primary sx, labs ordered and checked , cr. improving with gentle rehydration, will check spiral ct chest 07/25/2017, Patient is status post computed tomography scan of the chest findings of the CAT scan reviewed no PE seen some basal atelectasis is seen likely related to poor respiratory effort patient is on deep breathing exercises incentive spirometry, patient underwent successful left hip arthroplasty earlier this afternoon for details please refer to the operative note patient is doing fairly well from a cardiorespiratory standpoint, however is recovering from anesthesia is more awake Objective - Vital Signs Vital signs: Vital Signs Temp 97.1 F L 07/26/17 03:58 Pulse 76 07/26/17 07:28 Resp 16 07/26/17 03:58 BP 123/68 07/26/17 03:58 Pulse Ox 99 07/26/17 07:16 Intake & Output 07/25/17 07/26/17 07/26/17 18:59 06:59 18:59 Intake Total 1191 120 Output Total 500 750 Balance 691 -630 Weight 69.5 kg 71 kg Intake: IV 451 Intake, IV Titration 500 Amount Sodium Chloride 0.9% 1, 500 000 ml @ 100 mls/hr IV . Q10H [facility] Rx#:[id number] Oral 240 120 Output: Urine 400 750 Estimated Blood Loss 100 Other: Voiding Method Indwelling Catheter Indwelling Catheter - Exam GENERAL: The patient is well nourished and well hydrated. VITAL SIGNS: Heart rate, blood pressure, respiratory rate reviewed as recorded in nurse's notes. EYES: Pupils are round and reactive. Extraocular movements are intact. No conjunctival / lid redness or swelling. ENT: No external evidence of injury, swelling, or ecchymosis. Airway is patent. Throat is clear. Dry mucous membranes noted. The patient is hard of hearing. NECK: Nontender. No swelling or evidence of injury. No subcutaneous emphysema. Trachea is midline. No thyroid mass. HEART: Regular rate and rhythm. Good peripheral pulses. LUNGS/CHEST: Wheezing is noted to bilateral lungs. No ecchymosis, subcutaneous emphysema, or tenderness. ABDOMEN: Abdomen soft without tenderness. No palpable masses or organomegaly. No peritoneal signs. No abdominal wall swelling or ecchymosis. EXTREMITIES: There is tenderness noted to the left hip. There is pain with any attempt at range of motion of the left hip. The patient is in a walking boot to her right leg. This is removed and there is no associated tenderness or swelling to the right leg. Normal muscle tone and function. No thoracolumbar tenderness. NEUROLOGIC: Sensation is grossly intact. Cranial nerve exam reveals face is symmetrical, tongue is midline, speech is clear. SKIN: There is a minor skin tear present to the left forearm. No induration or masses noted. PSYCHIATRIC: Alert and oriented. Appropriate behavior and judgment. - Labs CBC & Chem 7: 07/26/17 05:55 07/26/17 05:55 Labs: Abnormal Lab Results - Last 24 Hours (Table) 07/26/17 07/26/17 07/26/17 Range/Units 05:55 05:55 05:55 MCV 105.2 H (80.0-100.0) fL MCHC 28.5 L (31.0-37.0) g/dL Plt Count 103 L (150-450) k/uL Lymphocytes # 0.9 L (1.0-4.8) k/uL INR 1.2 H (<1.2) Chloride 113 H (98-107) mmol/L Carbon Dioxide 21 L (22-30) mmol/L BUN 29 H (7-17) mg/dL Glucose 102 H (74-99) mg/dL Assessment and Plan Assessment: Elevated d-dimer, related to fall and left hip fracture Basal bilateral subsegmental atelectasis likely related to poor respiratory effort Negative duplex with indeterminate v/q scan and negative computed tomography scan of the chest for pulmonary embolism Chronic renal failure stage III, likely related to fall intravascular depletion and dehydration renal functions have improved status post computed tomography scan of the chest Congestive heart failure likely acute on chronic diastolic heart failure Left hip fracture Coronary artery disease History of arrhythmia heart block status post permanent pacemaker Plan: It appears that d-dimer is very highly likely related to fall and fracture, reviewed computed tomography scan of the chest, VQ scan, reviewed duplex ultrasound lower extremity will follow closely further recommendations pending, overall did fairly well from pulmonary standpoint with surgery will monitor observe closely in the postoperative phase Time with Patient: Greater than 30
--- NOTE | 2017-07-26 09:07 | P.PN ---
Subjective Progress Note Date: 07/26/17 Principal diagnosis: Acute exacerbation of CHF, status post fall with left hip fracture status post left hip hemiarthroplasty, coronary artery disease and history of stent placement next hypertension hypertensive cardiovascular disease, elevated d- dimer likely related to fall and hip fracture, basal bilateral atelectasis altered mental status metabolic related to multifactorial issues Ms. Turner is a 81-year-old female who was seen eval examined on third floor currently patient is on heparin drip for elevated d-dimer consult is requested for DVT PE, off note that patient VQ scan is pending as well as an echocardiogram is pending as well, her creatinine is 1.4 with GFR of 36 so spiral computed tomography scan with dye cannot be performed, data predominantly has been obtained from the chart, as patient unable to give a detailed history she is extremely hard of hearing she has been transfer from [place] after she fell down and broke her left hip, patient 2 weeks ago had the right knee injury for which she underwent surgical intervention by orthopedic associated she has significant cardiovascular disease and multiple complex medical history and problems she has been found to have very high d- dimer, her chest x-ray performed today reviewed revealed presence of cardiomegaly interstitial edema and stable pacemaker 07/23/2017, patient seen eval reexamined during the rounds doing well from [employer] standpoint denies any chest pain denies any cough or sputum production patient is prepared for the left hip arthroplasty Plavix ultrasound of both lower extremity has been negative VQ scan is just performed results are not available for review, chest x-ray performed reviewed cardiomegaly interstitial edema and borderline cardiomegaly seen laboratory data reviewed as well consistent with a stage III renal failure chronic with borderline hyperkalemia 07/24/2017, pt. seen evaluated and examined, v/q indeterminate, d/w primary sx, labs ordered and checked , cr. improving with gentle rehydration, will check spiral ct chest 07/25/2017, Patient is status post computed tomography scan of the chest findings of the CAT scan reviewed no PE seen some basal atelectasis is seen likely related to poor respiratory effort patient is on deep breathing exercises incentive spirometry, patient underwent successful left hip arthroplasty earlier this afternoon for details please refer to the operative note patient is doing fairly well from a cardiorespiratory standpoint, however is recovering from anesthesia is more awake 07/26/2017, patient seen eval examined during the morning rounds from respiratory standpoint doing well breathing comfortably no obvious distress present denies any chest pain patient does have pain at the left hip side which appears to be postoperative pain medicines are being given physical therapy has not been initiated yet Objective - Vital Signs Vital signs: Vital Signs Temp 97.1 F L 07/26/17 03:58 Pulse 76 07/26/17 07:28 Resp 16 07/26/17 03:58 BP 123/68 07/26/17 03:58 Pulse Ox 99 07/26/17 07:16 Intake & Output 07/25/17 07/26/17 07/26/17 18:59 06:59 18:59 Intake Total 1191 120 Output Total 500 750 Balance 691 -630 Weight 69.5 kg 71 kg Intake: IV 451 Intake, IV Titration 500 Amount Sodium Chloride 0.9% 1, 500 000 ml @ 100 mls/hr IV . Q10H [facility] Rx#:[id number] Oral 240 120 Output: Urine 400 750 Estimated Blood Loss 100 Other: Voiding Method Indwelling Catheter Indwelling Catheter - Exam GENERAL: The patient is well nourished and well hydrated. VITAL SIGNS: Heart rate, blood pressure, respiratory rate reviewed EYES: Pupils are round and reactive. Extraocular movements are intact. No conjunctival / lid redness or swelling. ENT: No external evidence of injury, swelling, or ecchymosis. Airway is patent. Throat is clear. Dry mucous membranes noted. The patient is hard of hearing. NECK: Nontender. No swelling or evidence of injury. No subcutaneous emphysema. Trachea is midline. No thyroid mass. HEART: Regular rate and rhythm. Good peripheral pulses. LUNGS/CHEST: Mild fine expiratory Wheezing is noted to bilateral lungs. No ecchymosis, subcutaneous emphysema, or tenderness. ABDOMEN: Abdomen soft without tenderness. No palpable masses or organomegaly. No peritoneal signs. No abdominal wall swelling or ecchymosis. EXTREMITIES: Status post left hip hemiarthroplasty postop day #1 Normal muscle tone and function. No thoracolumbar tenderness. NEUROLOGIC: Sensation is grossly intact. Cranial nerve exam reveals face is symmetrical, tongue is midline, speech is clear. SKIN: Some diffuse ecchymosis is present related to her IV access otherwise fairly unremarkable No induration or masses noted. PSYCHIATRIC: Relatively more Alert but with unchanged orientation. Appropriate behavior and judgment. - Labs CBC & Chem 7: 07/26/17 05:55 07/26/17 05:55 Labs: Abnormal Lab Results - Last 24 Hours (Table) 07/26/17 07/26/17 07/26/17 Range/Units 05:55 05:55 05:55 MCV 105.2 H (80.0-100.0) fL MCHC 28.5 L (31.0-37.0) g/dL Plt Count 103 L (150-450) k/uL Lymphocytes # 0.9 L (1.0-4.8) k/uL INR 1.2 H (<1.2) Chloride 113 H (98-107) mmol/L Carbon Dioxide 21 L (22-30) mmol/L BUN 29 H (7-17) mg/dL Glucose 102 H (74-99) mg/dL Assessment and Plan Assessment: Elevated d-dimer, related to fall and left hip fracture Basal bilateral subsegmental atelectasis likely related to poor respiratory effort Negative duplex with indeterminate v/q scan and negative computed tomography scan of the chest for pulmonary embolism Chronic renal failure stage III, likely related to fall intravascular depletion and dehydration renal functions have improved status post computed tomography scan of the chest Congestive heart failure likely acute on chronic diastolic heart failure Left hip fracture Coronary artery disease History of arrhythmia heart block status post permanent pacemaker Plan: It appears that d-dimer is very highly likely related to fall and fracture, reviewed computed tomography scan of the chest, VQ scan, reviewed duplex ultrasound lower extremity will follow closely further recommendations pending, overall did fairly well from pulmonary standpoint with surgery will monitor observe closely in the postoperative phase will add breathing treatments as needed initiated physical therapy as per orthopedic service Time with Patient: Greater than 30
--- NOTE | 2017-07-26 09:21 | P.PN ---
Subjective Progress Note Date: 07/26/17 Principal diagnosis: Status post left hip hemiarthroplasty This is an 81 year-old female post left hip hemiarthroplasty. This is post-op day 1. The patient was evaluated at the bedside today. The patient denies nausea, vomiting, abdominal pain, shortness of breath, and chest pain this morning. She states her pain is controlled at this time. The patient has not been up with physical therapy yet this morning. Objective - Vital Signs Vital signs: Vital Signs Temp 97.1 F L 07/26/17 03:58 Pulse 76 07/26/17 07:28 Resp 16 07/26/17 03:58 BP 123/68 07/26/17 03:58 Pulse Ox 99 07/26/17 07:16 Intake & Output 07/25/17 07/26/17 07/26/17 18:59 06:59 18:59 Intake Total 1191 120 Output Total 500 750 Balance 691 -630 Weight 69.5 kg 71 kg Intake: IV 451 Intake, IV Titration 500 Amount Sodium Chloride 0.9% 1, 500 000 ml @ 100 mls/hr IV . Q10H [facility] Rx#:[id number] Oral 240 120 Output: Urine 400 750 Estimated Blood Loss 100 Other: Voiding Method Indwelling Catheter Indwelling Catheter - Exam The patient does not appear in acute distress. Alert and orientated x3. Dressing is clean dry and intact. Incision appears fine with no erythema or active drainage. Calf is soft and nontender. Good foot and ankle motion without difficulty. Sensation and circulatory status is intact. - Labs CBC & Chem 7: 07/26/17 05:55 07/26/17 05:55 Labs: Abnormal Lab Results - Last 24 Hours (Table) 07/26/17 07/26/17 07/26/17 Range/Units 05:55 05:55 05:55 MCV 105.2 H (80.0-100.0) fL MCHC 28.5 L (31.0-37.0) g/dL Plt Count 103 L (150-450) k/uL Lymphocytes # 0.9 L (1.0-4.8) k/uL INR 1.2 H (<1.2) Chloride 113 H (98-107) mmol/L Carbon Dioxide 21 L (22-30) mmol/L BUN 29 H (7-17) mg/dL Glucose 102 H (74-99) mg/dL Assessment and Plan (1) Fall Current Visit: Yes Status: Acute Code(s): W19.XXXA - UNSPECIFIED FALL, INITIAL ENCOUNTER SNOMED Code(s): 1986644 (2) Closed left hip fracture Current Visit: Yes Status: Acute Code(s): S72.002A - FRACTURE OF UNSP PART OF NECK OF LEFT FEMUR, INIT SNOMED Code(s): 354521664 (3) History of hemiarthroplasty of left hip Current Visit: Yes Status: Acute Code(s): Z96.642 - PRESENCE OF LEFT ARTIFICIAL HIP JOINT SNOMED Code(s): 022551808 Plan: 1. Continue pain control 2. Anticoagulation per internal medicine 3. Start physical therapy and ambulation 4. Anticipate discharge to skilled rehab next week
[2017-07-26] MEDS: HYDROcodone/APAP 5-325MG 1 EACH TAB PO PRN ×2 (11:34→21:14)
[2017-07-26] MEDS ORDERED: SODIUM CHLORIDE 0.9% 500 ML IV ONE (17:55)
[2017-07-26] MEDS: ATORVASTATIN 40 MG TAB PO SCH (20:19)
[2017-07-26] MEDS: SENNOSIDES-DOCUSATE SODIUM 1 EACH TAB PO SCH (20:19)
[2017-07-27] MEDS: HYDROcodone/APAP 5-325MG 1 EACH TAB PO PRN ×4 (02:38→22:51)
[2017-07-27 06:43] LABS: INR 1.2 (<1.2); Prothrombin Time 11.4 sec (9.0-12.0)
[2017-07-27 06:47] LABS: Basophils % (A) 0 %; Eosinophils % (A) 0 %; HCT 36.3 % (34.0-46.0); HGB 10.7 gm/dL (11.4-16.0); Hypochromasia Marked; Lymphocytes # (A) 0.8 k/uL (1.0-4.8); Lymphocytes % (A) 15 %; MCH 30.1 pg (25.0-35.0); MCHC 29.6 g/dL (31.0-37.0); MCV 101.9 fL (80.0-100.0); Macrocytosis Slight; Mean Platelet Volume 8.5; Monocytes # (A) 0.5 k/uL (0-1.0); Monocytes % (A) 9 %; Neutrophils # (A) 3.9 k/uL (1.3-7.7); Neutrophils % (A) 73 %; RBC 3.56 m/uL (3.80-5.40); RDW 14.2 % (11.5-15.5); WBC 5.3 k/uL (3.8-10.6)
[2017-07-27 07:20] LABS: Anion Gap 5 mmol/L; Blood Urea Nitrogen 23 mg/dL (7-17); Calcium 8.1 mg/dL (8.4-10.2); Carbon Dioxide 22 mmol/L (22-30); Chloride 115 mmol/L (98-107); Glucose 79 mg/dL (74-99); Potassium 4.1 mmol/L (3.5-5.1); Sodium 142 mmol/L (137-145)
--- NOTE | 2017-07-27 08:09 | P.PN ---
Subjective Progress Note Date: 07/27/17 Principal diagnosis: Acute exacerbation of CHF, status post fall with left hip fracture status post left hip hemiarthroplasty, coronary artery disease and history of stent placement next hypertension hypertensive cardiovascular disease, elevated d- dimer likely related to fall and hip fracture, basal bilateral atelectasis altered mental status metabolic related to multifactorial issues 07/27/2017, patient seen eval examined during the rounds she is a isn't eating her breakfast physical therapy is to be initiated to severe due to pain that was seen yesterday has improved significantly patient has been breathing comfortably denies any chest pain however she remains on supplemental oxygen no obvious distress is present she has been doing deep breathing exercises incentive spirometry as well Ms. Turner is a 81-year-old female who was seen eval examined on third floor currently patient is on heparin drip for elevated d-dimer consult is requested for DVT PE, off note that patient VQ scan is pending as well as an echocardiogram is pending as well, her creatinine is 1.4 with GFR of 36 so spiral computed tomography scan with dye cannot be performed, data predominantly has been obtained from the chart, as patient unable to give a detailed history she is extremely hard of hearing she has been transfer from [place] after she fell down and broke her left hip, patient 2 weeks ago had the right knee injury for which she underwent surgical intervention by orthopedic associated she has significant cardiovascular disease and multiple complex medical history and problems she has been found to have very high d- dimer, her chest x-ray performed today reviewed revealed presence of cardiomegaly interstitial edema and stable pacemaker 07/23/2017, patient seen eval reexamined during the rounds doing well from [place] standpoint denies any chest pain denies any cough or sputum production patient is prepared for the left hip arthroplasty Plavix ultrasound of both lower extremity has been negative VQ scan is just performed results are not available for review, chest x-ray performed reviewed cardiomegaly interstitial edema and borderline cardiomegaly seen laboratory data reviewed as well consistent with a stage III renal failure chronic with borderline hyperkalemia 07/24/2017, pt. seen evaluated and examined, v/q indeterminate, d/w primary sx, labs ordered and checked , cr. improving with gentle rehydration, will check spiral ct chest 07/25/2017, Patient is status post computed tomography scan of the chest findings of the CAT scan reviewed no PE seen some basal atelectasis is seen likely related to poor respiratory effort patient is on deep breathing exercises incentive spirometry, patient underwent successful left hip arthroplasty earlier this afternoon for details please refer to the operative note patient is doing fairly well from a cardiorespiratory standpoint, however is recovering from anesthesia is more awake 07/26/2017, patient seen eval examined during the morning rounds from respiratory standpoint doing well breathing comfortably no obvious distress present denies any chest pain patient does have pain at the left hip side which appears to be postoperative pain medicines are being given physical therapy has not been initiated yet Objective - Vital Signs Vital signs: Vital Signs Temp 97.6 F 07/27/17 03:21 Pulse 67 07/27/17 04:00 Resp 16 07/27/17 03:21 BP 122/64 07/27/17 03:21 Pulse Ox 100 07/27/17 03:21 Intake & Output 07/26/17 07/27/17 07/27/17 18:59 06:59 18:59 Intake Total 2020 240 Output Total 425 300 Balance 1595 -60 Weight 78.5 kg Intake: IV 20 Invasive Line 7 20 Intake, IV Titration 1700 Amount IV Fluid Continuation 1, 600 000 ml As IV .STK-MED ONE Rx#:[id number] Sodium Chloride 0.9% 1, 600 000 ml @ 100 mls/hr IV . Q10H [facility] Rx#:[id number] Sodium Chloride 0.9% 500 500 ml @ 999 mls/hr IV .Q31M ONE Rx#:[id number] Oral 300 240 Output: Urine 425 300 Other: Voiding Method Indwelling Catheter Indwelling Catheter - Exam GENERAL: The patient is well nourished and well hydrated. VITAL SIGNS: Heart rate, blood pressure, respiratory rate reviewed EYES: Pupils are round and reactive. Extraocular movements are intact. No conjunctival / lid redness or swelling. ENT: No external evidence of injury, swelling, or ecchymosis. Airway is patent. Throat is clear. Dry mucous membranes noted. The patient is hard of hearing. NECK: Nontender. No swelling or evidence of injury. No subcutaneous emphysema. Trachea is midline. No thyroid mass. HEART: Regular rate and rhythm. Good peripheral pulses. LUNGS/CHEST: Mild fine expiratory Wheezing is noted to bilateral lungs. No ecchymosis, subcutaneous emphysema, or tenderness. ABDOMEN: Abdomen soft without tenderness. No palpable masses or organomegaly. No peritoneal signs. No abdominal wall swelling or ecchymosis. EXTREMITIES: Status post left hip hemiarthroplasty postop day #1 Normal muscle tone and function. No thoracolumbar tenderness. NEUROLOGIC: Sensation is grossly intact. Cranial nerve exam reveals face is symmetrical, tongue is midline, speech is clear. SKIN: Some diffuse ecchymosis is present related to her IV access otherwise fairly unremarkable No induration or masses noted. PSYCHIATRIC: Relatively more Alert but with unchanged orientation. Appropriate behavior and judgment. - Labs CBC & Chem 7: 07/26/17 05:55 07/27/17 06:07 Labs: Abnormal Lab Results - Last 24 Hours (Table) 07/27/17 07/27/17 Range/Units 05:59 06:07 INR 1.2 H (<1.2) Chloride 115 H (98-107) mmol/L BUN 23 H (7-17) mg/dL Calcium 8.1 L (8.4-10.2) mg/dL Assessment and Plan Assessment: Elevated d-dimer, related to fall and left hip fracture Basal bilateral subsegmental atelectasis likely related to poor respiratory effort Negative duplex with indeterminate v/q scan and negative computed tomography scan of the chest for pulmonary embolism Chronic renal failure stage III, likely related to fall intravascular depletion and dehydration renal functions have improved status post computed tomography scan of the chest Congestive heart failure likely acute on chronic diastolic heart failure Left hip fracture Coronary artery disease History of arrhythmia heart block status post permanent pacemaker Plan: It appears that d-dimer is very highly likely related to fall and fracture, reviewed computed tomography scan of the chest, VQ scan, reviewed duplex ultrasound lower extremity will follow closely further recommendations pending, overall did fairly well from pulmonary standpoint with surgery will monitor observe closely in the postoperative phase will add breathing treatments as needed initiated physical therapy as per orthopedic service Time with Patient: Greater than 30
[2017-07-27] MEDS: IPRATROPIUM-ALBUTEROL 3 ML NEB INHALATION SCH ×4 (08:16→22:16)
--- NOTE | 2017-07-27 08:22 | P.PN ---
Subjective Progress Note Date: 07/27/17 Principal diagnosis: Status post left hip hemiarthroplasty This is an 81 year-old female post left hip hemiarthroplasty. This is post-op day 2. The patient was evaluated at the bedside today. The patient denies nausea, vomiting, abdominal pain, shortness of breath, and chest pain this morning. She states her pain is controlled at this time. The patient has not been up with physical therapy yet this morning. Per nursing staff, the patient has had a decrease in urine output and an episode of hypotension last night Objective - Vital Signs Vital signs: Vital Signs Temp 97.6 F 07/27/17 03:21 Pulse 76 07/27/17 08:16 Resp 16 07/27/17 03:21 BP 122/64 07/27/17 03:21 Pulse Ox 100 07/27/17 03:21 Intake & Output 07/26/17 07/27/17 07/27/17 18:59 06:59 18:59 Intake Total 2020 240 Output Total 425 300 Balance 1595 -60 Weight 78.5 kg Intake: IV 20 Invasive Line 7 20 Intake, IV Titration 1700 Amount IV Fluid Continuation 1, 600 000 ml As IV .STK-MED ONE Rx#:[id number] Sodium Chloride 0.9% 1, 600 000 ml @ 100 mls/hr IV . Q10H [facility] Rx#:[id number] Sodium Chloride 0.9% 500 500 ml @ 999 mls/hr IV .Q31M ONE Rx#:[id number] Oral 300 240 Output: Urine 425 300 Other: Voiding Method Indwelling Catheter Indwelling Catheter - Exam The patient does not appear in acute distress. Alert and orientated x3. Dressing is clean dry and intact. Incision appears fine with no erythema or active drainage. Calf is soft and nontender. Good foot and ankle motion without difficulty. Sensation and circulatory status is intact. - Labs CBC & Chem 7: 07/27/17 05:59 07/27/17 06:07 Labs: Abnormal Lab Results - Last 24 Hours (Table) 07/27/17 07/27/17 07/27/17 Range/Units 05:59 05:59 06:07 RBC 3.56 L (3.80-5.40) m/uL Hgb 10.7 L (11.4-16.0) gm/dL MCV 101.9 H (80.0-100.0) fL MCHC 29.6 L (31.0-37.0) g/dL Plt Count 87 L (150-450) k/uL INR 1.2 H (<1.2) Chloride 115 H (98-107) mmol/L BUN 23 H (7-17) mg/dL Calcium 8.1 L (8.4-10.2) mg/dL Assessment and Plan (1) Fall Current Visit: Yes Status: Acute Code(s): W19.XXXA - UNSPECIFIED FALL, INITIAL ENCOUNTER SNOMED Code(s): 8909962 (2) Closed left hip fracture Current Visit: Yes Status: Acute Code(s): S72.002A - FRACTURE OF UNSP PART OF NECK OF LEFT FEMUR, INIT SNOMED Code(s): 573808920 (3) History of hemiarthroplasty of left hip Current Visit: Yes Status: Acute Code(s): Z96.642 - PRESENCE OF LEFT ARTIFICIAL HIP JOINT SNOMED Code(s): 998838023 Plan: 1. Continue pain control 2. Anticoagulation per internal medicine 3. Start physical therapy and ambulation today 4. Monitor urine output 5. Anticipate discharge to skilled rehab in the next 1-2 days if medically stable.
[2017-07-27] MEDS: METOPROLOL SUCCINATE (ER) 25 MG TAB.ER.24H PO SCH (08:42)
[2017-07-27] MEDS: POLYETHYLENE GLYCOL 3350 17 GM POWD.PACK PO SCH (08:42)
[2017-07-27] MEDS: HEPARIN SODIUM,PORCINE 5,000 UNIT/ML 1 ML VIAL SQ SCH ×2 (08:42→19:33)
[2017-07-27] MEDS: LACTATED RINGERS 1,000 ML IV SCH (08:43)
[2017-07-27] MEDS: predniSONE 20 MG TAB PO SCH (08:43)
[2017-07-27] MEDS: FAMOTIDINE 20 MG TAB PO SCH (08:43)
[2017-07-27] MEDS: SODIUM CHLORIDE 0.9% 1,000 ML IV SCH ×2 (08:46→20:30)
[2017-07-27 10:16] LABS: Platelet Count 87 k/uL (150-450)
[2017-07-27] MEDS ORDERED: HYDROmorphone 2 MG TAB PO PRN ×3 (14:56→23:37)
[2017-07-27] MEDS ORDERED: SODIUM CHLORIDE 0.9% 500 ML IV ONE (16:44)
--- NOTE | 2017-07-27 17:26 | P.PN ---
Subjective Progress Note Date: 07/26/17 Principal diagnosis: Left hip fracture Interval history:Patient is a 81-year-old extreme a poor historian came in with left hip fracture at 6 at an outside hospital patient has severe hearing problems because of which I'm unable to get much of the history from the patient patient says she has pain in the left hip area patient was admitted to [facility] surgery will undergo surgery on . Medicine was consulted for preoperative clearance. Unable to get any kind of history from the patient it appears like patient has history of coronary artery disease never had any history of congestive heart failure does have a pacemaker EKG showing paced rhythm. Patient appears to have some pulmonary edema on the chest x-ray with elevated BNP although I did not appreciate any JVD cardiology will be consulted for preoperative clearance echocardiac exam will be obtained patient doesn't have any fever chills patient has poor renal function and patient's creatinine is at her baseline patient is probably wheezing because of which patient was started on systemic steroids which I do not believe she'll need high-dose of IV steroids which will lead to confusion and agitation concerning her age. Patient cannot take any in nonsteroidal anti-inflammatories, patient is on [place] , other IV opiates need to be avoided if we can. Patient's IV fluids were discontinued patient is on IV heparin because of elevated d-dimer VQ scan is being obtained to rule out pulmonary embolism and pulmonary was consulted for preoperative clearance I will I believe cardiology preoperative clearance is also required. And cardiology was consulted. 07/23/2017. Maintained on heparin drip. VQ scan reporting intermediate ability. Creatinine 1.28. Telemetry atrial flutter. Left hip and leg Pain currently controlled. Good diet intake. Denies chest pain palpitations or increased shortness of breath. 07/24/17 maintained on IV fluid hydration and heparin drip. Renal function improved, creatinine 1.1. Potassium 4.8. Chest CT ordered. Telemetry atrial fibrillation/flutter with controlled ventricular rate. Complained of left hip and leg pain. Mild confusion, states has not slept well since admission. 07/25/2017 no overnight events. Telemetry reporting ventricular paced. Scheduled for orthopedic surgery today. Denies chest pain, palpitations or increasing shortness of breath. Afebrile. 07/26/2017 Patient underwent left hip hemiarthroplasty on 07/25/2017. Patient denied any complaints of chest pain or shortness of breath. Able to lie in the bed comfortably. No fever no chills. Pain control with medications. PT OT consulted. No nausea vomiting or abdominal pain. Patient is not able to eat well. Current medications reviewed. Objective - Vital Signs Vital signs: Vital Signs Temp 96.8 F L 07/26/17 16:00 Pulse 72 07/26/17 19:24 Resp 16 07/26/17 16:00 BP 99/62 07/26/17 18:42 Pulse Ox 97 07/26/17 16:00 Intake & Output 07/26/17 07/26/17 07/27/17 06:59 18:59 06:59 Intake Total 120 2020 Output Total 750 425 Balance -630 1595 Weight 71 kg Intake: IV 20 Invasive Line 7 20 Intake, IV Titration 1700 Amount IV Fluid Continuation 1, 600 000 ml As IV .STK-MED ONE Rx#:[id number] Sodium Chloride 0.9% 1, 600 000 ml @ 100 mls/hr IV . Q10H [facility] Rx#:[id number] Sodium Chloride 0.9% 500 500 ml @ 999 mls/hr IV .Q31M [facility] Rx#:[id number] Oral 120 300 Output: Urine 750 425 Other: Voiding Method Indwelling Catheter Indwelling Catheter - Exam GENERAL: The patient is alert and oriented x2, no acute distress. Well developed , well nourished. HEENT: Pupils are round and equally reacting to light. EOMI. No scleral icterus. No conjunctival pallor. Normocephalic, atraumatic. No pharyngeal erythema. No thyromegaly. CARDIOVASCULAR: S1 and S2 present. Positive systolic murmur, no rubs, or gallops. PULMONARY: Chest is clear to auscultation, no wheezing or crackles. ABDOMEN: Soft, nontender, nondistended, normoactive bowel sounds. No palpable organomegaly. MUSCULOSKELETAL: Left hip surgical site intact. Tenderness and decreased range of motion EXTREMITIES: No cyanosis, clubbing, mild pedal edema. NEUROLOGICAL: Gross neurological examination did not reveal any focal deficits. SKIN: No rashes. - Labs CBC & Chem 7: 07/27/17 05:59 07/27/17 06:07 Labs: Abnormal Lab Results - Last 24 Hours (Table) 07/26/17 07/26/17 07/26/17 Range/Units 05:55 05:55 05:55 MCV 105.2 H (80.0-100.0) fL MCHC 28.5 L (31.0-37.0) g/dL Plt Count 103 L (150-450) k/uL Lymphocytes # 0.9 L (1.0-4.8) k/uL INR 1.2 H (<1.2) Chloride 113 H (98-107) mmol/L Carbon Dioxide 21 L (22-30) mmol/L BUN 29 H (7-17) mg/dL Glucose 102 H (74-99) mg/dL Assessment and Plan Assessment: -Possible acute on chronic CHF with diastolic dysfunction -Elevated d-dimer and VQ scan showed intermediate possibility of PE. CTA negative for pulmonary embolism COPD with mild acute exacerbation -Left hip fracture and pain management as per primary service although avoid IV opiates, benzodiazepines barbiturates and anticollagen medications. 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 Plan: Continue on current medication regime , heparin drip , beta rafaela, statin,monitoring. Orthopedic surgery pending. Incentive spirometry and DVT prophylaxis. PT OT. Bowel regimen. Close monitoring of renal function with repeat labs ordered for a.m. maintain gentle IV fluid hydration. Further recommendations to follow. Time with Patient: Greater than 30
--- NOTE | 2017-07-27 17:30 | P.PN ---
Subjective Progress Note Date: 07/27/17 Principal diagnosis: Left hip fracture Interval history:Patient is a 81-year-old extreme a poor historian came in with left hip fracture at 6 at an outside hospital patient has severe hearing problems because of which I'm unable to get much of the history from the patient patient says she has pain in the left hip area [facility] will [facility] surgery on . Medicine was consulted for preoperative clearance. Unable to get any kind of history from the patient it appears like patient has history of coronary artery disease never had any history of congestive heart failure does have a pacemaker EKG showing paced rhythm. Patient appears to have some pulmonary edema on the chest x-ray with elevated BNP although I did not appreciate any JVD cardiology will be consulted for preoperative clearance echocardiac exam will be obtained patient doesn't have any fever chills patient has poor renal function and patient's creatinine is at her baseline patient is probably wheezing because of which patient was started on systemic steroids which I do not believe she'll need high-dose of IV steroids which will lead to confusion and agitation concerning her age. Patient cannot take any in nonsteroidal anti-inflammatories, patient is on [place] , other IV opiates need to be avoided if we can. Patient's IV fluids were discontinued patient is on IV heparin because of elevated d-dimer VQ scan is being obtained to rule out pulmonary embolism and pulmonary was consulted for preoperative clearance I will I believe cardiology preoperative clearance is also required. And cardiology was consulted. 07/23/2017. Maintained on heparin drip. VQ scan reporting intermediate ability. Creatinine 1.28. Telemetry atrial flutter. Left hip and leg Pain currently controlled. Good diet intake. Denies chest pain palpitations or increased shortness of breath. 07/24/17 maintained on IV fluid hydration and heparin drip. Renal function improved, creatinine 1.1. Potassium 4.8. Chest CT ordered. Telemetry atrial fibrillation/flutter with controlled ventricular rate. Complained of left hip and leg pain. Mild confusion, states has not slept well since admission. 07/25/2017 no overnight events. Telemetry reporting ventricular paced. Scheduled for orthopedic surgery today. Denies chest pain, palpitations or increasing shortness of breath. Afebrile. 07/26/2017 Patient underwent left hip hemiarthroplasty on 07/25/2017. Patient denied any complaints of chest pain or shortness of breath. Able to lie in the bed comfortably. No fever no chills. Pain control with medications. PT OT consulted. No nausea vomiting or abdominal pain. Patient is not able to eat well. 07/27/2017 Patient did have decreased urine output. Patient was given 500 mL bolus. Patient is already on normal saline at 100 mL per hour. Patient is having poor oral intake. Monitor for any fluid overload. Otherwise patient was able to sit in the chair today. Following PT OT. No fever no chills. No chest pain no worsening shortness of breath. No other acute overnight issues. Complete review of systems could not be obtained from the patient. Current medications reviewed. Objective - Vital Signs Vital signs: Vital Signs Temp 96.7 F L 07/27/17 08:00 Pulse 72 07/27/17 16:22 Resp 16 07/27/17 03:21 BP 96/55 07/27/17 16:00 Pulse Ox 95 07/27/17 16:00 Intake & Output 07/26/17 07/27/17 07/27/17 18:59 06:59 18:59 Intake Total 2020 240 760 Output Total 425 300 300 Balance 1595 -60 460 Weight 78.5 kg Intake: IV 20 Invasive Line 7 20 Intake, IV Titration 1700 400 Amount IV Fluid Continuation 1, 600 000 ml As IV .STK-MED ONE Rx#:[id number] Sodium Chloride 0.9% 1, 600 400 000 ml @ 100 mls/hr IV . Q10H [facility] Rx#:[id number] Sodium Chloride 0.9% 500 500 ml @ 999 mls/hr IV .Q31M ONE Rx#:[id number] Oral 300 240 360 Output: Urine 425 300 300 Other: Voiding Method Indwelling Catheter Indwelling Catheter Indwelling Catheter - Exam GENERAL: The patient is alert and oriented x2, no acute distress. Well developed , well nourished. HEENT: Pupils are round and equally reacting to light. EOMI. No scleral icterus. No conjunctival pallor. Normocephalic, atraumatic. No pharyngeal erythema. No thyromegaly. CARDIOVASCULAR: S1 and S2 present. Positive systolic murmur, no rubs, or gallops. PULMONARY: Decreased air entry bibasilar, no wheezing or crackles. ABDOMEN: Soft, nontender, nondistended, normoactive bowel sounds. No palpable organomegaly. MUSCULOSKELETAL: Left hip surgical site intact. Tenderness and decreased range of motion EXTREMITIES: No cyanosis, clubbing, mild pedal edema. NEUROLOGICAL: Gross neurological examination did not reveal any focal deficits. SKIN: No rashes. - Labs CBC & Chem 7: 07/27/17 05:59 07/27/17 06:07 Labs: Abnormal Lab Results - Last 24 Hours (Table) 07/27/17 07/27/17 07/27/17 Range/Units 05:59 05:59 06:07 RBC 3.56 L (3.80-5.40) m/uL Hgb 10.7 L (11.4-16.0) gm/dL MCV 101.9 H (80.0-100.0) fL MCHC 29.6 L (31.0-37.0) g/dL Plt Count 87 L (150-450) k/uL Lymphocytes # 0.8 L (1.0-4.8) k/uL INR 1.2 H (<1.2) Chloride 115 H (98-107) mmol/L BUN 23 H (7-17) mg/dL Calcium 8.1 L (8.4-10.2) mg/dL Assessment and Plan Assessment: -Elevated d-dimer and VQ scan showed intermediate possibility of PE. CTA negative for pulmonary embolism COPD with mild acute exacerbation -Left hip fracture and pain management as per primary service although avoid IV opiates, benzodiazepines barbiturates and anticollagen medications. 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 Plan: Continue on current medication regime , beta rafaela, statin,monitoring. Incentive spirometry and DVT prophylaxis. PT OT. Bowel regimen. Monitor for fluid overload. Close monitoring of renal function with repeat labs ordered for a.m. maintain gentle IV fluid hydration. Further recommendations to follow. Time with Patient: Greater than 30
[2017-07-27] MEDS: ATORVASTATIN 40 MG TAB PO SCH (19:32)
[2017-07-27] MEDS: DOCUSATE 100 MG CAP PO SCH (19:33)
[2017-07-27] MEDS: SENNOSIDES-DOCUSATE SODIUM 1 EACH TAB PO SCH (19:33)
[2017-07-28] MEDS: HYDROcodone/APAP 5-325MG 1 EACH TAB PO PRN ×3 (04:01→18:34)
[2017-07-28 04:57] VITALS: RESP 18
[2017-07-28] MEDS: SODIUM CHLORIDE 0.9% 1,000 ML IV SCH (06:18)
[2017-07-28 06:44] LABS: INR 1.1 (<1.2); Prothrombin Time 10.9 sec (9.0-12.0)
[2017-07-28 06:58] LABS: Anion Gap 6 mmol/L; Blood Urea Nitrogen 23 mg/dL (7-17); Calcium 8.2 mg/dL (8.4-10.2); Carbon Dioxide 20 mmol/L (22-30); Chloride 116 mmol/L (98-107); Glucose 135 mg/dL (74-99); Potassium 4.4 mmol/L (3.5-5.1); Sodium 142 mmol/L (137-145)
[2017-07-28 06:59] LABS: Basophils % (A) 0 %; Eosinophils % (A) 1 %; HCT 36.2 % (34.0-46.0); HGB 10.6 gm/dL (11.4-16.0); Hypochromasia Marked; Lymphocytes # (A) 0.9 k/uL (1.0-4.8); Lymphocytes % (A) 14 %; MCH 30.9 pg (25.0-35.0); MCHC 29.4 g/dL (31.0-37.0); Macrocytosis Moderate; Mean Platelet Volume 9.2; Monocytes # (A) 0.8 k/uL (0-1.0); Monocytes % (A) 13 %; Neutrophils # (A) 4.3 k/uL (1.3-7.7); Neutrophils % (A) 70 %; Platelet Count 108 k/uL (150-450); RBC 3.44 m/uL (3.80-5.40); RDW 14.6 % (11.5-15.5); WBC 6.2 k/uL (3.8-10.6)
[2017-07-28 07:56] LABS: Poikilocytosis (M) Present
[2017-07-28] MEDS: METOPROLOL SUCCINATE (ER) 25 MG TAB.ER.24H PO SCH (07:57)
[2017-07-28] MEDS: DOCUSATE 100 MG CAP PO SCH (07:57)
[2017-07-28] MEDS: predniSONE 20 MG TAB PO SCH (07:57)
[2017-07-28] MEDS: HEPARIN SODIUM,PORCINE 5,000 UNIT/ML 1 ML VIAL SQ SCH (07:57)
[2017-07-28] MEDS: FAMOTIDINE 20 MG TAB PO SCH (07:57)
[2017-07-28] MEDS: POLYETHYLENE GLYCOL 3350 17 GM POWD.PACK PO SCH (07:57)
[2017-07-28 08:05] LABS: Polychromasia Present
--- NOTE | 2017-07-28 08:31 | P.PN ---
Subjective Progress Note Date: 07/28/17 Principal diagnosis: Status post left hip hemiarthroplasty This is an 81 year-old female post left hip hemiarthroplasty. This is post-op day 3. The patient was evaluated at the bedside today. The patient denies nausea, vomiting, abdominal pain, shortness of breath, and chest pain this morning. She states her pain is controlled at this time. The patient was up to chair yesterday. Objective - Vital Signs Vital signs: Vital Signs Temp 97.2 F L 07/28/17 08:00 Pulse 71 07/28/17 08:00 Resp 18 07/28/17 08:00 BP 110/60 07/28/17 08:00 Pulse Ox 97 07/28/17 08:00 Intake & Output 07/27/17 07/28/17 07/28/17 18:59 06:59 18:59 Intake Total 940 360 Output Total 300 450 Balance 640 -90 Weight 80 kg Intake: Intake, IV Titration 400 Amount Sodium Chloride 0.9% 1, 400 000 ml @ 100 mls/hr IV . Q10H [facility] Rx#:[id number] Oral 540 360 Output: Urine 300 450 Other: Voiding Method Indwelling Catheter Indwelling Catheter - Exam The patient does not appear in acute distress. Alert and orientated x3. Dressing is clean dry and intact. Incision appears fine with no erythema or active drainage. Calf is soft and nontender. Good foot and ankle motion without difficulty. Sensation and circulatory status is intact. - Labs CBC & Chem 7: 07/28/17 05:36 07/28/17 05:36 Labs: Abnormal Lab Results - Last 24 Hours (Table) 07/27/17 07/28/17 07/28/17 Range/Units 05:59 05:36 05:36 RBC 3.56 L 3.44 L (3.80-5.40) m/uL Hgb 10.7 L 10.6 L (11.4-16.0) gm/dL MCV 101.9 H 105.0 H (80.0-100.0) fL MCHC 29.6 L 29.4 L (31.0-37.0) g/dL Plt Count 87 L 108 L (150-450) k/uL Lymphocytes # 0.8 L 0.9 L (1.0-4.8) k/uL Chloride 116 H (98-107) mmol/L Carbon Dioxide 20 L (22-30) mmol/L BUN 23 H (7-17) mg/dL Glucose 135 H (74-99) mg/dL Calcium 8.2 L (8.4-10.2) mg/dL Assessment and Plan (1) Fall Current Visit: Yes Status: Acute Code(s): W19.XXXA - UNSPECIFIED FALL, INITIAL ENCOUNTER SNOMED Code(s): 0774427 (2) Closed left hip fracture Current Visit: Yes Status: Acute Code(s): S72.002A - FRACTURE OF UNSP PART OF NECK OF LEFT FEMUR, INIT SNOMED Code(s): 180432152 (3) History of hemiarthroplasty of left hip Current Visit: Yes Status: Acute Code(s): Z96.642 - PRESENCE OF LEFT ARTIFICIAL HIP JOINT SNOMED Code(s): 271292104 Plan: 1. Continue pain control 2. Anticoagulation per internal medicine 3. Continue physical therapy and ambulation today 4. Monitor urine output 5. Anticipate discharge to skilled rehab when medically stable. Orthopedically stable for discharge.
--- NOTE | 2017-07-28 08:35 | XR ---
EXAMINATION TYPE: XR chest 1V DATE OF EXAM: 07/28/2017 COMPARISON: 07/23/2017 HISTORY: Shortness of breath TECHNIQUE: Single frontal view of the chest is obtained. FINDINGS: Cardiac device noted and there is cardiomegaly with atherosclerotic change aorta. Bilatera l lower lobe infiltrate and small effusion noted. IMPRESSION: 1. Bilateral lower lobe infiltrate and small effusion. Mild central venous congestion not excluded. F indings slightly progressed from previous.
[2017-07-28] MEDS: IPRATROPIUM-ALBUTEROL 3 ML NEB INHALATION SCH ×3 (08:41→15:59)
[2017-07-28 11:24] VITALS: BP 147/70; TEMP 97.1
--- NOTE | 2017-07-28 12:24 | OP ---
OPERATIVE REPORT DATE OF SERVICE: 07/25/2017 SURGEON: Suman Beal DO HEALTHCARE RISK CONTROL CONSULTANT: ANA Perez PREOPERATIVE DIAGNOSIS: Displaced subcapital fracture of the left hip. POSTOPERATIVE DIAGNOSIS: Displaced subcapital fracture of the left hip. PROCEDURE PERFORMED: Left femoral head jas replacement arthroplasty utilizing Bartolome press-fit endo head component. DESCRIPTION OF THE PROCEDURE: The patient was taken to the operative suite and placed in supine position. Spinal anesthesia performed by the department of anesthesiology. She was then placed in right lateral recumbent position on the surgical table. She was appropriately padded and secured for stability. Betadine prep was carried out over the left hip. Sterile drapes were applied in the usual manner. A lateral incision was developed over the proximal femur. Sharp dissection through the subcutaneous tissue performed. The tensor fascia storm was then incised longitudinally. The gluteus medius was gently dissected along the trochanter. Inferior capsule was then excised and the neck and head shaped with bone saw. With the leg externally rotated and adducted A corkscrew was utilized in removing the femoral head measuring 46 mm in largest diameter. The broaching of the femoral canal was carried out to accept a size 12 press-fit component. Appropriate shaping of the cortical arc was also performed with shelving planer. The area was irrigated copiously. Trial components were placed into position with standard neck and the provisionary components were reduced. Alignment and stability was maintained throughout the range of motion. With the hip dislocated, the provisionary components were removed. Copiously antibiotic irrigation was then carried out again. Following size 12 press-fit femur component was inserted and impacted to cortical arc. A 46 mm femoral head was placed on the trunnion of the femoral component and impacted in position. The hip was then reduced and joint checked for excellent alignment and stability at this time. With the leg slightly abducted, the gluteus medius was approximated and advanced with #3 Dexon suture. The tensor fascia storm was then reapproximated with #3 Dexon suture in running fashion. The #2 Quill suture was utilized in reenforcing the tensor fascia storm repair. Subcutaneous tissue was approximated with deep superficial with 2-0 Vicryl suture. The skin was approximated with 3-0 Quill suture in a running subcuticular fashion. Dermabond was utilized in sealing the wound. Sterile dressing was applied. Patient placed in a abductor pillow splint and transferred to the recovery room in in satisfactory postop condition. GROSS PATHOLOGY: There was evidence of a displaced subcapital fracture of the left hip. ESTIMATED BLOOD LOSS: 200 mL. MMODL / IJN: [id number] / MTDD
[2017-07-28] MEDS ORDERED: APIXABAN 2.5 MG TABLET PO SCH (15:00)
[2017-07-28] MEDS ORDERED: LEVOFLOXACIN 500 MG TAB PO SCH (16:00)
[2017-07-28 16:09] VITALS: PULSE 72
--- NOTE | 2017-07-28 16:35 | P.DS ---
Providers Date of admission: 07/22/17 00:44 Expected date of discharge: 07/28/17 Attending physician: Suman Ferrara Consults: 07/22/17 00:46 Consult Physician Routine Consulting Provider: Kuldip Porter Consult Reason/Comments: sob, cp, possible pe, copd Do you want consulting provider notified?: Yes Consult Physician Urgent Consulting Provider: Suresh Zheng Consult Reason/Comments: medical management, surgical clearance Do you want consulting provider notified?: Yes 07/22/17 14:42 Consult Physician Routine Consulting Provider: Joaquim Iqbal Consult Reason/Comments: CKMB elevated Do you want consulting provider notified?: Yes Primary care physician: [facility] Ed Course: Final Diagnoses: -Elevated d-dimer and VQ scan showed intermediate possibility of PE. 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 fib/flutter -Acute renal failure, present on admission, improved with IV fluid hydration Hospital course: This is an 81-year-old female admitted with left hip fracture, , mild acute COPD exacerbation, and multiple other medical issues. Evaluated by orthopedic surgery, cardiology, pulmonary. Status post left hemiarthroplasty. Received gentle IV fluid hydration for acute renal failure, postoperative hypotension. Significant clinical improvement. Patient has been cleared by all consults for discharge. Patient is being discharged to [facility]. In a stable condition with guarded prognosis. Physical Exam:GENERAL: The patient is alert and oriented x2, no acute distress.CARDIOVASCULAR: S1 and S2 present. Positive systolic murmur, no rubs, or gallops.PULMONARY: Decreased air entry bibasilar, no wheezing or crackles. ABDOMEN: Soft, nontender, nondistended, normoactive bowel soundsNEUROLOGICAL: No focal deficits. The impression and plan of care has been dictated as directed. : I performed a history and examination of this patient, discussed the same with the dictator. I agree with the dictator's note ,documented as a scribe. Any additional findings or plans will be noted. Time taken: 35 minutes Patient Condition at Discharge: Stable Plan - Discharge Summary Discharge Rx Participant: No New Discharge Prescriptions: New HYDROcodone/APAP 5-325MG [Holstein 5] 1 - 2 each PO Q4-6H PRN #90 tab PRN Reason: Pain Sennosides-Docusate Sodium [Senokot-S] 2 tab PO DAILY #30 tablet Apixaban [Eliquis] 2.5 mg PO BID #60 tab Metoprolol Succinate (ER) [Toprol XL] 25 mg PO DAILY tab.er.24h Levofloxacin [Levaquin] 500 mg PO Q24H 6 Days #6 tab Atorvastatin [Lipitor] 40 mg PO HS tab Docusate [Colace] 100 mg PO BID cap Ipratropium-Albuterol Nebulize [Duoneb 0.5 mg-3 mg/3 ml Soln] 3 ml INHALATION RT-QID ampul.neb Ipratropium-Albuterol Nebulize [Duoneb 0.5 mg-3 mg/3 ml Soln] 3 ml INHALATION Q4H PRN ampul.neb PRN Reason: Shortness Of Breath Or Wheezing predniSONE 20 mg PO DAILY tab Isosorbide Mononitrate ER [Imdur] 30 mg PO DAILY #1 tab Continue Ondansetron HCl [Zofran] 4 mg PO BID PRN PRN Reason: Nausea Loratadine [Claritin] 10 mg PO DAILY Nitroglycerin 0.4 mg SUBLINGUAL Q5M PRN PRN Reason: Chest Pain Allopurinol [Zyloprim] 200 mg PO DAILY Sennosides-Docusate Sodium [Senokot-S] 2 tab PO DAILY Pantoprazole [Protonix] 40 mg PO DAILY Levothyroxine Sodium [Synthroid] 100 mcg PO AC-BRKFST Polyethylene Glycol 3350 [Miralax] 17 gm PO DAILY Budesonide-Formot 160-4.5 Mcg [Symbicort 160-4.5 Mcg Inhaler] 2 puff INHALATION RT-BID Gabapentin [Neurontin] 300 mg PO HS rOPINIRole HCL [Requip] 2 mg PO HS Discontinued Pravastatin Sodium [Pravachol] 40 mg PO DAILY Metoprolol Succinate (ER) [Toprol XL] 50 mg PO DAILY Albuterol Nebulized [Ventolin Nebulized] 2.5 mg INHALATION RT-Q6H Furosemide [Lasix] 20 mg PO DAILY Discharge Medication List Allopurinol [Zyloprim] 200 mg PO DAILY 08/18/16 [History] Loratadine [Claritin] 10 mg PO DAILY 08/18/16 [History] Nitroglycerin 0.4 mg SUBLINGUAL Q5M PRN 08/18/16 [History] Ondansetron HCl [Zofran] 4 mg PO BID PRN 08/18/16 [History] Pantoprazole [Protonix] 40 mg PO DAILY 08/18/16 [History] Sennosides-Docusate Sodium [Senokot-S] 2 tab PO DAILY 08/18/16 [History] Budesonide-Formot 160-4.5 Mcg [Symbicort 160-4.5 Mcg Inhaler] 2 puff INHALATION RT-BID 01/06/17 [History] Levothyroxine Sodium [Synthroid] 100 mcg PO AC-BRKFST 01/06/17 [History] Polyethylene Glycol 3350 [Miralax] 17 gm PO DAILY 01/06/17 [History] Gabapentin [Neurontin] 300 mg PO HS 07/22/17 [History] rOPINIRole HCL [Requip] 2 mg PO HS 07/22/17 [History] Apixaban [Eliquis] 2.5 mg PO BID #60 tab 07/28/17 [Rx] Atorvastatin [Lipitor] 40 mg PO HS tab 07/28/17 [Rx] Docusate [Colace] 100 mg PO BID cap 07/28/17 [Rx] HYDROcodone/APAP 5-325MG [Holstein 5] 1 - 2 each PO Q4-6H PRN #90 tab 07/28/17 [Rx] Ipratropium-Albuterol Nebulize [Duoneb 0.5 mg-3 mg/3 ml Soln] 3 ml INHALATION Q4H PRN ampul.neb 07/28/17 [Rx] Ipratropium-Albuterol Nebulize [Duoneb 0.5 mg-3 mg/3 ml Soln] 3 ml INHALATION RT -QID ampul.neb 07/28/17 [Rx] Isosorbide Mononitrate ER [Imdur] 30 mg PO DAILY #1 tab 07/28/17 [Rx] Levofloxacin [Levaquin] 500 mg PO Q24H 6 Days #6 tab 02/12/18 [Rx] Metoprolol Succinate (ER) [Toprol XL] 25 mg PO DAILY tab.er.24h 07/28/17 [Rx] Sennosides-Docusate Sodium [Senokot-S] 2 tab PO DAILY #30 tablet 07/28/17 [Rx] predniSONE 20 mg PO DAILY tab 07/28/17 [Rx] Follow up Appointment(s)/Referral(s): Suman Beal DO [Doctor of Osteopathic Medicine] - 4 Weeks Kuldip Porter MD [STAFF PHYSICIAN] - 1 Week Activity/Diet/Wound Care/Special Instructions: Weightbearing as tolerated with a walker Confirm cardiology F/U apt. prior to dc Anticoagulation per cardiology Follow Hip precautions Use Abductor pillow as instructed May shower if no drainage from incision Keep incision clean and dry Call [facility] [phone] with questions or concerns Discharge Disposition: TRANSFER TO SNF/ECF
--- NOTE | 2017-07-30 08:17 | CDI ---
Last Revision, May 2017 Documentation Clarification Form Date: 07/30/2017 8:01:00 AM From: Chantel Alonso Marlyn Garzon, Director Auto between 8:30 am & 5 pm MOseas Admit Date: 07/22/2017 12:44:00 AM Patient Name: Airam Turner Visit Number: [id number] Discharge Date: 07/28/17 ATTENTION: The Clinical Documentation Specialists (CDI) and [facility] Coding Staff appreciate your assistance in clarifying documentation. Please respond to the clarification below the line at the bottom and electronically sign. The CDI & [facility] Coding staff will review the response and follow-up if needed. Please note: Queries are made part of the Legal Health Record. If you have any questions, please contact the author of this message via ITS. Dr. Suresh Zheng/Katy Hicks Hypotension is documented in the 07/27 progress note and discharge summary. History/Risk Factors: left femur fx, acute on chronic diastolic CHF, DAREK, AECOPD , DM, paroxysmal a fib, HTN, CKD Stage 3, dementia, ASHS w angina Clinical Indicators: decrease in urine output Patients B/P on 07/26; 99/63, 82/56, 99/62 Abnl Labs on 07/26: chloride 113, CO2 21, BUN 29 Treatment: Nikki IV fluid hydration In your professional opinion, can you please specify the etiology of the hypotension if known? Iatrogenic Hypotension Neurogenic Orthostatic Hypotension Orthostatic Hypotension Postural Hypotension Idiopathic Hypotension Drug Induced Hypotension Chronic Hypotension Postoperative Hypotension Hypotension due to hemodialysis Other Condition, please specify Unable to determine Please continue to document in your progress notes and discharge summary in order to capture severity of illness and risk of mortality. Include clinical findings that support your diagnosis. Unable to determine MTDD
--- NOTE | 2017-08-01 08:57 | CDI ---
Last Revision, May 2017 Documentation Clarification Form Date: 08/01/2017 8:25:00 AM From: Chantel Alonso Marlyn Garzon, Weld Technician between 8:30 am & 5 pm Alycia Admit Date: 07/22/2017 12:44:00 AM Patient Name: Airam Turner Visit Number: [id number] Discharge Date: 07/28/17 ATTENTION: The Clinical Documentation Specialists (CDI) and [facility] Coding Staff appreciate your assistance in clarifying documentation. Please respond to the clarification below the line at the bottom and electronically sign. The CDI & [facility] Coding staff will review the response and follow-up if needed. Please note: Queries are made part of the Legal Health Record. If you have any questions, please contact the author of this message via ITS. Dr. Michael Ferrara Postoperative hypotension is documented in the discharge summary. Per 07/27 PN by Javy Ritchie states "Per nursing staff, the patient has had a decrease in urine output and an episode of hypotension last night." S/P left hip hemiarthroplasty. Other factors: acute renal failure present on admission BP on 07/22: 98/54, 85/53, 91/52 BP on 07/23: 96/55 BP on 07/26: 99/63, 82/56, 99/62 BP on 07/27: 96/55 Treatment: Received gentle IV fluid hydration In order to accurately reflect this patients severity of illness, please clarify if the post-operative hypotension diagnosis is: An expected post-procedural or post-surgical condition; Integral to the procedure; An unexpected post-procedural or post-surgical condition related to surgical care; Other, please specify Unable to determine Please document addendum in your discharge summary in order to capture severity of illness and risk of mortality. Include clinical findings that support your diagnosis. An expected post-procedural or post-surgical condition; MTDD
== END 2017-07-28 19:05 | DRG 469 ==
LOC: EC 22:12 → 6SEL 07-22 00:44
PROVIDERS: ADMIT Orthopaedic Surgery; ATTEND Orthopaedic Surgery
PROC: 0SRS01A Replacement of Left Hip Joint, Femoral Surface with Metal Synthetic Substitute, Uncemented, Open Approach (ICD-10-PCS; principal; 2017-07-25 12:30)
DX: S72.012A Unspecified intracapsular fracture of left femur, initial encounter for closed fracture (principal); I50.33 Acute on chronic diastolic (congestive) heart failure; N17.9 Acute kidney failure, unspecified; I95.9 Hypotension, unspecified; E11.22 Type 2 diabetes mellitus with diabetic chronic kidney disease; E87.5 Hyperkalemia; E11.40 Type 2 diabetes mellitus with diabetic neuropathy, unspecified; I13.0 Hypertensive heart and chronic kidney disease with heart failure and stage 1 through stage 4 chronic kidney disease, or unspecified chronic kidney disease; I48.92 Unspecified atrial flutter; I48.0 Paroxysmal atrial fibrillation; J44.1 Chronic obstructive pulmonary disease with (acute) exacerbation; J98.11 Atelectasis; E86.0 Dehydration; F03.90 Unspecified dementia, unspecified severity, without behavioral disturbance, psychotic disturbance, mood disturbance, and anxiety; N18.3 Chronic kidney disease, stage 3 (moderate); E03.9 Hypothyroidism, unspecified; E78.5 Hyperlipidemia, unspecified; G25.81 Restless legs syndrome; I25.119 Atherosclerotic heart disease of native coronary artery with unspecified angina pectoris; S51.012A Laceration without foreign body of left elbow, initial encounter; M19.91 Primary osteoarthritis, unspecified site; K21.9 Gastro-esophageal reflux disease without esophagitis; S82.001D Unspecified fracture of right patella, subsequent encounter for closed fracture with routine healing; I25.2 Old myocardial infarction; H91.10 Presbycusis, unspecified ear; Z79.51 Long term (current) use of inhaled steroids; Z79.899 Other long term (current) drug therapy; Z95.0 Presence of cardiac pacemaker; Z90.49 Acquired absence of other specified parts of digestive tract; Z95.5 Presence of coronary angioplasty implant and graft; Z87.01 Personal history of pneumonia (recurrent); Z98.49 Cataract extraction status, unspecified eye; Z86.718 Personal history of other venous thrombosis and embolism; Z90.710 Acquired absence of both cervix and uterus; Z91.81 History of falling; Z86.59 Personal history of other mental and behavioral disorders; Z88.8 Allergy status to other drugs, medicaments and biological substances; W01.0XXA Fall on same level from slipping, tripping and stumbling without subsequent striking against object, initial encounter; Y92.009 Unspecified place in unspecified non-institutional (private) residence as the place of occurrence of the external cause
CPT/HCPCS: 36415; 51702; 71045; 71275; 73501; 78582; 80048; 80053; 82550; 82553; 83735; 83880; 84484; 85025; 85379; 85610; 85730; 86850; 86900; 86901; 88305; 88311; 93005; 93306; 93970; 94640; 94760; 96360; 96361; 96365; 96366; 96374; 96375; 96376; 99285

== ENCOUNTER 2020-01-03 11:07 | Observation (INO) | payer MEDICARE, OTHER ==
[2020-01-03] MEDS ORDERED: SODIUM CHLORIDE 0.9% 500 ML 500 ML IV ONE (11:41)
--- NOTE | 2020-01-03 11:52 | ED ---
Altered Mental Status HPI - General Chief Complaint: Altered Mental Status Stated Complaint: Altered Mental Status Time Seen by Provider: 01/03/20 11:16 Source: family Mode of arrival: EMS Limitations: altered mental status - History of Present Illness Initial Comments: Patient is an 84-year-old female presenting to the emergency department from [facility] with complaints of altered mental status. Patient's granddaughter is here in the room and helping with history. Granddaughter states that patient is normally A&O x 3, very with it. She got a call today that patient was very sleepy, difficult to wake up. Not complaining of pain anywhere. She is able to say her name but does not answer any other questions. Granddaughter states that patient is at [facility] for CHF. There has been no falls or trauma. There is been no recent fever or chills. She denies any chest pain or shortness of breath. She is not able answer any other questions. There are no other complaints at this time. Upon arrival to the ER, patient's vital signs are stable on 3 L. - Related Data Home Medications Medication Instructions Recorded Confirmed Loratadine [Claritin] 10 mg PO DAILY 08/18/16 01/03/20 Ondansetron HCl [Zofran] 4 mg PO BID PRN 08/18/16 01/03/20 Pantoprazole [Protonix] 40 mg PO BID 08/18/16 01/03/20 allopurinoL [Zyloprim] 100 mg PO DAILY 08/18/16 01/03/20 polyethylene glycoL 3350 [Miralax] 17 gm PO DAILY 01/06/17 01/03/20 Acetaminophen Tab [Tylenol] 650 mg PO Q4H PRN 01/03/20 01/03/20 Calcium Carbonate [Tums] 500 mg PO BID 01/03/20 01/03/20 Ferrous Sulfate [Iron (65 MG 325 mg PO DAILY 01/03/20 01/03/20 Elemental)] Ipratropium-Albuterol Nebulize 3 ml INHALATION RT-Q6H PRN 01/03/20 01/03/20 [Duoneb 0.5 mg-3 mg/3 ml Soln] Levothyroxine Sodium [Synthroid] 112 mcg PO DAILY 01/03/20 01/03/20 Magnesium Hydroxide [Milk of 2,400 mg PO DAILY PRN 01/03/20 01/03/20 Magnesia] Melatonin 10 mg PO HS 01/03/20 01/03/20 Miracle Mouth Wash 15 ml PO TID 01/03/20 01/03/20 Pravastatin Sodium [Pravachol] 40 mg PO HS 01/03/20 01/03/20 Sennosides-Docusate Sodium 2 tab PO HS 01/03/20 01/03/20 [Senokot-S] Previous Rx's Medication Instructions Recorded Isosorbide Mononitrate ER [Imdur] 30 mg PO DAILY #1 tab 07/28/17 Metoprolol Succinate (ER) [Toprol 25 mg PO DAILY tab.er.24h 07/28/17 XL] Apixaban [Eliquis] 2.5 mg PO BID #0 01/05/20 Allergies Allergy/AdvReac Type Severity Reaction Status Date / Time amiodarone AdvReac Nausea Verified 01/03/20 13:03 digoxin AdvReac Nausea Verified 01/03/20 13:03 dronedarone [From Multaq] AdvReac Nausea Verified 01/03/20 13:03 metformin HCl AdvReac Nausea Verified 01/03/20 13:03 [From Glucophage] Review of Systems ROS Statement: Those systems with pertinent positive or pertinent negative responses have been documented in the HPI. ROS Other: All systems not noted in ROS Statement are negative. Past Medical History Past Medical History: Asthma, Coronary Artery Disease (CAD), COPD, Diabetes Mellitus, Deep Vein Thrombosis (DVT), Eye Disorder, GERD/Reflux, Hearing Disorder / Deafness, Hypertension, Musculoskeletal Disorder, Osteoarthritis (OA), Pneumonia, Vascular Disorder Additional Past Medical History / Comment(s): restless leg syndrome, cataracts, hx. of pneumonia, neuropathy, CHF History of Any Multi-Drug Resistant Organisms: None Reported Past Surgical History: Appendectomy, Cholecystectomy, Heart Catheterization With Stent, Hysterectomy, Pacemaker, Tubal Ligation Additional Past Surgical History / Comment(s): hemroidectomy. cataract removed. tooth extractions, Pemanent Pacemaker, Cardiac Ablation. Pacemaker - November 27, 2010 Past Anesthesia/Blood Transfusion Reactions: No Reported Reaction Date of Last Stent Placement:: 07/08/11 Type of Cardiac Device: Permanent Pacemaker Device Placement Date:: 2003 Past Psychological History: Anxiety, Depression Past Alcohol Use History: None Reported Past Drug Use History: None Reported - Past Family History Mother Family Medical History: No Reported History Father History Unknown: Yes Additional Family Medical History / Comment(s): Pt states she never knew her father. General Exam - General Exam Comments Initial Comments: GENERAL: Patient is sleeping, but arousable. HEAD: Atraumatic, normocephalic. EYES: Pupils equal round and reactive to light, extraocular movements intact, sclera anicteric, conjunctiva are normal. Eyelids were unremarkable. ENT: TMs normal, nares patent, oropharynx clear without exudates. Moist mucous membranes. NECK: Normal range of motion, supple without lymphadenopathy or JVD. LUNGS: Unlabored respirations. Breath sounds clear to auscultation bilaterally and equal. No wheezes rales or rhonchi. HEART: Regular rate and rhythm without murmurs, rubs or gallops. ABDOMEN: Soft, nontender, normoactive bowel sounds. No guarding, no rebound. No masses appreciated. : Deferred MUSCULOSKELETAL: Normal extremities with adequate strength and normal range of motion, no pitting or edema. No clubbing or cyanosis. NEUROLOGICAL: Patient is alert and oriented x 1. PSYCH: Normal mood, normal affect. SKIN: Warm, Dry, normal turgor, no rashes or lesions noted. Limitations: altered mental status Course Vital Signs 01/03/20 01/03/20 01/03/20 11:09 13:50 15:35 Temperature 97.3 F L 97.4 F L Pulse Rate 69 67 68 Respiratory 18 18 18 Rate Blood Pressure 106/73 107/53 O2 Sat by Pulse 100 100 100 Oximetry Medical Decision Making - Medical Decision Making Patient is an 84-year-old female presenting from [facility] for altered mental status. Her vital signs are stable. EKG shows no acute process. Lab work shows a normal white count, hemoglobin is stable. Patient's kidney function is slightly elevated creatinine is 1.63, lactic acid is 1.6, troponin is 0.021. Urine does not show signs of infection at this time. Chest x-ray does show congestive heart failure with pleural effusions. CT of the brain shows no acute intracranial process. Patient was reassessed, still seems slightly altered, fatigued. Patient will be admitted for altered mental status. Patient admitted to Dr. Chavez. Case discussed with Dr. Alcala. - Lab Data Result diagrams: 01/03/20 12:25 01/05/20 06:53 Lab Results 01/03/20 01/03/20 01/03/20 Range/Units 12:25 12:25 12:25 WBC 6.3 (3.8-10.6) k/uL RBC 3.28 L (3.80-5.40) m/uL Hgb 10.1 L (11.4-16.0) gm/dL Hct 34.9 (34.0-46.0) % MCV 106.3 H (80.0-100.0) fL MCH 30.7 (25.0-35.0) pg MCHC 28.9 L (31.0-37.0) g/dL RDW 16.3 H (11.5-15.5) % Plt Count 102 L (150-450) k/uL Neutrophils % 74 % Lymphocytes % 11 % Monocytes % 7 % Eosinophils % 3 % Basophils % 1 % Neutrophils # 4.7 (1.3-7.7) k/uL Lymphocytes # 0.7 L (1.0-4.8) k/uL Monocytes # 0.4 (0-1.0) k/uL Eosinophils # 0.2 (0-0.7) k/uL Basophils # 0.1 (0-0.2) k/uL Manual Slide Review Performed Polychromasia Present Hypochromasia Marked Poikilocytosis Slight Anisocytosis Slight Macrocytosis Marked A PT 11.9 (9.0-12.0) sec INR 1.2 H (<1.2) APTT 23.5 (22.0-30.0) sec Sodium 139 (137-145) mmol/L Potassium 5.3 H (3.5-5.1) mmol/L Chloride 104 (98-107) mmol/L Carbon Dioxide 29 (22-30) mmol/L Anion Gap 6 mmol/L BUN 32 H (7-17) mg/dL Creatinine 1.63 H (0.52-1.04) mg/dL Est GFR (CKD-EPI)AfAm 33 (>60 ml/min/1.73 sqM) Est GFR (CKD-EPI)NonAf 28 (>60 ml/min/1.73 sqM) Glucose 103 H (74-99) mg/dL Plasma Lactic Acid Stanislav (0.7-2.0) mmol/L Calcium 9.7 (8.4-10.2) mg/dL Total Bilirubin 0.5 (0.2-1.3) mg/dL AST 41 H (14-36) U/L ALT 30 (4-34) U/L Alkaline Phosphatase 138 H (38-126) U/L Troponin I (0.000-0.034) ng/mL Total Protein 6.1 L (6.3-8.2) g/dL Albumin 3.7 (3.5-5.0) g/dL TSH (0.465-4.680) mIU/L Urine Color Urine Appearance (Clear) Urine pH (5.0-8.0) Ur Specific [place] (1.001-1.035) Urine Protein (Negative) Urine Glucose (UA) (Negative) Urine Ketones (Negative) Urine Blood (Negative) Urine Nitrite (Negative) Urine Bilirubin (Negative) Urine Urobilinogen (<2.0) mg/dL Ur Leukocyte Esterase (Negative) Urine RBC (0-5) /hpf Urine WBC (0-5) /hpf Ur Squamous Epith Cells (0-4) /hpf Hyaline Casts (0-2) /lpf Granular Casts (0) /lpf Urine Mucus (None) /hpf Urine Opiates Screen (NotDetected) Ur Oxycodone Screen (NotDetected) Urine Methadone Screen (NotDetected) Ur Propoxyphene Screen (NotDetected) Ur Barbiturates Screen (NotDetected) U Tricyclic Antidepress (NotDetected) Ur Phencyclidine Scrn (NotDetected) Ur Amphetamines Screen (NotDetected) U Methamphetamines Scrn (NotDetected) U Benzodiazepines Scrn (NotDetected) Urine Cocaine Screen (NotDetected) U Marijuana (THC) Screen (NotDetected) 01/03/20 01/03/20 01/03/20 Range/Units 12:25 12:25 12:25 WBC (3.8-10.6) k/uL RBC (3.80-5.40) m/uL Hgb (11.4-16.0) gm/dL Hct (34.0-46.0) % MCV (80.0-100.0) fL MCH (25.0-35.0) pg MCHC (31.0-37.0) g/dL RDW (11.5-15.5) % Plt Count (150-450) k/uL Neutrophils % % Lymphocytes % % Monocytes % % Eosinophils % % Basophils % % Neutrophils # (1.3-7.7) k/uL Lymphocytes # (1.0-4.8) k/uL Monocytes # (0-1.0) k/uL Eosinophils # (0-0.7) k/uL Basophils # (0-0.2) k/uL Manual Slide Review Polychromasia Hypochromasia Poikilocytosis Anisocytosis Macrocytosis PT (9.0-12.0) sec INR (<1.2) APTT (22.0-30.0) sec Sodium (137-145) mmol/L Potassium (3.5-5.1) mmol/L Chloride (98-107) mmol/L Carbon Dioxide (22-30) mmol/L Anion Gap mmol/L BUN (7-17) mg/dL Creatinine (0.52-1.04) mg/dL Est GFR (CKD-EPI)AfAm (>60 ml/min/1.73 sqM) Est GFR (CKD-EPI)NonAf (>60 ml/min/1.73 sqM) Glucose (74-99) mg/dL Plasma Lactic Acid Stanislav 1.6 (0.7-2.0) mmol/L Calcium (8.4-10.2) mg/dL Total Bilirubin (0.2-1.3) mg/dL AST (14-36) U/L ALT (4-34) U/L Alkaline Phosphatase (38-126) U/L Troponin I 0.021 (0.000-0.034) ng/mL Total Protein (6.3-8.2) g/dL Albumin (3.5-5.0) g/dL TSH 2.020 (0.465-4.680) mIU/L Urine Color Urine Appearance (Clear) Urine pH (5.0-8.0) Ur Specific [place] (1.001-1.035) Urine Protein (Negative) Urine Glucose (UA) (Negative) Urine Ketones (Negative) Urine Blood (Negative) Urine Nitrite (Negative) Urine Bilirubin (Negative) Urine Urobilinogen (<2.0) mg/dL Ur Leukocyte Esterase (Negative) Urine RBC (0-5) /hpf Urine WBC (0-5) /hpf Ur Squamous Epith Cells (0-4) /hpf Hyaline Casts (0-2) /lpf Granular Casts (0) /lpf Urine Mucus (None) /hpf Urine Opiates Screen (NotDetected) Ur Oxycodone Screen (NotDetected) Urine Methadone Screen (NotDetected) Ur Propoxyphene Screen (NotDetected) Ur Barbiturates Screen (NotDetected) U Tricyclic Antidepress (NotDetected) Ur Phencyclidine Scrn (NotDetected) Ur Amphetamines Screen (NotDetected) U Methamphetamines Scrn (NotDetected) U Benzodiazepines Scrn (NotDetected) Urine Cocaine Screen (NotDetected) U Marijuana (THC) Screen (NotDetected) 01/03/20 Range/Units 13:35 WBC (3.8-10.6) k/uL RBC (3.80-5.40) m/uL Hgb (11.4-16.0) gm/dL Hct (34.0-46.0) % MCV (80.0-100.0) fL MCH (25.0-35.0) pg MCHC (31.0-37.0) g/dL RDW (11.5-15.5) % Plt Count (150-450) k/uL Neutrophils % % Lymphocytes % % Monocytes % % Eosinophils % % Basophils % % Neutrophils # (1.3-7.7) k/uL Lymphocytes # (1.0-4.8) k/uL Monocytes # (0-1.0) k/uL Eosinophils # (0-0.7) k/uL Basophils # (0-0.2) k/uL Manual Slide Review Polychromasia Hypochromasia Poikilocytosis Anisocytosis Macrocytosis PT (9.0-12.0) sec INR (<1.2) APTT (22.0-30.0) sec Sodium (137-145) mmol/L Potassium (3.5-5.1) mmol/L Chloride (98-107) mmol/L Carbon Dioxide (22-30) mmol/L Anion Gap mmol/L BUN (7-17) mg/dL Creatinine (0.52-1.04) mg/dL Est GFR (CKD-EPI)AfAm (>60 ml/min/1.73 sqM) Est GFR (CKD-EPI)NonAf (>60 ml/min/1.73 sqM) Glucose (74-99) mg/dL Plasma Lactic Acid Stanislav (0.7-2.0) mmol/L Calcium (8.4-10.2) mg/dL Total Bilirubin (0.2-1.3) mg/dL AST (14-36) U/L ALT (4-34) U/L Alkaline Phosphatase (38-126) U/L Troponin I (0.000-0.034) ng/mL Total Protein (6.3-8.2) g/dL Albumin (3.5-5.0) g/dL TSH (0.465-4.680) mIU/L Urine Color Yellow Urine Appearance Clear (Clear) Urine pH 6.0 (5.0-8.0) Ur Specific [place] 1.027 (1.001-1.035) Urine Protein 1+ H (Negative) Urine Glucose (UA) Negative (Negative) Urine Ketones Negative (Negative) Urine Blood Small H (Negative) Urine Nitrite Negative (Negative) Urine Bilirubin Negative (Negative) Urine Urobilinogen <2.0 (<2.0) mg/dL Ur Leukocyte Esterase Negative (Negative) Urine RBC 6 H (0-5) /hpf Urine WBC 8 H (0-5) /hpf Ur Squamous Epith Cells <1 (0-4) /hpf Hyaline Casts 136 H (0-2) /lpf Granular Casts 1 (0) /lpf Urine Mucus Occasional H (None) /hpf Urine Opiates Screen Detected H (NotDetected) Ur Oxycodone Screen Not Detected (NotDetected) Urine Methadone Screen Not Detected (NotDetected) Ur Propoxyphene Screen Not Detected (NotDetected) Ur Barbiturates Screen Not Detected (NotDetected) U Tricyclic Antidepress Not Detected (NotDetected) Ur Phencyclidine Scrn Not Detected (NotDetected) Ur Amphetamines Screen Not Detected (NotDetected) U Methamphetamines Scrn Not Detected (NotDetected) U Benzodiazepines Scrn Not Detected (NotDetected) Urine Cocaine Screen Not Detected (NotDetected) U Marijuana (THC) Screen Not Detected (NotDetected) - EKG Data EKG Comments: EKG shows wide QRS, left axis deviation, nonspecific intraventricular block, nonspecific T-wave changes. Similar to previous EKG on 07/22/2017. Ventricular rate 78, QRS duration 156, QTC 460. Disposition Clinical Impression: Altered mental status Disposition: ADMITTED IP TO THIS [facility] Condition: Stable Decision Date: 01/03/20 Decision Time: 14:28
[2020-01-03 12:36] LABS: Anisocytosis Slight; Basophils # (A) 0.1 k/uL (0-0.2); Basophils % (A) 1 %; Eosinophils # (A) 0.2 k/uL (0-0.7); Eosinophils % (A) 3 %; HCT 34.9 % (34.0-46.0); HGB 10.1 gm/dL (11.4-16.0); Hypochromasia Marked; Lymphocytes # (A) 0.7 k/uL (1.0-4.8); Lymphocytes % (A) 11 %; MCH 30.7 pg (25.0-35.0); MCHC 28.9 g/dL (31.0-37.0); MCV 106.3 fL (80.0-100.0); Macrocytosis Marked; Mean Platelet Volume 10.6; Monocytes # (A) 0.4 k/uL (0-1.0); Monocytes % (A) 7 %; Neutrophils # (A) 4.7 k/uL (1.3-7.7); Neutrophils % (A) 74 %; Platelet Count 102 k/uL (150-450); Poikilocytosis Slight; RBC 3.28 m/uL (3.80-5.40); RDW 16.3 % (11.5-15.5); WBC 6.3 k/uL (3.8-10.6)
[2020-01-03 12:44] LABS: INR 1.2 (<1.2); Partial Thromboplastin Time 23.5 sec (22.0-30.0); Prothrombin Time 11.9 sec (9.0-12.0)
[2020-01-03 12:46] LABS: Albumin 3.7 g/dL (3.5-5.0); Calcium 9.7 mg/dL (8.4-10.2); Potassium 5.3 mmol/L (3.5-5.1); Total Bilirubin 0.5 mg/dL (0.2-1.3); Total Protein 6.1 g/dL (6.3-8.2)
--- NOTE | 2020-01-03 13:05 | XR ---
EXAMINATION TYPE: XR chest 2V DATE OF EXAM: 01/03/2020 COMPARISON: Prior chest x-ray 07/28/2017 HISTORY: Altered mental status TECHNIQUE: Frontal and lateral views of the chest are obtained. FINDINGS: The heart is enlarged. Central vascularity and interstitium are increased. There are bibas ilar effusions. No evident pneumothorax. Pacemaker is stable. Aorta is dense. IMPRESSION: Congestive heart failure with pleural effusions.
[2020-01-03 13:17] LABS: Polychromasia Present
--- NOTE | 2020-01-03 13:30 | CT ---
EXAMINATION TYPE: CT brain wo con DATE OF EXAM: 01/03/2020 COMPARISON: None HISTORY: 84-year-old female confusion, AMS. PT combative. TECHNIQUE: Examination was done in axial plane without intravenous contrast. Coronal and sagittal r econstructions performed. CT DLP: 1322.4 mGycm Automated exposure control for dose reduction was used. FINDINGS: There is no evidence of acute intracranial hemorrhage, acute ischemic changes, mass, mass-effect, or extra-axial fluid collection. There is no effacement of cerebral sulci or basal subarachnoid cister ns. There is no hydrocephalus. There is no midline shift. Ovalle-white matter distinction is preserv ed. Mild generalized supratentorial volume loss. Small air-fluid levels within the sphenoid sinuses. Mast oid air cells are well pneumatized. Rightward nasal septal deviation. IMPRESSION: Mild generalized atrophy. No acute intracranial abnormality seen. Small air-fluid levels in the sphenoid sinuses. Correlate for any symptoms of acute sinusitis.
[2020-01-03 13:59] LABS: Appearance,Urine Clear (Clear); Bilirubin,Urine Negative (Negative); Blood,Urine Small (Negative); Color,Urine Yellow; Glucose,Urine (UA) Negative (Negative); Granular Casts,Urine 1 /lpf (0); Hyaline Casts,Urine 136 /lpf (0-2); Ketones,Urine Negative (Negative); Leukocyte Esterase,Urine Negative (Negative); Mucus,Urine Occasional /hpf; Nitrite,Urine Negative (Negative); Protein,Urine 1+ (Negative); RBC,Urine 6 /hpf (0-5); Specific Gravity,Urine 1.027 (1.001-1.035); Squamous Epithelial Cell,Urine <1 /hpf (0-4); Urobilinogen,Urine <2.0 mg/dL (<2.0); WBC,Urine 8 /hpf (0-5)
[2020-01-03 14:17] LABS: Amphetamine Screen,Urine Not Detected (NotDetected); Barbiturate Screen,Urine Not Detected (NotDetected); Benzodiazepines Screen,Urine Not Detected (NotDetected); Cocaine Screen,Urine Not Detected (NotDetected); Methadone Screen, Urine Not Detected (NotDetected); Opiate Screen,Urine Detected (NotDetected); Oxycodone Screen, Urine Not Detected (NotDetected); Phencyclidine Screen,Urine Not Detected (NotDetected); Tricyclic Antidepressant,Urine Not Detected (NotDetected); Urn Cannabinoid Scrn Not Detected (NotDetected)
[2020-01-03] MEDS ORDERED: ONDANSETRON 4 MG/2 ML VIAL IVP PRN (14:23)
[2020-01-03] MEDS ORDERED: NALOXONE 0.4 MG/ML 1 ML VIAL IV PRN (14:23)
[2020-01-03] MEDS: SODIUM CHLORIDE 0.9% 1,000 ML IV SCH (14:45)
[2020-01-03] MEDS ORDERED: ONDANSETRON 4 MG TAB PO PRN (17:41)
[2020-01-03] MEDS ORDERED: HYDROcodone/APAP 10-325MG 1 EACH TAB PO PRN (17:41)
[2020-01-03] MEDS ORDERED: MAGNESIUM HYDROXIDE 2,400 MG/10 ML CUP PO PRN (17:41)
[2020-01-03] MEDS ORDERED: IPRATROPIUM-ALBUTEROL 3 ML NEB INHALATION PRN (18:37)
[2020-01-03] MEDS ORDERED: rOPINIRole HCL 4 MG TABLET PO SCH (20:00)
[2020-01-03] MEDS: PRAVASTATIN SODIUM 40 MG TAB PO SCH (20:21)
[2020-01-03] MEDS: CALCIUM CARBONATE 500 MG CHEWABLE PO SCH (20:26)
[2020-01-03] MEDS: MELATONIN 5 MG TABLET PO SCH (20:26)
[2020-01-03] MEDS: SENNOSIDES-DOCUSATE SODIUM 1 EACH TAB PO SCH (20:26)
[2020-01-03] MEDS: PANTOPRAZOLE 40 MG TABLET PO SCH (20:30)
[2020-01-03] MEDS ORDERED: APIXABAN 2.5 MG TABLET PO SCH (21:00)
[2020-01-03] MEDS ORDERED: GABAPENTIN 300 MG CAP PO SCH (21:00)
--- NOTE | 2020-01-04 01:09 | HP ---
HISTORY AND PHYSICAL An 84-year-old white female, altered mental status, came in from [facility] with altered mental status. [facility] She had been very sleepy and obtunded, difficulty waking up last 24 hours. She has been at the rehab center for CHF. No fevers, chills, , cough production or shortness of breath. The patient was not able to answer any questions in the ER or move around. Patient has poor hearing, but she is feeling a little bit better at this time. His vitals are stable on 3 L. HOME MEDICATIONS: 1. Zyloprim 100 daily. 2. Claritin 10 daily. 3. Zofran 4 mg b.i.d. p.r.n. 4. Protonix 40 mg b.i.d. 5. Tylenol. 6. MiraLAX p.r.n. Medications see list. REVIEW OF SYSTEMS: Fourteen-point review of systems is negative. Chest x-ray shows CHF. ALLERGIES: AMIODARONE, DIGOXIN, GLUCOPHAGE, MULTAQ. PAST MEDICAL HISTORY: Asthma, coronary artery disease, COPD, diabetes mellitus, DVT, GERD, hypertension, musculoskeletal disorder, osteoarthritis, community-acquired pneumonia, vascular disorder, hemorrhoidectomy, cataract repair, permanent pacemaker, cardiac ablation. FAMILY HISTORY: Mother and father unknown. PHYSICAL EXAMINATION: VITAL SIGNS: Stable, afebrile. CARDIOVASCULAR: S1, S2. LUNGS: Clear. PSYCH: Fair mood and affect. BUN 32, creatinine 1.63. Hemoglobin is 10.1. ASSESSMENT: 1. Dehydration. 2. Prerenal renal insufficiency. 3. Altered mental status. 4. Congestive heart failure. 5. Nonspecific intraventricular block. Start metformin, Lasix. Prognosis guarded. MMODL / IJN: [id number] /
[2020-01-04] MEDS: LEVOTHYROXINE 112 MCG TAB PO SCH (05:41)
[2020-01-04] MEDS: CALCIUM CARBONATE 500 MG CHEWABLE PO SCH ×2 (07:54→21:19)
[2020-01-04] MEDS: allopurinoL 100 MG TAB PO SCH (07:54)
[2020-01-04] MEDS: PANTOPRAZOLE 40 MG TABLET PO SCH ×2 (07:54→17:08)
[2020-01-04] MEDS: LORATADINE 10 MG TAB PO SCH (07:55)
[2020-01-04] MEDS: ISOSORBIDE MONONITRATE ER 30 MG TAB.ER.24H PO SCH (07:55)
[2020-01-04] MEDS: polyethylene glycoL 3350 17 GM POWD.PACK PO SCH (07:55)
[2020-01-04] MEDS: FERROUS SULFATE 325 MG TAB PO SCH (07:55)
[2020-01-04] MEDS: METOPROLOL SUCCINATE (ER) 25 MG TAB.ER.24H PO SCH (07:55)
[2020-01-04] MEDS: SODIUM CHLORIDE 0.9% 1,000 ML IV SCH (07:56)
[2020-01-04] MEDS: FUROSEMIDE 10 MG/ML 2 ML VIAL IV SCH (09:57)
--- NOTE | 2020-01-04 12:31 | P.CNPUL ---
History of Present Illness Consult date: 01/04/20 Reason for consult: dyspnea, pleural effusion Chief complaint: Increase somnolence History of present illness: This is a 84-year-old pleasant female who was seen eval reexamined on medical floor for evaluation of pleural effusion, patient has been admitted to hospital with the altered mental status from [facility], baseline she has been awake and alert, however she is extremely hard of hearing, patient has acute onset of confusion and difficulty in arousing from sleep at [facility] brought into the hospital for further evaluation patient does have a history of congestive heart failure however patient denies any chest pain shortness of breath cough or sputum production, patient on arrival in the emergency department noted to be stable on 3 L oxygen, she has been on anticoagulation for deep venous thrombosis also had multiple comorbidity including COPD, coronary artery disease, diabetes mellitus, GERD, hypertension hypertensive cardiovascular disease and prior history of pneumonia, the x-ray performed in the emergency department revealed cardiomegaly very small tiny pleural effusion, stable pacemaker, overall findings suggestive of CHF-like changes, her EKG wide QRS rhythm likely left bundle branch block, QT interval well slightly prolonged, labs showed normal WBC count slight thrombocytopenia macrocytosis with macrocytic anemia, normal coags with the slightly elevated percussion level his stage III chronic kidney disease, BNP level elevated to 5840, covid 19 testing is negative, some opiates were seen in the urine drug screen, Review of Systems All systems: negative Past Medical History Past Medical History: Asthma, Coronary Artery Disease (CAD), COPD, Diabetes Mellitus, Deep Vein Thrombosis (DVT), Eye Disorder, GERD/Reflux, Hearing Disorder / Deafness, Hypertension, Musculoskeletal Disorder, Osteoarthritis (OA), Pneumonia, Vascular Disorder Additional Past Medical History / Comment(s): restless leg syndrome, cataracts, hx. of pneumonia, neuropathy, CHF History of Any Multi-Drug Resistant Organisms: None Reported Past Surgical History: Appendectomy, Cholecystectomy, Heart Catheterization With Stent, Hysterectomy, Pacemaker, Tubal Ligation Additional Past Surgical History / Comment(s): hemroidectomy. cataract removed. tooth extractions, Pemanent Pacemaker, Cardiac Ablation. Pacemaker - November 27, 2010 Past Anesthesia/Blood Transfusion Reactions: No Reported Reaction Date of Last Stent Placement:: 07/08/11 Type of Cardiac Device: Permanent Pacemaker Device Placement Date:: 2003 Past Psychological History: Anxiety, Depression Additional Psychological History / Comment(s): Pt resides with her spouse and their adult son lives with them. Son works during the day. She ambulates with a walker and is currently wearing a R Breg boot. She manages her own medicat ions and performs her own ADLs with minimal assist lately d/t patellar fracture. She no longer drives, her fernando, Iveth takes her to appts and is very supportive. Smoking Status: Former smoker Past Alcohol Use History: None Reported Past Drug Use History: None Reported - Past Family History Mother Family Medical History: No Reported History Father History Unknown: Yes Additional Family Medical History / Comment(s): Pt states she never knew her father. Medications and Allergies Home Medications Medication Instructions Recorded Confirmed Type Allopurinol [Zyloprim] 100 mg PO DAILY 08/18/16 01/03/20 History Loratadine [Claritin] 10 mg PO DAILY 08/18/16 01/03/20 History Ondansetron HCl [Zofran] 4 mg PO BID PRN 08/18/16 01/03/20 History Pantoprazole [Protonix] 40 mg PO BID 08/18/16 01/03/20 History Polyethylene Glycol 3350 [Miralax] 17 gm PO DAILY 01/06/17 01/03/20 History Isosorbide Mononitrate ER [Imdur] 30 mg PO DAILY #1 tab 07/28/17 01/03/20 Rx Metoprolol Succinate (ER) [Toprol 25 mg PO DAILY tab.er.24h 07/28/17 01/03/20 Rx XL] Acetaminophen Tab [Tylenol] 650 mg PO Q4H PRN 01/03/20 01/03/20 History Apixaban [Eliquis] 2.5 mg PO HS 01/03/20 01/03/20 History Calcium Carbonate [Tums] 500 mg PO BID 01/03/20 01/03/20 History Ferrous Sulfate [Feosol] 325 mg PO DAILY 01/03/20 01/03/20 History Gabapentin [Neurontin] 300 mg PO HS 01/03/20 01/03/20 History HYDROcodone/APAP 10-325MG [[place] 1 tab PO Q8H PRN 01/03/20 01/03/20 History 10-325] Ipratropium-Albuterol Nebulize 3 ml INHALATION RT-Q6H PRN 01/03/20 01/03/20 History [Duoneb 0.5 mg-3 mg/3 ml Soln] Levothyroxine Sodium [Synthroid] 112 mcg PO DAILY 01/03/20 01/03/20 History Magnesium Hydroxide [Milk of 2,400 mg PO DAILY PRN 01/03/20 01/03/20 History Magnesia] Melatonin 10 mg PO HS 01/03/20 01/03/20 History Miracle Mouth Wash 15 ml PO TID 01/03/20 01/03/20 History Pravastatin Sodium [Pravachol] 40 mg PO HS 01/03/20 01/03/20 History Sennosides-Docusate Sodium 2 tab PO HS 01/03/20 01/03/20 History [Senokot-S] rOPINIRole HCL [Requip] 4 mg PO HS@199901/03/20 01/03/20 History Allergies Allergy/AdvReac Type Severity Reaction Status Date / Time amiodarone AdvReac Nausea Verified 01/03/20 13:03 digoxin AdvReac Nausea Verified 01/03/20 13:03 dronedarone [From Multaq] AdvReac Nausea Verified 01/03/20 13:03 metformin HCl AdvReac Nausea Verified 01/03/20 13:03 [From Glucophage] Physical Exam Vitals: Vital Signs Temp Pulse Pulse Resp BP BP Pulse Ox 01/04/20 11:36 97.4 F L 69 17 95/54 95 01/04/20 08:00 70 22 01/04/20 07:45 73 01/04/20 07:35 80 01/04/20 05:00 97.5 F L 69 22 105/71 98 01/03/20 20:43 97.4 F L 74 18 92/63 94 L 01/03/20 16:12 97.8 F 55 L 18 95/64 90 L 01/03/20 15:35 97.4 F L 68 18 107/53 100 01/03/20 13:50 67 18 100 Intake and Output 01/03/20 01/04/20 01/04/20 22:59 06:59 14:59 Intake Total 150 380 240 Output Total 500 Balance 150 -120 240 Intake: Intake, IV Titration 50 80 Amount Sodium Chloride 0.9% 1, 80 000 ml @ 60 mls/hr IV . [id number] [facility] Rx#:[id number] cefTRIAXone 1 gm In 50 Sodium Chloride 0.9% 50 ml @ 100 mls/hr IVPB Q24HR [facility] Rx#:[id number] Oral 100 300 240 Output: Urine 500 Uretheral (Wagoner) 500 Other: Voiding Method Toilet Diaper Diaper Diaper Incontinent Incontinent - Constitutional General appearance: average body habitus, cooperative, disheveled - EENT Eyes: EOMI, PERRLA ENT: hard of hearing Ears: bilateral: normal - Neck Neck: normal ROM Carotids: bilateral: upstroke normal Thyroid: bilateral: normal size - Respiratory Respiratory: bilateral: CTA - Cardiovascular Rhythm: regular Heart sounds: normal: S1, S2 - Gastrointestinal General gastrointestinal: normal bowel sounds - Integumentary Integumentary: normal turgor - Neurologic Neurologic: CNII-XII intact - Musculoskeletal Musculoskeletal: gait normal, generalized weakness, strength equal bilaterally - Psychiatric Psychiatric: A&O x's 3, appropriate affect, intact judgment & insight Results - Laboratory Findings CBC and BMP: 01/03/20 12:25 01/03/20 12:25 PT/INR, D-dimer PT 11.9 sec (9.0-12.0) 01/03/20 12:25 INR 1.2 (<1.2) H 01/03/20 12:25 Abnormal lab findings: Abnormal Labs 01/03/20 01/03/20 01/03/20 12:25 12:25 12:25 RBC 3.28 L Hgb 10.1 L MCV 106.3 H MCHC 28.9 L RDW 16.3 H Plt Count 102 L Lymphocytes # 0.7 L Macrocytosis Marked A INR 1.2 H Potassium 5.3 H BUN 32 H Creatinine 1.63 H Glucose 103 H AST 41 H Alkaline Phosphatase 138 H Total Protein 6.1 L Urine Protein Urine Blood Urine RBC Urine WBC Hyaline Casts Urine Mucus Urine Opiates Screen 01/03/20 13:35 RBC Hgb MCV MCHC RDW Plt Count Lymphocytes # Macrocytosis INR Potassium BUN Creatinine Glucose AST Alkaline Phosphatase Total Protein Urine Protein 1+ H Urine Blood Small H Urine RBC 6 H Urine WBC 8 H Hyaline Casts 136 H Urine Mucus Occasional H Urine Opiates Screen Detected H - Diagnostic Findings Chest x-ray: report reviewed, image reviewed (Finding as noted above) Assessment and Plan Assessment: Bilateral pleural effusion likely related to exacerbation of CHF Altered mental status multifactorial process may be drug-related recommend to avoid opiates and benzodiazepine Acute exacerbation of CHF likely acute on chronic diastolic heart failure Mild early UTI Chronic kidney disease stage III Left bundle-branch block and prolonged QT interval well Plan: Continue supportive care, maximize treatment for heart failure, broad-spectrum antibiotics however can be discontinued after a three-day course monitor mental status closely avoid benzodiazepine and narcotics, further recommendations pending plan of care as per clinical response of patient Time with Patient: Greater than 30
--- NOTE | 2020-01-04 12:38 | P.CRDCN ---
History of Present Illness History of present illness: HISTORY OF PRESENTING ILLNESS This is a pleasant 84-year-old female past medical history significant for diabetes mellitus, hypertension, gastroesophageal reflux disease, COPD, per manent pacemaker implantation, ablation and coronary artery disease. 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 She is a poor historian with altered mental status, information is obtained from the medical record and nursing staff. We have been asked to see in consultation for congestive heart failure. She was sent to the hospital from [facility] secondary to altered mental status. Apparently she is usually alert and oriented 3 and very with it. She is seen in examined sitting up sleeping in bed in no acute distress. She looks quite comfortable. She is confused and not responding appropriately when questioned. DIAGNOSTICS EKG reveals dual chamber paced rhythm with underlying atrial fibrillation. Chest xray reveals congestive heart failure with pleural effusions. CT of the brain reveals generalized atrophy with no acute intracranial abnormality. Laboratory reviewed, WBC 6.3, hemoglobin 10.1, platelets 102, INR 1.2, sodium 139, potassium 5.3, creatinine 1.63 with a GFR of 28, alkaline phosphate 138, troponin negative 1, and T proBNP 5840 and TSH 2.02. Current cardiac medications include pravastatin 40 mg at bedtime, Toprol 25 mg daily, Imdur 30 mg daily and Eliquis 2.5 mg at bedtime. Most recent echocardiogram obtained in 2018 reveals preserved LV systolic function with ejection fraction 55-60%, severely dilated left atrium, mild MR, moderate-severe TR and borderline pulmonary hypertension RVSP 34 mmHg. REVIEW OF SYSTEMS At the time of my exam: Unable to obtain accurate review of systems secondary to altered mental status. PHYSICAL EXAMINATION Blood pressure 95/54 heart rate 69 afebrile and maintaining oxygen saturation on room air. CONSTITUTIONAL: No apparent distress. HEENT: Head is normocephalic. Pupils are equal, round. Sclerae anicteric. Mucous membranes of the mouth are moist. Minimal bilateral JVD. No carotid bruit. CHEST EXAMINATION: Lungs are clear to auscultation. No chest wall tenderness is noted on palpation or with deep breathing. Diminished bilaterally. Difficult to ausculate the bases due to pt non-compliance. HEART EXAMINATION: Regular rate and rhythm. S1, S2 heard. No murmurs, gallops or rub. ABDOMEN: Soft, nontender. Positive bowel sounds. EXTREMITIES: 2+ peripheral pulses, no lower extremity edema and no calf tenderness. 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 Initiate lasix 20 mg IV daily. Follow renal function and electrolytes in the morning. Document accurate intake and output along with daily weights. Increase Eliquis 2 twice a day dosing for optimal thromboembolic protection. Further recommendations to follow based upon clinical course. Thank you kindly for this consultation. Nurse Practitioner note has been reviewed, I agree with a documented findings and plan of care. Patient was seen and examined. Past Medical History Past Medical History: Asthma, Coronary Artery Disease (CAD), COPD, Diabetes Mellitus, Deep Vein Thrombosis (DVT), Eye Disorder, GERD/Reflux, Hearing Disorder / Deafness, Hypertension, Musculoskeletal Disorder, Osteoarthritis (OA), Pneumonia, Vascular Disorder Additional Past Medical History / Comment(s): restless leg syndrome, cataracts, hx. of pneumonia, neuropathy, CHF History of Any Multi-Drug Resistant Organisms: None Reported Past Surgical History: Appendectomy, Cholecystectomy, Heart Catheterization With Stent, Hysterectomy, Pacemaker, Tubal Ligation Additional Past Surgical History / Comment(s): hemroidectomy. cataract removed. tooth extractions, Pemanent Pacemaker, Cardiac Ablation. Pacemaker - November 27, 2010 Past Anesthesia/Blood Transfusion Reactions: No Reported Reaction Date of Last Stent Placement:: 07/08/11 Type of Cardiac Device: Permanent Pacemaker Device Placement Date:: 2003 Past Psychological History: Anxiety, Depression Additional Psychological History / Comment(s): Pt resides with her spouse and their adult son lives with them. Son works during the day. She ambulates with a walker and is currently wearing a R Breg boot. She manages her own medications and performs her own ADLs with minimal assist lately d/t patellar fracture. She no longer drives, her fernando, Iveth takes her to [employer] and is very supportive. Smoking Status: Former smoker Past Alcohol Use History: None Reported Past Drug Use History: None Reported - Past Family History Mother Family Medical History: No Reported History Father History Unknown: Yes Additional Family Medical History / Comment(s): Pt states she never knew her father. Medications and Allergies Home Medications Medication Instructions Recorded Confirmed Type Allopurinol [Zyloprim] 100 mg PO DAILY 08/18/16 01/03/20 History Loratadine [Claritin] 10 mg PO DAILY 08/18/16 01/03/20 History Ondansetron HCl [Zofran] 4 mg PO BID PRN 08/18/16 01/03/20 History Pantoprazole [Protonix] 40 mg PO BID 08/18/16 01/03/20 History Polyethylene Glycol 3350 [Miralax] 17 gm PO DAILY 01/06/17 01/03/20 History Isosorbide Mononitrate ER [Imdur] 30 mg PO DAILY #1 tab 07/28/17 01/03/20 Rx Metoprolol Succinate (ER) [Toprol 25 mg PO DAILY tab.er.24h 07/28/17 01/03/20 Rx XL] Acetaminophen Tab [Tylenol] 650 mg PO Q4H PRN 01/03/20 01/03/20 History Apixaban [Eliquis] 2.5 mg PO HS 01/03/20 01/03/20 History Calcium Carbonate [Tums] 500 mg PO BID 01/03/20 01/03/20 History Ferrous Sulfate [Feosol] 325 mg PO DAILY 01/03/20 01/03/20 History Gabapentin [Neurontin] 300 mg PO HS 01/03/20 01/03/20 History HYDROcodone/APAP 10-325MG [[place] 1 tab PO Q8H PRN 01/03/20 01/03/20 History 10-325] Ipratropium-Albuterol Nebulize 3 ml INHALATION RT-Q6H PRN 01/03/20 01/03/20 History [Duoneb 0.5 mg-3 mg/3 ml Soln] Levothyroxine Sodium [Synthroid] 112 mcg PO DAILY 01/03/20 01/03/20 History Magnesium Hydroxide [Milk of 2,400 mg PO DAILY PRN 01/03/20 01/03/20 History Magnesia] Melatonin 10 mg PO HS 01/03/20 01/03/20 History Miracle Mouth Wash 15 ml PO TID 01/03/20 01/03/20 History Pravastatin Sodium [Pravachol] 40 mg PO HS 01/03/20 01/03/20 History Sennosides-Docusate Sodium 2 tab PO HS 01/03/20 01/03/20 History [Senokot-S] rOPINIRole HCL [Requip] 4 mg PO HS@199901/03/20 01/03/20 History Allergies Allergy/AdvReac Type Severity Reaction Status Date / Time amiodarone AdvReac Nausea Verified 01/03/20 13:03 digoxin AdvReac Nausea Verified 01/03/20 13:03 dronedarone [From Multaq] AdvReac Nausea Verified 01/03/20 13:03 metformin HCl AdvReac Nausea Verified 01/03/20 13:03 [From Glucophage] Physical Exam Vitals: Vital Signs Temp Pulse Pulse Resp BP BP Pulse Ox 01/04/20 05:00 97.5 F L 69 22 105/71 98 01/03/20 20:43 97.4 F L 74 18 92/63 94 L 01/03/20 16:12 97.8 F 55 L 18 95/64 90 L 01/03/20 15:35 97.4 F L 68 18 107/53 100 01/03/20 13:50 67 18 100 01/03/20 11:09 97.3 F L 69 18 106/73 100 Intake and Output 01/03/20 01/04/20 01/04/20 22:59 06:59 14:59 Intake Total 150 380 240 Output Total 500 Balance 150 -120 240 Intake: Intake, IV Titration 50 80 Amount Sodium Chloride 0.9% 1, 80 000 ml @ 60 mls/hr IV . [id number] [facility] Rx#:[id number] cefTRIAXone 1 gm In 50 Sodium Chloride 0.9% 50 ml @ 100 mls/hr IVPB Q24HR [facility] Rx#:[id number] Oral 100 300 240 Output: Urine 500 Uretheral ([place]agoner) 500 Other: Voiding Method Toilet Diaper Diaper Incontinent Results 01/03/20 12:25 01/03/20 12:25 Cardiac Enzymes 01/03/20 01/03/20 Range/Units 12:25 12:25 AST 41 H (14-36) U/L Troponin I 0.021 (0.000-0.034) ng/mL Coagulation 01/03/20 Range/Units 12:25 PT 11.9 (9.0-12.0) sec APTT 23.5 (22.0-30.0) sec CBC 01/03/20 Range/Units 12:25 WBC 6.3 (3.8-10.6) k/uL RBC 3.28 L (3.80-5.40) m/uL Hgb 10.1 L (11.4-16.0) gm/dL Hct 34.9 (34.0-46.0) % Plt Count 102 L (150-450) k/uL Comprehensive Metabolic Panel 01/03/20 Range/Units 12:25 Sodium 139 (137-145) mmol/L Potassium 5.3 H (3.5-5.1) mmol/L Chloride 104 (98-107) mmol/L Carbon Dioxide 29 (22-30) mmol/L BUN 32 H (7-17) mg/dL Creatinine 1.63 H (0.52-1.04) mg/dL Glucose 103 H (74-99) mg/dL Calcium 9.7 (8.4-10.2) mg/dL AST 41 H (14-36) U/L ALT 30 (4-34) U/L Alkaline Phosphatase 138 H (38-126) U/L Total Protein 6.1 L (6.3-8.2) g/dL Albumin 3.7 (3.5-5.0) g/dL Current Medications Generic Name Dose Route Start Last Admin Trade Name Freq PRN Reason Stop Dose Admin Hydrocodone Bitart/Acetaminophen 1 each 01/03/20 17:41 [place] 10 PO Q8H PRN Pain Albuterol/Ipratropium 3 ml 01/03/20 18:37 Duoneb 0.5 Mg-3 Mg/3 Ml Soln INHALATION RT-Q6H PRN Shortness Of Breath Or Wheezing Allopurinol 100 mg 01/04/20 09:00 01/04/20 07:54 Zyloprim PO 100 mg DAILY FINN Administration Apixaban 2.5 mg 01/03/20 21:00 01/03/20 20:26 Eliquis PO 2.5 mg HS FINN Administration Calcium Carbonate/Glycine 500 mg 01/03/20 21:00 01/04/20 07:54 Tums PO 500 mg BID FINN Administration Ferrous Sulfate 325 mg 01/04/20 09:00 01/04/20 07:55 Feosol PO 325 mg DAILY FINN Administration Furosemide 20 mg 01/04/20 09:45 01/04/20 09:57 Lasix IV 20 mg DAILY FINN Administration Gabapentin 300 mg 01/03/20 21:00 01/03/20 20:26 Neurontin PO 300 mg HS FINN Administration Sodium Chloride 1,000 mls @ 60 mls/hr 01/03/20 14:30 01/04/20 07:56 Saline 0.9% IV Not Given .[id number] FINN Ceftriaxone Sodium 1 gm/ 50 mls @ 100 mls/hr 01/03/20 18:45 01/04/20 07:55 Sodium Chloride IVPB 100 mls/hr Q24HR FINN Administration Isosorbide Mononitrate 30 mg 01/04/20 09:00 01/04/20 07:55 Imdur PO 30 mg DAILY FINN Administration Levothyroxine Sodium 112 mcg 01/04/20 06:30 01/04/20 05:41 Synthroid PO 112 mcg DAILY@0630 FINN Administration Loratadine 10 mg 01/04/20 09:00 01/04/20 07:55 Claritin PO 10 mg DAILY FINN Administration Magnesium Hydroxide 2,400 mg 01/03/20 17:41 Milk Of Magnesia PO DAILY PRN Constipation Melatonin 10 mg 01/03/20 21:00 01/03/20 20:26 Melatonin PO 10 mg HS FINN Administration Metoprolol Succinate 25 mg 01/04/20 09:00 01/04/20 07:55 Toprol Xl PO 25 mg DAILY FINN Administration Naloxone HCl 0.2 mg 01/03/20 14:23 Narcan IV Q2M PRN Opioid Reversal Ondansetron HCl 4 mg 01/03/20 14:23 Zofran IVP Q8HR PRN Nausea And Vomiting Ondansetron HCl 4 mg 01/03/20 17:41 Zofran PO BID PRN Nausea Pantoprazole Sodium 40 mg 01/03/20 21:00 01/04/20 07:54 Protonix PO 40 mg AC-BID FINN Administration Polyethylene Glycol 17 gm 01/04/20 09:00 01/04/20 07:55 Miralax PO 17 gm DAILY FINN Administration Pravastatin Sodium 40 mg 01/03/20 21:00 01/03/20 20:21 Pravachol PO 40 mg HS FINN Administration Ropinirole HCl 4 mg 01/03/20 20:00 01/03/20 20:20 Requip PO 4 mg HS@2000 FINN Administration Senna/Docusate Sodium 2 each 01/03/20 21:00 01/03/20 20:26 Senokot-S PO 2 each HS FINN Administration Intake and Output 01/03/20 01/04/20 01/04/20 22:59 06:59 14:59 Intake Total 150 380 240 Output Total 500 Balance 150 -120 240 Intake: Intake, IV Titration 50 80 Amount Sodium Chloride 0.9% 1, 80 000 ml @ 60 mls/hr IV . [id number] [facility] Rx#:[id number] cefTRIAXone 1 gm In 50 Sodium Chloride 0.9% 50 ml @ 100 mls/hr IVPB Q24HR [facility] Rx#:[id number] Oral 100 300 240 Output: Urine 500 Uretheral ([place]agon[place]) 500 Other: Voiding Method Toilet Diaper Diaper Incontinent 01/03/20 12:25 01/03/20 12:25
--- NOTE | 2020-01-04 13:43 | PN ---
PROGRESS NOTE Came in for altered mental status and decreased . Seen by Dr. Porter, pulmonology today for pleural effusions. She remains sleepy and obtunded. Cardiovascular: S1, S2. Lungs show decreased breath sounds at the bases. Psych: Sleepy, lethargic. Hematology: 2+ edema. ASSESSMENT AND PLAN: 1. Bilateral pleural effusion due to congestive heart failure. Await for Cardiology recommendations. 2. Hallucinative medicines. 3. Mild early urinary tract infection. 4. Chronic kidney disease stage 3. 5. Left bundle branch block. 6. Prolonged QT. 7. Avoid any medicines that would make her sleepy. 8. Prognosis guarded. 9. Await for further neurologic workup and cardiology recommendations. MMODL / IJN: [id number] /
--- NOTE | 2020-01-04 18:34 | P.CNNES ---
History of Present Illness Consult date: 01/04/20 Requesting physician: Tony Chavez Reason for Consult: Altered mental status History of Present Illness: Patient is a 84-year-old female was brought to the ED from [facility] with complaints of altered mental status. Patient is normally alert and oriented 3. Patient is extremely hard of hearing. Patient's great granddaughter was present, who helped with communication. Patient great granddaughter states that she was recently admitted to the hospital for worsening swelling of the feet, and CHF. After few days, she was transferred to [facility], about a week ago. While in [facility], patient was noted to act confused, did not know who she was, and where she was an hard time waking up. This was a change than her usual. Per patient's Great granddaughter, patient's memory is fine with no signs of dementia otherwise. Per her great granddaughter, this morning when she came, patient was sleeping hard, not able to be aroused. Afterwards she woke up, but shortly after she again went to sleep. Now she is fully alert and awake, back to baseline. Patient states that at present nothing is hurting. However when she gets up and walks, then her left leg starts hurting. No report of slurred speech, facial droop or any strokelike symptoms. Patient does complain of feet hurting. Patient lives with her grandson. Patient able to walk around in the house with her walker. He has limited mobility otherwise at baseline. Patient came to the hospital yesterday at 11:07 AM. Her blood pressure on arrival was 106/73, temperature 97.3. Patient underwent CT head showed mild generalized atrophy. No acute intracranial process. Small air-fluid levels in the sphenoid sinuses. Correlate for any symptoms of acute sinusitis. Chest x- ray showed cardiac failure with pleural effusion. EKG shows wide QRS rhythm. Left axis deviation. Nonspecific intraventricular block. Possible left atrial infarct, age undetermined. Her blood test shows WBC 6.3 hemoglobin 10.1, with elevated MCV 106.3. Platelets are 102. INR is 1.2, sodium is normal potassium 5.3, BUN 32 creatinine 1.63. AST mildly elevated 41, normal ALT. TSH normal. Urine drug screen positive for opiate. Patient at home has been on allopurinol 100 mg, Apixaban 2.5 mg daily ferrous sulfate, gabapentin 300 mg at bedtime, isosorbide, levothyroxine, loratadine, melatonin 10 mg, metoprolol ER 25 mg pravastatin 40 mg Requip 4 mg at bedtime, calcium carbonate Protonix, [place] 10/325 mg every 8 hours when necessary Review of Systems Complains of feet hurting, left leg pain. Some shortness of breath. Denies headache problem with the vision. Patient is very hard of hearing. Denies hoarseness sore throat dysphagia. Denies any chest pain, abdominal pain nausea vomiting diarrhea. All other review of systems unremarkable. Patient has peripheral edema. Complains of needing glasses for vision otherwise no loss of vision. Past Medical History Past Medical History: Asthma, Coronary Artery Disease (CAD), COPD, Diabetes Mellitus, Deep Vein Thrombosis (DVT), Eye Disorder, GERD/Reflux, Hearing Disorder / Deafness, Hypertension, Musculoskeletal Disorder, Osteoarthritis (OA), Pneumonia, Vascular Disorder Additional Past Medical History / Comment(s): restless leg syndrome, cataracts, hx. of pneumonia, neuropathy, CHF History of Any Multi-Drug Resistant Organisms: None Reported Past Surgical History: Appendectomy, Cholecystectomy, Heart Catheterization With Stent, Hysterectomy, Pacemaker, Tubal Ligation Additional Past Surgical History / Comment(s): hemroidectomy. cataract removed. tooth extractions, Pemanent Pacemaker, Cardiac Ablation. Pacemaker - November 27, 2010 Past Anesthesia/Blood Transfusion Reactions: No Reported Reaction Date of Last Stent Placement:: 07/08/11 Type of Cardiac Device: Permanent Pacemaker Device Placement Date:: 2003 Past Psychological History: Anxiety, Depression Additional Psychological History / Comment(s): Pt resides with her spouse and their adult son lives with them. Son works during the day. She ambulates with a walker and is currently wearing a R Breg boot. She manages her own medications and performs her own ADLs with minimal assist lately d/t patellar fracture. She no longer drives, her fernando, Iveth takes her to [employer] and is very supportive. Smoking Status: Former smoker Past Alcohol Use History: None Reported Past Drug Use History: None Reported - Past Family History Mother Family Medical History: No Reported History Father History Unknown: Yes Additional Family Medical History / Comment(s): Pt states she never knew her father. Medications and Allergies Home Medications Medication Instructions Recorded Confirmed Type Allopurinol [Zyloprim] 100 mg PO DAILY 08/18/16 01/03/20 History Loratadine [Claritin] 10 mg PO DAILY 08/18/16 01/03/20 History Ondansetron HCl [Zofran] 4 mg PO BID PRN 08/18/16 01/03/20 History Pantoprazole [Protonix] 40 mg PO BID 08/18/16 01/03/20 History Polyethylene Glycol 3350 [Miralax] 17 gm PO DAILY 01/06/17 01/03/20 History Isosorbide Mononitrate ER [Imdur] 30 mg PO DAILY #1 tab 07/28/17 01/03/20 Rx Metoprolol Succinate (ER) [Toprol 25 mg PO DAILY tab.er.24h 07/28/17 01/03/20 Rx XL] Acetaminophen Tab [Tylenol] 650 mg PO Q4H PRN 01/03/20 01/03/20 History Apixaban [Eliquis] 2.5 mg PO HS 01/03/20 01/03/20 History Calcium Carbonate [Tums] 500 mg PO BID 01/03/20 01/03/20 History Ferrous Sulfate [Feosol] 325 mg PO DAILY 01/03/20 01/03/20 History Gabapentin [Neurontin] 300 mg PO HS 01/03/20 01/03/20 History HYDROcodone/APAP 10-325MG [[place] 1 tab PO Q8H PRN 01/03/20 01/03/20 History 10-325] Ipratropium-Albuterol Nebulize 3 ml INHALATION RT-Q6H PRN 01/03/20 01/03/20 History [Duoneb 0.5 mg-3 mg/3 ml Soln] Levothyroxine Sodium [Synthroid] 112 mcg PO DAILY 01/03/20 01/03/20 History Magnesium Hydroxide [Milk of 2,400 mg PO DAILY PRN 01/03/20 01/03/20 History Magnesia] Melatonin 10 mg PO HS 01/03/20 01/03/20 History Miracle Mouth Wash 15 ml PO TID 01/03/20 01/03/20 History Pravastatin Sodium [Pravachol] 40 mg PO HS 01/03/20 01/03/20 History Sennosides-Docusate Sodium 2 tab PO HS 01/03/20 01/03/20 History [Senokot-S] rOPINIRole HCL [Requip] 4 mg PO HS@199901/03/20 01/03/20 History Allergies Allergy/AdvReac Type Severity Reaction Status Date / Time amiodarone AdvReac Nausea Verified 01/03/20 13:03 digoxin AdvReac Nausea Verified 01/03/20 13:03 dronedarone [From Multaq] AdvReac Nausea Verified 01/03/20 13:03 metformin HCl AdvReac Nausea Verified 01/03/20 13:03 [From Glucophage] Physical Examination - Vital Signs Vital Signs: Vital Signs Temp Pulse Pulse Resp BP BP Pulse Ox 01/04/20 08:00 70 22 01/04/20 07:45 73 01/04/20 07:35 80 01/04/20 05:00 97.5 F L 69 22 105/71 98 01/03/20 20:43 97.4 F L 74 18 92/63 94 L 01/03/20 16:12 97.8 F 55 L 18 95/64 90 L 01/03/20 15:35 97.4 F L 68 18 107/53 100 01/03/20 13:50 67 18 100 Intake and Output 01/03/20 01/04/20 01/04/20 22:59 06:59 14:59 Intake Total 150 380 240 Output Total 500 Balance 150 -120 240 Intake: Intake, IV Titration 50 80 Amount Sodium Chloride 0.9% 1, 80 000 ml @ 60 mls/hr IV . [id number] FINN Rx#:[id number] cefTRIAXone 1 gm In 50 Sodium Chloride 0.9% 50 ml @ 100 mls/hr IVPB Q24HR FINN Rx#:[id number] Oral 100 300 240 Output: Urine 500 Uretheral (Wagoner) 500 Other: Voiding Method Toilet Diaper Diaper Diaper Incontinent Incontinent On examination patient is an elderly female, in no acute distress. Patient is alert and awake, fairly oriented. Patient states it's November and the year is 2019. She knows it is [facility]. Speech is hoarse but no aphasia or dysarthria. Patient is extremely hard of hearing. Patient not lip reading, but she can read written commands well. On cranial nerves admission pupils are round and reacting to light, visual erickson are full, extraocular muscles are intact. Face is symmetric and tongue protrudes the midline. Palatal elevation sensation normal. Hearing is severely decreased shoulder shrug normal on muscle strength testing the strength is normal in the arms and legs distally and proximally except hip flexion which is 4+ on the right, 4-le ft. Ankles and toes are normal. Patient has possible some skin abrasion over the knuckles of the toes, and also some redness, a few blisters in the left lower leg region. Reflexes are diminished and plantars are downgoing. Sensory touch is equal. No ataxia for celajv-ag-uvum testing. Tone and bulk of muscles normal. Gait deferred. There is no carotid bruit, S1 and S2 audible. Mild peripheral edema. Patient has redness of the distal left leg, rule out cellulitis. Results - Laboratory Findings CBC and BMP: 01/03/20 12:25 01/03/20 12:25 Abnormal Lab Findings: Abnormal Labs 01/03/20 01/03/20 01/03/20 12:25 12:25 12:25 RBC 3.28 L Hgb 10.1 L MCV 106.3 H MCHC 28.9 L RDW 16.3 H Plt Count 102 L Lymphocytes # 0.7 L Macrocytosis Marked A INR 1.2 H Potassium 5.3 H BUN 32 H Creatinine 1.63 H Glucose 103 H AST 41 H Alkaline Phosphatase 138 H Total Protein 6.1 L Urine Protein Urine Blood Urine RBC Urine WBC Hyaline Casts Urine Mucus Urine Opiates Screen 01/03/20 13:35 RBC Hgb MCV MCHC RDW Plt Count Lymphocytes # Macrocytosis INR Potassium BUN Creatinine Glucose AST Alkaline Phosphatase Total Protein Urine Protein 1+ H Urine Blood Small H Urine RBC 6 H Urine WBC 8 H Hyaline Casts 136 H Urine Mucus Occasional H Urine Opiates Screen Detected H Assessment and Plan Assessment: * Altered mental status, likely due to metabolic encephalopathy. Exact cause is uncertain, probably multifactorial, probably related to pain medications, mild anemia, CHF with pleural effusion, and renal insufficiency. Rule out other metabolic reasons. * CHF * CAD * Pacemaker * Diabetes * Hypertension * Hard of hearing. Plan: * Patient's mentation at this time appears back to normal, as per patient's great-granddaughter, who was present today. We will perform serial neurological examination. * Your medical management for treatment of other medical conditions. * Patient has macrocytosis. We will check B12, folate. TSH is normal.
[2020-01-04] MEDS: APIXABAN 2.5 MG TABLET PO SCH (21:19)
[2020-01-04] MEDS: PRAVASTATIN SODIUM 40 MG TAB PO SCH (21:19)
[2020-01-04] MEDS: SENNOSIDES-DOCUSATE SODIUM 1 EACH TAB PO SCH (21:19)
[2020-01-04] MEDS: MELATONIN 5 MG TABLET PO SCH (21:20)
[2020-01-05] MEDS: SODIUM CHLORIDE 0.9% 1,000 ML IV SCH ×2 (01:57→15:58)
[2020-01-05 05:26] VITALS: TEMP 97.5
[2020-01-05] MEDS: LEVOTHYROXINE 112 MCG TAB PO SCH (06:01)
[2020-01-05] MEDS: ISOSORBIDE MONONITRATE ER 30 MG TAB.ER.24H PO SCH (07:17)
[2020-01-05] MEDS: METOPROLOL SUCCINATE (ER) 25 MG TAB.ER.24H PO SCH (07:17)
[2020-01-05] MEDS: LORATADINE 10 MG TAB PO SCH (07:17)
[2020-01-05] MEDS: PANTOPRAZOLE 40 MG TABLET PO SCH ×2 (07:18→15:59)
[2020-01-05] MEDS: FERROUS SULFATE 325 MG TAB PO SCH (07:18)
[2020-01-05] MEDS: CALCIUM CARBONATE 500 MG CHEWABLE PO SCH (07:18)
[2020-01-05] MEDS: allopurinoL 100 MG TAB PO SCH (07:18)
[2020-01-05] MEDS: FUROSEMIDE 10 MG/ML 2 ML VIAL IV SCH (07:18)
[2020-01-05] MEDS: polyethylene glycoL 3350 17 GM POWD.PACK PO SCH (07:18)
[2020-01-05] MEDS: APIXABAN 2.5 MG TABLET PO SCH (07:18)
[2020-01-05 08:33] LABS: Calcium 9.1 mg/dL (8.4-10.2); Potassium 5.1 mmol/L (3.5-5.1)
--- NOTE | 2020-01-05 10:37 | ECHOF ---
Referral Reason:sob MEASUREMENTS -------- HEIGHT: 165.1 cm WEIGHT: 75.8 kg BP: 105/71 RVIDd: 3.6 cm (< 3.3) IVSd: 1.3 cm (0.6 - 1.1) LVIDd: 4.4 cm (3.9 - 5.3) LVPWd: 2.0 cm (0.6 - 1.1) IVSs: 1.3 cm LVIDs: 4.1 cm LVPWs: 1.9 cm LA Diam: 5.9 cm (2.7 - 3.8) LAESV Index (A-L): 53.56 ml/m Ao Diam: 3.2 cm (2.0 - 3.7) AV Cusp: 1.8 cm (1.5 - 2.6) LA Diam: 4.7 cm (2.7 - 3.8) MV EXCURSION: 18.351 mm (> 18.000) MV EF SLOPE: 85 mm/s (70 - 150) EPSS: 0.5 cm MV E Nelson: 0.84 m/s MV DecT: 200 ms MV A Nelson: 0.32 m/s MV E/A Ratio: 2.62 RAP: 15.00 mmHg RVSP: 65.28 mmHg FINDINGS -------- Sinus rhythm. This was a technically good study. The left ventricular size is normal. There is borderline concentric left ventricular hypertrophy. Overall left ventricular systolic function is low-normal with, an EF between 50 - 55 %. suboptimal study. difficult to evaluate for wall motion abnormalities The right ventricle is moderately enlarged. The left atrium is markedly dilated. LA is severely dilated >40 ml/m2 The right atrium is moderately enlarged. There is mild aortic valve sclerosis. There is mild aortic regurgitation. Ywvjqosc-si-xtwmzl mitral regurgitation is present. Severe tricuspid regurgitation present. There is severe pulmonary hypertension. The right ventric ular systolic pressure, as measured by Doppler, is 65.28mmHg. Trace/mild (physiologic) pulmonic regurgitation. The aortic root size is normal. There is a small, generalized pericardial effusion present. CONCLUSIONS -------- 1. Sinus rhythm. 2. This was a technically good study. 3. The left ventricular size is normal. 4. There is borderline concentric left ventricular hypertrophy. 5. suboptimal study. difficult to evaluate for wall motion abnormalities 6. The right ventricle is moderately enlarged. 7. The left atrium is markedly dilated. 8. LA is severely dilated >40 ml/m2 9. The right atrium is moderately enlarged. 10. There is mild aortic valve sclerosis. 11. There is mild aortic regurgitation. 12. Huchxobm-gf-ziotgc mitral regurgitation is present. 13. Severe tricuspid regurgitation present. 14. There is severe pulmonary hypertension. 15. The right ventricular systolic pressure, as measured by Doppler, is 65.28mmHg. 16. Trace/mild (physiologic) pulmonic regurgitation. 17. There is a small, generalized pericardial effusion present. PASSENGER REPRESENTATIVE: Jennifer Scherer RDCS
--- NOTE | 2020-01-05 13:34 | P.PN ---
Subjective HISTORY OF PRESENTING ILLNESS This is a pleasant 84-year-old female past medical history significant for diabetes mellitus, hypertension, gastroesophageal reflux disease, COPD, permanent pacemaker implantation, ablation and coronary artery disease. She follows with a rail washer out of town. Her mentation has improved this morning. She states she seems to be feeling better. Echocardiogram obtained revealed preserved LV systolic function with EF 50-55%, moderate-severe MR and severe pulmonary hypertension with RVSP 65 mmHg. Blood pressure 105/68 heart rate 70 afebrile maintaining oxygen saturation on nasal cannula. Laboratory data reviewed, sodium 136, potassium 5.1, creatinine 1.48. Maintaining negative fluid balance. PHYSICAL EXAMINATION CONSTITUTIONAL: No apparent distress. HEENT: Head is normocephalic. Pupils are equal, round. Sclerae anicteric. Mucous membranes of the mouth are moist. Minimal bilateral JVD. No carotid bruit. CHEST EXAMINATION: Lungs are clear to auscultation. No chest wall tenderness is noted on palpation or with deep breathing. Diminished bilaterally. Difficult to ausculate the bases due to pt non-compliance. HEART EXAMINATION: Regular rate and rhythm. S1, S2 heard. No murmurs, gallops or rub. EXTREMITIES: 2+ peripheral pulses, no lower extremity edema and no calf tenderness. ASSESSMENT Altered mental status, improved. 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 Of note, she never complained of shortness of breath or had any respiratory distress. We can discontinue the IV lasix. Nurse Practitioner note has been reviewed, I agree with a documented findings and plan of care. Patient was seen and examined. Objective - Vital Signs Vital signs: Vital Signs Temp 97.5 F L 01/05/20 05:00 Pulse 70 01/05/20 08:00 Resp 16 01/05/20 08:00 BP 105/68 01/05/20 05:00 Pulse Ox 99 01/05/20 05:00 Intake & Output 01/04/20 01/05/20 01/05/20 18:59 06:59 18:59 Intake Total 480 Output Total 650 400 Balance -170 -400 Weight 78.3 kg Intake: Oral 480 Output: Urine 650 400 Other: Voiding Method Diaper Indwelling Catheter Indwelling Catheter Incontinent - Labs CBC & Chem 7: 01/03/20 12:25 01/05/20 06:53 Labs: Abnormal Lab Results - Last 24 Hours (Table) 01/05/20 Range/Units 06:53 Sodium 136 L (137-145) mmol/L BUN 38 H (7-17) mg/dL Creatinine 1.48 H (0.52-1.04) mg/dL Glucose 108 H (74-99) mg/dL
[2020-01-05 13:43] VITALS: BP 110/62; PULSE 68; RESP 18
--- NOTE | 2020-01-05 15:36 | P.DS ---
Providers Date of admission: 01/03/20 14:34 Expected date of discharge: 01/05/20 Attending physician: Tony Chavez Consults: 01/03/20 18:39 Consult Physician Routine Consulting Provider: Carl Cuevas Consult Reason/Comments: chf Do you want consulting provider notified?: Yes 01/03/20 18:40 Consult Physician Routine Consulting Provider: Rip Zeng Consult Reason/Comments: ams Do you want consulting provider notified?: Yes 01/03/20 18:41 Consult Physician Routine Consulting Provider: Kuldip Porter Consult Reason/Comments: pleural effusions Do you want consulting provider notified?: Yes Primary care physician: [facility] Course: Final Diagnoses Altered mental status, acute metabolic encephalopathy, etiology unclear, probably multifactorial secondary to pain medications, improved. Acute on chronic diastolic CHF exacerbation Bilateral pleural effusions secondary to the above Moderate to severe mitral regurgitation Severe pulmonary hypertension Hyperkalemia Acute renal failure Chronic kidney disease, stage III Mild early acute UTI, completed antibiotic therapy Thrombocytopenia CAD Paroxysmal atrial fibrillation Permanent pacemaker Hospital course is a 84-year-old female admitted with multiple medical issues. Evaluated by both pulmonary, neuro and cardiovascular. Diuresed on IV Lasix with no Lasix recommended at discharge as per cardiology. Sensorium improved. Echo reporting normal LV function, EF 5055%, moderate to severe mitral regurg and severe pulmonary hypertension . Completed 3 days of IV antibiotics, treatment completed as per bobbin sorter. Avoid benzodiazepines and narcotics. Significant clinical improvement. Cleared by all consults for discharge. Patient is being discharged to [facility] in a stable condition with guarded prognosis. Please refer to EMR for further details. The impression and plan of care has been dictated as directed. : I performed a history and examination of this patient, discussed the same with the dictator. I agree with the dictator's note ,documented as a scribe. Any additional findings or plans will be noted. Patient Condition at Discharge: Stable Plan - Discharge Summary Discharge Rx Participant: No New Discharge Prescriptions: Continue Ondansetron HCl [Zofran] 4 mg PO BID PRN PRN Reason: Nausea Loratadine [Claritin] 10 mg PO DAILY allopurinoL [Zyloprim] 100 mg PO DAILY Pantoprazole [Protonix] 40 mg PO BID polyethylene glycoL 3350 [Miralax] 17 gm PO DAILY Metoprolol Succinate (ER) [Toprol XL] 25 mg PO DAILY tab.er.24h Isosorbide Mononitrate ER [Imdur] 30 mg PO DAILY #1 tab Miracle Mouth Wash 15 ml PO TID Acetaminophen Tab [Tylenol] 650 mg PO Q4H PRN PRN Reason: Mild Pain Calcium Carbonate [Tums] 500 mg PO BID Ferrous Sulfate [Iron (65 MG Elemental)] 325 mg PO DAILY Ipratropium-Albuterol Nebulize [Duoneb 0.5 mg-3 mg/3 ml Soln] 3 ml INHALATION RT-Q6H PRN PRN Reason: Shortness Of Breath Or Wheezing Levothyroxine Sodium [Synthroid] 112 mcg PO DAILY Magnesium Hydroxide [Milk of Magnesia] 2,400 mg PO DAILY PRN PRN Reason: Shortness Of Breath Melatonin 10 mg PO HS Pravastatin Sodium [Pravachol] 40 mg PO HS Sennosides-Docusate Sodium [Senokot-S] 2 tab PO HS Changed Apixaban [Eliquis] 2.5 mg PO BID #0 Discontinued Gabapentin [Neurontin] 300 mg PO HS HYDROcodone/APAP 10-325MG [[place] 10-325] 1 tab PO Q8H PRN PRN Reason: Pain rOPINIRole HCL [Requip] 4 mg PO HS@2000 Discharge Medication List Loratadine [Claritin] 10 mg PO DAILY 08/18/16 [History] Ondansetron HCl [Zofran] 4 mg PO BID PRN 08/18/16 [History] Pantoprazole [Protonix] 40 mg PO BID 08/18/16 [History] allopurinoL [Zyloprim] 100 mg PO DAILY 08/18/16 [History] polyethylene glycoL 3350 [Miralax] 17 gm PO DAILY 01/06/17 [History] Isosorbide Mononitrate ER [Imdur] 30 mg PO DAILY #1 tab 07/28/17 [Rx] Metoprolol Succinate (ER) [Toprol XL] 25 mg PO DAILY tab.er.24h 07/28/17 [Rx] Acetaminophen Tab [Tylenol] 650 mg PO Q4H PRN 01/03/20 [History] Calcium Carbonate [Tums] 500 mg PO BID 01/03/20 [History] Ferrous Sulfate [Iron (65 MG Elemental)] 325 mg PO DAILY 01/03/20 [History] Ipratropium-Albuterol Nebulize [Duoneb 0.5 mg-3 mg/3 ml Soln] 3 ml INHALATION RT-Q6H PRN 01/03/20 [History] Levothyroxine Sodium [Synthroid] 112 mcg PO DAILY 01/03/20 [History] Magnesium Hydroxide [Milk of Magnesia] 2,400 mg PO DAILY PRN 01/03/20 [History] Melatonin 10 mg PO HS 01/03/20 [History] Miracle Mouth Wash 15 ml PO TID 01/03/20 [History] Pravastatin Sodium [Pravachol] 40 mg PO HS 01/03/20 [History] Sennosides-Docusate Sodium [Senokot-S] 2 tab PO HS 01/03/20 [History] Apixaban [Eliquis] 2.5 mg PO BID #0 01/05/20 [Rx] Follow up Appointment(s)/Referral(s): Kit Hale MD [Primary Care Provider] - 3 Days Ambulatory/Diagnostic Orders: Complete Blood Count w/diff [LAB.AMB] Time Frame: 3 Days, Location: None Selected Activity/Diet/Wound Care/Special Instructions: comfirm cardiology F/U apt. prior to DC Discharge Disposition: HOME WITH HOME HEALTH SERVICES
--- NOTE | 2020-01-05 15:38 | P.PN ---
Subjective Progress Note Date: 01/05/20 Principal diagnosis: Bilateral pleural effusion likely related to exacerbation of CHF Altered mental status multifactorial process may be drug-related recommend to avoid opiates and benzodiazepine Acute exacerbation of CHF likely acute on chronic diastolic heart failure Mild early UTI Chronic kidney disease stage III Left bundle-branch block and prolonged QT interval well 11/05/2019, patient seen eval examined during the rounds labs reviewed medications reviewed care plan discussed with the patient, denies any cough or sputum production denies any chest pain breathing has been good patient is being planned for possible placement in ECF later on today mental status is back to baseline, son present at bedside This is a 84-year-old pleasant female who was seen eval reexamined on medical floor for evaluation of pleural effusion, patient has been admitted to hospital with the altered mental status from ECF, baseline she has been awake and alert, however she is extremely hard of hearing, patient has acute onset of confusion and difficulty in arousing from sleep at ECF brought into the hospital for further evaluation patient does have a history of congestive heart failure however patient denies any chest pain shortness of breath cough or sputum production, patient on arrival in the emergency department noted to be stable on 3 L oxygen, she has been on anticoagulation for deep venous thrombosis also had multiple comorbidity including COPD, coronary artery disease, diabetes mellitus, GERD, hypertension hypertensive cardiovascular disease and prior history of pneumonia, the x-ray performed in the emergency department revealed cardiomegaly very small tiny pleural effusion, stable pacemaker, overall findings suggestive of CHF-like changes, her EKG wide QRS rhythm likely left bundle branch block, QT interval well slightly prolonged, labs showed normal WBC count slight thrombocytopenia macrocytosis with macrocytic anemia, normal coags with the slightly elevated percussion level his stage III chronic kidney disease, BNP level elevated to 5840, covid 19 testing is negative, some opiates were seen in the urine drug screen, Objective - Vital Signs Vital signs: Vital Signs Temp 97.5 F L 01/05/20 13:00 Pulse 68 01/05/20 13:00 Resp 18 01/05/20 13:00 BP 110/62 01/05/20 13:00 Pulse Ox 99 01/05/20 05:00 Intake & Output 01/04/20 01/05/20 01/05/20 18:59 06:59 18:59 Intake Total 480 240 Output Total 650 400 Balance -170 -400 240 Weight 78.3 kg Intake: Oral 480 240 Output: Urine 650 400 Other: Voiding Method Diaper Indwelling Catheter Indwelling Catheter Incontinent - Exam - Constitutional General appearance: average body habitus, cooperative, disheveled - EENT Eyes: EOMI, PERRLA ENT: hard of hearing Ears: bilateral: normal - Neck Neck: normal ROM Carotids: bilateral: upstroke normal Thyroid: bilateral: normal size - Respiratory Respiratory: bilateral: CTA - Cardiovascular Rhythm: regular Heart sounds: normal: S1, S2 - Gastrointestinal General gastrointestinal: normal bowel sounds - Integumentary Integumentary: normal turgor - Neurologic Neurologic: CNII-XII intact - Musculoskeletal Musculoskeletal: gait normal, generalized weakness, strength equal bilaterally - Psychiatric Psychiatric: A&O x's 3, appropriate affect, intact judgment & insight - Labs CBC & Chem 7: 01/03/20 12:25 01/05/20 06:53 Labs: Abnormal Lab Results - Last 24 Hours (Table) 01/05/20 Range/Units 06:53 Sodium 136 L (137-145) mmol/L BUN 38 H (7-17) mg/dL Creatinine 1.48 H (0.52-1.04) mg/dL Glucose 108 H (74-99) mg/dL Assessment and Plan Assessment: Bilateral tiny pleural effusion likely related to exacerbation of CHF Altered mental status multifactorial process may be drug-related recommend to avoid opiates and benzodiazepine, significantly improved now Acute exacerbation of CHF likely acute on chronic diastolic heart failure Mild early UTI Chronic kidney disease stage III Left bundle-branch block and prolonged QT interval well Plan: Continue supportive care, maximize treatment for heart failure, broad-spectrum antibiotics however can be discontinued after a three-day course monitor, patient can be discharged from pulmonary standpoint, observe mental status closely avoid benzodiazepine and narcotics, further recommendations pending plan of care as per clinical response of patient Time with Patient: Greater than 30
[2020-01-05 16:40] LABS: Folate, Serum 7.8 ng/mL
== END 2020-01-05 17:50 | disposition home health service (06) ==
LOC: EC 11:07 → 5NMEDONC 14:34
PROVIDERS: ADMIT Family Medicine; ATTEND Family Medicine
DX: G93.41 Metabolic encephalopathy (principal); I13.0 Hypertensive heart and chronic kidney disease with heart failure and stage 1 through stage 4 chronic kidney disease, or unspecified chronic kidney disease; E11.22 Type 2 diabetes mellitus with diabetic chronic kidney disease; E11.40 Type 2 diabetes mellitus with diabetic neuropathy, unspecified; I50.9 Heart failure, unspecified; N17.9 Acute kidney failure, unspecified; N18.3 Chronic kidney disease, stage 3 (moderate); I25.10 Atherosclerotic heart disease of native coronary artery without angina pectoris; I11.0 Hypertensive heart disease with heart failure; J44.9 Chronic obstructive pulmonary disease, unspecified; Z86.718 Personal history of other venous thrombosis and embolism; K21.9 Gastro-esophageal reflux disease without esophagitis; H91.90 Unspecified hearing loss, unspecified ear; M19.90 Unspecified osteoarthritis, unspecified site; Z87.01 Personal history of pneumonia (recurrent); G25.81 Restless legs syndrome; Z90.49 Acquired absence of other specified parts of digestive tract; Z95.5 Presence of coronary angioplasty implant and graft; Z90.710 Acquired absence of both cervix and uterus; Z95.0 Presence of cardiac pacemaker; I34.0 Nonrheumatic mitral (valve) insufficiency; I27.20 Pulmonary hypertension, unspecified; E87.5 Hyperkalemia; N39.0 Urinary tract infection, site not specified; D69.6 Thrombocytopenia, unspecified; I48.0 Paroxysmal atrial fibrillation; Z79.01 Long term (current) use of anticoagulants; Z79.890 Hormone replacement therapy; Z79.899 Other long term (current) drug therapy; Z88.8 Allergy status to other drugs, medicaments and biological substances; R40.0 Somnolence; R41.0 Disorientation, unspecified
CPT/HCPCS: 96376; 96365; 96375; 99285; 51702; 36415; 94640; 93005; 93306; 97162; 84425; 83880; 80053; 80048; 84443; 82607; 82746; 83605; 84484; 85025; 85610; 85730; 81001; 80306; 87086; 71046; 70450; G0378 ×3; U0003; J1940 ×2; J0696 ×3

== ENCOUNTER 2020-01-16 12:55 | Inpatient (IN) | payer MEDICARE, OTHER ==
[2020-01-16] MEDS ORDERED: IPRATROPIUM 0.5 MG/2.5 ML NEBU INHALATION STA (13:27)
[2020-01-16] MEDS ORDERED: ALBUTEROL NEBULIZED 2.5 MG/3 ML INHALATION STA (13:27)
[2020-01-16] MEDS ORDERED: methylPREDNISolone SOD SUCCI 125 MG/2 ML VIAL IV STA (13:27)
--- NOTE | 2020-01-16 13:37 | ED ---
General Adult HPI - General Chief complaint: Altered Mental Status Stated complaint: Altered Mental Time Seen by Provider: 01/16/20 13:00 Source: patient, EMS, RN notes reviewed, old records reviewed Mode of arrival: EMS Limitations: no limitations, physical limitation (Patient cannot hear.) - History of Present Illness Initial comments: This is an 84-year-old female who is brought in to the emergency department from the retirement because she is complaining of shortness of breath and mid abdominal tenderness. Patient denies any fever however she does complain of vomiting. Patient denies any diarrhea. Patient denies any chest pain or palpitations. Patient denies any fever chills or cough. Patient states she is having a difficult time breathing because of her COPD and she believes is getting worse. Patient is not complaining of a headache patient with numbness weakness. Patient denies any leg swelling or calf tenderness. - Related Data Home Medications Medication Instructions Recorded Confirmed Loratadine [Claritin] 10 mg PO DAILY 08/18/16 01/03/20 Ondansetron HCl [Zofran] 4 mg PO BID PRN 08/18/16 01/03/20 Pantoprazole [Protonix] 40 mg PO BID 08/18/16 01/03/20 allopurinoL [Zyloprim] 100 mg PO DAILY 08/18/16 01/03/20 polyethylene glycoL 3350 [Miralax] 17 gm PO DAILY 01/06/17 01/03/20 Acetaminophen Tab [Tylenol] 650 mg PO Q4H PRN 01/03/20 01/03/20 Calcium Carbonate [Tums] 500 mg PO BID 01/03/20 01/03/20 Ferrous Sulfate [Iron (65 MG 325 mg PO DAILY 01/03/20 01/03/20 Elemental)] Ipratropium-Albuterol Nebulize 3 ml INHALATION RT-Q6H PRN 01/03/20 01/03/20 [Duoneb 0.5 mg-3 mg/3 ml Soln] Levothyroxine Sodium [Synthroid] 112 mcg PO DAILY 01/03/20 01/03/20 Magnesium Hydroxide [Milk of 2,400 mg PO DAILY PRN 01/03/20 01/03/20 Magnesia] Melatonin 10 mg PO HS 01/03/20 01/03/20 Miracle Mouth Wash 15 ml PO TID 01/03/20 01/03/20 Pravastatin Sodium [Pravachol] 40 mg PO HS 01/03/20 01/03/20 Sennosides-Docusate Sodium 2 tab PO HS 01/03/20 01/03/20 [Senokot-S] Previous Rx's Medication Instructions Recorded Isosorbide Mononitrate ER [Imdur] 30 mg PO DAILY #1 tab 07/28/17 Metoprolol Succinate (ER) [Toprol 25 mg PO DAILY tab.er.24h 07/28/17 XL] Apixaban [Eliquis] 2.5 mg PO BID #0 01/05/20 Allergies Allergy/AdvReac Type Severity Reaction Status Date / Time amiodarone AdvReac Nausea Verified 01/03/20 13:03 digoxin AdvReac Nausea Verified 01/03/20 13:03 dronedarone [From Multaq] AdvReac Nausea Verified 01/03/20 13:03 metformin HCl AdvReac Nausea Verified 01/03/20 13:03 [From Glucophage] Review of Systems ROS Statement: Those systems with pertinent positive or pertinent negative responses have been documented in the HPI. ROS Other: All systems not noted in ROS Statement are negative. Past Medical History Past Medical History: Asthma, Coronary Artery Disease (CAD), COPD, Diabetes Mellitus, Deep Vein Thrombosis (DVT), Eye Disorder, GERD/Reflux, Hearing Disorder / Deafness, Hypertension, Musculoskeletal Disorder, Osteoarthritis (OA), Pneumonia, Vascular Disorder Additional Past Medical History / Comment(s): restless leg syndrome, cataracts, hx. of pneumonia, neuropathy, CHF History of Any Multi-Drug Resistant Organisms: None Reported Past Surgical History: Appendectomy, Cholecystectomy, Heart Catheterization With Stent, Hysterectomy, Pacemaker, Tubal Ligation Additional Past Surgical History / Comment(s): hemroidectomy. cataract removed. tooth extractions, Pemanent Pacemaker, Cardiac Ablation. Pacemaker - November 27, 2010 Past Anesthesia/Blood Transfusion Reactions: No Reported Reaction Date of Last Stent Placement:: 07/08/11 Type of Cardiac Device: Permanent Pacemaker Device Placement Date:: 2003 Past Psychological History: Anxiety, Depression Smoking Status: Never smoker Past Alcohol Use History: None Reported Past Drug Use History: None Reported - Past Family History Mother Family Medical History: No Reported History Father History Unknown: Yes Additional Family Medical History / Comment(s): Pt states she never knew her father. General Exam - General Exam Comments Initial Comments: GENERAL: Patient is well-developed and well-nourished. Patient is nontoxic and well- hydrated and is in mild distress. ENT: Neck is soft and supple. No significant lymphadenopathy is noted. Oropharynx is clear. Moist mucous membranes. Neck has full range of motion without eliciting any pain. EYES: The sclera were anicteric and conjunctiva were pink and moist. Extraocular movements were intact and pupils were equal round and reactive to light. Eyelids were unremarkable. PULMONARY: Patient is very poor breath sounds and expiratory wheezing. CARDIOVASCULAR: There is a regular rate and rhythm without any murmurs gallops or rubs. ABDOMEN: Soft and nontender with normal bowel sounds. SKIN: Skin is clear with no lesions or rashes and otherwise unremarkable. NEUROLOGIC: Patient is alert and oriented x3. Cranial nerves II through XII are grossly intact. Motor and sensory are also intact. Normal speech, volume and content. Symmetrical smile. MUSCULOSKELETAL: Normal extremities with adequate strength and full range of motion. No lower extremity swelling or edema. No calf tenderness. LYMPHATICS: No significant lymphadenopathy is noted PSYCHIATRIC: Normal psychiatric evaluation. Limitations: no limitations Course Vital Signs 01/16/20 01/16/20 01/16/20 12:58 13:07 14:07 Temperature 98.1 F Pulse Rate 75 70 Respiratory 18 18 18 Rate Blood Pressure 123/77 111/61 O2 Sat by Pulse 96 97 Oximetry 01/16/20 14:37 Temperature Pulse Rate 70 Respiratory Rate Blood Pressure O2 Sat by Pulse Oximetry Medical Decision Making - Medical Decision Making EKG shows a ventricular paced rhythm at 70 bpm QRS is 150 QT intervals 462 QTC is 498. Patient's EKG shows no ST segment elevation or depression. Chest x-ray shows bilateral pleural effusions with some failure improved from last x-ray. KUB shows no acute abnormality. Patient received breathing treatments steroids and was feeling slightly better. She still did complain of some mid abdominal pain. I spoke with Dr. Zheng he agreed to admit the patient admitted the patient wrote admitting orders. - Lab Data Result diagrams: 01/16/20 13:32 01/16/20 13:32 Lab Results 01/16/20 01/16/20 01/16/20 Range/Units 13:32 13:32 13:32 WBC 4.9 (3.8-10.6) k/uL RBC 3.45 L (3.80-5.40) m/uL Hgb 10.3 L (11.4-16.0) gm/dL Hct 36.3 (34.0-46.0) % MCV 105.1 H (80.0-100.0) fL MCH 29.9 (25.0-35.0) pg MCHC 28.5 L (31.0-37.0) g/dL RDW 18.9 H (11.5-15.5) % Plt Count 101 L (150-450) k/uL Neutrophils % 73 % Lymphocytes % 13 % Monocytes % 8 % Eosinophils % 2 % Basophils % 1 % Neutrophils # 3.6 (1.3-7.7) k/uL Lymphocytes # 0.7 L (1.0-4.8) k/uL Monocytes # 0.4 (0-1.0) k/uL Eosinophils # 0.1 (0-0.7) k/uL Basophils # 0.1 (0-0.2) k/uL Manual Slide Review Performed Polychromasia Present Hypochromasia Marked Basophilic Stippling Present Anisocytosis Slight Macrocytosis Marked A PT 12.8 H (9.0-12.0) sec INR 1.3 H (<1.2) APTT 27.4 (22.0-30.0) sec Sodium 141 (137-145) mmol/L Potassium 5.0 (3.5-5.1) mmol/L Chloride 101 (98-107) mmol/L Carbon Dioxide 35 H (22-30) mmol/L Anion Gap 5 mmol/L BUN 18 H (7-17) mg/dL Creatinine 1.34 H (0.52-1.04) mg/dL Est GFR (CKD-EPI)AfAm 41 (>60 ml/min/1.73 sqM) Est GFR (CKD-EPI)NonAf 36 (>60 ml/min/1.73 sqM) Glucose 85 (74-99) mg/dL Plasma Lactic Acid Stanislav (0.7-2.0) mmol/L Calcium 9.3 (8.4-10.2) mg/dL Magnesium 2.2 (1.6-2.3) mg/dL Total Bilirubin 0.9 (0.2-1.3) mg/dL AST 32 (14-36) U/L ALT 16 (4-34) U/L Alkaline Phosphatase 106 (38-126) U/L Troponin I (0.000-0.034) ng/mL Total Protein 5.9 L (6.3-8.2) g/dL Albumin 3.4 L (3.5-5.0) g/dL Urine Color Urine Appearance (Clear) Urine pH (5.0-8.0) Ur Specific [place] (1.001-1.035) Urine Protein (Negative) Urine Glucose (UA) (Negative) Urine Ketones (Negative) Urine Blood (Negative) Urine Nitrite (Negative) Urine Bilirubin (Negative) Urine Urobilinogen (<2.0) mg/dL Ur Leukocyte Esterase (Negative) 01/16/20 01/16/20 01/16/20 Range/Units 13:32 13:32 13:37 WBC (3.8-10.6) k/uL RBC (3.80-5.40) m/uL Hgb (11.4-16.0) gm/dL Hct (34.0-46.0) % MCV (80.0-100.0) fL MCH (25.0-35.0) pg MCHC (31.0-37.0) g/dL RDW (11.5-15.5) % Plt Count (150-450) k/uL Neutrophils % % Lymphocytes % % Monocytes % % Eosinophils % % Basophils % % Neutrophils # (1.3-7.7) k/uL Lymphocytes # (1.0-4.8) k/uL Monocytes # (0-1.0) k/uL Eosinophils # (0-0.7) k/uL Basophils # (0-0.2) k/uL Manual Slide Review Polychromasia Hypochromasia Basophilic Stippling Anisocytosis Macrocytosis PT (9.0-12.0) sec INR (<1.2) APTT (22.0-30.0) sec Sodium (137-145) mmol/L Potassium (3.5-5.1) mmol/L Chloride (98-107) mmol/L Carbon Dioxide (22-30) mmol/L Anion Gap mmol/L BUN (7-17) mg/dL Creatinine (0.52-1.04) mg/dL Est GFR (CKD-EPI)AfAm (>60 ml/min/1.73 sqM) Est GFR (CKD-EPI)NonAf (>60 ml/min/1.73 sqM) Glucose (74-99) mg/dL Plasma Lactic Acid Stanislav 1.3 (0.7-2.0) mmol/L Calcium (8.4-10.2) mg/dL Magnesium (1.6-2.3) mg/dL Total Bilirubin (0.2-1.3) mg/dL AST (14-36) U/L ALT (4-34) U/L Alkaline Phosphatase (38-126) U/L Troponin I 0.044 H* (0.000-0.034) ng/mL Total Protein (6.3-8.2) g/dL Albumin (3.5-5.0) g/dL Urine Color Light Yellow Urine Appearance Clear (Clear) Urine pH 5.5 (5.0-8.0) Ur Specific [place] 1.005 (1.001-1.035) Urine Protein Negative (Negative) Urine Glucose (UA) Negative (Negative) Urine Ketones Negative (Negative) Urine Blood Negative (Negative) Urine Nitrite Negative (Negative) Urine Bilirubin Negative (Negative) Urine Urobilinogen <2.0 (<2.0) mg/dL Ur Leukocyte Esterase Negative (Negative) Disposition Clinical Impression: COPD with acute exacerbation, Pulmonary congestion Disposition: ADMITTED IP TO THIS [facility] Referrals: Paco Rios MD [Primary Care Provider] - 1-2 days Time of Disposition: 14:46
[2020-01-16 13:42] LABS: Appearance,Urine Clear (Clear); Bilirubin,Urine Negative (Negative); Blood,Urine Negative (Negative); Color,Urine Light Yellow; Glucose,Urine (UA) Negative (Negative); Ketones,Urine Negative (Negative); Leukocyte Esterase,Urine Negative (Negative); Nitrite,Urine Negative (Negative); PH, Urine 5.5 (5.0-8.0); Protein,Urine Negative (Negative); Specific Gravity,Urine 1.005 (1.001-1.035); Urobilinogen,Urine <2.0 mg/dL (<2.0)
[2020-01-16 13:42] LABS: Anisocytosis Slight; Basophils # (A) 0.1 k/uL (0-0.2); Basophils % (A) 1 %; Eosinophils # (A) 0.1 k/uL (0-0.7); Eosinophils % (A) 2 %; HCT 36.3 % (34.0-46.0); HGB 10.3 gm/dL (11.4-16.0); Hypochromasia Marked; Lymphocytes # (A) 0.7 k/uL (1.0-4.8); Lymphocytes % (A) 13 %; MCH 29.9 pg (25.0-35.0); MCHC 28.5 g/dL (31.0-37.0); MCV 105.1 fL (80.0-100.0); Macrocytosis Marked; Mean Platelet Volume 10.2; Monocytes # (A) 0.4 k/uL (0-1.0); Monocytes % (A) 8 %; Neutrophils # (A) 3.6 k/uL (1.3-7.7); Neutrophils % (A) 73 %; Platelet Count 101 k/uL (150-450); RBC 3.45 m/uL (3.80-5.40); RDW 18.9 % (11.5-15.5); WBC 4.9 k/uL (3.8-10.6)
[2020-01-16 13:52] LABS: Albumin 3.4 g/dL (3.5-5.0); Calcium 9.3 mg/dL (8.4-10.2); Magnesium 2.2 mg/dL (1.6-2.3); Total Bilirubin 0.9 mg/dL (0.2-1.3); Total Protein 5.9 g/dL (6.3-8.2)
[2020-01-16 13:57] LABS: INR 1.3 (<1.2); Partial Thromboplastin Time 27.4 sec (22.0-30.0); Prothrombin Time 12.8 sec (9.0-12.0)
--- NOTE | 2020-01-16 14:13 | XR ---
EXAMINATION TYPE: XR chest 2V DATE OF EXAM: 01/16/2020 COMPARISON: 01/03/2020 HISTORY: Difficulty breathing TECHNIQUE: FINDINGS: Heart is enlarged. There is some pulmonary vascular congestion. There is blunting of the co stophrenic angles. There is left axillary pacemaker. Thoracic aorta is atheromatous. IMPRESSION: Congestive heart failure with pleural effusions. Heart failure improved slightly compared to last exam. Pleural fluid not significantly different.
--- NOTE | 2020-01-16 14:19 | XR ---
EXAMINATION TYPE: XR KUB DATE OF EXAM: 01/16/2020 COMPARISON: NONE HISTORY: Abdominal pain TECHNIQUE: 2 views supine FINDINGS: There is no evidence of intestinal obstruction or pneumoperitoneum. Fecal pattern is normal . Abdominal aorta is atheromatous. There are clips from cholecystectomy. There are bilateral pleural effusions. Heart is enlarged. There is left hip prosthesis. IMPRESSION: Nonacute abdomen. Pleural effusions.
[2020-01-16 14:36] LABS: Basophilic Stippling Present; Polychromasia Present
[2020-01-16] MEDS ORDERED: FUROSEMIDE 10 MG/ML 4 ML VIAL IV STA (14:47)
--- NOTE | 2020-01-16 14:55 | CT ---
EXAMINATION TYPE: CT abdomen pelvis wo con DATE OF EXAM: 01/16/2020 COMPARISON: None HISTORY: Altered mental status, nausea and vomiting. CT DLP: 987 mGycm Automated exposure control for dose reduction was used. There are bilateral pleural effusions. Heart is enlarged. There is mild pericardial effusion. There i s some atelectasis at the lung bases. There are clips from cholecystectomy. Liver shows no focal defect. Spleen is intact. There is subcuta neous edema around the abdomen. The stomach is intact. There is no evidence of pancreatic mass. Abdom inal aorta is atheromatous. There is no adrenal mass. There is symmetric renal cortical atrophy. There is no hydronephrosis. Uret ers are not dilated. There is increased renal cortical density that could relate to some calcinosis. There is no retroperitoneal adenopathy. Bladder distends smoothly. There is left hip prosthesis. The bony pelvis appears intact. There is mild presacral edema. There is no ascites. There is no evidence of free air. I see no sign of a bowel obstruction. Appendix is not definitely seen. There is no sign of thickened appendix. Lumbar vertebra have normal alignment. There is compression deformity of T12 and L1 up to 40% consist ent with osteoporosis. There is multilevel lumbar spondylotic changes. IMPRESSION: Changes of chronic congestive heart failure with pleural effusions and basilar atelectasis. Pericardi al effusion. Subcutaneous edema and presacral edema also consistent with chronic heart failure. Ather osclerotic vascular disease. Compression fractures in the lower thoracic spine unchanged compared to chest CT scan July 24, 2017.
[2020-01-16] MEDS: IPRATROPIUM-ALBUTEROL 3 ML NEB INHALATION SCH ×2 (16:11→19:17)
[2020-01-16] MEDS ORDERED: ONDANSETRON 4 MG TAB PO PRN (17:58)
[2020-01-16] MEDS ORDERED: MAGNESIUM HYDROXIDE 2,400 MG/10 ML CUP PO PRN (17:58)
[2020-01-16] MEDS ORDERED: ACETAMINOPHEN TAB 325 MG TAB PO PRN (17:58)
[2020-01-16] MEDS ORDERED: HYDROcodone/APAP 5-325MG 1 EACH TAB PO PRN (18:08)
[2020-01-16] MEDS: ONDANSETRON 4 MG TAB PO SCH (20:42)
[2020-01-16] MEDS: SENNOSIDES 8.6 MG TAB PO SCH (20:42)
[2020-01-16] MEDS: CALCIUM CARBONATE 500 MG CHEWABLE PO SCH (20:42)
[2020-01-16] MEDS: PRAVASTATIN SODIUM 40 MG TAB PO SCH (20:42)
[2020-01-16] MEDS: rOPINIRole HCL 4 MG TABLET PO SCH (20:43)
[2020-01-16] MEDS: methylPREDNISolone SOD SUCCI 125 MG/2 ML VIAL IV SCH ×2 (20:43→22:38)
[2020-01-16 20:44] LABS: Glucose,Whole Blood 229 mg/dL (75-99)
[2020-01-16] MEDS: AMMONIUM LACTATE 12% CREAM 140 GM TUBE TOPICAL SCH (20:45)
[2020-01-16] MEDS: PANTOPRAZOLE 40 MG TABLET PO SCH (20:47)
[2020-01-16] MEDS: INSULIN ASPART (NovoLOG) 100 UNIT/ML VIAL SQ SCH (20:47)
[2020-01-16] MEDS: ALPRAZolam 0.25 MG TAB PO PRN (22:42)
--- NOTE | 2020-01-16 23:38 | HP ---
HISTORY AND PHYSICAL DATE OF SERVICE: 01/16/2020 CHIEF COMPLAINTS: Change in mental status, shortness of breath and as well as abdominal discomfort. HISTORY OF PRESENT ILLNESS: This 84-year-old woman with a past medical history of multiple medical problems including asthma, CAD, COPD, diabetes, DVT, history of GERD, history of deafness, history of pneumonia, history of CAD, stent being followed by Dr. Rios in [facility] was admitted with increasing shortness of breath. The patient is extremely hard of hearing. The patient did not have any fever, but the patient has some vomiting but no diarrhea and the patient was also having some mild abdominal discomfort. The patient came to [facility]. The chest x-ray showed cardiomegaly and possible evidence of CHF and pleural effusion also. The patient also had a CAT scan of the abdomen and pelvis which confirmed the features of CHF and some subcutaneous edema. Otherwise, no other acute abnormalities except atherosclerotic vascular disease and compression fractures of the lower thoracic spine, which is unchanged. Patient admitted for further evaluation and treatment. There is no history of any headache, loss of consciousness, or seizures. No history of chest pain or palpitation at this time. PAST MEDICAL HISTORY: Asthma, COPD, history of DVT, diabetes mellitus type 2, history of DJD, history of pneumonia, CAD, stent. MEDICATIONS: Home medications are reviewed and include: 1. Requip 4 mg at bedtime. 2. MiraLAX. 3. Zyloprim. 4. Senna. 5. Pravachol. 6. K-Dur. 7. Protonix. 8. Zofran. 9. Toprol-XL. 10.Milk of magnesia. 11.Synthroid. 12.Imdur. 13.DuoNeb. 14.Lasix. 15.Iron. 16.Tums. 17.Eliquis. 18.Lac-Hydrin. 19.Tylenol. Doses and route of administration reviewed. ALLERGIES: AMIODARONE, DIGOXIN, MULTAQ and GLUCOPHAGE. FAMILY HISTORY: No history of heart disease or strokes in the family. SOCIAL HISTORY: No history of smoking. No history of alcohol intake. REVIEW OF SYSTEMS: ENT: Diminished hearing and diminished vision. CARDIOVASCULAR SYSTEM: As mentioned earlier. RESPIRATORY SYSTEM: As mentioned earlier. GI: No nausea or vomiting. : No dysuria. NERVOUS SYSTEM: As mentioned earlier. ALLERGY/IMMUNOLOGY: Asthma. MUSCULOSKELETAL: As mentioned earlier. HEMATOLOGY: No history of anemia. ENDOCRINE: Hypothyroidism. CONSTITUTIONAL: As mentioned earlier. DERMATOLOGY: Negative. RHEUMATOLOGY: Negative. PSYCHIATRY: As mentioned earlier. PHYSICAL EXAMINATION: The patient is alert and oriented x3. The pulse is 70, blood pressure 122/68, respirations 16, temperature 97.8, pulse ox 98% on 3 L. HEENT: Conjunctivae normal. Oral mucosa moist. NECK: No jugular venous distention. No carotid bruit. No lymph node enlargement. CARDIOVASCULAR: S1, S2 muffled. No S3, no S4. RESPIRATORY: Breath sounds diminished at the bases. Bilateral scattered rhonchi and crackles. Expiratory wheezing also present. ABDOMEN: Soft, nontender. No mass palpable. Obese. LEGS: Minimal edema. NERVOUS SYSTEM: Higher functions as mentioned earlier. Moves all 4 limbs. No focal motor or sensory deficit. LYMPHATICS: No lymphadenopathy of the neck, axillae or groin. SKIN: No ulcer, rash or bleeding. JOINTS: No active deforming arthropathy. LABS: WBC 4.9, hemoglobin 10.3, MCV 105.1, platelets 101. INR 1.3. Creatinine is 1.34. Troponin 0.04. ASSESSMENT: 1. Shortness of breath with possible congestive heart failure acute exacerbation, ejection fraction 50% to 55% with acute on chronic diastolic dysfunction. 2. Moderate to severe mitral regurgitation. 3. Severe tricuspid regurgitation and severe pulmonary hypertension on 2D echo previously. 4. Rule out pericardial effusion. 5. Anemia, macrocytic. 6. Thrombocytopenia. 7. Increased creatinine with possibly chronic kidney disease stage 3. 8. Troponin 0.044. Rule out acute coronary event. 9. History of asthma, chronic obstructive pulmonary disease. 10.History of coronary artery disease. 11.Diabetes mellitus type 2. 12.History of deep vein thrombosis. 13.History of gastroesophageal reflux disease. 14.Hard of hearing. 15.Hypertension. 16.History of degenerative joint disease. 17.History of pneumonia. 18.History of restless legs syndrome. 19.History of cataracts. 20.History of neuropathy. 21.History of coronary artery disease, stent. 22.History of pacemaker. 23.History of hemorrhoidectomy. 24.History of anxiety, depression. 25.FULL CODE. RECOMMENDATIONS AND DISCUSSION: This 84-year-old woman who presented with multiple complex medical issues, we will monitor the patient closely. Continue the current medications, continue symptomatic treatment. I would recommend intensive bronchodilators. I would also recommend diuretics and fluid restriction. Monitor creatinine closely. A 2D echo with Doppler and also recommend a cardiology consultation and we will continue to monitor. Monitor renal functions closely. The overall prognosis guarded because of multiple complex medical issues. Further recommendations to follow. A copy of dictation forwarded to Dr. Rios who is the primary physician. COVID-19 test has been requested. The white count is normal and the patient does not have fever. Will hold off the antibiotic for now. MMODL / IJN: [id number] /
[2020-01-17] MEDS: FUROSEMIDE 10 MG/ML 2 ML VIAL IV SCH ×4 (01:42→23:32)
[2020-01-17 06:19] LABS: Glucose,Whole Blood 168 mg/dL (75-99)
[2020-01-17] MEDS: methylPREDNISolone SOD SUCCI 125 MG/2 ML VIAL IV SCH ×4 (06:38→23:33)
[2020-01-17] MEDS: ISOSORBIDE MONONITRATE ER 30 MG TAB.ER.24H PO SCH (06:38)
[2020-01-17] MEDS: LEVOTHYROXINE 112 MCG TAB PO SCH (06:38)
[2020-01-17] MEDS: APIXABAN 2.5 MG TABLET PO SCH ×2 (06:38→15:33)
[2020-01-17] MEDS: PANTOPRAZOLE 40 MG TABLET PO SCH ×2 (06:39→17:53)
[2020-01-17] MEDS: INSULIN ASPART (NovoLOG) 100 UNIT/ML VIAL SQ SCH ×4 (06:39→21:32)
[2020-01-17] MEDS: ONDANSETRON 4 MG TAB PO SCH ×3 (06:39→18:40)
[2020-01-17 06:47] LABS: Anisocytosis Slight; Basophils % (A) 0 %; Eosinophils % (A) 1 %; HCT 36.6 % (34.0-46.0); HGB 10.5 gm/dL (11.4-16.0); Hypochromasia Marked; Lymphocytes # (A) 0.3 k/uL (1.0-4.8); Lymphocytes % (A) 17 %; MCH 29.8 pg (25.0-35.0); MCHC 28.5 g/dL (31.0-37.0); Macrocytosis Marked; Mean Platelet Volume 9.3; Monocytes # (A) 0.1 k/uL (0-1.0); Monocytes % (A) 3 %; Neutrophils # (A) 1.5 k/uL (1.3-7.7); Neutrophils % (A) 79 %; Platelet Count 95 k/uL (150-450); RBC 3.51 m/uL (3.80-5.40); WBC 1.9 k/uL (3.8-10.6)
[2020-01-17 06:48] LABS: MCV 104.5 fL (80.0-100.0)
[2020-01-17 06:57] LABS: Calcium 9.1 mg/dL (8.4-10.2)
[2020-01-17] MEDS: FERROUS SULFATE 325 MG TAB PO SCH (08:10)
[2020-01-17] MEDS: CALCIUM CARBONATE 500 MG CHEWABLE PO SCH ×2 (08:10→21:32)
[2020-01-17] MEDS: allopurinoL 100 MG TAB PO SCH (08:10)
[2020-01-17] MEDS: POTASSIUM CHLORIDE ER 10 MEQ TAB.ER.PRT PO SCH (08:10)
[2020-01-17] MEDS: METOPROLOL SUCCINATE (ER) 25 MG TAB.ER.24H PO SCH (08:10)
[2020-01-17] MEDS: IPRATROPIUM-ALBUTEROL 3 ML NEB INHALATION SCH ×4 (08:25→19:52)
--- NOTE | 2020-01-17 11:00 | ECHOF ---
Referral Reason:pericardial effusion MEASUREMENTS -------- HEIGHT: 165.1 cm WEIGHT: 79.4 kg BP: 120/62 FINDINGS -------- Sinus rhythm. Echo done 01.06.20: Limited Study for Rericardial Effusion There is a small, generalized pericardial effusion present. Moderate Pleural Effusion. CONCLUSIONS -------- 1. Echo done 01.06.20: Limited Study for Rericardial Effusion 2. There is a small, generalized pericardial effusion present. 3. Moderate Pleural Effusion. CYCLE DIRECTOR: Jennifer Scherer RDCS
--- NOTE | 2020-01-17 11:18 | XR ---
EXAMINATION TYPE: XR chest 1V portable DATE OF EXAM: 01/17/2020 HISTORY: Shortness of breath. COMPARISON: January 16, 2020 TECHNIQUE: Single view of the chest is submitted. FINDINGS: Demonstrated are scattered senescent parenchymal change. Cardiomegaly with basilar infiltrates and/or effusions. No pulmonary venous congestion at this time. Dual-lead pacer in place. Hilar and mediastinal structures are within normal limits. Degenerative changes are seen of the dorsal spine. IMPRESSION: 1. Cardiomegaly with basilar infiltrates and/or effusions. No pulmonary venous congestion at this ti me.
--- NOTE | 2020-01-17 11:36 | P.CRDCN ---
History of Present Illness Consult date: 01/17/20 Chief complaint: Abdominal discomfort History of present illness: This is another admission for this 84-year-old female patient with an extensive medical history consistent of coronary artery disease and prior coronary revascularization, permanent pacemaker implantation, chronic diastolic congestive heart failure, as well as long-standing persistent atrial fibrillation. She was admitted to the hospital recently and she was discharged in stable medical condition. This time she presented to the hospital with abdominal discomfort. She was diagnosed with heart failure. Also the troponin came in to be slightly elevated. When the patient was interviewed this morning, she is somewhat is a poor historian and difficult to hear. She denies any symptoms of chest pain or chest discomfort, she denies any shortness of breath, dizziness, or any feeling of heart racing or heart fluttering. The EKG showed underlying atrial fibrillation with ventricular paced rhythm. The chest x-ray did not show any acute abnormalities. The troponin was checked and came in to be slightly abnormal. Given the absence of chest pain and chest discomfort, I would recommend a conservative medical approach at this point. I would continue the current medical regimen including oral anticoagulation for the atrial fibrillation. The patient underwent an echocardiogram earlier today and we'll follow-up on that. I would not advise proceeding with any invasive approach like heart catheterization giving her age as well as a poor functional capacity. Meanwhile will continue the Lasix IV for additional 24 hours and continue monitor the kidney function as well as electrolytes. Past Medical History Past Medical History: Asthma, Coronary Artery Disease (CAD), COPD, Diabetes Mellitus, Deep Vein Thrombosis (DVT), Eye Disorder, GERD/Reflux, Hearing Disorder / Deafness, Hypertension, Musculoskeletal Disorder, Osteoarthritis (OA), Pneumonia, Vascular Disorder Additional Past Medical History / Comment(s): restless leg syndrome, cataracts, hx. of pneumonia, neuropathy, CHF History of Any Multi-Drug Resistant Organisms: None Reported Past Surgical History: Appendectomy, Cholecystectomy, Heart Catheterization With Stent, Hysterectomy, Pacemaker, Tubal Ligation Additional Past Surgical History / Comment(s): hemroidectomy. cataract removed. tooth extractions, Pemanent Pacemaker, Cardiac Ablation. Pacemaker - November 27, 2010 Past Anesthesia/Blood Transfusion Reactions: No Reported Reaction Date of Last Stent Placement:: 07/08/11 Type of Cardiac Device: Permanent Pacemaker Device Placement Date:: 2003 Smoking Status: Never smoker - Past Family History Mother Family Medical History: No Reported History Father History Unknown: Yes Additional Family Medical History / Comment(s): Pt states she never knew her father. Medications and Allergies Home Medications Medication Instructions Recorded Confirmed Type Ondansetron HCl [Zofran] 4 mg PO TID@0700,1300,1900 08/18/16 01/16/20 History Pantoprazole [Protonix] 40 mg PO BID 08/18/16 01/16/20 History allopurinoL [Zyloprim] 100 mg PO DAILY 08/18/16 01/16/20 History polyethylene glycoL 3350 [Miralax] 17 gm PO Q48H 01/06/17 01/16/20 History Metoprolol Succinate (ER) [Toprol 25 mg PO DAILY tab.er.24h 07/28/17 01/16/20 Rx XL] Acetaminophen Tab [Tylenol] 650 mg PO Q4H PRN 01/03/20 01/16/20 History Calcium Carbonate [Tums] 500 mg PO BID 01/03/20 01/16/20 History Ferrous Sulfate [Iron (65 MG 325 mg PO DAILY 01/03/20 01/16/20 History Elemental)] Ipratropium-Albuterol Nebulize 3 ml INHALATION RT-QID PRN 01/03/20 01/16/20 History [Duoneb 0.5 mg-3 mg/3 ml Soln] Levothyroxine Sodium [Synthroid] 112 mcg PO DAILY 01/03/20 01/16/20 History Magnesium Hydroxide [Milk of 2,400 mg PO DAILY PRN 01/03/20 01/16/20 History Magnesia] Pravastatin Sodium [Pravachol] 40 mg PO HS@199901/03/20 01/16/20 History Ammonium Lactate Cream [Lac-Hydrin 1 applic TOPICAL HS 01/16/20 01/16/20 History 12% Cream] Apixaban [Eliquis] 2.5 mg PO BID@0700,1600 01/16/20 01/16/20 History Furosemide [Lasix] 20 mg PO DAILY 01/16/20 01/16/20 History Isosorbide Mononitrate ER [Imdur] 30 mg PO DAILY@0700 01/16/20 01/16/20 History Ondansetron [Zofran] 4 mg PO BID PRN 01/16/20 01/16/20 History Potassium Chloride ER [K-Dur 10] 10 meq PO DAILY 01/16/20 01/16/20 History Sennosides [Senna] 17.2 mg PO HS 01/16/20 01/16/20 History rOPINIRole HCL [Requip] 4 mg PO HS 01/16/20 01/16/20 History Allergies Allergy/AdvReac Type Severity Reaction Status Date / Time amiodarone AdvReac Nausea Verified 01/16/20 15:09 digoxin AdvReac Nausea Verified 01/16/20 15:09 dronedarone [From Multaq] AdvReac Nausea Verified 01/16/20 15:09 metformin HCl AdvReac Nausea Verified 01/16/20 15:09 [From Glucophage] Physical Exam Vitals: Vital Signs Temp Pulse Pulse Resp BP BP Pulse Ox 01/17/20 11:31 97.9 F 67 16 105/53 100 01/17/20 08:34 76 01/17/20 08:25 72 01/17/20 08:00 97.4 F L 70 18 118/58 95 01/17/20 04:00 97.9 F 70 18 120/62 96 01/17/20 00:00 98.0 F 78 17 119/57 97 01/16/20 20:00 98.4 F 70 18 111/56 98 01/16/20 19:28 82 16 01/16/20 19:17 80 16 01/16/20 16:31 97.8 F 70 16 122/68 98 01/16/20 16:30 70 16 01/16/20 16:21 82 16 01/16/20 16:11 84 16 01/16/20 15:27 98.1 F 68 18 121/69 97 01/16/20 15:00 68 01/16/20 14:37 70 01/16/20 14:07 70 18 111/61 97 01/16/20 13:07 18 01/16/20 12:58 98.1 F 75 18 123/77 96 Intake and Output 01/16/20 01/17/20 01/17/20 22:59 06:59 14:59 Output Total 700 300 Balance -700 -300 Output: Urine 700 300 Uretheral ([place]) 600 Other: Voiding Method Bedpan Bedside Commode # Voids 0 1 # Bowel Movements 1 Weight 79.379 kg 79.5 kg - Constitutional General appearance: no acute distress - Respiratory Respiratory: bilateral: diminished - Cardiovascular Rhythm: irregularly irregular Heart sounds: normal: S1, S2 Results 01/17/20 06:30 01/17/20 06:30 Cardiac Enzymes 01/16/20 01/16/20 01/17/20 Range/Units 13:32 13:32 06:30 AST 32 (14-36) U/L Troponin I 0.044 H* 0.054 H* (0.000-0.034) ng/mL Coagulation 01/16/20 01/17/20 Range/Units 13:32 01:25 PT 12.8 H (9.0-12.0) sec APTT 27.4 26.4 (22.0-30.0) sec CBC 01/16/20 01/17/20 Range/Units 13:32 06:30 WBC 4.9 1.9 L (3.8-10.6) k/uL RBC 3.45 L 3.51 L (3.80-5.40) m/uL Hgb 10.3 L 10.5 L (11.4-16.0) gm/dL Hct 36.3 36.6 (34.0-46.0) % Plt Count 101 L 95 L (150-450) k/uL Comprehensive Metabolic Panel 01/16/20 01/17/20 Range/Units 13:32 06:30 Sodium 141 140 (137-145) mmol/L Potassium 5.0 5.0 (3.5-5.1) mmol/L Chloride 101 100 (98-107) mmol/L Carbon Dioxide 35 H 35 H (22-30) mmol/L BUN 18 H 23 H (7-17) mg/dL Creatinine 1.34 H 1.33 H (0.52-1.04) mg/dL Glucose 85 153 H (74-99) mg/dL Calcium 9.3 9.1 (8.4-10.2) mg/dL AST 32 (14-36) U/L ALT 16 (4-34) U/L Alkaline Phosphatase 106 (38-126) U/L Total Protein 5.9 L (6.3-8.2) g/dL Albumin 3.4 L (3.5-5.0) g/dL Current Medications Generic Name Dose Route Start Last Admin Trade Name Freq PRN Reason Stop Dose Admin Acetaminophen 650 mg 01/16/20 17:58 Tylenol Tab PO Q4H PRN Mild Pain Hydrocodone Bitart/Acetaminophen 1 each 01/16/20 18:08 01/16/20 22:42 [place] 5-325 PO 1 each Q6HR PRN Administration Pain Albuterol/Ipratropium 3 ml 01/16/20 17:00 01/17/20 08:25 Duoneb 0.5 Mg-3 Mg/3 Ml Soln INHALATION 3 ml RT-QID FINN Administration Allopurinol 100 mg 01/17/20 09:00 01/17/20 08:10 Zyloprim PO 100 mg DAILY FINN Administration Alprazolam 0.25 mg 01/16/20 18:08 01/16/20 22:42 Xanax PO 0.25 mg TID PRN Administration Anxiety Apixaban 2.5 mg 01/17/20 07:00 01/17/20 06:38 Eliquis PO 2.5 mg BID@0700,1600 FINN Administration Calcium Carbonate/Glycine 500 mg 01/16/20 21:00 01/17/20 08:10 Tums PO 500 mg BID FINN Administration Ferrous Sulfate 325 mg 01/17/20 09:00 01/17/20 08:10 Feosol PO 325 mg DAILY FINN Administration Furosemide 20 mg 01/17/20 00:00 01/17/20 08:10 Lasix IV 20 mg Q8HR FINN Administration Insulin Aspart 0 unit 01/16/20 21:00 01/17/20 06:39 Novolog SQ 2 unit ACHS [facility] Administration Protocol Isosorbide Mononitrate 30 mg 01/17/20 07:00 01/17/20 06:38 Imdur PO 30 mg DAILY@0700 [facility] Administration Lactic Acid 1 applic 01/16/20 21:00 01/16/20 20:45 Ammonium Lactate TOPICAL 1 applic HS [facility] Administration Levothyroxine Sodium 112 mcg 01/17/20 06:30 01/17/20 06:38 Synthroid PO 112 mcg DAILY@0630 [facility] Administration Magnesium Hydroxide 2,400 mg 01/16/20 17:58 Milk Of Magnesia PO DAILY PRN Constipation Methylprednisolone Sodium Succinate 60 mg 01/16/20 19:00 01/17/20 06:38 Solu-Medrol IV 60 mg Q6HR FINN Administration Metoprolol Succinate 25 mg 01/17/20 09:00 01/17/20 08:10 Toprol Xl PO 25 mg DAILY FINN Administration Ondansetron HCl 4 mg 01/16/20 19:00 01/17/20 06:39 Zofran PO 4 mg TID@0700,1300,1900 FINN Administration Ondansetron HCl 4 mg 01/16/20 17:58 Zofran PO BID PRN Nausea Pantoprazole Sodium 40 mg 01/16/20 21:00 01/17/20 06:39 Protonix PO 40 mg AC-BID FINN Administration Polyethylene Glycol 17 gm 01/18/20 09:00 Miralax PO Q48H FINN Potassium Chloride 10 meq 01/17/20 09:00 01/17/20 08:10 K-Dur 10 PO 10 meq DAILY FINN Administration Pravastatin Sodium 40 mg 01/16/20 20:00 01/16/20 20:42 Pravachol PO 40 mg HS@2000 FINN Administration Ropinirole HCl 4 mg 01/16/20 21:00 01/16/20 20:43 Requip PO 4 mg HS FINN Administration Senna 17.2 mg 01/16/20 21:00 01/16/20 20:42 Senokot PO 17.2 mg HS FINN Administration Intake and Output 01/16/20 01/17/20 01/17/20 22:59 06:59 14:59 Output Total 700 300 Balance -700 -300 Output: Urine 700 300 Uretheral ([place]) 600 Other: Voiding Method Bedpan Bedside Commode # Voids 0 1 # Bowel Movements 1 Weight 79.379 kg 79.5 kg 01/17/20 06:30 01/17/20 06:30 Assessment and Plan Assessment: Assessment #1 abdominal discomfort of unknown etiology #2 mildly abnormal troponin #3 heart failure with preserved LV function #4 valvular heart disease #5 coronary artery disease #6 status post permanent pacemaker #7 permanent atrial fibrillation #8 multiple comorbid conditions you Plan #1 continue the current medical regimen #2 continue the conservative medical approach #3 continue IV Lasix for additional 24 hours #4 monitor the kidney function and electrolytes
[2020-01-17 11:37] LABS: Glucose,Whole Blood 160 mg/dL (75-99)
--- NOTE | 2020-01-17 15:28 | P.PN ---
Subjective Progress Note Date: 01/17/20 Principal diagnosis: This is an 84 are old female who was recently admitted with increasing shortness of breath along with some mild abdominal discomfort and is being closely monit ored. Patient recently underwent a CAT scan of the abdomen and pelvis which confirmed the features of CHF with some subcutaneous edema and chest x-ray showed cardiomegaly with possible evidence of CHF and pleural effusion. Cardiology is following the patient. Patient is currently maintained on IV Lasix and will continue. Will repeat a.m. labs. Current creatinine is 1.33. Patient is currently maintained on breathing inhalational treatments along with IV steroids and will continue at this time. PT/OT to evaluate the patient. Case management and social work following as patient is a resident at [facility] and will be returning there once stabilized and discharged. Patient continues to have some mild abdominal discomfort but denies any nausea or vomiting. Patient underwent limited echo showing a small generalized pericardial effusion with moderate pleural effusions present. Review of systems: Constitutional: Reports fatigue Cardiovascular: No reports of chest pain or palpitations Respiratory: Reports some shortness of breath, no reports of cough GI: No reports of nausea or vomiting, reports some mild abdominal bloating : No reports of dysuria or retention Neurovascular: Reports weakness, no reports of numbness Active Medications Acetaminophen (Tylenol Tab) 650 mg PO Q4H PRN PRN Reason: Mild Pain Hydrocodone Bitart/Acetaminophen ([place] 5-325) 1 each PO Q6HR PRN PRN Reason: Pain Last Admin: 01/16/20 22:42 Dose: 1 each Documented by: Albuterol/Ipratropium (Duoneb 0.5 Mg-3 Mg/3 Ml Soln) 3 ml INHALATION RT-QID [facility] Last Admin: 01/17/20 12:08 Dose: 3 ml Documented by: Allopurinol (Zyloprim) 100 mg PO DAILY [facility] Last Admin: 01/17/20 08:10 Dose: 100 mg Documented by: Alprazolam (Xanax) 0.25 mg PO TID PRN PRN Reason: Anxiety Last Admin: 01/16/20 22:42 Dose: 0.25 mg Documented by: Apixaban (Eliquis) 2.5 mg PO BID@0700,1600 [facility] Last Admin: 01/17/20 06:38 Dose: 2.5 mg Documented by: Calcium Carbonate/Glycine (Tums) 500 mg PO BID [facility] Last Admin: 01/17/20 08:10 Dose: 500 mg Documented by: Ferrous Sulfate (Feosol) 325 mg PO DAILY [facility] Last Admin: 01/17/20 08:10 Dose: 325 mg Documented by: Furosemide (Lasix) 20 mg IV Q8HR [facility] Last Admin: 01/17/20 08:10 Dose: 20 mg Documented by: Insulin Aspart (Novolog) 0 unit SQ [facility]; Protocol Last Admin: 01/17/20 11:57 Dose: 1 unit Documented by: Isosorbide Mononitrate (Imdur) 30 mg PO DAILY@0700 [facility] Last Admin: 01/17/20 06:38 Dose: 30 mg Documented by: Lactic Acid (Ammonium Lactate) 1 applic TOPICAL [facility] Last Admin: 01/16/20 20:45 Dose: 1 applic Documented by: Levothyroxine Sodium (Synthroid) 112 mcg PO DAILY@0630 [facility] Last Admin: 01/17/20 06:38 Dose: 112 mcg Documented by: Magnesium Hydroxide (Milk Of Magnesia) 2,400 mg PO DAILY PRN PRN Reason: Constipation Methylprednisolone Sodium Succinate (Solu-Medrol) 60 mg IV Q6HR [facility] Last Admin: 01/17/20 11:57 Dose: 60 mg Documented by: Metoprolol Succinate (Toprol Xl) 25 mg PO DAILY [facility] Last Admin: 01/17/20 08:10 Dose: 25 mg Documented by: Ondansetron HCl (Zofran) 4 mg PO TID@0700,1300,1900 [facility] Last Admin: 01/17/20 12:00 Dose: 4 mg Documented by: Ondansetron HCl (Zofran) 4 mg PO BID PRN PRN Reason: Nausea Pantoprazole Sodium (Protonix) 40 mg PO AC-BID [facility] Last Admin: 01/17/20 06:39 Dose: 40 mg Documented by: Polyethylene Glycol (Miralax) 17 gm PO Q48H [facility] Potassium Chloride (K-Dur 10) 10 meq PO DAILY [facility] Last Admin: 01/17/20 08:10 Dose: 10 meq Documented by: Pravastatin Sodium (Pravachol) 40 mg PO HS@2000 [facility] Last Admin: 01/16/20 20:42 Dose: 40 mg Documented by: Ropinirole HCl (Requip) 4 mg PO [facility] Last Admin: 01/16/20 20:43 Dose: 4 mg Documented by: Mikhail (Senokot) 17.2 mg PO HS FINN Last Admin: 01/16/20 20:42 Dose: 17.2 mg Documented by: Objective - Vital Signs Vital signs: Vital Signs Temp 97.9 F 01/17/20 11:31 Pulse 72 01/17/20 12:21 Resp 16 01/17/20 11:31 BP 105/53 01/17/20 11:31 Pulse Ox 100 01/17/20 11:31 Intake & Output 01/16/20 01/17/20 01/17/20 18:59 06:59 18:59 Intake Total 120 Output Total 600 400 Balance -600 -400 120 Weight 79.379 kg 79.5 kg Intake: Oral 120 Output: Urine 600 400 Uretheral ([place]er) 600 Other: Voiding Method Bedpan Bedside Commode # Voids 0 1 # Bowel Movements 0 - Exam Gen: This is a 84-year-old female lying in bed, asleep but arousable, alert and oriented 3. Hard of hearing. Temp is 97.9F, pulse is 67, respirations are 16, blood pressure is 105/53, oxygen saturation is 100% on 2 L via nasal cannula. HEENT: Head is atraumatic, normocephalic. Pupils equal, round. Sclerae is anicteric. NECK: Supple. No JVD. No lymphadenopathy. No thyromegaly. LUNGS: Diminished breath sounds bilaterally with a few scattered rhonchi noted. No intercostal retractions. HEART: S1, S2 are muffled ABDOMEN: Soft. Bowel sounds are present. No masses. Mild tenderness noted on palpation. EXTREMITIES: No pedal edema. No calf tenderness. Mild bilateral lower extremity edema noted NEUROLOGICAL: Patient is awake, alert and oriented x3. Diffusely weak. - Labs CBC & Chem 7: 01/17/20 06:30 01/17/20 06:30 Labs: Abnormal Lab Results - Last 24 Hours (Table) 01/16/20 01/16/20 01/16/20 Range/Units 13:32 13:32 13:32 WBC (3.8-10.6) k/uL RBC 3.45 L (3.80-5.40) m/uL Hgb 10.3 L (11.4-16.0) gm/dL MCV 105.1 H (80.0-100.0) fL MCHC 28.5 L (31.0-37.0) g/dL RDW 18.9 H (11.5-15.5) % Plt Count 101 L (150-450) k/uL Lymphocytes # 0.7 L (1.0-4.8) k/uL Macrocytosis Marked A PT 12.8 H (9.0-12.0) sec INR 1.3 H (<1.2) Carbon Dioxide 35 H (22-30) mmol/L BUN 18 H (7-17) mg/dL Creatinine 1.34 H (0.52-1.04) mg/dL Glucose (74-99) mg/dL POC Glucose (mg/dL) (75-99) mg/dL Troponin I (0.000-0.034) ng/mL Total Protein 5.9 L (6.3-8.2) g/dL Albumin 3.4 L (3.5-5.0) g/dL 01/16/20 01/16/20 01/17/20 Range/Units 13:32 20:44 06:17 WBC (3.8-10.6) k/uL RBC (3.80-5.40) m/uL Hgb (11.4-16.0) gm/dL MCV (80.0-100.0) fL MCHC (31.0-37.0) g/dL RDW (11.5-15.5) % Plt Count (150-450) k/uL Lymphocytes # (1.0-4.8) k/uL Macrocytosis PT (9.0-12.0) sec INR (<1.2) Carbon Dioxide (22-30) mmol/L BUN (7-17) mg/dL Creatinine (0.52-1.04) mg/dL Glucose (74-99) mg/dL POC Glucose (mg/dL) 229 H 168 H (75-99) mg/dL Troponin I 0.044 H* (0.000-0.034) ng/mL Total Protein (6.3-8.2) g/dL Albumin (3.5-5.0) g/dL 08/03/20 08/03/20 08/03/20 Range/Units 06:30 06:30 06:30 WBC 1.9 L (3.8-10.6) k/uL RBC 3.51 L (3.80-5.40) m/uL Hgb 10.5 L (11.4-16.0) gm/dL MCV 104.5 H (80.0-100.0) fL MCHC 28.5 L (31.0-37.0) g/dL RDW 19.0 H (11.5-15.5) % Plt Count 95 L (150-450) k/uL Lymphocytes # 0.3 L (1.0-4.8) k/uL Macrocytosis Marked A PT (9.0-12.0) sec INR (<1.2) Carbon Dioxide 35 H (22-30) mmol/L BUN 23 H (7-17) mg/dL Creatinine 1.33 H (0.52-1.04) mg/dL Glucose 153 H (74-99) mg/dL POC Glucose (mg/dL) (75-99) mg/dL Troponin I 0.054 H* (0.000-0.034) ng/mL Total Protein (6.3-8.2) g/dL Albumin (3.5-5.0) g/dL 01/17/20 Range/Units 11:32 WBC (3.8-10.6) k/uL RBC (3.80-5.40) m/uL Hgb (11.4-16.0) gm/dL MCV (80.0-100.0) fL MCHC (31.0-37.0) g/dL RDW (11.5-15.5) % Plt Count (150-450) k/uL Lymphocytes # (1.0-4.8) k/uL Macrocytosis PT (9.0-12.0) sec INR (<1.2) Carbon Dioxide (22-30) mmol/L BUN (7-17) mg/dL Creatinine (0.52-1.04) mg/dL Glucose (74-99) mg/dL POC Glucose (mg/dL) 160 H (75-99) mg/dL Troponin I (0.000-0.034) ng/mL Total Protein (6.3-8.2) g/dL Albumin (3.5-5.0) g/dL Assessment and Plan Assessment: Shortness of breath with possible congestive heart failure acute exacerbation, ejection fraction 50-55% with acute on chronic diastolic dysfunction Moderate to severe mitral regurgitation Severe tricuspid regurgitation and severe pulmonary hypertension on 2-D echo previously Pericardial effusion Anemia, macrocytic Thrombocytopenia increased creatinine with possibly chronic kidney disease stage III Troponin 0.044. Rule out acute coronary event History of asthma, chronic obstructive pulmonary disease History of coronary artery disease Diabetes mellitus type 2 History of DVT history of gastroesophageal reflux disease hard of hearing hypertension history of degenerative joint disease history of pneumonia history of restless leg syndrome history of cataracts history of neuropathy history of coronary artery disease with stent history of pacemaker History of hemorrhoidectomy history of anxiety, depression Full code Recommendations and discussion: Recommend to continue current medications, management, and symptomatic treatment. Continue with IV Lasix 20 mg every 8 hours at this time. Will repeat a.m. labs. Cardiology following closely. PT/OT to evaluate the patient. Due to multiple complex medical issues, prognosis is guarded. Further recommendations to follow. Case management and social work following for return to [facility] as she is a resident there once stabilized and discharged.
[2020-01-17 17:05] LABS: Glucose,Whole Blood 263 mg/dL (75-99)
[2020-01-17 18:06] VITALS: BMI 28.3
[2020-01-17 21:01] LABS: Glucose,Whole Blood 248 mg/dL (75-99)
[2020-01-17] MEDS: SENNOSIDES 8.6 MG TAB PO SCH (21:32)
[2020-01-17] MEDS: PRAVASTATIN SODIUM 40 MG TAB PO SCH (21:32)
[2020-01-17] MEDS: rOPINIRole HCL 4 MG TABLET PO SCH (21:32)
[2020-01-17] MEDS: AMMONIUM LACTATE 12% CREAM 140 GM TUBE TOPICAL SCH (21:33)
[2020-01-18 06:18] LABS: Glucose,Whole Blood 214 mg/dL (75-99)
[2020-01-18] MEDS: methylPREDNISolone SOD SUCCI 125 MG/2 ML VIAL IV SCH ×4 (06:26→23:28)
[2020-01-18] MEDS: APIXABAN 2.5 MG TABLET PO SCH ×2 (06:26→15:17)
[2020-01-18] MEDS: INSULIN ASPART (NovoLOG) 100 UNIT/ML VIAL SQ SCH ×4 (06:26→21:15)
[2020-01-18] MEDS: PANTOPRAZOLE 40 MG TABLET PO SCH ×2 (06:27→17:22)
[2020-01-18] MEDS: LEVOTHYROXINE 112 MCG TAB PO SCH (06:27)
[2020-01-18] MEDS: ISOSORBIDE MONONITRATE ER 30 MG TAB.ER.24H PO SCH (06:27)
[2020-01-18] MEDS: ONDANSETRON 4 MG TAB PO SCH ×3 (06:27→19:51)
[2020-01-18 06:40] LABS: Anisocytosis Slight; Basophils % (A) 0 %; Eosinophils % (A) 1 %; HCT 36.7 % (34.0-46.0); HGB 10.5 gm/dL (11.4-16.0); Hypochromasia Marked; Lymphocytes # (A) 0.2 k/uL (1.0-4.8); Lymphocytes % (A) 8 %; MCH 30.2 pg (25.0-35.0); MCHC 28.7 g/dL (31.0-37.0); MCV 105.1 fL (80.0-100.0); Macrocytosis Marked; Mean Platelet Volume 9.7; Monocytes # (A) 0.2 k/uL (0-1.0); Monocytes % (A) 6 %; Neutrophils # (A) 2.2 k/uL (1.3-7.7); Neutrophils % (A) 84 %; Platelet Count 104 k/uL (150-450); RBC 3.49 m/uL (3.80-5.40); RDW 19.7 % (11.5-15.5); WBC 2.6 k/uL (3.8-10.6)
[2020-01-18 06:54] LABS: Calcium 9.1 mg/dL (8.4-10.2)
[2020-01-18] MEDS: POTASSIUM CHLORIDE ER 10 MEQ TAB.ER.PRT PO SCH (08:13)
[2020-01-18] MEDS: METOPROLOL SUCCINATE (ER) 25 MG TAB.ER.24H PO SCH (08:13)
[2020-01-18] MEDS: FERROUS SULFATE 325 MG TAB PO SCH (08:13)
[2020-01-18] MEDS: allopurinoL 100 MG TAB PO SCH (08:13)
[2020-01-18] MEDS: CALCIUM CARBONATE 500 MG CHEWABLE PO SCH ×2 (08:13→19:51)
[2020-01-18] MEDS: polyethylene glycoL 3350 17 GM POWD.PACK PO SCH (08:14)
[2020-01-18] MEDS: FUROSEMIDE 10 MG/ML 2 ML VIAL IV SCH ×3 (08:14→23:28)
[2020-01-18] MEDS: IPRATROPIUM-ALBUTEROL 3 ML NEB INHALATION SCH ×4 (09:40→19:05)
[2020-01-18 11:30] LABS: Glucose,Whole Blood 176 mg/dL (75-99)
--- NOTE | 2020-01-18 11:33 | P.PN ---
Subjective Progress Note Date: 01/18/20 Principal diagnosis: Heart failure with preserved LV function This is another admission for this 84-year-old female patient with an extensive medical history consistent of coronary artery disease and prior coronary revascularization, permanent pacemaker implantation, chronic diastolic congestive heart failure, as well as long-standing persistent atrial fibrillation. She was admitted to the hospital recently and she was discharged in stable medical condition. This time she presented to the hospital with abdominal discomfort. She was diagnosed with heart failure. Also the troponin came in to be slightly elevated. When the patient was interviewed this morning, she is somewhat is a poor historian and difficult to hear. She denies any symptoms of chest pain or chest discomfort, she denies any shortness of breath, dizziness, or any feeling of heart racing or heart fluttering. The EKG showed underlying atrial fibrillation with ventricular paced rhythm. The chest x-ray did not show any acute abnormalities. The troponin was checked and came in to be slightly abnormal. Given the absence of chest pain and chest discomfort, I would recommend a conservative medical approach at this point. I would continue the current medical regimen including oral anticoagulation for the atrial fibrillation. The patient underwent an echocardiogram earlier today and we'll follow-up on that. I would not advise proceeding with any invasive approach like heart catheterization giving her age as well as a poor functional capacity. Meanwhile will continue the Lasix IV for additional 24 hours and continue monitor the kidney function as well as electrolytes. The patient was seen today, 01/18/2020. Overall she's feeling better she stated that her abdominal discomfort has resolved. She denies any chest pain or chest discomfort. She continues to be hemodynamically stable. She is on Lasix IV. The creatinine is slightly worse compared to yesterday. The chest x-ray showed moderate pleural effusion. I recommended continue the IV Lasix for additional 24 hours and switch her to by mouth Lasix tomorrow. Objective - Vital Signs Vital signs: Vital Signs Temp 98.2 F 01/18/20 11:09 Pulse 62 01/18/20 11:09 Resp 16 01/18/20 11:09 BP 125/68 01/18/20 11:09 Pulse Ox 97 01/18/20 11:09 Intake & Output 01/17/20 01/18/20 01/18/20 18:59 06:59 18:59 Intake Total 240 120 Output Total 300 Balance -60 120 Weight 79.5 kg 66 kg Intake: Oral 240 120 Output: Urine 300 Other: Voiding Method Bedside Commode Bedside Commode Bedside Commode # Voids 0 1 0 # Bowel Movements 0 - Constitutional General appearance: Present: no acute distress - Labs CBC & Chem 7: 01/18/20 06:14 01/18/20 06:14 Labs: Abnormal Lab Results - Last 24 Hours (Table) 01/17/20 01/17/20 01/17/20 Range/Units 11:32 16:44 21:00 WBC (3.8-10.6) k/uL RBC (3.80-5.40) m/uL Hgb (11.4-16.0) gm/dL MCV (80.0-100.0) fL MCHC (31.0-37.0) g/dL RDW (11.5-15.5) % Plt Count (150-450) k/uL Lymphocytes # (1.0-4.8) k/uL Macrocytosis Chloride (98-107) mmol/L Carbon Dioxide (22-30) mmol/L BUN (7-17) mg/dL Creatinine (0.52-1.04) mg/dL Glucose (74-99) mg/dL POC Glucose (mg/dL) 160 H 263 H 248 H (75-99) mg/dL 01/18/20 01/18/20 01/18/20 Range/Units 06:14 06:14 06:16 WBC 2.6 L (3.8-10.6) k/uL RBC 3.49 L (3.80-5.40) m/uL Hgb 10.5 L (11.4-16.0) gm/dL MCV 105.1 H (80.0-100.0) fL MCHC 28.7 L (31.0-37.0) g/dL RDW 19.7 H (11.5-15.5) % Plt Count 104 L (150-450) k/uL Lymphocytes # 0.2 L (1.0-4.8) k/uL Macrocytosis Marked A Chloride 97 L (98-107) mmol/L Carbon Dioxide 37 H (22-30) mmol/L BUN 39 H (7-17) mg/dL Creatinine 1.62 H (0.52-1.04) mg/dL Glucose 213 H (74-99) mg/dL POC Glucose (mg/dL) 214 H (75-99) mg/dL 01/18/20 Range/Units 11:26 WBC (3.8-10.6) k/uL RBC (3.80-5.40) m/uL Hgb (11.4-16.0) gm/dL MCV (80.0-100.0) fL MCHC (31.0-37.0) g/dL RDW (11.5-15.5) % Plt Count (150-450) k/uL Lymphocytes # (1.0-4.8) k/uL Macrocytosis Chloride (98-107) mmol/L Carbon Dioxide (22-30) mmol/L BUN (7-17) mg/dL Creatinine (0.52-1.04) mg/dL Glucose (74-99) mg/dL POC Glucose (mg/dL) 176 H (75-99) mg/dL Assessment and Plan Assessment: Assessment #1 abdominal discomfort of unknown etiology #2 mildly abnormal troponin #3 heart failure with preserved LV function #4 valvular heart disease #5 coronary artery disease #6 status post permanent pacemaker #7 permanent atrial fibrillation #8 multiple comorbid conditions you Plan #1 continue the current medical regimen #2 continue the conservative medical approach #3 continue IV Lasix for additional 24 hours #4 monitor the kidney function and electrolytes
--- NOTE | 2020-01-18 13:54 | P.PN ---
Subjective Progress Note Date: 01/18/20 Principal diagnosis: This is an 84 are old female who was recently admitted with increasing shortness of breath along with some mild abdominal discomfort and is being closely monit ored. Patient recently underwent a CAT scan of the abdomen and pelvis which confirmed the features of CHF with some subcutaneous edema and chest x-ray showed cardiomegaly with possible evidence of CHF and pleural effusion. Cardiology is following the patient. Patient is currently maintained on IV Lasix and will continue. Will repeat a.m. labs. Current creatinine is 1.33. Patient is currently maintained on breathing inhalational treatments along with IV steroids and will continue at this time. PT/OT to evaluate the patient. Case management and social work following as patient is a resident at [facility] and will be returning there once stabilized and discharged. Patient continues to have some mild abdominal discomfort but denies any nausea or vomiting. Patient underwent limited echo showing a small generalized pericardial effusion with moderate pleural effusions present. Review of systems: Constitutional: Reports fatigue Cardiovascular: No reports of chest pain or palpitations Respiratory: Reports some shortness of breath, no reports of cough GI: No reports of nausea or vomiting, reports some mild abdominal bloating : No reports of dysuria or retention Neurovascular: Reports weakness, no reports of numbness 01/18/2020 Patient is seen and evaluated in follow-up and is having intermittent periods of confusion. Patient states that she feels very ill as far as abdominal discomfort and her shortness of breath. Cardiology following. Continue with IV Lasix at 20 mg every 8 hours for diuresis. Patient is also maintained on breathing inhalational treatments along with IV steroids and will continue at this time. Creatinine slightly elevated at 1.6 to and will repeat a.m. labs. Patient continues to state she has abdominal discomfort and per nursing staff did have a bowel movement yesterday 2. Currently patient denies any chest pain, worsening shortness of breath, or palpitations. Patient is afebrile. No reports of nausea or vomiting and patient has been tolerating diet. Objective - Vital Signs Vital signs: Vital Signs Temp 98.2 F 01/18/20 11:09 Pulse 62 01/18/20 11:09 Resp 16 01/18/20 11:09 BP 125/68 01/18/20 11:09 Pulse Ox 97 01/18/20 11:09 Intake & Output 0801/18/20 01/18/20 18:59 06:59 18:59 Intake Total 240 120 Output Total 300 Balance -60 120 Weight 79.5 kg 66 kg Intake: Oral 240 120 Output: Urine 300 Other: Voiding Method Bedside Commode Bedside Commode Bedside Commode # Voids 0 1 1 # Bowel Movements 0 1 - Exam Gen: This is a 84-year-old female lying in bed, asleep but arousable, alert and oriented 2-3. Hard of hearing. Temp is 98.2F, pulse is 62, respirations are 16, blood pressure is 125/68, oxygen saturation is 97% on 2 L via nasal cannula. HEENT: Head is atraumatic, normocephalic. Pupils equal, round. Sclerae is anicteric. NECK: Supple. No JVD. No lymphadenopathy. No thyromegaly. LUNGS: Diminished breath sounds bilaterally with no wheezing or rhonchi noted. No intercostal retractions. HEART: S1, S2 are muffled ABDOMEN: Soft. Bowel sounds are present. No masses. Mild tenderness noted on palpation. EXTREMITIES: No pedal edema. No calf tenderness. Mild bilateral lower extremity edema noted NEUROLOGICAL: Patient is awake, alert and oriented x2-3. Diffusely weak. - Labs CBC & Chem 7: 01/18/20 06:14 01/18/20 06:14 Labs: Abnormal Lab Results - Last 24 Hours (Table) 01/17/20 01/17/20 01/18/20 Range/Units 16:44 21:00 06:14 WBC 2.6 L (3.8-10.6) k/uL RBC 3.49 L (3.80-5.40) m/uL Hgb 10.5 L (11.4-16.0) gm/dL MCV 105.1 H (80.0-100.0) fL MCHC 28.7 L (31.0-37.0) g/dL RDW 19.7 H (11.5-15.5) % Plt Count 104 L (150-450) k/uL Lymphocytes # 0.2 L (1.0-4.8) k/uL Macrocytosis Marked A Chloride (98-107) mmol/L Carbon Dioxide (22-30) mmol/L BUN (7-17) mg/dL Creatinine (0.52-1.04) mg/dL Glucose (74-99) mg/dL POC Glucose (mg/dL) 263 H 248 H (75-99) mg/dL 01/18/20 01/18/20 01/18/20 Range/Units 06:14 06:16 11:26 WBC (3.8-10.6) k/uL RBC (3.80-5.40) m/uL Hgb (11.4-16.0) gm/dL MCV (80.0-100.0) fL MCHC (31.0-37.0) g/dL RDW (11.5-15.5) % Plt Count (150-450) k/uL Lymphocytes # (1.0-4.8) k/uL Macrocytosis Chloride 97 L (98-107) mmol/L Carbon Dioxide 37 H (22-30) mmol/L BUN 39 H (7-17) mg/dL Creatinine 1.62 H (0.52-1.04) mg/dL Glucose 213 H (74-99) mg/dL POC Glucose (mg/dL) 214 H 176 H (75-99) mg/dL Assessment and Plan Assessment: Shortness of breath with possible congestive heart failure acute exacerbation, ejection fraction 50-55% with acute on chronic diastolic dysfunction Moderate to severe mitral regurgitation Severe tricuspid regurgitation and severe pulmonary hypertension on 2-D echo previously Pericardial effusion Anemia, macrocytic Thrombocytopenia increased creatinine with possibly chronic kidney disease stage III Troponin 0.044. Rule out acute coronary event History of asthma, chronic obstructive pulmonary disease History of coronary artery disease Diabetes mellitus type 2 History of DVT history of gastroesophageal reflux disease hard of hearing hypertension history of degenerative joint disease history of pneumonia history of restless leg syndrome history of cataracts history of neuropathy history of coronary artery disease with stent history of pacemaker History of hemorrhoidectomy history of anxiety, depression Full code Recommendations and discussion: Recommend to continue current medications, management, and symptomatic treatment. Continue with IV Lasix 20 mg every 8 hours at this time. Patient to continue with bowel regimen. Will repeat a.m. labs. Cardiology following closely. PT/OT evaluated the patient recommending rehab upon discharge. Due to multiple complex medical issues, prognosis is guarded. Further recommendations to follow. Case management and social work following for return to [facility] as she is a resident there once stabilized and discharged. patient will likely require continued PT/OT therapy for strength and mobility. Possible discharge in 24-48 hours.
[2020-01-18 17:15] LABS: Glucose,Whole Blood 185 mg/dL (75-99)
[2020-01-18] MEDS: rOPINIRole HCL 4 MG TABLET PO SCH (19:50)
[2020-01-18] MEDS: SENNOSIDES 8.6 MG TAB PO SCH (19:50)
[2020-01-18] MEDS: AMMONIUM LACTATE 12% CREAM 140 GM TUBE TOPICAL SCH (19:51)
[2020-01-18] MEDS: PRAVASTATIN SODIUM 40 MG TAB PO SCH (19:51)
[2020-01-18 21:02] LABS: Glucose,Whole Blood 216 mg/dL (75-99)
[2020-01-19] MEDS: ALPRAZolam 0.25 MG TAB PO PRN (00:34)
[2020-01-19] MEDS: PANTOPRAZOLE 40 MG TABLET PO SCH ×2 (06:12→17:08)
[2020-01-19] MEDS: LEVOTHYROXINE 112 MCG TAB PO SCH (06:13)
[2020-01-19] MEDS: ONDANSETRON 4 MG TAB PO SCH ×3 (06:13→17:08)
[2020-01-19] MEDS: ISOSORBIDE MONONITRATE ER 30 MG TAB.ER.24H PO SCH (06:13)
[2020-01-19] MEDS: methylPREDNISolone SOD SUCCI 125 MG/2 ML VIAL IV SCH ×4 (06:13→23:08)
[2020-01-19] MEDS: APIXABAN 2.5 MG TABLET PO SCH ×2 (06:13→17:09)
[2020-01-19 06:31] LABS: Glucose,Whole Blood 207 mg/dL (75-99)
[2020-01-19] MEDS: INSULIN ASPART (NovoLOG) 100 UNIT/ML VIAL SQ SCH ×4 (06:45→21:12)
[2020-01-19] MEDS: IPRATROPIUM-ALBUTEROL 3 ML NEB INHALATION SCH ×4 (08:16→19:36)
[2020-01-19 08:27] LABS: Calcium 8.9 mg/dL (8.4-10.2); Potassium 4.9 mmol/L (3.5-5.1)
[2020-01-19 08:42] LABS: Anisocytosis Slight; Basophils % (A) 0 %; Eosinophils % (A) 1 %; HCT 41.1 % (34.0-46.0); Hypochromasia Marked; Lymphocytes # (A) 0.3 k/uL (1.0-4.8); Lymphocytes % (A) 11 %; MCH 30.8 pg (25.0-35.0); MCHC 29.1 g/dL (31.0-37.0); Macrocytosis Marked; Monocytes # (A) 0.2 k/uL (0-1.0); Monocytes % (A) 6 %; Neutrophils # (A) 2.4 k/uL (1.3-7.7); Neutrophils % (A) 82 %; Platelet Count 111 k/uL (150-450); RBC 3.88 m/uL (3.80-5.40)
[2020-01-19] MEDS: POTASSIUM CHLORIDE ER 10 MEQ TAB.ER.PRT PO SCH (08:53)
[2020-01-19] MEDS: CALCIUM CARBONATE 500 MG CHEWABLE PO SCH ×2 (08:53→21:11)
[2020-01-19] MEDS: METOPROLOL SUCCINATE (ER) 25 MG TAB.ER.24H PO SCH (08:54)
[2020-01-19] MEDS: allopurinoL 100 MG TAB PO SCH (08:54)
[2020-01-19] MEDS: FERROUS SULFATE 325 MG TAB PO SCH (08:54)
[2020-01-19] MEDS: FUROSEMIDE 10 MG/ML 2 ML VIAL IV SCH (08:54)
[2020-01-19 09:40] LABS: Poikilocytosis (M) Present
[2020-01-19 12:27] LABS: Glucose,Whole Blood 197 mg/dL (75-99)
--- NOTE | 2020-01-19 12:53 | CT ---
EXAMINATION TYPE: CT brain wo con DATE OF EXAM: 01/19/2020 HISTORY: Confusion CT DLP: 1099.4 mGycm. Automated Exposure Control for Dose Reduction was Utilized. TECHNIQUE: CT scan of the head is performed without contrast. COMPARISON: CT brain January 03, 2020. FINDINGS: There is no acute intracranial hemorrhage or midline shift identified. There is diffuse v entricular and sulcal prominence consistent with diffuse age-related cerebral atrophy. There is low- attenuation in the periventricular white matter consistent with chronic small vessel ischemic change. Vascular calcification distal internal carotid arteries bilaterally is redemonstrated. The globes a re intact and the visualized sinuses are clear. IMPRESSION: No acute intracranial hemorrhage or midline shift. There is mild to moderate diffuse ce rebral atrophy and chronic small vessel ischemic change the redemonstrated. No significant change fr om prior.
--- NOTE | 2020-01-19 14:35 | P.PN ---
Subjective Progress Note Date: 01/19/20 CHIEF COMPLAINT: Heart failure HISTORY OF PRESENT ILLNESS: Patient examined this morning at the bedside. She is [place] and slightly confused. Denies shortness of breath or chest pain. She remains on IV lasix. Fluid balance over the last 24 hours is +399 mL. Her w eight is up 1 kg. Creatinine 1.77, up from 1.62 yesterday. Vital signs stable. PHYSICAL EXAM: VITAL SIGNS: Reviewed. GENERAL: Well-developed in no acute distress. NECK: Supple. No JVD or thyromegaly LUNGS: Respirations even and unlabored. Lungs essentially clear to auscultation bilaterally. HEART: Irregular rate and rhythm. S1 and S2 heard. EXTREMITIES: Normal range of motion. No clubbing or cyanosis. Peripheral pulses intact. Trace lower extremity edema ASSESSMENT: #1 abdominal discomfort of unknown etiology #2 mildly abnormal troponin #3 heart failure with preserved LV function #4 valvular heart disease #5 coronary artery disease #6 status post permanent pacemaker #7 permanent atrial fibrillation #8 multiple comorbid conditions PLAN: -Continue current medical regimen -Daily weights and accurate I&O -Monitor kidney function -Discontinue IV lasix. Start the patient on Lasix 40mg PO daily Nurse practitioner note has been reviewed by physician. Signing provider agrees with the documented findings, assessment, and plan of care. Objective - Vital Signs Vital signs: Vital Signs Temp 97.4 F L 01/19/20 08:00 Pulse 76 01/19/20 08:27 Resp 16 01/19/20 08:00 BP 121/69 01/19/20 08:00 Pulse Ox 96 01/19/20 08:00 Intake & Output 01/18/20 01/19/20 01/19/20 18:59 06:59 18:59 Intake Total 600 Output Total 200 1 Balance 400 -1 Weight 67 kg Intake: Oral 600 Output: Urine 200 1 Other: Voiding Method Bedside Commode Bedside Commode Bedside Commode # Voids 2 0 # Bowel Movements 0 - Labs CBC & Chem 7: 01/19/20 07:26 01/19/20 07:26 Labs: Abnormal Lab Results - Last 24 Hours (Table) 01/18/20 01/18/20 01/18/20 Range/Units 11:26 17:07 21:00 WBC (3.8-10.6) k/uL MCV (80.0-100.0) fL MCHC (31.0-37.0) g/dL RDW (11.5-15.5) % Plt Count (150-450) k/uL Lymphocytes # (1.0-4.8) k/uL Macrocytosis Chloride (98-107) mmol/L Carbon Dioxide (22-30) mmol/L BUN (7-17) mg/dL Creatinine (0.52-1.04) mg/dL Glucose (74-99) mg/dL POC Glucose (mg/dL) 176 H 185 H 216 H (75-99) mg/dL 01/19/20 01/19/20 01/19/20 Range/Units 06:27 07:26 07:26 WBC 3.0 L (3.8-10.6) k/uL MCV 106.0 H (80.0-100.0) fL MCHC 29.1 L (31.0-37.0) g/dL RDW 19.0 H (11.5-15.5) % Plt Count 111 L (150-450) k/uL Lymphocytes # 0.3 L (1.0-4.8) k/uL Macrocytosis Marked A Chloride 97 L (98-107) mmol/L Carbon Dioxide 34 H (22-30) mmol/L BUN 52 H (7-17) mg/dL Creatinine 1.77 H (0.52-1.04) mg/dL Glucose 178 H (74-99) mg/dL POC Glucose (mg/dL) 207 H (75-99) mg/dL
--- NOTE | 2020-01-19 14:42 | P.PN ---
Subjective Progress Note Date: 01/19/20 Principal diagnosis: This is an 84 are old female who was recently admitted with increasing shortness of breath along with some mild abdominal discomfort and is being closely monit ored. Patient recently underwent a CAT scan of the abdomen and pelvis which confirmed the features of CHF with some subcutaneous edema and chest x-ray showed cardiomegaly with possible evidence of CHF and pleural effusion. Cardiology is following the patient. Patient is currently maintained on IV Lasix and will continue. Will repeat a.m. labs. Current creatinine is 1.33. Patient is currently maintained on breathing inhalational treatments along with IV steroids and will continue at this time. PT/OT to evaluate the patient. Case management and social work following as patient is a resident at [facility] and will be returning there once stabilized and discharged. Patient continues to have some mild abdominal discomfort but denies any nausea or vomiting. Patient underwent limited echo showing a small generalized pericardial effusion with moderate pleural effusions present. Review of systems: Constitutional: Reports fatigue Cardiovascular: No reports of chest pain or palpitations Respiratory: Reports some shortness of breath, no reports of cough GI: No reports of nausea or vomiting, reports some mild abdominal bloating : No reports of dysuria or retention Neurovascular: Reports weakness, no reports of numbness 01/18/2020 Patient is seen and evaluated in follow-up and is having intermittent periods of confusion. Patient states that she feels very ill as far as abdominal discomfort and her shortness of breath. Cardiology following. Continue with IV Lasix at 20 mg every 8 hours for diuresis. Patient is also maintained on breathing inhalational treatments along with IV steroids and will continue at this time. Creatinine slightly elevated at 1.6 to and will repeat a.m. labs. Patient continues to state she has abdominal discomfort and per nursing staff did have a bowel movement yesterday 2. Currently patient denies any chest pain, worsening shortness of breath, or palpitations. Patient is afebrile. No reports of nausea or vomiting and patient has been tolerating diet. 01/19/2020 Patient is seen in follow-up today and continues to be confused and extremely hard of hearing. Patient is being closely monitored. Cardiology following closely and patient is maintained on Lasix which is being transitioned oral Lasix. Creatinine is 1.77 today with a BUNs of 52. Patient had a CAT scan of the head showing no acute intracranial hemorrhage or midline shift with mild to moderate diffuse cerebral atrophy and chronic small vessel ischemic changes that are again redemonstrated with no significant change from prior CT. Patient also underwent a swallow evaluation with speech pathology showing within normal limits and no signs of aspiration and to continue with current diet. Review of systems: Constitutional: Reports fatigue, no reports of fevers or chills Cardiovascular: No reports of chest pain or palpitations Respiratory: Reports shortness of breath GI: No reports her nausea, vomiting, or diarrhea, continues to report abdominal discomfort on palpation : No reports of dysuria or retention Active Medications Acetaminophen (Tylenol Tab) 650 mg PO Q4H PRN PRN Reason: Mild Pain Hydrocodone Bitart/Acetaminophen ([place] 5-325) 1 each PO Q6HR PRN PRN Reason: Pain Last Admin: 01/16/20 22:42 Dose: 1 each Documented by: Albuterol/Ipratropium (Duoneb 0.5 Mg-3 Mg/3 Ml Soln) 3 ml INHALATION RT-QID [facility] Last Admin: 01/19/20 11:41 Dose: 3 ml Documented by: Allopurinol (Zyloprim) 100 mg PO DAILY [facility] Last Admin: 01/19/20 08:54 Dose: 100 mg Documented by: Alprazolam (Xanax) 0.25 mg PO TID PRN PRN Reason: Anxiety Last Admin: 01/19/20 00:34 Dose: 0.25 mg Documented by: Apixaban (Eliquis) 2.5 mg PO BID@0700,1600 [facility] Last Admin: 01/19/20 06:13 Dose: 2.5 mg Documented by: Calcium Carbonate/Glycine (Tums) 500 mg PO BID [facility] Last Admin: 01/19/20 08:53 Dose: 500 mg Documented by: Ferrous Sulfate (Feosol) 325 mg PO DAILY [facility] Last Admin: 01/19/20 08:54 Dose: 325 mg Documented by: Furosemide (Lasix) 40 mg PO DAILY [facility] Insulin Aspart (Novolog) 0 unit SQ ACHS [facility]; Protocol Last Admin: 01/19/20 12:46 Dose: 2 unit Documented by: Isosorbide Mononitrate (Imdur) 30 mg PO DAILY@0700 [facility] Last Admin: 01/19/20 06:13 Dose: 30 mg Documented by: Lactic Acid (Ammonium Lactate) 1 applic TOPICAL HS [facility] Last Admin: 01/18/20 19:51 Dose: 1 applic Documented by: Levothyroxine Sodium (Synthroid) 112 mcg PO DAILY@0630 [facility] Last Admin: 01/19/20 06:13 Dose: 112 mcg Documented by: Magnesium Hydroxide (Milk Of Magnesia) 2,400 mg PO DAILY PRN PRN Reason: Constipation Methylprednisolone Sodium Succinate (Solu-Medrol) 60 mg IV Q6HR [facility] Last Admin: 01/19/20 12:34 Dose: Not Given Documented by: Metoprolol Succinate (Toprol Xl) 25 mg PO DAILY [facility] Last Admin: 01/19/20 08:54 Dose: 25 mg Documented by: Ondansetron HCl (Zofran) 4 mg PO TID@0700,1300,1900 [facility] Last Admin: 01/19/20 12:46 Dose: 4 mg Documented by: Ondansetron HCl (Zofran) 4 mg PO BID PRN PRN Reason: Nausea Pantoprazole Sodium (Protonix) 40 mg PO AC-BID [facility] Last Admin: 01/19/20 06:12 Dose: 40 mg Documented by: Polyethylene Glycol (Miralax) 17 gm PO Q48H [facility] Last Admin: 01/18/20 08:14 Dose: 17 gm Documented by: Potassium Chloride (K-Dur 10) 10 meq PO DAILY [facility] Last Admin: 01/19/20 08:53 Dose: 10 meq Documented by: Pravastatin Sodium (Pravachol) 40 mg PO HS@2000 [facility] Last Admin: 01/18/20 19:51 Dose: 40 mg Documented by: Ropinirole HCl (Requip) 4 mg PO [facility] Last Admin: 01/18/20 19:50 Dose: 4 mg Documented by: Senna (Senokot) 17.2 mg PO [facility] Last Admin: 01/18/20 19:50 Dose: 17.2 mg Documented by: Objective - Vital Signs Vital signs: Vital Signs Temp 97.4 F L 01/19/20 08:00 Pulse 72 01/19/20 11:52 Resp 16 01/19/20 11:19 BP 111/62 01/19/20 11:19 Pulse Ox 93 L 01/19/20 11:19 Intake & Output 01/18/20 01/19/20 01/19/20 18:59 06:59 18:59 Intake Total 600 Output Total 200 1 Balance 400 -1 Weight 67 kg Intake: Oral 600 Output: Urine 200 1 Other: Voiding Method Bedside Commode Bedside Commode Bedside Commode # Voids 2 0 # Bowel Movements 0 - Exam Gen: This is a 84-year-old female lying in bed, asleep but arousable, confused, alert and oriented 1-2. Hard of hearing. Temp is 97.4F, pulse is 82, respirations are 16, blood pressure is 121/69, oxygen saturation is 96% on 2 L via nasal cannula. HEENT: Head is atraumatic, normocephalic. Pupils equal, round. Sclerae is anicteric. NECK: Supple. No JVD. No lymphadenopathy. No thyromegaly. LUNGS: Diminished breath sounds bilaterally with no wheezing or rhonchi noted. No intercostal retractions. HEART: S1, S2 are muffled ABDOMEN: Soft. Bowel sounds are present. No masses. Mild tenderness noted on palpation. EXTREMITIES: No pedal edema. No calf tenderness. Mild bilateral lower extremity edema noted NEUROLOGICAL: Patient is asleep but arousable, confused, alert and oriented x1- 2. Diffusely weak. - Labs CBC & Chem 7: 01/19/20 07:26 01/19/20 07:26 Labs: Abnormal Lab Results - Last 24 Hours (Table) 01/18/20 01/18/20 01/19/20 Range/Units 17:07 21:00 06:27 WBC (3.8-10.6) k/uL MCV (80.0-100.0) fL MCHC (31.0-37.0) g/dL RDW (11.5-15.5) % Plt Count (150-450) k/uL Lymphocytes # (1.0-4.8) k/uL Macrocytosis Chloride (98-107) mmol/L Carbon Dioxide (22-30) mmol/L BUN (7-17) mg/dL Creatinine (0.52-1.04) mg/dL Glucose (74-99) mg/dL POC Glucose (mg/dL) 185 H 216 H 207 H (75-99) mg/dL 01/19/20 01/19/20 01/19/20 Range/Units 07:26 07:26 12:25 WBC 3.0 L (3.8-10.6) k/uL MCV 106.0 H (80.0-100.0) fL MCHC 29.1 L (31.0-37.0) g/dL RDW 19.0 H (11.5-15.5) % Plt Count 111 L (150-450) k/uL Lymphocytes # 0.3 L (1.0-4.8) k/uL Macrocytosis Marked A Chloride 97 L (98-107) mmol/L Carbon Dioxide 34 H (22-30) mmol/L BUN 52 H (7-17) mg/dL Creatinine 1.77 H (0.52-1.04) mg/dL Glucose 178 H (74-99) mg/dL POC Glucose (mg/dL) 197 H (75-99) mg/dL Assessment and Plan Assessment: Shortness of breath with possible congestive heart failure acute exacerbation, ejection fraction 50-55% with acute on chronic diastolic dysfunction Moderate to severe mitral regurgitation Severe tricuspid regurgitation and severe pulmonary hypertension on 2-D echo previously Pericardial effusion Anemia, macrocytic Thrombocytopenia increased creatinine with possibly chronic kidney disease stage III Troponin 0.044. Ruled out acute coronary event History of asthma, chronic obstructive pulmonary disease History of coronary artery disease Diabetes mellitus type 2 History of DVT history of gastroesophageal reflux disease hard of hearing hypertension history of degenerative joint disease history of pneumonia history of restless leg syndrome history of cataracts history of neuropathy history of coronary artery disease with stent history of pacemaker History of hemorrhoidectomy history of anxiety, depression Full code Recommendations and discussion: Recommend to continue current medications, management, and symptomatic treatm ent. Continue with oral Lasix 40 mg daily. Patient to continue with bowel regimen. Will repeat a.m. labs. Cardiology following closely. PT/OT evaluated the patient recommending rehab upon discharge. Continues to be confused and underwent CT of the head as mentioned previously. Patient also underwent swallow evaluation with no signs of aspiration noted and to continue on current diet. Due to multiple complex medical issues, prognosis is guarded. Further recommendations to follow. Case management and social work following for return to [facility] as she is a resident there once stabilized and discharged. patient will likely require continued PT/OT therapy for strength and mobility. Possible discharge in 24-48 hours.
[2020-01-19 17:17] LABS: Glucose,Whole Blood 267 mg/dL (75-99)
[2020-01-19 20:26] LABS: Glucose,Whole Blood 215 mg/dL (75-99)
[2020-01-19] MEDS: SENNOSIDES 8.6 MG TAB PO SCH (21:11)
[2020-01-19] MEDS: AMMONIUM LACTATE 12% CREAM 140 GM TUBE TOPICAL SCH (21:12)
[2020-01-19] MEDS: PRAVASTATIN SODIUM 40 MG TAB PO SCH (21:12)
[2020-01-19] MEDS: rOPINIRole HCL 4 MG TABLET PO SCH (21:12)
[2020-01-19 21:32] VITALS: TEMP 97.5
[2020-01-20] MEDS: methylPREDNISolone SOD SUCCI 125 MG/2 ML VIAL IV SCH (06:03)
[2020-01-20] MEDS: ONDANSETRON 4 MG TAB PO SCH (06:11)
[2020-01-20] MEDS: LEVOTHYROXINE 112 MCG TAB PO SCH (06:11)
[2020-01-20] MEDS: APIXABAN 2.5 MG TABLET PO SCH (06:11)
[2020-01-20] MEDS: PANTOPRAZOLE 40 MG TABLET PO SCH (06:11)
[2020-01-20] MEDS: ISOSORBIDE MONONITRATE ER 30 MG TAB.ER.24H PO SCH (06:11)
[2020-01-20 06:28] LABS: Glucose,Whole Blood 231 mg/dL (75-99)
[2020-01-20] MEDS: INSULIN ASPART (NovoLOG) 100 UNIT/ML VIAL SQ SCH ×2 (06:54→12:07)
[2020-01-20 07:56] LABS: Calcium 8.8 mg/dL (8.4-10.2); Potassium 4.7 mmol/L (3.5-5.1)
[2020-01-20 08:18] LABS: Anisocytosis Slight; Basophils % (A) 0 %; Eosinophils % (A) 0 %; HCT 38.8 % (34.0-46.0); HGB 11.2 gm/dL (11.4-16.0); Hypochromasia Marked; Lymphocytes # (A) 0.2 k/uL (1.0-4.8); Lymphocytes % (A) 7 %; MCH 30.6 pg (25.0-35.0); MCHC 28.9 g/dL (31.0-37.0); Macrocytosis Marked; Mean Platelet Volume 10.1; Monocytes # (A) 0.3 k/uL (0-1.0); Monocytes % (A) 8 %; Neutrophils # (A) 2.7 k/uL (1.3-7.7); Neutrophils % (A) 84 %; Platelet Count 101 k/uL (150-450); RBC 3.66 m/uL (3.80-5.40); WBC 3.2 k/uL (3.8-10.6)
[2020-01-20] MEDS: allopurinoL 100 MG TAB PO SCH (08:57)
[2020-01-20] MEDS: FERROUS SULFATE 325 MG TAB PO SCH (08:57)
[2020-01-20] MEDS: polyethylene glycoL 3350 17 GM POWD.PACK PO SCH (08:57)
[2020-01-20] MEDS: POTASSIUM CHLORIDE ER 10 MEQ TAB.ER.PRT PO SCH (08:57)
[2020-01-20] MEDS: CALCIUM CARBONATE 500 MG CHEWABLE PO SCH (08:57)
[2020-01-20] MEDS: METOPROLOL SUCCINATE (ER) 25 MG TAB.ER.24H PO SCH (08:58)
[2020-01-20] MEDS ORDERED: FUROSEMIDE 40 MG TAB PO SCH (09:00)
[2020-01-20 09:03] LABS: Poikilocytosis (M) Present
[2020-01-20 09:04] VITALS: BP 124/83; RESP 16
[2020-01-20] MEDS: IPRATROPIUM-ALBUTEROL 3 ML NEB INHALATION SCH ×3 (09:47→15:35)
[2020-01-20] MEDS ORDERED: methylPREDNISolone SOD SUCCI 40 MG/ML 1 ML VIAL IV SCH (10:15)
[2020-01-20 11:52] LABS: Glucose,Whole Blood 145 mg/dL (75-99)
[2020-01-20] MEDS ORDERED: THIAMINE 100 MG TAB PO SCH (12:00)
[2020-01-20] MEDS ORDERED: MULTIVITAMINS, THERA 1 EACH TAB PO SCH (12:00)
[2020-01-20] MEDS ORDERED: FOLIC ACID 1 MG TAB PO SCH (12:00)
--- NOTE | 2020-01-20 12:54 | P.PN ---
Subjective Progress Note Date: 01/20/20 Principal diagnosis: Heart failure with preserved LV function This is another admission for this 84-year-old female patient with an extensive medical history consistent of coronary artery disease and prior coronary revascularization, permanent pacemaker implantation, chronic diastolic congestive heart failure, as well as long-standing persistent atrial fibrillation. She was admitted to the hospital recently and she was discharged in stable medical condition. This time she presented to the hospital with abdominal discomfort. She was diagnosed with heart failure. Also the troponin came in to be slightly elevated. When the patient was interviewed this morning, she is somewhat is a poor historian and difficult to hear. She denies any symptoms of chest pain or chest discomfort, she denies any shortness of breath, dizziness, or any feeling of heart racing or heart fluttering. The EKG showed underlying atrial fibrillation with ventricular paced rhythm. The chest x-ray did not show any acute abnormalities. The troponin was checked and came in to be slightly abnormal. Given the absence of chest pain and chest discomfort, I would recommend a conservative medical approach at this point. I would continue the current medical regimen including oral anticoagulation for the atrial fibrillation. The patient underwent an echocardiogram earlier today and we'll follow-up on that. I would not advise proceeding with any invasive approach like heart catheterization giving her age as well as a poor functional capacity. Meanwhile will continue the Lasix IV for additional 24 hours and continue monitor the kidney function as well as electrolytes. The patient was seen today, January 192019. She does have some change in mental status. Otherwise hemodynamically she is stable. She is on Lasix by mouth which was started yesterday. The creatinine continues to be stable. From the cardiac vascular standpoint of view, the patient is a stable and will follow-up with the patient on when necessary case Objective - Vital Signs Vital signs: Vital Signs Temp 97.5 F L 01/19/20 20:00 Pulse 72 01/20/20 12:08 Resp 16 01/20/20 08:00 BP 124/83 01/20/20 08:00 Pulse Ox 96 01/20/20 08:00 Intake & Output 01/19/20 01/20/20 01/20/20 18:59 06:59 18:59 Intake Total 0 Output Total 350 Balance 0 -350 Intake: Oral 0 Output: Urine 350 Other: Voiding Method Bedside Commode Bedside Commode Bedside Commode # Voids 0 0 2 - Constitutional General appearance: Present: no acute distress - Respiratory Respiratory: bilateral: diminished - Cardiovascular Rhythm: irregularly irregular Heart sounds: normal: S1, S2 - Labs CBC & Chem 7: 01/20/20 06:56 01/20/20 06:56 Labs: Abnormal Lab Results - Last 24 Hours (Table) 01/19/20 01/19/20 01/20/20 Range/Units 17:15 20:25 06:27 WBC (3.8-10.6) k/uL RBC (3.80-5.40) m/uL Hgb (11.4-16.0) gm/dL MCV (80.0-100.0) fL MCHC (31.0-37.0) g/dL RDW (11.5-15.5) % Plt Count (150-450) k/uL Lymphocytes # (1.0-4.8) k/uL Macrocytosis Chloride (98-107) mmol/L Carbon Dioxide (22-30) mmol/L BUN (7-17) mg/dL Creatinine (0.52-1.04) mg/dL Glucose (74-99) mg/dL POC Glucose (mg/dL) 267 H 215 H 231 H (75-99) mg/dL 01/20/20 01/20/20 01/20/20 Range/Units 06:56 06:56 11:51 WBC 3.2 L (3.8-10.6) k/uL RBC 3.66 L (3.80-5.40) m/uL Hgb 11.2 L (11.4-16.0) gm/dL MCV 106.0 H (80.0-100.0) fL MCHC 28.9 L (31.0-37.0) g/dL RDW 19.0 H (11.5-15.5) % Plt Count 101 L (150-450) k/uL Lymphocytes # 0.2 L (1.0-4.8) k/uL Macrocytosis Marked A Chloride 96 L (98-107) mmol/L Carbon Dioxide 37 H (22-30) mmol/L BUN 55 H (7-17) mg/dL Creatinine 1.72 H (0.52-1.04) mg/dL Glucose 206 H (74-99) mg/dL POC Glucose (mg/dL) 145 H (75-99) mg/dL Assessment and Plan Assessment: Assessment #1 abdominal discomfort of unknown etiology #2 mildly abnormal troponin #3 heart failure with preserved LV function #4 valvular heart disease #5 coronary artery disease #6 status post permanent pacemaker #7 permanent atrial fibrillation #8 multiple comorbid conditions you Plan #1 continue the current medical regimen #2 continue the conservative medical approach #3 continue Lasix by mouth #4 follow-up with the patient on when necessary.
--- NOTE | 2020-01-20 13:51 | P.DS ---
Providers Date of admission: 01/16/20 14:48 Expected date of discharge: 01/20/20 Attending physician: Suresh Zheng Consults: 01/16/20 17:58 Consult Physician Routine Consulting Provider: Joaquim Iqbal Consult Reason/Comments: high trops Do you want consulting provider notified?: Yes [facility] Course: Final diagnosis Shortness of breath with possible congestive heart failure acute exacerbation, ejection fraction 50-55% with acute on chronic diastolic dysfunction Moderate to severe mitral regurgitation Severe tricuspid regurgitation and severe pulmonary hypertension on 2-D echo previously Pericardial effusion Anemia, macrocytic Thrombocytopenia increased creatinine with possibly chronic kidney disease stage III Troponin 0.044. Ruled out acute coronary event History of asthma, chronic obstructive pulmonary disease History of coronary artery disease Diabetes mellitus type 2 History of DVT history of gastroesophageal reflux disease hard of hearing hypertension history of degenerative joint disease history of pneumonia history of restless leg syndrome history of cataracts history of neuropathy history of coronary artery disease with stent history of pacemaker History of hemorrhoidectomy history of anxiety, depression Full code Discharge disposition Patient is being discharged in a stable condition with guarded prognosis to [facility] where she is a resident. Patient will follow-up with Dr. Rios in the outpatient setting upon discharge. Patient will continue with the Lasix 40 mg daily along with the prednisone taper. Total time taken is greater than 35 minutes. History of present illness This is a 84-year-old female who was recently admitted with Increasing shortness of breath along with some mild abdominal discomfort and was being closely monitored. Patient underwent a CT of the abdomen and pelvis which showed some features of CHF along with subcutaneous edema. Patient was seen and evaluated by cardiology and was maintained on IV Lasix which has now transitioned oral Lasix. Patient will continue with Lasix 40 mg daily in the outpatient setting. Repeat labs recommended to monitor kidney functions in a few days. Current creatinine slightly elevated at 1.72. Patient continued to be slightly confused and underwent a CT of the head showing no acute intracranial hemorrhage or midl ine shift with mild to moderate diffuse cerebral atrophy and chronic small vessel ischemic changes with no significant change from previous CT. Patient was evaluated by PT/OT and would benefit from physical therapy at the [facility]. Currently no reports of chest pain, Worsening shortness of breath, or palpitations. Patient is afebrile. No reports of nausea or vomiting and patient is tolerating diet. Patient continues to need encouragement with eating. Patient's blood sugars were slightly elevated most likely due to steroids and will continue with monitoring blood sugars before meals at bedtime and treat accordingly with sliding scale. Patient will continue on a prednisone taper in the outpatient setting. Guarded prognosis On exam vital signs are stable. Temp is 97.5F, pulse is 68, respirations are 16, blood pressure is 124/83, oxygen saturation is 96% on 4 L via nasal cannula. Cardio S1, S2 are muffled. Respiratory system shows diminished breath sounds at the bases with Some scattered rhonchi and mild expiratory wheezing noted. Abdomen is soft and nontender. Nervous system shows diffuse weakness. Please refer to medication reconciliation sheet for a list of medications. Patient Condition at Discharge: Fair Plan - Discharge Summary Discharge Rx Participant: No New Discharge Prescriptions: New Folic Acid 1 mg PO DAILY@1200 tab Multivitamins, Thera [Multivitamin (formulary)] 1 each PO DAILY@1200 tab INSULIN ASPART (NovoLOG) [NovoLOG (formulary)] 0 unit SQ ACHS vial Thiamine [Vitamin B-1] 100 mg PO DAILY@1200 tab ALPRAZolam [Xanax] 0.25 mg PO BID PRN #4 tab PRN Reason: Anxiety Continue Ondansetron HCl [Zofran] 4 mg PO TID@0700,1300,1900 allopurinoL [Zyloprim] 100 mg PO DAILY Pantoprazole [Protonix] 40 mg PO BID polyethylene glycoL 3350 [Miralax] 17 gm PO Q48H Metoprolol Succinate (ER) [Toprol XL] 25 mg PO DAILY tab.er.24h Acetaminophen Tab [Tylenol] 650 mg PO Q4H PRN PRN Reason: Mild Pain Calcium Carbonate [Tums] 500 mg PO BID Ferrous Sulfate [Iron (65 MG Elemental)] 325 mg PO DAILY Ipratropium-Albuterol Nebulize [Duoneb 0.5 mg-3 mg/3 ml Soln] 3 ml INHALATION RT-QID PRN PRN Reason: Shortness Of Breath Or Wheezing Levothyroxine Sodium [Synthroid] 112 mcg PO DAILY Magnesium Hydroxide [Milk of Magnesia] 2,400 mg PO DAILY PRN PRN Reason: Constipation Pravastatin Sodium [Pravachol] 40 mg PO HS@2000 Ammonium Lactate Cream [Lac-Hydrin 12% Cream] 1 applic TOPICAL HS Apixaban [Eliquis] 2.5 mg PO BID@0700,1600 Isosorbide Mononitrate ER [Imdur] 30 mg PO DAILY@0700 Ondansetron [Zofran] 4 mg PO BID PRN PRN Reason: Nausea Potassium Chloride ER [K-Dur 10] 10 meq PO DAILY rOPINIRole HCL [Requip] 4 mg PO HS Sennosides [Senna] 17.2 mg PO HS Changed Furosemide [Lasix] 40 mg PO DAILY #0 Discharge Medication List Ondansetron HCl [Zofran] 4 mg PO TID@0700,1300,1900 08/18/16 [History] Pantoprazole [Protonix] 40 mg PO BID 08/18/16 [History] allopurinoL [Zyloprim] 100 mg PO DAILY 08/18/16 [History] polyethylene glycoL 3350 [Miralax] 17 gm PO Q48H 01/06/17 [History] Metoprolol Succinate (ER) [Toprol XL] 25 mg PO DAILY tab.er.24h 07/28/17 [Rx] Acetaminophen Tab [Tylenol] 650 mg PO Q4H PRN 01/03/20 [History] Calcium Carbonate [Tums] 500 mg PO BID 01/03/20 [History] Ferrous Sulfate [Iron (65 MG Elemental)] 325 mg PO DAILY 01/03/20 [History] Ipratropium-Albuterol Nebulize [Duoneb 0.5 mg-3 mg/3 ml Soln] 3 ml INHALATION RT-QID PRN 01/03/20 [History] Levothyroxine Sodium [Synthroid] 112 mcg PO DAILY 01/03/20 [History] Magnesium Hydroxide [Milk of Magnesia] 2,400 mg PO DAILY PRN 01/03/20 [History] Pravastatin Sodium [Pravachol] 40 mg PO HS@199901/03/20 [History] Ammonium Lactate Cream [Lac-Hydrin 12% Cream] 1 applic TOPICAL HS 01/16/20 [History] Apixaban [Eliquis] 2.5 mg PO BID@0700,1600 01/16/20 [History] Isosorbide Mononitrate ER [Imdur] 30 mg PO DAILY@0700 01/16/20 [History] Ondansetron [Zofran] 4 mg PO BID PRN 01/16/20 [History] Potassium Chloride ER [K-Dur 10] 10 meq PO DAILY 01/16/20 [History] Sennosides [Senna] 17.2 mg PO HS 01/16/20 [History] rOPINIRole HCL [Requip] 4 mg PO HS 01/16/20 [History] ALPRAZolam [Xanax] 0.25 mg PO BID PRN #4 tab 01/20/20 [Rx] Folic Acid 1 mg PO DAILY@1200 tab 01/20/20 [Rx] Furosemide [Lasix] 40 mg PO DAILY #0 01/20/20 [Rx] INSULIN ASPART (NovoLOG) [NovoLOG (formulary)] 0 unit SQ ACHS vial 01/20/20 [Rx] Multivitamins, Thera [Multivitamin (formulary)] 1 each PO DAILY@1200 tab 01/20/20 [Rx] Thiamine [Vitamin B-1] 100 mg PO DAILY@1200 tab 01/20/20 [Rx] Follow up Appointment(s)/Referral(s): Paco Rios MD [Primary Care Provider] - 1-2 days Activity/Diet/Wound Care/Special Instructions: Patient is going to [facility] Activity as tolerated Continue with heart healthy diet Continue to monitor blood sugars before meals at bedtime and treat accordingly with sliding scale Follow-up with primary care provider upon discharge Continue with prednisone taper Continue with physical therapy Discharge Disposition: TRANSFER TO SNF/ECF
[2020-01-20 15:45] VITALS: PULSE 68
== END 2020-01-20 16:03 | DRG 291 ==
LOC: EC 12:55 → 3SCARD 14:48
PROVIDERS: ADMIT Hospitalist; ATTEND Hospitalist
DX: I13.0 Hypertensive heart and chronic kidney disease with heart failure and stage 1 through stage 4 chronic kidney disease, or unspecified chronic kidney disease (principal); I50.33 Acute on chronic diastolic (congestive) heart failure; I48.21 Permanent atrial fibrillation; I31.3 Pericardial effusion (noninflammatory); I25.10 Atherosclerotic heart disease of native coronary artery without angina pectoris; I27.20 Pulmonary hypertension, unspecified; J45.909 Unspecified asthma, uncomplicated; J44.9 Chronic obstructive pulmonary disease, unspecified; K21.9 Gastro-esophageal reflux disease without esophagitis; H91.90 Unspecified hearing loss, unspecified ear; G25.81 Restless legs syndrome; M19.90 Unspecified osteoarthritis, unspecified site; Z11.59 Encounter for screening for other viral diseases; E11.40 Type 2 diabetes mellitus with diabetic neuropathy, unspecified; E11.22 Type 2 diabetes mellitus with diabetic chronic kidney disease; N18.3 Chronic kidney disease, stage 3 (moderate); F32.9 Major depressive disorder, single episode, unspecified; F41.9 Anxiety disorder, unspecified; I08.1 Rheumatic disorders of both mitral and tricuspid valves; D69.6 Thrombocytopenia, unspecified; D53.9 Nutritional anemia, unspecified; T38.0X5A Adverse effect of glucocorticoids and synthetic analogues, initial encounter; Z79.52 Long term (current) use of systemic steroids; Z79.890 Hormone replacement therapy; Z79.899 Other long term (current) drug therapy; Z79.01 Long term (current) use of anticoagulants; Z88.8 Allergy status to other drugs, medicaments and biological substances; Z95.5 Presence of coronary angioplasty implant and graft; Z95.0 Presence of cardiac pacemaker; Z90.710 Acquired absence of both cervix and uterus; Z87.01 Personal history of pneumonia (recurrent); Z86.718 Personal history of other venous thrombosis and embolism; Z98.51 Tubal ligation status; Z98.49 Cataract extraction status, unspecified eye; Z90.89 Acquired absence of other organs; Z98.890 Other specified postprocedural states; Z90.49 Acquired absence of other specified parts of digestive tract
CPT/HCPCS: 36415; 70450; 71045; 71046; 74018; 74176; 80048; 80053; 81003; 83605; 83735; 84484; 85025; 85610; 85730; 87635; 93005; 93308; 94640; 96374; 99285